=== PATIENT | female | born 1960 | race Hispanic/Latino ===

== ENCOUNTER 2016-05-26 15:44 | Observation (INO) | payer OTHER ==
[2016-05-26 15:48] VITALS: BMI 31.1
--- NOTE | 2016-05-26 16:35 | C.PDOC ---
History Of Present Illness <Ingrid Lee - Last Filed: 05/26/16 18:52> <Spike Guillory - Last Filed: 05/26/16 20:17> 55-year-old female, presents to the emergency department with complaints of abdominal pain x3 weeks. Patient ain is intermittent and generalized. States she discontinued Humalog after onset of pain "because I thought I was having a reaction." Pt currently not on any diabetes medication and pain is unchanged. Associated symptoms include nausea with non-bloody/non-bilious vomiting. No diarrhea. Pt has a Hx of Cholelithiasis and renal colic. No fever. Hx of chronic back and neck pain, on Percocet and Valium. Pt unable to take Percocet x4 days due to abdominal pain and vomiting. Also complaining of an anxiety exacerbation. All other Hx limited because patient is a poor historian. POOR HISTORIAN ABD PAIN X 3 WEEKS. GENERALIZED, INTERMIT. PS SELF DC HUMALOG AFTER ONSET OF PAIN "BC I THOUGHT I WAS HAVING A REACTION", CURRENTLY NOT ON DM MEDS. PAIN UNCHANGED. +NV. NO DIARRHEA. DENIES PSH. HO CHOLELITHIASIS AND RENAL COLIC. NO FEVER. HO CHRONIC BACK AND NECK PAIN, ON PERCOCET AND VALIUM. UNABLE TO TAKE PERCOCET X 4 DAYS DUE TO ABD PAIN, VOMITING. CO ANXIETY EXAC EXAM MOD DIST ANXIOUS NONTOXIC ABD B/L LQ TEND MILD SOFT NO R/G PSYCH ANXIOUS BUT CONSOLABLE (Ingrid Lee) History Per: Patient Onset/Duration Of Symptoms: Days <Ingrid Lee - Last Filed: 05/26/16 18:52> <Spike Guillory - Last Filed: 05/26/16 20:17> Time Seen by Provider: 05/26/16 16:08 Chief Complaint (Nursing): Abdominal Pain Past Medical History Reviewed: Historical Data, Nursing Documentation, Vital Signs - Medical History PMH: HTN, Hypercholesterolemia Family History: States: Unknown Family Hx - Social History Hx Alcohol Use: No Hx Substance Use: No - Immunization History Hx Tetanus Toxoid Vaccination: No Hx Influenza Vaccination: No Hx Pneumococcal Vaccination: Yes (4 years) <Ingrid Lee - Last Filed: 05/26/16 18:52> Vital Signs: Last Vital Signs Temp 98.2 F 05/26/16 15:51 Pulse 70 05/26/16 17:59 Resp 18 05/26/16 17:59 BP 155/78 H 05/26/16 17:59 Pulse Ox 100 05/26/16 18:53 Review Of Systems Except As Marked, All Systems Reviewed And Found Negative. Constitutional: Negative for: Fever Gastrointestinal: Positive for: Nausea, Vomiting, Abdominal Pain Musculoskeletal: Negative for: Back Pain Skin: Negative for: Rash Psych: Positive for: Anxiety <Ingrid Lee - Last Filed: 05/26/16 18:52> Physical Exam - Physical Exam Appears: Non-toxic, No Acute Distress, Other (MOD DIST ANXIOUS ) Skin: Warm, Dry, No Rash Head: Atraumatic, Normacephalic Eye(s): bilateral: Normal Inspection, PERRL Nose: Normal Oral Mucosa: Moist Lips: Normal Appearing Neck: Normal ROM Cardiovascular: Rhythm Regular Respiratory: Normal Breath Sounds, No Accessory Muscle Use Gastrointestinal/Abdominal: No Guarding, No Rebound, Other (ABD B/L LQ TEND MILD SOFT) Extremity: Normal ROM Neurological/Psych: Other (ANXIOUS BUT CONSOLABLE) <Ingrid Lee - Last Filed: 05/26/16 18:52> ED Course And Treatment - Laboratory Results Result Diagrams: 05/26/16 16:43 05/26/16 16:43 O2 Sat by Pulse Oximetry: 100 <Ingrid Lee - Last Filed: 05/26/16 18:52> - Laboratory Results Result Diagrams: 05/26/16 16:43 05/26/16 16:43 O2 Sat by Pulse Oximetry: 100 Pulse Ox Interpretation: Normal Reevaluation Time: 20:16 Reassessment Condition: Improved <Spike Guillory - Last Filed: 05/26/16 20:17> ED OBSERVATION Date of observation admission: 05/26/16 Time of observation admission: 16:30 <Ingrid Lee - Last Filed: 05/26/16 18:52> Discharge: Yes <Spike Guillory - Last Filed: 05/26/16 20:17> - Observation admission statement Patient is being placed in observation because:: ABD PAIN, NV; ANXIETY (Ingrid Lee) - Goals of Observation Goals of observation are:: NEG ACUTE ABD, SX IMPROVE (Ingrid Lee) - Progress Note Progress Note: 05/26/16 19:00 APPEARS COMFORTABLE NAD VSS S/O DR GUILLORY FU CT, DISPO (HoIngrid) Disposition <Ingrid Lee - Last Filed: 05/26/16 18:52> Counseled Patient/Family Regarding: Studies Performed, Diagnosis, Need For Followup, Rx Given - Disposition Disposition Time: 19:00 <Spike Guillory - Last Filed: 05/26/16 20:17> - Disposition Disposition: HOME/ ROUTINE Condition: FAIR - Clinical Impression Clinical Impression: Abdominal pain, Constipation - Scribe Statement The provider has reviewed the documentation as recorded by the Scribe <Ingrid Lee - Last Filed: 05/26/16 18:52> <Spike Guillory - Last Filed: 05/26/16 20:17> - Scribe Statement Kathleen Mcneil All medical record entries made by the Scribe were at my direction and personally dictated by me. I have reviewed the chart and agree that the record accurately reflects my personal performance of the history, physical exam, medical decision making, and the department course for this patient. I have also personally directed, reviewed, and agree with the discharge instructions and disposition. (Ingrid Lee)
[2016-05-26] MEDS ORDERED: Sodium Chloride 0.9% 1,000 ML IV ONE (16:36)
[2016-05-26] MEDS ORDERED: Morphine 4 MG/ML VIAL ONE (16:47)
[2016-05-26] MEDS ORDERED: Sodium Chloride 0.9% 1,000 ML ONE (16:47)
[2016-05-26 16:49] LABS: BASO # 0.1 K/uL (0.0-0.2); BASO % 0.7 % (0.0-2.0); EOS % 0.4 % (0.0-4.0); HEMATOCRIT 40.6 % (34.0-47.0); LYMPH # 2.1 K/uL (1.0-4.3); LYMPH % 25.4 % (20.0-40.0); MEAN CELL VOLUME 86.6 fL (81.0-99.0); MEAN CORPUSCULAR HGB CONC 33.4 g/dL (33.0-37.0); MEAN PLATELET VOLUME 10.2 fL (7.2-11.7); MONO # 0.3 K/uL (0.0-0.8); RED CELL DISTRIBUTION WIDTH 13.3 % (11.5-14.5); WHITE BLOOD COUNT 8.5 K/uL (4.8-10.8)
[2016-05-26 16:56] LABS: CHLORIDE 98 mmol/L (98-107)
[2016-05-26 16:57] LABS: POTASSIUM 4.7 mmol/L (3.6-5.2); SODIUM 137 mmol/L (132-148)
[2016-05-26 16:59] LABS: ALB/GLOB RATIO 1.5 (1.0-2.1); ALKALINE PHOSPHATASE 79 U/L (38-126); AST/SGOT 21 U/L (14-36); BILIRUBIN,TOTAL 0.9 mg/dL (0.2-1.3); CARBON DIOXIDE 25 mmol/L (22-30); GFR AFRICAN-AMERICAN > 60; TOTAL PROTEIN 7.6 g/dL (6.3-8.3)
[2016-05-26 17:00] LABS: ALT/SGPT 19 U/L (9-52); BLOOD UREA NITROGEN 28 mg/dL (7-17); CALCIUM 9.7 mg/dl (8.6-10.4); GLUCOSE,RANDOM 173 mg/dL (65-105)
[2016-05-26 17:05] LABS: VENOUS BLOOD GAS BASE EXCESS 2.7 mmol/L (0.0-2.0); VENOUS BLOOD GAS PCO2 44 mmHg (40-60); VENOUS BLOOD PH 7.41 (7.32-7.43)
--- NOTE | 2016-05-26 17:34 | RAD ---
PROCEDURE: CHEST RADIOGRAPH, 1 VIEW HISTORY: Abdominal pain COMPARISON: None available. FINDINGS: LUNGS: The lungs are well inflated and clear. PLEURA: No pneumothorax or pleural fluid seen. CARDIOVASCULAR: Normal. OSSEOUS STRUCTURES: No significant abnormalities. VISUALIZED UPPER ABDOMEN: Normal. OTHER FINDINGS: None. IMPRESSION: No active pulmonary disease.
--- NOTE | 2016-05-26 17:45 | US ---
HISTORY: Abdominal pain HO CHOLELITHIASIS COMPARISON: None. TECHNIQUE: Sonographic evaluation of the right upper quadrant of the abdomen. FINDINGS: LIVER: Measures 16.9 cm in length. There is diffuse increased echogenicity of the liver parenchyma. No mass. No intrahepatic bile duct dilatation. GALLBLADDER: Unremarkable. No gallstones. COMMON BILE DUCT: Measures 5.0 mm. No stones. No dilatation. PANCREAS: Unremarkable as visualized. No mass. No ductal dilatation. RIGHT KIDNEY: Measures 11.0 cm in length. Normal echogenicity. No calculus, mass, or hydronephrosis. AORTA: No aneurysmal dilatation. IVC: Unremarkable. OTHER FINDINGS: None . IMPRESSION: Diffuse increased echogenicity in the liver may reflect hepatic steatosis however parenchymal infectious/ inflammatory etiologies cannot be entirely excluded. Clinical and laboratory correlation is advised.
[2016-05-26 18:00] VITALS: RESP 18
[2016-05-26] MEDS ORDERED: Iodixanol 320 MG/ML 100 ML BOTTLE IV ONE (18:19)
[2016-05-26 20:23] VITALS: BP 149/77; PULSE 75; TEMP 98.1; O2SAT 99
[2016-05-26 20:28] LABS: URINE BACTERIA OCC (<OCC); URINE BILIRUBIN NEGATIVE (NEGATIVE); URINE BLOOD NEGATIVE (NEGATIVE); URINE COLOR Yellow (YELLOW); URINE GLUCOSE (UA) NORMAL (Normal); URINE KETONE 1+ mg/dL (NEGATIVE); URINE LEUKOCYTE ESTERASE 2+ Leu/uL (Negative); URINE PROTEIN NEGATIVE (NEGATIVE); URINE UROBILINOGEN NORMAL mg/dL (0.2-1.0); WBC URINE 46 /hpf (0-5)
--- NOTE | 2016-05-27 12:09 | CT ---
PROCEDURE: CT Abdomen and Pelvis HISTORY: abd pain COMPARISON: None. TECHNIQUE: Contrast dose: 100cc Visipaque Radiation dose: Total exam DLP = 937.34 mGy-cm. This CT exam was performed using one or more of the following dose reduction techniques: Automated exposure control, adjustment of the mA and/or kV according to patient size, and/or use of iterative reconstruction technique. FINDINGS: LOWER THORAX: Mild atelectasis/scarring changes in the middle lobe and lingular regions Small hiatal hernia LIVER: Liver is enlarged measuring nearly 21 cm in CC dimension. Mild fatty hepatic infiltration. Mild 1.5 mm round/elliptical shaped area of low attenuation within the posterior superior margin right lobe liver most likely representing hemangioma. Followup interval recommended to to assess stability and exclude other pathology GALLBLADDER AND BILE DUCTS: Unremarkable. PANCREAS: Unremarkable. No gross lesion or ductal dilatation. SPLEEN: Spleen is upper limits of normal in size ADRENALS: Unremarkable. No mass. KIDNEYS AND URETERS: Unremarkable. No hydronephrosis. No solid mass. VASCULATURE: Unremarkable. No aortic aneurysm. BOWEL: Unremarkable. No obstruction. No gross mural thic moderate amount of stool seen within the at ascending and transverse colon consistent with constipation. APPENDIX: Normal appendix. PERITONEUM: Unremarkable. No free fluid. No free air. Tiny fat containing umbilical hernia LYMPH NODES: Unremarkable. No enlarged lymph nodes. BLADDER: Unremarkable. REPRODUCTIVE: Unremarkable. BONES: No acute fracture. OTHER FINDINGS: None. IMPRESSION: Mild constipation. Mild hepatomegaly Probable small hemangioma. Followup interval recommended. Mild fatty hepatic infiltration. Borderline splenomegaly
--- NOTE | 2016-05-29 12:00 | CARD ---
APPROVED REPORT EKG Measurement Heart [id number] PA 158P12 [id number] <Conclusion> Normal sinus rhythm Nonspecific IVCD Abnormal ECG
== END 2016-05-26 20:17 | disposition home or self-care (01) ==
LOC: C.ER 15:44 → C.9OBSV 16:30
PROVIDERS: ADMIT Emergency Medicine; ATTEND Emergency Medicine
DX: R10.84 Generalized abdominal pain (principal); F41.9 Anxiety disorder, unspecified; I10 Essential (primary) hypertension; E78.00 Pure hypercholesterolemia, unspecified; K59.00 Constipation, unspecified
CPT/HCPCS: 71010; 74177; 76705; 80053; 81001; 82009; 82803; 83690; 85025; 96374; 96375; 99284; G0378; J2060; J2270; J2405; J2765; J7040; Q9967

== ENCOUNTER 2016-06-28 08:36 | Observation (INO) | payer OTHER ==
[2016-06-28 08:54] VITALS: BMI 32.2
[2016-06-28 10:03] LABS: BASO # 0.1 K/uL (0.0-0.2); BASO % 0.8 % (0.0-2.0); EOS # 0.1 K/uL (0.0-0.7); EOS % 1.4 % (0.0-4.0); LYMPH # 2.9 K/uL (1.0-4.3); MEAN CELL VOLUME 86.1 fL (81.0-99.0); MEAN CORPUSCULAR HGB CONC 33.7 g/dL (33.0-37.0); MEAN PLATELET VOLUME 10.1 fL (7.2-11.7); MONO # 0.5 K/uL (0.0-0.8); RED CELL DISTRIBUTION WIDTH 13.1 % (11.5-14.5); WHITE BLOOD COUNT 7.8 K/uL (4.8-10.8)
--- NOTE | 2016-06-28 10:04 | RAD ---
HISTORY: SOB COMPARISON: 05/26/2016 TECHNIQUE: Chest PA and lateral FINDINGS: LUNGS: No active pulmonary disease. PLEURA: No significant pleural effusion identified. No pneumothorax apparent. CARDIOVASCULAR: Normal. OSSEOUS STRUCTURES: No significant abnormalities. VISUALIZED UPPER ABDOMEN: Normal. OTHER FINDINGS: None. IMPRESSION: No active disease.
[2016-06-28 10:09] LABS: CHLORIDE 99 mmol/L (98-107); SODIUM 135 mmol/L (132-148)
[2016-06-28 10:10] LABS: POTASSIUM 4.7 mmol/L (3.6-5.2)
[2016-06-28 10:12] LABS: ALB/GLOB RATIO 1.4 (1.0-2.1); ALKALINE PHOSPHATASE 71 U/L (38-126); ALT/SGPT 23 U/L (9-52); AST/SGOT 21 U/L (14-36); BILIRUBIN,TOTAL 0.6 mg/dL (0.2-1.3); BLOOD UREA NITROGEN 16 mg/dL (7-17); CALCIUM 8.8 mg/dl (8.6-10.4); CARBON DIOXIDE 28 mmol/L (22-30); GFR AFRICAN-AMERICAN > 60; GLUCOSE,RANDOM 176 mg/dL (65-105); TOTAL PROTEIN 6.7 g/dL (6.3-8.3)
--- NOTE | 2016-06-28 10:15 | C.PDOC ---
History Of Present Illness 55 year old patient, with a past medical history of diabetes, anxiety, hypertension, hypercholesterolemia, and sciatica, is brought to the ED by ambulance complaining of chest pain that began prior to arrival. Patient states she was at home and saw a big red spider. Then she saw bed bugs crawling everywhere. Patient felt anxious, then the chest pain started. She called 9-1- 1. She was given Nitro and Aspirin on route to the ED. Patient denies fever, palpitations, shortness of breath, numbness weakness, headache or dizziness. Time Seen by Provider: 06/28/16 08:41 Chief Complaint (Nursing): Chest Pain History Per: Patient History/Exam Limitations: no limitations Onset/Duration Of Symptoms: Mins (prior to arrival) Current Symptoms Are (Timing): Still Present Context: Other Severity: Mild Pain Scale Rating Of: 3 Quality: "Pain" Exacerbating Factors: None Alleviating Factors: None Nitro Therapy Administered: 1, Per EMS Recent travel outside of the [place]: No Additional History Per: EMS Past Medical History Reviewed: Historical Data, Nursing Documentation, Vital Signs Vital Signs: Last Vital Signs Temp 97.7 F 06/28/16 13:34 Pulse 84 06/28/16 13:34 Resp 18 06/28/16 13:34 BP 123/80 06/28/16 13:34 Pulse Ox 99 06/28/16 13:34 - Medical History PMH: Anxiety, HTN, Hypercholesterolemia Family History: States: Unknown Family Hx - Social History Hx Alcohol Use: No Hx Substance Use: No - Immunization History Hx Tetanus Toxoid Vaccination: No Hx Influenza Vaccination: No Hx Pneumococcal Vaccination: Yes (4 years) Review Of Systems Except As Marked, All Systems Reviewed And Found Negative. Constitutional: Negative for: Fever Cardiovascular: Positive for: Chest Pain. Negative for: Palpitations Respiratory: Negative for: Shortness of Breath Gastrointestinal: Negative for: Nausea, Vomiting Neurological: Negative for: Weakness, Numbness, Headache, Dizziness Psych: Positive for: Anxiety Physical Exam - Physical Exam Appears: Non-toxic, No Acute Distress Skin: Warm, Dry Head: Atraumatic, Normacephalic Eye(s): bilateral: Normal Inspection, PERRL, EOMI Oral Mucosa: Moist Neck: Normal ROM, Supple Chest: Symmetrical, No Tenderness Cardiovascular: Rhythm Regular Respiratory: Normal Breath Sounds, No Rales, No Rhonchi, No Wheezing Gastrointestinal/Abdominal: Soft, No Tenderness Back: Normal Inspection, No CVA Tenderness Extremity: Normal ROM Neurological/Psych: Oriented x3, Normal Speech, Normal Motor, Normal Sensation Gait: Steady ED Course And Treatment - Laboratory Results Result Diagrams: 06/28/16 09:55 06/28/16 09:55 Lab Interpretation: Normal ECG: Interpreted By Sc ECG Rhythm: Sinus Rhythm, Nonspecific Changes ECG Interpretation: No Acute Changes Rate From EC O2 Sat by Pulse Oximetry: 99 (room air) Pulse Ox Interpretation: Normal - Radiology CXR: Interpreted by Sc CXR Interpretation: Yes: No Acute Disease - Other Rad chest x-ray X-Ray: Read By Radiologist (Giovanni Sandhu MD) Interpretation: HISTORY: SOB. COMPARISON: 05/26/2016. TECHNIQUE: Chest PA and lateral. FINDINGS: LUNGS: No active pulmonary disease. PLEURA: No significant pleural effusion identified. No pneumothorax apparent. CARDIOVASCULAR: Normal. OSSEOUS STRUCTURES: No significant abnormalities. VISUALIZED UPPER ABDOMEN: Normal. OTHER FINDINGS: None. IMPRESSION: No active disease. Progress Note: Plan: Labs, Chest x-ray - Physician Consult Information Physician Contacted: Linsey Sibley Outcome Of Conversation: tele OBS Disposition Discussed With : Linsey Sibley Doctor Will See Patient In The: Hospital - Disposition Disposition: HOSPITALIZED Disposition Time: 12:00 Condition: GOOD - POA Present On Arrival: None - Clinical Impression Clinical Impression: Chest pain - PA / MISSION COORDINATOR / Resident Statement MD/DO has reviewed & agrees with the documentation as recorded. - Scribe Statement The provider has reviewed the documentation as recorded by the Scribe Ariana Delcid All medical record entries made by the Scribe were at my direction and personally dictated by me. I have reviewed the chart and agree that the record accurately reflects my personal performance of the history, physical exam, medical decision making, and the department course for this patient. I have also personally directed, reviewed, and agree with the discharge instructions and disposition. Decision To Admit - Pt Status Changed To: Hospital Disposition Of: Observation - . Bed Request Type: Telemetry Admitting Physician: Linsey Sibley Patient Diagnosis: Chest pain
[2016-06-28 11:27] LABS: URINE BILIRUBIN NEGATIVE (NEGATIVE); URINE BLOOD NEGATIVE (NEGATIVE); URINE COLOR Yellow (YELLOW); URINE GLUCOSE (UA) NORMAL (Normal); URINE KETONE NEGATIVE (NEGATIVE); URINE LEUKOCYTE ESTERASE NEG Leu/uL (Negative); URINE PROTEIN NEGATIVE (NEGATIVE); URINE UROBILINOGEN NORMAL mg/dL (0.2-1.0); WBC URINE 1 /hpf (0-5)
[2016-06-28 11:30] LABS: RBC URINE 3 /hpf (0-3)
[2016-06-28] MEDS ORDERED: DIAZEPAM 10 MG PO PRN (13:21)
--- NOTE | 2016-06-28 13:29 | CP.PCM.HP ---
History of Present Illness - History of Present Illness History of Present Illness: COMPREHENSIVE HISTORY & PHYSICAL EXAM I55 year old patient, with a past medical history of diabetes, anxiety, hypertension, hypercholesterolemia, and sciatica, is brought to the ED by ambulance complaining of chest pain that began prior to arrival. Patient felt anxious, then the chest pain started. She called . She was given Nitro and Aspirin on route to the ED. PAST HIST. HTN/DMT2/ANXIETY/BACKPAIN PERSONAL HIST: Smoking. N Alcohol. N Allergy N Travel_- . FAMILY HIST : ROS : Constitutional: Negative for weight change, chills, night sweats, fatigue and usage of assist device. Eyes: Negative for redness, swelling, itching, discharge, vision changes, blurry vision, double vision, glaucoma, cataracts, Ears: Negative for hearing loss, ringing, , tinnitus, vertigo Nose: Negative for rhinorrhea, stuffiness, sniffing, itching, postnasal drip, discoloration, nasal congestion and epistaxis. Throat: Negative for throat clearing, sore throat, hoarseness, difficulty swallowing and difficulty speaking. Respiratory: Negative for cough, chest tightness, sputum or phlegm, chronic cough, hemoptysis, wheezing, snoring at night, pleuritic chest pain and daytime somnolence. Cardiovascular: POS for chest pain, palpitations, orthopnea, NO PND, Edema of legs, leg cramps, angina, claudication, , irregular heartbeat, Neurology: Negative for irritability, muscle weakness, numbness and tingling, seizures, tremors, migraines, slurred speech, syncope, memory loss, mood changes , recurrent headaches Gastrointestinal: Negative for difficulty swallowing, diarrhea, constipation, black stools, rectal bleeding, nausea, flatulence, reflux, poor appetite, changes in bowel habits, abdominal pain Genitourinary: Negative for frequent urination, hematuria, discharge, incontinence, urinary retention, frequent UTI, Psychiatric: Negative for depression, anxiety/panic, suicidal tendencies, Musculoskeletal: Negative for swollen joints, POS back pain, , neck pain, morning stiffness of joints, . Skin: Negative for rash, ulcers, itching, dry skin and pigmented lesions. P/E: Constitutional: Appears stated age and in no apparent distress. Head: Normocephalic. Ears: External ear canals patent without inflammation. Tympanic membranes intact with normal light reflex and landmark. Eyes: Pupils are central, bilaterally equal, symmetrical and reacts to light with normal movements and no icterus or pallor. Nose: External nares are patent. Mucosa is pink Mouth-Throat: Good general appearance and condition. No post-pharyngeal/oropharyngeal erythema and tonsillar hypertrophy. Good dental hygiene. Neck-Lymphatic: Neck is supple with normal ROM, no thyromegaly, lymph nodes or masses. JVD is normal with no carotid bruit. Lungs: Clear to percussion and auscultation with bilateral normal air entry. Cardiovascular: S1 and S2 are normal with no murmurs, gallops and rub. GI Exam: No hepatomegaly. Abdomen is soft and non-tender. No Organomegaly , masses or hernias are evident and bowel sounds are normal and active. Neurology: Higher function and all cranial nerves intact, with no gross motor or sensory deficit. Superficial and deep reflexes are normal with downwards planters. No cerebellar deficit with normal gait. Musculoskeletal: No tender spots with normal curvature of the spine with no swelling or restricted ROM of the small and large joints. TENDER SPINE . SLR 30 DEG Extremities: Homans sign absent. Intact pulses with no pitting edema, calf tenderness or skin color changes. Skin: No rash, eruptions or abnormal skin pigmentation LAB/RADIOLOGY: ASSESMENT : ACUTE CORONARY INSUFFICIENCY DM INSULIN DEP HTN L/S RADICULOPATHY PLAN: IN VIEW OF MULTIPLE RISK AND UNABLE TO EX , WILL NEED CARDIAC CATH Present on Admission - Present on Admission Any Indicators Present on Admission: No Past Patient History - Infectious Disease Hx of Infectious Diseases: None - Past Social History Smoking Status: Former Smoker - CARDIAC Hx Hypercholesterolemia: Yes Hx Hypertension: Yes - ENDOCRINE/METABOLIC Hx Endocrine Disorders: Yes Hx Diabetes Mellitus Type 2: Yes - MUSCULOSKELETAL/RHEUMATOLOGICAL Hx Musculoskeletal Disorders: Yes Other/Comment: Sciatica, Scoliosis - PSYCHIATRIC Hx Anxiety: Yes Hx Substance Use: No - SURGICAL HISTORY Hx Surgeries: No - ANESTHESIA Hx Anesthesia: No Meds Allergies/Adverse Reactions: Allergies Allergy/AdvReac Type Severity Reaction Status Date / Time insulin lispro [From Humalog] Allergy Verified 06/28/16 09:07 Results - Vital Signs Recent Vital Signs: Last Vital Signs Temp 98.2 F 06/28/16 11:38 Pulse 68 06/28/16 11:38 Resp 18 06/28/16 11:38 BP 158/85 H 06/28/16 11:38 Pulse Ox 99 06/28/16 11:48 - Labs Result Diagrams: 06/28/16 09:55 06/28/16 09:55
[2016-06-28] MEDS ORDERED: TIZANIDINE HCL 4 MG PO SCH (18:00)
[2016-06-28] MEDS: (Novolin R) Insulin Human Regular 100 units/ml vial SC SCH ×2 (19:06→21:50)
[2016-06-28] MEDS: Oxycodone/Acetaminophen 5/325 mg Tab PO PRN (19:54)
[2016-06-29] MEDS: Oxycodone/Acetaminophen 5/325 mg Tab PO PRN ×2 (01:02→17:48)
[2016-06-29] MEDS: (Novolin R) Insulin Human Regular 100 units/ml vial SC SCH ×4 (08:09→21:29)
--- NOTE | 2016-06-29 13:42 | CP.PCM.PN ---
Subjective - Date & Time of Evaluation Date of Evaluation: 06/29/16 Time of Evaluation: 13:45 - Subjective Subjective: FOR CARDIAC CATH TODAY TNI NEG Objective - Vital Signs/Intake and Output Vital Signs (last 24 hours): Temp Pulse Resp BP Pulse Ox 98.2 F 68 19 132/82 99 06/29/16 08:00 06/29/16 08:00 06/29/16 08:00 06/29/16 08:00 06/29/16 08:00 - Medications Medications: Current Medications Baclofen (Lioresal) 10 mg PO BID [facility] Last Admin: 06/29/16 10:16 Dose: 10 mg Diazepam (Valium) 10 mg PO Q8 [facility] Last Admin: 06/29/16 10:15 Dose: 10 mg Enoxaparin Sodium (Lovenox) 40 mg SC DAILY [facility] Insulin Human Regular (Novolin R) 0 unit SC ACHS [facility] PRN Reason: Protocol Last Admin: 06/29/16 08:09 Dose: Not Given Oxycodone/Acetaminophen (Percocet 5/325 Mg Tab) 2 tab PO Q6H PRN PRN Reason: Pain, severe (8-10) Stop: 07/01/16 19:35 Last Admin: 06/29/16 01:02 Dose: 2 tab
[2016-06-29] MEDS ORDERED: Midazolam 2 MG/2 ML VIAL ONE (16:11)
--- NOTE | 2016-06-29 19:49 | CARDCATH ---
PROCEDURE DATE: 06/29/2016 A 55-year-old white woman admitted with chest pain with a history of diabetes. The patient underwent a left heart catheterization. Left heart catheterization was done to the right femoral artery. Rig ht femoral artery was cleaned, draped. A #6 introducer sheath was inserted without any complication. An Angio-Seal was used post-catheterization. Homer was used for the right and left and pigtail f or LV angiogram. Left main is a normal vessel, which gives a large LAD which wraps around the apex with normal branche s, diagonal 1 and 2. The circumflex is also a large vessel and there are no lesions in the main trun k or in its branches. The right coronary is a dominant vessel and there are no lesions in the main t runk or any of its branches, including the posterior descending artery and posterolateral branches. LV gram shows slight hypokinesis on the anterolateral and inferior basal regions. Overall, the EF is about 40%-45%. The left ventricular end diastolic pressure was normal. FINAL CONCLUSION: Mild cardiomyopathy with normal coronary arteries with diabetes. PLAN: Medical therapy. Linsey Sibley MD cc: [id number] TT: 06/29/2016 19:48:30 jn
[2016-06-29] MEDS: Enoxaparin 40 mg Syringe SC SCH (21:28)
--- NOTE | 2016-06-29 23:05 | CARD ---
APPROVED REPORT EKG Measurement Heart [id number] MO [id number] <Conclusion> Normal sinus rhythm Left axis deviation Anteroseptal infarct, age undetermined Incomplete LBBB Abnormal ECG
[2016-06-29 23:34] VITALS: RESP 18
[2016-06-30] MEDS: Oxycodone/Acetaminophen 5/325 mg Tab PO PRN ×3 (01:20→16:55)
[2016-06-30 07:59] VITALS: TEMP 97.4; O2SAT 97
[2016-06-30] MEDS: Enoxaparin 40 mg Syringe SC SCH (09:39)
[2016-06-30] MEDS: (Novolin R) Insulin Human Regular 100 units/ml vial SC SCH ×4 (09:40→17:58)
[2016-06-30] MEDS ORDERED: Pneumococcal 23-Valent Vaccine IM ONE (10:00)
--- NOTE | 2016-06-30 13:31 | CP.PCM.DIS ---
Provider - Provider Date of Admission: 06/28/16 11:46 Attending physician: Linsey Sibley MD Time Spent in preparation of Discharge (in minutes): 35 Hospital Course - Lab Results Lab Results: Most Recent Lab Values WBC 7.8 K/uL (4.8-10.8) 06/28/16 09:55 RBC 4.53 Mil/uL (3.80-5.20) 06/28/16 09:55 Hgb 13.1 g/dL (11.0-16.0) 06/28/16 09:55 Hct 39.0 % (34.0-47.0) 06/28/16 09:55 MCV 86.1 fL (81.0-99.0) 06/28/16 09:55 MCH 29.0 pg (27.0-31.0) 06/28/16 09:55 MCHC 33.7 g/dL (33.0-37.0) 06/28/16 09:55 RDW 13.1 % (11.5-14.5) 06/28/16 09:55 Plt Count 208 K/uL (130-400) 06/28/16 09:55 MPV 10.1 fL (7.2-11.7) 06/28/16 09:55 Neut % (Auto) 54.8 % (50.0-75.0) 06/28/16 09:55 Lymph % (Auto) 37.0 % (20.0-40.0) 06/28/16 09:55 Howell % (Auto) 6.0 % (0.0-10.0) 06/28/16 09:55 Eos % (Auto) 1.4 % (0.0-4.0) 06/28/16 09:55 Baso % (Auto) 0.8 % (0.0-2.0) 06/28/16 09:55 Neut # 4.3 K/uL (1.8-7.0) 06/28/16 09:55 Lymph # 2.9 K/uL (1.0-4.3) 06/28/16 09:55 Howell # 0.5 K/uL (0.0-0.8) 06/28/16 09:55 Eos # 0.1 K/uL (0.0-0.7) 06/28/16 09:55 Baso # 0.1 K/uL (0.0-0.2) 06/28/16 09:55 Sodium 135 mmol/L (132-148) 06/28/16 09:55 Potassium 4.7 mmol/L (3.6-5.2) 06/28/16 09:55 Chloride 99 mmol/L (98-107) 06/28/16 09:55 Carbon Dioxide 28 mmol/L (22-30) 06/28/16 09:55 Anion Gap 13 (10-20) 06/28/16 09:55 BUN 16 mg/dL (7-17) 06/28/16 09:55 Creatinine 0.7 MG/DL (0.7-1.2) 06/28/16 09:55 Est GFR ( Amer) > 60 06/28/16 09:55 Est GFR (Non-Af Amer) > 60 06/28/16 09:55 POC Glucose (mg/dL) 357 mg/dL (65-110) H 06/30/16 11:15 Random Glucose 176 mg/dL (65-105) H 06/28/16 09:55 Calcium 8.8 mg/dl (8.6-10.4) 06/28/16 09:55 Total Bilirubin 0.6 mg/dL (0.2-1.3) 06/28/16 09:55 AST 21 U/L (14-36) 06/28/16 09:55 ALT 23 U/L (9-52) 06/28/16 09:55 Alkaline Phosphatase 71 U/L (38-126) 06/28/16 09:55 Total Creatine Kinase 35 U/L (30-135) 06/29/16 01:16 CK-MB (Mass) 0.60 ng/mL (0.0-3.38) 06/29/16 01:16 Troponin I < 0.0120 ng/mL (0.00-0.120) 06/28/16 09:55 Troponin I, Quant < 0.0120 ng/mL (0.00-0.120) 06/29/16 01:16 Total Protein 6.7 g/dL (6.3-8.3) 06/28/16 09:55 Albumin 3.9 g/dL (3.5-5.0) 06/28/16 09:55 Globulin 2.8 gm/dL (2.2-3.9) 06/28/16 09:55 Albumin/Globulin Ratio 1.4 (1.0-2.1) 06/28/16 09:55 Lipase 36 U/L (23-300) 06/28/16 09:55 Urine Color Yellow (YELLOW) 06/28/16 11:14 Urine Clarity Hazy (Clear) 06/28/16 11:14 Urine pH 5.0 (5.0-8.0) 06/28/16 11:14 Ur Specific [place] 1.016 (1.003-1.030) 06/28/16 11:14 Urine Protein Negative mg/dL (NEGATIVE) 06/28/16 11:14 Urine Glucose (UA) Normal mg/dL (Normal) 06/28/16 11:14 Urine Ketones Negative mg/dL (NEGATIVE) 06/28/16 11:14 Urine Blood Negative (NEGATIVE) 06/28/16 11:14 Urine Nitrate Negative (NEGATIVE) 06/28/16 11:14 Urine Bilirubin Negative (NEGATIVE) 06/28/16 11:14 Urine Urobilinogen Normal mg/dL (0.2-1.0) 06/28/16 11:14 Ur Leukocyte Esterase Neg Jana/uL (Negative) 06/28/16 11:14 Urine WBC (Auto) 1 /hpf (0-5) 06/28/16 11:14 Urine RBC (Auto) 3 /hpf (0-3) 06/28/16 11:14 Ur Squamous Epith Cells 36 /hpf (0-5) H 06/28/16 11:14 - Hospital Course Hospital Course: 55 year old patient, with a past medical history of diabetes, anxiety, hypertension, hypercholesterolemia, and sciatica, is brought to the ED by ambulance complaining of chest pain that began prior to arrival. Patient felt anxious, then the chest pain started. She called 9--. She was given Nitro and Aspirin on route to the ED. PAST HIST. HTN/DMT2/ANXIETY/BACKPAIN TNI WERE NEG CARDIAC CATH SHOWED NOR. CORONARIES AND MILD LV SYSTOLIC DYSFUNCTION F/U OUT DEPT Discharge Plan - Follow Up Plan Condition: GOOD Disposition: HOME/ ROUTINE
[2016-06-30 15:41] VITALS: BP 134/91; PULSE 71
== END 2016-06-30 19:27 | disposition home or self-care (01) ==
LOC: C.ER 08:36 → C.5T 11:46
PROVIDERS: ADMIT Internal Medicine Cardiovascular Disease; ATTEND Internal Medicine Cardiovascular Disease
DX: I42.9 Cardiomyopathy, unspecified (principal); I10 Essential (primary) hypertension; E11.9 Type 2 diabetes mellitus without complications; E78.00 Pure hypercholesterolemia, unspecified; F41.9 Anxiety disorder, unspecified; Z87.891 Personal history of nicotine dependence; Z23 Encounter for immunization

== ENCOUNTER 2016-07-20 00:35 | Emergency (ER) | payer OTHER ==
[2016-07-20 00:36] VITALS: BMI 32.2
[2016-07-20 00:43] VITALS: O2SAT 97
--- NOTE | 2016-07-20 01:07 | C.PDOC ---
History Of Present Illness Patient presents to the ER with a complaint of abdominal pain, vaginal bleeding and passing clots for the past 3 days. Patient states her LMP was 4 years ago. Denies fever or chills. Time Seen by Provider: 07/20/16 01:07 Chief Complaint (Nursing): Abdominal Pain History Per: Patient History/Exam Limitations: no limitations Onset/Duration Of Symptoms: Days (3) Current Symptoms Are (Timing): Still Present Severity: Moderate Pain Scale Rating Of: 4 Location Of Pain/Discomfort: Suprapubic Radiation Of Pain To:: None Quality Of Discomfort: Unable To Describe Associated Symptoms: Other (Vaginal bleeding, Passing clots). denies: Fever, Chills Exacerbating Factors: None Alleviating Factors: None Recent travel outside of the [place]: No Abnormal Vaginal Bleeding: Yes Past Medical History Reviewed: Historical Data, Nursing Documentation, Vital Signs Vital Signs: Last Vital Signs Temp 98.5 F 07/20/16 00:38 Pulse 82 07/20/16 02:30 Resp 20 07/20/16 02:30 BP 156/88 H 07/20/16 02:30 Pulse Ox 97 07/20/16 02:30 - Medical History PMH: Anxiety, HTN, Hypercholesterolemia Surgical History: No Surg Hx Family History: States: No Known Family Hx - Social History Hx Alcohol Use: No Hx Substance Use: No - Immunization History Hx Tetanus Toxoid Vaccination: No Hx Influenza Vaccination: No Hx Pneumococcal Vaccination: Yes (4 years) Review Of Systems Constitutional: Negative for: Fever, Chills Gastrointestinal: Positive for: Abdominal Pain Genitourinary: Positive for: Vaginal Bleeding Physical Exam - Physical Exam Appears: Non-toxic, Other (Anxious) Skin: Warm, Dry Oral Mucosa: Moist Chest: Symmetrical, No Tenderness Cardiovascular: Rhythm Regular, No Murmur Respiratory: No Rales, No Rhonchi, No Wheezing Gastrointestinal/Abdominal: Soft, Tenderness (Suprapubic), Other (0.1x0.2 scab 4cm under umbilicus) Neurological/Psych: Oriented x3 ED Course And Treatment - Laboratory Results Result Diagrams: 07/20/16 02:09 07/20/16 02:09 O2 Sat by Pulse Oximetry: 97 (Room air) Pulse Ox Interpretation: Normal Progress Note: Blood work, urinalysis and pelvic US ordered. IV fluids ordered. Reevaluation Time: 04:33 Reassessment Condition: Improved Disposition Counseled Patient/Family Regarding: Studies Performed, Diagnosis, Need For Followup - Disposition Referrals: Linsey Sibley MD [Staff Provider] - Disposition: HOME/ ROUTINE Disposition Time: 01:07 Condition: FAIR Instructions: Uterine Fibroids (ED) - Clinical Impression Clinical Impression: Abdominal pain, Fibroid uterus - Scribe Statement The provider has reviewed the documentation as recorded by the Scribe Ryan Ambrocio All medical record entries made by the Lelaibe were at my direction and personally dictated by me. I have reviewed the chart and agree that the record accurately reflects my personal performance of the history, physical exam, medical decision making, and the department course for this patient. I have also personally directed, reviewed, and agree with the discharge instructions and disposition.
[2016-07-20] MEDS ORDERED: Sodium Chloride 0.9% 1,000 ML IV ONE (01:15)
[2016-07-20 02:14] LABS: BASO % 0.5 % (0.0-2.0); EOS # 0.1 K/uL (0.0-0.7); EOS % 0.7 % (0.0-4.0); HEMATOCRIT 43.2 % (34.0-47.0); LYMPH # 2.1 K/uL (1.0-4.3); LYMPH % 24.9 % (20.0-40.0); MEAN CELL VOLUME 87.7 fL (81.0-99.0); MEAN CORPUSCULAR HEMOGLOBIN 28.7 pg (27.0-31.0); MEAN CORPUSCULAR HGB CONC 32.7 g/dL (33.0-37.0); MEAN PLATELET VOLUME 10.2 fL (7.2-11.7); MONO # 0.4 K/uL (0.0-0.8); MONO % 4.9 % (0.0-10.0); RED CELL DISTRIBUTION WIDTH 12.9 % (11.5-14.5); WHITE BLOOD COUNT 8.3 K/uL (4.8-10.8)
[2016-07-20 02:28] LABS: CHLORIDE 103 mmol/L (98-107); SODIUM 137 mmol/L (132-148)
[2016-07-20 02:30] LABS: GFR AFRICAN-AMERICAN > 60
[2016-07-20 02:31] LABS: ALB/GLOB RATIO 1.6 (1.0-2.1); ALKALINE PHOSPHATASE 87 U/L (38-126); ALT/SGPT 20 U/L (9-52); AST/SGOT 19 U/L (14-36); BILIRUBIN,TOTAL 0.8 mg/dL (0.2-1.3); BLOOD UREA NITROGEN 13 mg/dL (7-17); CARBON DIOXIDE 21 mmol/L (22-30); GLUCOSE,RANDOM 206 mg/dL (65-105); TOTAL PROTEIN 7.3 g/dL (6.3-8.3)
[2016-07-20 02:32] LABS: CALCIUM 9.1 mg/dl (8.6-10.4)
[2016-07-20] MEDS ORDERED: Morphine 4 MG/ML VIAL ONE (02:50)
[2016-07-20 04:49] LABS: RBC URINE 21 /hpf (0-3); URINE BACTERIA RARE (<OCC); URINE BILIRUBIN NEGATIVE (NEGATIVE); URINE BLOOD 3+ (NEGATIVE); URINE COLOR Yellow (YELLOW); URINE GLUCOSE (UA) NORMAL (Normal); URINE HYALINE CAST 0-2 /lpf (0-2); URINE KETONE NEGATIVE (NEGATIVE); URINE LEUKOCYTE ESTERASE 1+ Leu/uL (Negative); URINE PROTEIN NEGATIVE (NEGATIVE); URINE UROBILINOGEN NORMAL mg/dL (0.2-1.0); WBC URINE 25 /hpf (0-5)
[2016-07-20] MEDS ORDERED: Tetanus/Diphtheria Toxoids 0.5 ml Syringe IM ONE (04:54)
[2016-07-20 05:03] VITALS: BP 155/79; PULSE 83; RESP 18; TEMP 98.3
--- NOTE | 2016-07-20 10:41 | US ---
HISTORY: dub COMPARISON: No prior ultrasound available for direct comparison. CT abdomen and pelvis with contrast performed 05/26/16 TECHNIQUE: Real-time transabdominal pelvic ultrasound was performed. In addition a transvaginal pelvic ultrasound was necessary to better depict pelvic anatomy. FINDINGS: UTERUS: Measures 8.1 x 4.7 x 5.2 cm. Anteverted. Multiple probable uterine fibroids. For example: 1.6 x 1.2 x 1.9 cm fundus ; 1.5 x 1.1 x 1.5 cm mid uterus; 2.1 x 1.6 x 2 cm fundal. ENDOMETRIUM: Heterogeneous appearance of the endometrium which measures approximately 6 mm in diameter. CERVIX: Nabothian cysts. RIGHT OVARY: Measures 3.4 x 2.7 x 2.5 cm. Blood flow is demonstrated. 2.6 x 1.9 x 2.2 cm probable cyst. LEFT OVARY: Measures 2.2 x 2.3 x 1.6 cm. Blood flow is demonstrated. FREE FLUID: No significant free fluid noted. OTHER FINDINGS: None. IMPRESSION: Multiple probable uterine fibroids, the largest measuring approximately 2.1 x 1.6 x 2.0 cm in the fundus. 2.6 cm probable right ovarian cyst. 6 week ultrasound follow-up may be considered if indicated. Heterogeneous appearance of the endometrium measuring approximately 6 mm. Preliminary impression was provided by virtual radiologic. Study marked for PA review.
== END 2016-07-20 05:05 | disposition home or self-care (01) ==
LOC: C.ER 00:35
DX: D25.9 Leiomyoma of uterus, unspecified (principal); N93.9 Abnormal uterine and vaginal bleeding, unspecified
CPT/HCPCS: 76830; 76856; 80053; 81001; 84703; 85025; 85610; 85730; 86850; 86900; 90471; 90715; 96374; 96375; 99285; J1885; J2270; J7040

== ENCOUNTER 2016-09-01 16:48 | Emergency (ER) | payer OTHER ==
[2016-09-01 16:58] VITALS: BMI 29.7
[2016-09-01 17:04] VITALS: TEMP 98.9
[2016-09-01] MEDS ORDERED: Sodium Chloride 0.9% 1,000 ML ONE (17:38)
[2016-09-01] MEDS ORDERED: Hydrocortisone 2.5% Rectal Cream(30 gm) PR SCH (18:00)
[2016-09-01 18:12] LABS: BASO % 0.2 % (0.0-2.0); EOS % 0.2 % (0.0-4.0); HEMATOCRIT 36.7 % (34.0-47.0); LYMPH # 1.9 K/uL (1.0-4.3); LYMPH % 17.4 % (20.0-40.0); MEAN CORPUSCULAR HEMOGLOBIN 28.9 pg (27.0-31.0); MEAN CORPUSCULAR HGB CONC 33.8 g/dL (33.0-37.0); MEAN PLATELET VOLUME 11.2 fL (7.2-11.7); MONO # 0.6 K/uL (0.0-0.8); MONO % 5.4 % (0.0-10.0); RED CELL DISTRIBUTION WIDTH 12.6 % (11.5-14.5); WHITE BLOOD COUNT 10.7 K/uL (4.8-10.8)
[2016-09-01 18:18] LABS: MEAN CELL VOLUME 85.6 fL (81.0-99.0)
[2016-09-01 18:20] LABS: CHLORIDE 101 mmol/L (98-107); POTASSIUM 5.2 mmol/L (3.6-5.2); SODIUM 136 mmol/L (132-148)
[2016-09-01 18:22] LABS: GFR AFRICAN-AMERICAN > 60
[2016-09-01 18:23] LABS: ALB/GLOB RATIO 1.3 (1.0-2.1); ALKALINE PHOSPHATASE 61 U/L (38-126); ALT/SGPT 31 U/L (9-52); AST/SGOT 24 U/L (14-36); BLOOD UREA NITROGEN 22 mg/dL (7-17); CALCIUM 9.3 mg/dl (8.6-10.4); CARBON DIOXIDE 19 mmol/L (22-30); GLUCOSE,RANDOM 157 mg/dL (65-105); TOTAL PROTEIN 6.4 g/dL (6.3-8.3)
[2016-09-01 18:24] LABS: ALCOHOL SERUM < 10 mg/dl (0-10)
--- NOTE | 2016-09-01 19:26 | C.PDOC ---
History Of Present Illness 56 year old female presents to the emergency department with complaints of anal pain for three days. Patient states she was seen at [facility] a few days ago for similar symptoms. She notes bright red blood per rectum with hard stool but denies abdominal pain, nausea, vomiting, or diarrhea. Time Seen by Provider: 09/01/16 17:16 Chief Complaint (Nursing): GI Problem History Per: Patient History/Exam Limitations: None Onset/Duration Of Symptoms: Days (3 days ) Current Symptoms Are (Timing): Still Present Use Of Anticoag/Antiplatelets: No Past Medical History Vital Signs: Last Vital Signs Temp 98.9 F 09/01/16 16:58 Pulse 66 09/01/16 18:35 Resp 12 09/01/16 18:35 BP 84/43 L 09/01/16 18:35 Pulse Ox 97 09/01/16 18:35 - Medical History PMH: Anxiety, HTN, Hypercholesterolemia Family History: States: Unknown Family Hx - Social History Hx Alcohol Use: No Hx Substance Use: No - Immunization History Hx Tetanus Toxoid Vaccination: No Hx Influenza Vaccination: No Hx Pneumococcal Vaccination: Yes (4 years) ED Course And Treatment - Laboratory Results Result Diagrams: 09/01/16 18:00 09/01/16 18:00 O2 Sat by Pulse Oximetry: 97 Disposition - Disposition Forms: [facility] ([place]) - Scribe Statement The provider has reviewed the documentation as recorded by the Scribe Renata Shaw All medical record entries made by the Scribe were at my direction and personally dictated by me. I have reviewed the chart and agree that the record accurately reflects my personal performance of the history, physical exam, medical decision making, and the department course for this patient. I have also personally directed, reviewed, and agree with the discharge instructions and disposition.
--- NOTE | 2016-09-01 19:32 | C.PDOC ---
History Of Present Illness 56 year old female presents to the emergency department with complaints of anal pain for three days. Patient states she was seen at [facility] a few days ago for similar symptoms. As per [place] [employer], patient has extensive narcotics and benzodiazepines regimen. She notes bright red blood per rectum with hard stool but denies abdominal pain, nausea, vomiting, or diarrhea. Time Seen by Provider: 09/01/16 17:16 Chief Complaint (Nursing): GI Problem History Per: Patient History/Exam Limitations: no limitations Onset/Duration Of Symptoms: Days Current Symptoms Are (Timing): Still Present Number Of Bleeding Episodes: Multiple: (in stool) Quality Of Discomfort: "Pain" Associated Symptoms: denies: Nausea, Vomiting, Diarrhea Recent travel outside of the [place]: No Past Medical History Reviewed: Historical Data, Nursing Documentation, Vital Signs Vital Signs: Last Vital Signs Temp 98.9 F 09/01/16 16:58 Pulse 56 L 09/01/16 19:08 Resp 14 09/01/16 19:08 BP 105/44 L 09/01/16 19:08 Pulse Ox 97 09/01/16 19:38 - Medical History PMH: Anxiety, HTN, Hypercholesterolemia Family History: States: Unknown Family Hx - Social History Hx Alcohol Use: No Hx Substance Use: No - Immunization History Hx Tetanus Toxoid Vaccination: No Hx Influenza Vaccination: No Hx Pneumococcal Vaccination: Yes (4 years) Review Of Systems Constitutional: Negative for: Fever, Chills Cardiovascular: Negative for: Chest Pain Respiratory: Negative for: Shortness of Breath Gastrointestinal: Positive for: Hematochezia, Rectal Pain. Negative for: Nausea , Vomiting, Abdominal Pain, Diarrhea Physical Exam - Physical Exam Appears: Non-toxic, No Acute Distress, Other (Patient's behavior is bizzare and she is talkative ) Skin: Warm, Dry Head: Atraumatic Eye(s): bilateral: Normal Inspection, PERRL, EOMI Chest: Symmetrical, No Deformity Cardiovascular: Rhythm Regular Respiratory: Normal Breath Sounds, No Rhonchi, No Wheezing Gastrointestinal/Abdominal: Soft, No Tenderness, No Distention, No Guarding, No Rebound Rectal: No Hemorrhoids, Tenderness (rectal tenderness), Other (liquid soft stool ) Extremity: Normal ROM, No Tenderness ED Course And Treatment - Laboratory Results Result Diagrams: 09/01/16 18:00 09/01/16 18:00 Lab Interpretation: Normal (no microcytic anemia) O2 Sat by Pulse Oximetry: 97 (room air ) Pulse Ox Interpretation: Normal Progress Note: annusol anal Reevaluation Time: 20:06 Reassessment Condition: Improved Medical Decision Making Medical Decision Making: anal brbpr with hard stools, now loose stools ? internal/external hemorroids, Disposition Doctor Will See Patient In The: Office Counseled Patient/Family Regarding: Studies Performed, Diagnosis - Disposition Disposition: HOME/ ROUTINE Disposition Time: 20:07 Condition: GOOD Forms: [employer] [facility] (Belarusian) - Clinical Impression Clinical Impression: Bright red blood per rectum - Scribe Statement The provider has reviewed the documentation as recorded by the Scribe Renata Shaw All medical record entries made by the Scribe were at my direction and personally dictated by me. I have reviewed the chart and agree that the record accurately reflects my personal performance of the history, physical exam, medical decision making, and the department course for this patient. I have also personally directed, reviewed, and agree with the discharge instructions and disposition.
[2016-09-01 20:46] VITALS: BP 105/57; PULSE 60; RESP 20; O2SAT 100
== END 2016-09-01 20:30 | disposition home or self-care (01) ==
LOC: C.ER 16:48
DX: K62.5 Hemorrhage of anus and rectum (principal)
CPT/HCPCS: 80053; 80320; 83690; 85025; 99285; G0328

== ENCOUNTER 2016-09-12 11:06 | Inpatient (IN) | payer OTHER ==
[2016-09-12 11:06] VITALS: BMI 29.7
[2016-09-12] MEDS ORDERED: Sodium Chloride 0.9% 1,000 ML IV ONE (12:05)
[2016-09-12] MEDS ORDERED: Sodium Chloride 0.9% 1,000 ML ONE (12:07)
[2016-09-12] MEDS ORDERED: Pantoprazole 80 MG in Sodium Chloride 0.9% 100 ML IVPB STA (12:07)
[2016-09-12 12:21] LABS: BASO % 0.2 % (0.0-2.0); HEMATOCRIT 41.2 % (34.0-47.0); LYMPH # 1.6 K/uL (1.0-4.3); LYMPH % 11.1 % (20.0-40.0); MEAN CELL VOLUME 84.9 fL (81.0-99.0); MEAN CORPUSCULAR HEMOGLOBIN 28.6 pg (27.0-31.0); MEAN CORPUSCULAR HGB CONC 33.7 g/dL (33.0-37.0); MEAN PLATELET VOLUME 11.1 fL (7.2-11.7); MONO # 0.4 K/uL (0.0-0.8); MONO % 2.7 % (0.0-10.0); RED CELL DISTRIBUTION WIDTH 12.7 % (11.5-14.5); WHITE BLOOD COUNT 14.9 K/uL (4.8-10.8)
[2016-09-12 12:30] LABS: CHLORIDE 99 mmol/L (98-107)
[2016-09-12 12:31] LABS: POTASSIUM 4.5 mmol/L (3.6-5.2); SODIUM 142 mmol/L (132-148)
[2016-09-12 12:33] LABS: GFR AFRICAN-AMERICAN > 60
[2016-09-12 12:34] LABS: ALB/GLOB RATIO 1.4 (1.0-2.1); ALKALINE PHOSPHATASE 79 U/L (38-126); ALT/SGPT 35 U/L (9-52); AST/SGOT 20 U/L (14-36); BLOOD UREA NITROGEN 25 mg/dL (7-17); CALCIUM 10.2 mg/dl (8.6-10.4); CARBON DIOXIDE 24 mmol/L (22-30); GLUCOSE,RANDOM 295 mg/dL (65-105); TOTAL PROTEIN 7.8 g/dL (6.3-8.3)
--- NOTE | 2016-09-12 13:17 | C.PDOC ---
History Of Present Illness Patient presents to ED c/o diffuse abdominal pain, nausea, vomiting since approx 6am. Pain is nonradiating, not associated with chest pain, SOB, fever, cough, dysuria. Patient does state she has bleeding from "down there", unsure if rectal or vaginal bleeding. Time Seen by Provider: 09/12/16 11:30 Chief Complaint (Nursing): Abdominal Pain History Per: Patient History/Exam Limitations: no limitations Onset/Duration Of Symptoms: Hrs Current Symptoms Are (Timing): Still Present Severity: Moderate Location Of Pain/Discomfort: Diffuse Radiation Of Pain To:: None Quality Of Discomfort: "Pain" Associated Symptoms: Nausea, Vomiting. denies: Fever, Chills, Diarrhea Past Medical History Reviewed: Historical Data, Nursing Documentation, Vital Signs Vital Signs: Last Vital Signs Temp 98.4 F 09/18/16 15:10 Pulse 79 09/18/16 15:10 Resp 20 09/18/16 15:10 BP 131/77 09/18/16 15:10 Pulse Ox 100 09/18/16 15:10 - Medical History PMH: Anxiety, HTN, Hypercholesterolemia Family History: States: No Known Family Hx - Social History Hx Alcohol Use: No Hx Substance Use: No - Immunization History Hx Tetanus Toxoid Vaccination: No Hx Influenza Vaccination: No Hx Pneumococcal Vaccination: Yes (4 years) Review Of Systems Except As Marked, All Systems Reviewed And Found Negative. Constitutional: Negative for: Fever, Chills Cardiovascular: Negative for: Chest Pain, Palpitations Respiratory: Negative for: Cough, Shortness of Breath Gastrointestinal: Positive for: Nausea, Vomiting, Abdominal Pain. Negative for : Diarrhea Genitourinary: Negative for: Dysuria, Hematuria Skin: Negative for: Rash Physical Exam - Physical Exam Appears: Well, Non-toxic, In Acute Distress (in moderate pain, actively vomiting (coffee ground)), Other (anxious appearing ) Skin: Warm, Dry Oral Mucosa: Moist Cardiovascular: Rhythm Regular Respiratory: Normal Breath Sounds, No Rales, No Rhonchi, No Wheezing Gastrointestinal/Abdominal: Bowel Sounds, Soft, Tenderness (diffuse TTP greatest at epigastric area, (-) McBurney's, (-) Mcelroy's) Back: Normal Inspection, No CVA Tenderness Neurological/Psych: Oriented x3 ED Course And Treatment - Laboratory Results Result Diagrams: 09/18/16 07:18 09/18/16 07:18 ECG: Interpreted By Me, Viewed By Me (NSR 92 bpm, left axis deviation, Q waves III, V2, no acute ST changes, prolonged QTc) ECG Interpretation: Abnormal O2 Sat by Pulse Oximetry: 96 (ra) Pulse Ox Interpretation: Normal - Radiology CXR: Interpreted by Me, Viewed By Me CXR Interpretation: Yes: No Acute Disease. No: Infiltrates - CT Scan/US CT ABD/PELVIS Other Rad Studies (CT/US): Read By Radiologist, Radiology Report Reviewed CT/US Interpretation: Accession No. : [id number]. Patient Name / ID : JACQUELYN CORDERO / [id number]. Exam Date : 09/12/2016 14:27:25 ( Approved ). Study Comment : Sex / Age : F / 56Y. Creator : Aleida Rendon MD. Dictator : A P Supervisor : [employer] Stitcher [employer]co : Aleida Rendon MD. Approver2 : Report Date : 09/12/2016 15:24:00. My Comment : . PROCEDURE: CT Abdomen and Pelvis with contrast. HISTORY: abd pain, coffee ground emesis. COMPARISON : CT abdomen and pelvis with IV contrast performed 06/02/16. TECHNIQUE: Contrast dose: 100 mL Visipaque. Radiation dose: Total exam DLP = 880.27 mGy- cm. This CT exam was performed using one or more of the following dose reduction techniques: Automated exposure control, adjustment of the mA and/or kV according to patient size, and/or use of iterative reconstruction technique. FINDINGS: LOWER THORAX: No visible consolidation, pleural effusion, or pneumothorax. LIVER: Hepatomegaly. Hypoattenuation of the liver compatible with hepatic steatosis. 9 mm hypodensity at the posterior right hepatic dome with adjacent focus of enhancement, possibly hemangioma. GALLBLADDER AND BILE DUCTS: Unremarkable. PANCREAS: Unremarkable. SPLEEN: Unremarkable. ADRENALS: Unremarkable. KIDNEYS AND URETERS: The kidneys enhance symmetrically. No hydronephrosis or obstructing calculus identified. VASCULATURE: No aortic aneurysm. BOWEL: Stomach is nondistended. Lack of oral contrast limits evaluation for bowel pathology. Bowel loops appear within normal limits of caliber without evidence of obstruction. APPENDIX: The appendix appears within normal limits of caliber. No secondary signs of acute appendicitis. PERITONEUM: No significant free fluid. No definite free air. LYMPH NODES: No bulky adenopathy identified. BLADDER: Unremarkable. REPRODUCTIVE: Uterus is present. Numerous probable fibroids including 15 mm probable right exophytic fundal fibroid and 6 mm suspected exophytic fundal fibroid. BONES: No acute osseous abnormality is detected. OTHER FINDINGS: Tiny fat containing umbilical hernia. IMPRESSION: Hepatomegaly. Hypodense lesion in the posterior right hepatic lobe with adjacent focus of enhancement, possibly small hemangioma. Interval follow-up recommended. Hepatic steatosis. Fibroid uterus. Additional findings as above. Progress Note: Blood work, EKG, CXR, UA ordered and reviewed. Patient given IV NS bolus, IV zofran, IV protonix bolus + drip. Patient continued to c/o pain, IV morphine ordered. CT scan abd/pelvis ordered and reviewed. - Physician Consult Information Physician Contacted: Linsey Sibley Outcome Of Conversation: Discussed patient with Dr. Sibley, agrees with telemetry admission for abdominal pain, coffee ground emesis, elevated troponin. He would like Dr. Castro for GI - consult entered. Critical Care Time - Critical Care Note Total Time (in mins): 35 Documented critical care: time excludes all time spent performing seperately billable procedures. Medical Decision Making Medical Decision Making: [facility] reviewed: 08/18/2016 1 08/18/2016 OXYCODONE-ACETAMINOPHEN 10-325 120.0 30 [place] OCHOA [id number] [facility] ([id number]) 0 60.0 [place] 08/18/2016 1 08/18/2016 DIAZEPAM 10 MG TABLET 60.0 30 MA OCHOA [id number] [place] (3113 ) 0 [place] 07/20/2016 1 07/20/2016 OXYCODONE-ACETAMINOPHEN 10-325 120.0 30 [place] OCHOA [id number] [facility] ([id number]) 0 60.0 [place] 07/20/2016 1 07/20/2016 DIAZEPAM 10 MG TABLET 60.0 30 [place] OCHOA [id number] [facility] (3113 ) 0 [place] 06/22/2016 1 06/22/2016 OXYCODONE-ACETAMINOPHEN 10-325 120.0 30 [place] OCHOA [id number] [facility] ([id number]) 0 60.0 [place] 06/22/2016 1 06/22/2016 DIAZEPAM 10 MG TABLET 60.0 30 MA OCHOA [id number] [facility] (3113 ) 0 [place] 05/22/2016 1 05/22/2016 OXYCODONE-ACETAMINOPHEN 10-325 120.0 30 MA OCHOA [id number] [facility] (3113) 0 60.0 [place] 05/22/2016 1 04/21/2016 DIAZEPAM 10 MG TABLET 60.0 30 MA OCHOA [id number] [facility] (3113 ) 1 [place] 04/21/2016 1 04/21/2016 DIAZEPAM 10 MG TABLET 60.0 30 MA OCHOA [id number] [facility] (3113 ) 0 [place] 04/21/2016 1 04/21/2016 OXYCODONE-ACETAMINOPHEN 10-325 120.0 30 MA OCHOA [id number] [facility] (3113) 0 60.0 [place] 03/24/2016 1 03/24/2016 DIAZEPAM 10 MG TABLET 60.0 30 MA OCHOA [id number] [facility] (3113 ) 0 [place] 03/24/2016 1 03/24/2016 OXYCODONE-ACETAMINOPHEN 10-325 120.0 30 MA OCHOA [id number] [facility] (3113) 0 60.0 [place] 02/23/2016 1 02/23/2016 OXYCODONE-ACETAMINOPHEN 10-325 120.0 30 MA OCHOA [id number] [facility] (3113) 0 60.0 Comm [facility] 02/23/2016 1 02/23/2016 DIAZEPAM 10 MG TABLET 60.0 30 MA OCHOA [id number] [facility] (3113 ) 0 [place] Disposition - Disposition Disposition: HOSPITALIZED Disposition Time: 15:35 Condition: GUARDED - Clinical Impression Clinical Impression: Coffee ground emesis, Elevated troponin, Abdominal pain Decision To Admit - Pt Status Changed To: Hospital Disposition Of: Inpatient - Admit Certification Admit to Inpatient:: After my assessment, the patient will require hospitalization for at least two midnights. This is because of the severity of symptoms shown, intensity of services needed, and/or the medical risk in this patient being treated as an outpatient. - InPatient: Physician Admission Certification:: SEE NOTES - . Bed Request Type: Telemetry Admitting Physician: Linsey Sibley Patient Diagnosis: Coffee ground emesis, Elevated troponin, Abdominal pain
[2016-09-12] MEDS ORDERED: Morphine 4 MG/ML VIAL ONE (13:30)
--- NOTE | 2016-09-12 14:01 | RAD ---
HISTORY: elevated trop COMPARISON: Chest x-ray performed 06/28/16 TECHNIQUE: Chest, one view. FINDINGS: Examination limited by habitus. LUNGS: No focal consolidation. Please note that chest x-ray has limited sensitivity for the detection of pulmonary masses. PLEURA: No significant pleural effusion identified. No definite pneumothorax . CARDIOVASCULAR: The cardiomediastinal silhouette appears within normal limits of size. OSSEOUS STRUCTURES: No acute osseous abnormality identified. VISUALIZED UPPER ABDOMEN: Unremarkable. OTHER FINDINGS: None. IMPRESSION: No focal consolidation, significant pleural effusion, or definite pneumothorax identified.
[2016-09-12] MEDS ORDERED: Iodixanol 320 MG/ML 100 ML BOTTLE IV ONE (14:15)
--- NOTE | 2016-09-12 15:25 | CT ---
PROCEDURE: CT Abdomen and Pelvis with contrast HISTORY: abd pain, coffee ground emesis COMPARISON: CT abdomen and pelvis with IV contrast performed 06/02/16 TECHNIQUE: Contrast dose: 100 mL Visipaque Radiation dose: Total exam DLP = 880.27 mGy-cm. This CT exam was performed using one or more of the following dose reduction techniques: Automated exposure control, adjustment of the mA and/or kV according to patient size, and/or use of iterative reconstruction technique. FINDINGS: LOWER THORAX: No visible consolidation, pleural effusion, or pneumothorax. LIVER: Hepatomegaly. Hypoattenuation of the liver compatible with hepatic steatosis. 9 mm hypodensity at the posterior right hepatic dome with adjacent focus of enhancement, possibly hemangioma. GALLBLADDER AND BILE DUCTS: Unremarkable. PANCREAS: Unremarkable. SPLEEN: Unremarkable. ADRENALS: Unremarkable. KIDNEYS AND URETERS: The kidneys enhance symmetrically. No hydronephrosis or obstructing calculus identified. VASCULATURE: No aortic aneurysm. BOWEL: Stomach is nondistended. Lack of oral contrast limits evaluation for bowel pathology. Bowel loops appear within normal limits of caliber without evidence of obstruction. APPENDIX: The appendix appears within normal limits of caliber. No secondary signs of acute appendicitis. PERITONEUM: No significant free fluid. No definite free air. LYMPH NODES: No bulky adenopathy identified. BLADDER: Unremarkable. REPRODUCTIVE: Uterus is present. Numerous probable fibroids including 15 mm probable right exophytic fundal fibroid and 6 mm suspected exophytic fundal fibroid. BONES: No acute osseous abnormality is detected. OTHER FINDINGS: Tiny fat containing umbilical hernia. IMPRESSION: Hepatomegaly. Hypodense lesion in the posterior right hepatic lobe with adjacent focus of enhancement, possibly small hemangioma. Interval follow-up recommended. Hepatic steatosis. Fibroid uterus. Additional findings as above.
[2016-09-12 15:48] LABS: BASO # 0.1 K/uL (0.0-0.2); BASO % 0.3 % (0.0-2.0); HEMATOCRIT 41.1 % (34.0-47.0); LYMPH # 1.3 K/uL (1.0-4.3); LYMPH % 6.9 % (20.0-40.0); MEAN CELL VOLUME 85.2 fL (81.0-99.0); MEAN CORPUSCULAR HEMOGLOBIN 28.5 pg (27.0-31.0); MEAN CORPUSCULAR HGB CONC 33.4 g/dL (33.0-37.0); MEAN PLATELET VOLUME 10.2 fL (7.2-11.7); MONO # 0.6 K/uL (0.0-0.8); PLATELET COUNT 200 K/uL (130-400); RED CELL DISTRIBUTION WIDTH 12.8 % (11.5-14.5)
[2016-09-12 16:08] LABS: BASOPHIL 1 % (0-2); NEUTROPHIL 82 % (50-75); TOTAL CELLS COUNTED 100
[2016-09-12 20:48] LABS: RBC URINE 5 /hpf (0-3); URINE BACTERIA OCC (<OCC); URINE BILIRUBIN NEGATIVE (NEGATIVE); URINE BLOOD 1+ (NEGATIVE); URINE COLOR Yellow (YELLOW); URINE GLUCOSE (UA) 3+ mg/dL (Normal); URINE KETONE 1+ mg/dL (NEGATIVE); URINE LEUKOCYTE ESTERASE 2+ Leu/uL (Negative); URINE PROTEIN 2+ mg/dL (NEGATIVE); URINE UROBILINOGEN NORMAL mg/dL (0.2-1.0); WBC URINE 27 /hpf (0-5)
--- NOTE | 2016-09-12 23:59 | CP.PCM.HP ---
History of Present Illness - History of Present Illness History of Present Illness: COMPREHENSIVE HISTORY & PHYSICAL EXAM HPI ADMITTED WITH COFFEE GROUND EMESIS IN ER A/W N/V AND EPIGASTRIC ABD. PAIN FOR FEW DAYS AND HAS INCREASED IN INTENSITY . NOTHING ACUTE IN LABS AND IMAGING IN ER NO INGASTION OF ASA /CAFFEINE , RECENTLY PT HAD D&C AND HAS VAGUE LOWER ABD PAIN A/W VAGINAL SPOTTING PAST HIST. T2DM WITH INSULIN/LUMBAR RADICULOPATHY /NORMAL CATH 3 MONTHS AGO PERSONAL HIST: Smoking. N Alcohol. N Allergy N Travel_- . FAMILY HIST : ROS : Constitutional: Negative for weight change, chills, night sweats, fatigue and usage of assist device. Eyes: Negative for redness, swelling, itching, discharge, vision changes, blurry vision, double vision, glaucoma, cataracts, Ears: Negative for hearing loss, ringing, , tinnitus, vertigo Nose: Negative for rhinorrhea, stuffiness, sniffing, itching, postnasal drip, discoloration, nasal congestion and epistaxis. Throat: Negative for throat clearing, sore throat, hoarseness, difficulty swallowing and difficulty speaking. Respiratory: Negative for cough, , sputum production, chest tightness, wheezing, pleuritic chest pain ,daytime somnolence, chronic cough, hemoptysis, snoring at night, Cardiovascular: Negative for chest pain, palpitations, orthopnea, PND, Edema of legs, leg cramps, angina, claudication, , irregular heartbeat, Neurology: Negative for irritability, muscle weakness, numbness and tingling, seizures, tremors, migraines, slurred speech, syncope, memory loss, mood changes , recurrent headaches Gastrointestinal: UGI BLEEDING WITH ABD. PAIN Genitourinary: Negative for frequent urination, hematuria, discharge, incontinence, urinary retention, frequent UTI, Psychiatric: Negative for depression, anxiety/panic, suicidal tendencies, Musculoskeletal: Negative for swollen joints, back pain, , neck pain, morning stiffness of joints, . Skin: Negative for rash, ulcers, itching, dry skin and pigmented lesions. P/E: Constitutional: Appears stated age and in no apparent distress. Head: Normocephalic. Ears: External ear canals patent without inflammation. Tympanic membranes intact with normal light reflex and landmark. Eyes: Pupils are central, bilaterally equal, symmetrical and reacts to light with normal movements and no icterus or pallor. Nose: External nares are patent. Mucosa is pink Mouth-Throat: Good general appearance and condition. No post-pharyngeal/oropharyngeal erythema and tonsillar hypertrophy. Good dental hygiene. Neck-Lymphatic: Neck is supple with normal ROM, no thyromegaly, lymph nodes or masses. JVD is normal with no carotid bruit. Lungs: Clear to percussion and auscultation with bilateral normal air entry. Cardiovascular: S1 and S2 are normal with no murmurs, gallops and rub. GI Exam: No hepatomegaly. Abdomen is soft and tender. No Organomegaly , masses or hernias are evident and bowel sounds are normal and active. Neurology: Higher function and all cranial nerves intact, with no gross motor or sensory deficit. Superficial and deep reflexes are normal with downwards planters. No cerebellar deficit with normal gait. Musculoskeletal: tender spots with normal curvature of the spine with no swelling POS restricted ROM of the SPINE Extremities: Homans sign absent. Intact pulses with no pitting edema, calf tenderness or skin color changes. Skin: No rash, eruptions or abnormal skin pigmentation LAB/RADIOLOGY: ASSESMENT : UGI BLEEDING ?SEC TO ACUTE GASTRITIS TY2DM LUMBAR RADICULOPATHY RECENT D&C PLAN: GI EVAL FOR EGD Present on Admission - Present on Admission Any Indicators Present on Admission: No Past Patient History - Infectious Disease Hx of Infectious Diseases: None - Past Medical History & Family History Past Medical History?: Yes - Past Social History Smoking Status: Never Smoked - CARDIAC Hx Cardiac Disorders: Yes Hx Angina: Yes Hx Hypercholesterolemia: Yes Hx Hypertension: Yes - PULMONARY Hx Respiratory Disorders: No - NEUROLOGICAL Hx Neurological Disorder: No - HEENT Hx HEENT Problems: No - RENAL Hx Chronic Kidney Disease: No - ENDOCRINE/METABOLIC Hx Endocrine Disorders: Yes Hx Diabetes Mellitus Type 2: Yes - HEMATOLOGICAL/ONCOLOGICAL Hx Blood Disorders: No - INTEGUMENTARY Hx Dermatological Problems: No - MUSCULOSKELETAL/RHEUMATOLOGICAL Hx Musculoskeletal Disorders: Yes Hx Falls: Yes Other/Comment: Sciatica, Scoliosis - GASTROINTESTINAL Hx Gastrointestinal Disorders: No Hx Vomiting: Yes - GENITOURINARY/GYNECOLOGICAL Hx Genitourinary Disorders: No - PSYCHIATRIC Hx Psychophysiologic Disorder: Yes Hx Anxiety: Yes Hx Substance Use: No - SURGICAL HISTORY Hx Surgeries: Yes Hx Dilation and Curettage: Yes Other/Comment: d&[place] [facility] [place] - ANESTHESIA Hx Anesthesia: Yes Hx Anesthesia Reactions: No Meds Allergies/Adverse Reactions: Allergies Allergy/AdvReac Type Severity Reaction Status Date / Time No Known Allergies Allergy Verified 09/12/16 19:34 Results - Vital Signs Recent Vital Signs: Last Vital Signs Temp 98.7 F 09/12/16 18:58 Pulse 92 H 09/12/16 18:58 Resp 20 09/12/16 18:58 BP 139/95 H 09/12/16 18:58 Pulse Ox 97 09/12/16 18:58 - Labs Result Diagrams: 09/12/16 15:45 09/12/16 12:18 Labs: Laboratory Results - last 24 hr 09/12/16 09/12/16 15:45 20:36 WBC 19.0 H RBC 4.83 Hgb 13.7 Hct 41.1 MCV 85.2 MCH 28.5 MCHC 33.4 RDW 12.8 Plt Count 200 MPV 10.2 Neut % (Auto) 89.8 H Lymph % (Auto) 6.9 L [place] % (Auto) 3.0 Eos % (Auto) 0.0 Baso % (Auto) 0.3 Neut # 17.1 H Lymph # 1.3 [place] # 0.6 Eos # 0.0 Baso # 0.1 Neutrophils % (Manual) 82 H Lymphocytes % (Manual) 13 L Monocytes % (Manual) 4 Basophils % (Manual) 1 Platelet Estimate Normal RBC Morphology Normal Urine Color Yellow Urine Clarity Clear Urine pH 5.0 Ur Specific [place] > 1.060 H Urine Protein 2+ H Urine Glucose (UA) 3+ H Urine Ketones 1+ H Urine Blood 1+ H Urine Nitrate Positive H Urine Bilirubin Negative Urine Urobilinogen Normal Ur Leukocyte Esterase 2+ H Urine WBC (Auto) 27 H Urine RBC (Auto) 5 H Ur Squamous Epith Cells 8 H Urine Bacteria Occ H Urine HCG, Qual Negative
--- NOTE | 2016-09-13 07:48 | CP.PCM.CON ---
<Pratik Delcid - Last Filed: 09/13/16 08:56> History of Present Illness - History of Present Illness History of Present Illness: Leslie Nair is a 56F w/ hx of DM, HTN, and recent D&C who presented to the ER with complaints of abd pain, bleeding, and N/V. Pt states that the onset of the abd pain and N/V was for 3-4 days. She states that she has had a decrease in PO intake. Pt states that her abd pain in her LLQ and suprapubic area. She grades the pain an 8 out of 10. Denies any alleviating and aggrevating factors. Pt states that her last BM was 3 days ago and states that if was hard, but denies any black stool, melena, or hematachezia. She notes that she saw soem bleeding in her underwear and was unsure of the source. She admits to a recent D &C 1-2 weeks ago and was told that she may experience some continue spotting and bleeding from her vagina. Pt states that around 3-4 days ago she started experiencing nause and vomiting. Denies any blood, and recently states that its only bile. Pt notes that she does have sick contacts. PMHx: Anxiety, HTN, Hypercholesterolemia PShx: D&C 2 weeks ago Social: denies etoh, 1ppd 20+ years, denies any illicit drug use. Family Hx: cervical Ca: mother Endoscopy hx: unsure Past Patient History - Infectious Disease Hx of Infectious Diseases: None - Past Medical History & Family History Past Medical History?: Yes - Past Social History Smoking Status: Never Smoked - CARDIAC Hx Cardiac Disorders: Yes Hx Angina: Yes Hx Hypercholesterolemia: Yes Hx Hypertension: Yes - PULMONARY Hx Respiratory Disorders: No - NEUROLOGICAL Hx Neurological Disorder: No - HEENT Hx HEENT Problems: No - RENAL Hx Chronic Kidney Disease: No - ENDOCRINE/METABOLIC Hx Endocrine Disorders: Yes Hx Diabetes Mellitus Type 2: Yes - HEMATOLOGICAL/ONCOLOGICAL Hx Blood Disorders: No - INTEGUMENTARY Hx Dermatological Problems: No - MUSCULOSKELETAL/RHEUMATOLOGICAL Hx Musculoskeletal Disorders: Yes Hx Falls: Yes Other/Comment: Sciatica, Scoliosis - GASTROINTESTINAL Hx Gastrointestinal Disorders: No Hx Vomiting: Yes - GENITOURINARY/GYNECOLOGICAL Hx Genitourinary Disorders: No - PSYCHIATRIC Hx Psychophysiologic Disorder: Yes Hx Anxiety: Yes Hx Substance Use: No - SURGICAL HISTORY Hx Surgeries: Yes Hx Dilation and Curettage: Yes Other/Comment: d&[place] at [facility] [place] - ANESTHESIA Hx Anesthesia: Yes Hx Anesthesia Reactions: No Meds Allergies/Adverse Reactions: Allergies Allergy/AdvReac Type Severity Reaction Status Date / Time No Known Allergies Allergy Verified 09/12/16 19:34 - Medications Medications: Current Medications Morphine Sulfate (Morphine) 4 mg IV Q6 PRN PRN Reason: Pain, moderate (4-7) Ondansetron HCl (Zofran Inj) 4 mg IVP Q6 PRN PRN Reason: Nausea/Vomiting Last Admin: 09/13/16 03:39 Dose: 4 mg Physical Exam - Constitutional Appears: Well, No Acute Distress - Head Exam Head Exam: ATRAUMATIC, NORMOCEPHALIC - Eye Exam Eye Exam: Normal appearance - ENT Exam ENT Exam: Mucous Membranes Moist, Normal Exam - Respiratory Exam Respiratory Exam: Clear to Auscultation Bilateral, NORMAL BREATHING PATTERN. absent: Rales, Rhonchi, Wheezes - Cardiovascular Exam Cardiovascular Exam: REGULAR RHYTHM, RRR, +S1, +S2 - GI/Abdominal Exam GI & Abdominal Exam: Normal Bowel Sounds, Soft, Tenderness Additional comments: suprapublic area, LLQ - Rectal Exam Rectal Exam: Hemorrhoids, NORMAL INSPECTION. absent: Black Stool, Bloody Stool , Fecal Impaction - Neurological Exam Neurological exam: Alert, Oriented x3 - Psychiatric Exam Psychiatric exam: Manic - Skin Skin Exam: Dry, Intact, Normal Color, Warm Results - Vital Signs Recent Vital Signs: Last Vital Signs Temp 99.2 F 09/13/16 06:12 Pulse 98 H 09/13/16 06:12 Resp 20 09/13/16 06:12 BP 135/96 H 09/13/16 06:12 Pulse Ox 96 09/13/16 06:12 - Labs Result Diagrams: 09/12/16 15:45 09/12/16 12:18 Labs: Laboratory Results - last 24 hr 09/12/16 09/12/16 09/13/16 15:45 20:36 06:14 WBC 19.0 H RBC 4.83 Hgb 13.7 Hct 41.1 MCV 85.2 MCH 28.5 MCHC 33.4 RDW 12.8 Plt Count 200 MPV 10.2 Neut % (Auto) 89.8 H Lymph % (Auto) 6.9 L [place] % (Auto) 3.0 Eos % (Auto) 0.0 Baso % (Auto) 0.3 Neut # 17.1 H Lymph # 1.3 [place] # 0.6 Eos # 0.0 Baso # 0.1 Neutrophils % (Manual) 82 H Lymphocytes % (Manual) 13 L Monocytes % (Manual) 4 Basophils % (Manual) 1 Platelet Estimate Normal RBC Morphology Normal POC Glucose (mg/dL) 269 H Urine Color Yellow Urine Clarity Clear Urine pH 5.0 Ur Specific [place] > 1.060 H Urine Protein 2+ H Urine Glucose (UA) 3+ H Urine Ketones 1+ H Urine Blood 1+ H Urine Nitrate Positive H Urine Bilirubin Negative Urine Urobilinogen Normal Ur Leukocyte Esterase 2+ H Urine WBC (Auto) 27 H Urine RBC (Auto) 5 H Ur Squamous Epith Cells 8 H Urine Bacteria Occ H Urine HCG, Qual Negative Assessment & Plan - Assessment and Plan (Free Text) Assessment: Leslie Nair is a 56F w/ hx of HTN, DM, fibroids who presnts with abd pain and bleeding. By all accounts and pt's recent D&C, her bleeding seems to be vaginal. There was no evidence of blood in the rectal vault. Etiology of her abd pain is likely 2/2 CUT PLUG PACKER vs constipation 1. Abd pain, likely 2/2 recent D&C vs constipation 2. Constipation likely 2/2 chronic opiod use Plan: -supportive care -liquids as tolerated, advance as tolerate -start miralax BID -will need a colonoscopy as outpt for routine screening -No evidence of GI bleed and CT neg as reviewed by myself and Dr. Garnica, other than some retain stool -Zofran PRN for nause -recommend CUT PLUG PACKER consult -Will sign off, please let use now if we can be of further assistance D/W Dr. Garnica <Pierre Garnica - Last Filed: 09/13/16 09:07> Meds - Medications Medications: Current Medications Morphine Sulfate (Morphine) 4 mg IV Q6 PRN PRN Reason: Pain, moderate (4-7) Ondansetron HCl (Zofran Inj) 4 mg IVP Q6 PRN PRN Reason: Nausea/Vomiting Last Admin: 09/13/16 03:39 Dose: 4 mg Polyethylene Glycol (Miralax) 17 gm PO BID [facility] Results - Vital Signs Recent Vital Signs: Last Vital Signs Temp 98.3 F 09/13/16 07:54 Pulse 94 H 09/13/16 07:54 Resp 20 09/13/16 07:54 BP 135/82 09/13/16 07:54 Pulse Ox 96 09/13/16 07:54 - Labs Result Diagrams: 09/12/16 15:45 09/12/16 12:18 Labs: Laboratory Results - last 24 hr 09/12/16 09/12/16 09/13/16 15:45 20:36 06:14 WBC 19.0 H RBC 4.83 Hgb 13.7 Hct 41.1 MCV 85.2 MCH 28.5 MCHC 33.4 RDW 12.8 Plt Count 200 MPV 10.2 Neut % (Auto) 89.8 H Lymph % (Auto) 6.9 L [place] % (Auto) 3.0 Eos % (Auto) 0.0 Baso % (Auto) 0.3 Neut # 17.1 H Lymph # 1.3 [place] # 0.6 Eos # 0.0 Baso # 0.1 Neutrophils % (Manual) 82 H Lymphocytes % (Manual) 13 L Monocytes % (Manual) 4 Basophils % (Manual) 1 Platelet Estimate Normal RBC Morphology Normal POC Glucose (mg/dL) 269 H Urine Color Yellow Urine Clarity Clear Urine pH 5.0 Ur Specific [place] > 1.060 H Urine Protein 2+ H Urine Glucose (UA) 3+ H Urine Ketones 1+ H Urine Blood 1+ H Urine Nitrate Positive H Urine Bilirubin Negative Urine Urobilinogen Normal Ur Leukocyte Esterase 2+ H Urine WBC (Auto) 27 H Urine RBC (Auto) 5 H Ur Squamous Epith Cells 8 H Urine Bacteria Occ H Urine HCG, Qual Negative Attending/Attestation - Attestation I have personally seen and examined this patient.: Yes I have fully participated in the care of the patient.: Yes I have reviewed all pertinent clinical information: Yes Notes (Text): 09/13/16 09:04 56 year old female on chronic opiods for MSK pain, fibroid uterus, admitted with lower abdominal pain after recent D&C. 1. Lower abdominal pain 2. Opiod induced constipation Plan: -recommend bowel regimen with miralax -minimize narcotics -can consider Amitiza as outpatient which may be more effective for OIC -recommend Sanforizer eval considering fibroid uterus/pelvic pain/recent procedure -advance diet as tolerated -no rectal bleeding or anemia -outpatient colonoscopy recommended for CRC screening
[2016-09-13] MEDS: POLYETHYLENE GLYCOL 3350 17 GM/Dose PACKET PO SCH ×2 (10:24→18:00)
[2016-09-13] MEDS: Morphine 4 MG/ML VIAL IV PRN ×2 (10:41→18:00)
[2016-09-13] MEDS: Pantoprazole 40 mg EC Tab PO SCH (12:58)
[2016-09-13] MEDS: (Novolog) Insulin Aspart, Recombinant 100 u/ml 10 ml vial SC SCH ×3 (13:01→22:40)
--- NOTE | 2016-09-13 14:08 | CP.PCM.PN ---
Subjective - Date & Time of Evaluation Date of Evaluation: 09/13/16 Time of Evaluation: 14:06 - Subjective Subjective: CHIEF COMPLAINTS TODAY : ABD. PAIN LESS BACK PAIN NON/V/GI BLEEDING ROS. HEENT : N. Resp : No cough, wheezing ,pleuritic CP ,or hemoptysis Cardio : No anginal CP, PND, orthopnea, palpitation GI : No abd.pain, n/v ,diarrhea or GI bleeding . 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 Musculoskel : No joint swelling , Derm : No rash Psych : Normal affect. Ext : No swelling ,calf pain PE. Pt. is alert awake in no distress. V.S As noted in the chart Head ,ear nose,throat and eyes : Normal. Neck : Supple with normal carotids. Lungs: Clear air entry. Heart : S1 & S2 normal with S4. No murmur. Abd : Soft non tender with normal bowel sounds. Neuro : Moves all ext. with no localized deficit. Ext : No edema with intact pulses.Non tender calves Derm : No rashes or decubitus ulcer. LABS/RADIOLOGY: ASSESSMENT/PLAN : GI EVAL NOTE CHECK LABD Objective - Vital Signs/Intake and Output Vital Signs (last 24 hours): Temp Pulse Resp BP Pulse Ox 98.6 F 100 H 18 112/81 97 09/13/16 12:57 09/13/16 12:57 09/13/16 12:57 09/13/16 12:57 09/13/16 12:57 Intake and Output: 09/13/16 09/13/16 11:59 23:59 Output Total 50 Balance -50 - Medications Medications: Current Medications Diazepam (Valium) 10 mg PO BID PRN PRN Reason: Anxiety Last Admin: 09/13/16 12:59 Dose: 10 mg Insulin Aspart (Novolog) 0 unit SC ACHS [facility] PRN Reason: Protocol Last Admin: 09/13/16 13:01 Dose: 4 unit Lisinopril (Zestril) 20 mg PO DAILY [facility] Last Admin: 09/13/16 12:58 Dose: 20 mg Morphine Sulfate (Morphine) 4 mg IV Q6 PRN PRN Reason: Pain, moderate (4-7) Last Admin: 09/13/16 10:41 Dose: 4 mg Ondansetron HCl (Zofran Inj) 4 mg IVP Q6 PRN PRN Reason: Nausea/Vomiting Last Admin: 09/13/16 10:20 Dose: 4 mg Pantoprazole Sodium (Protonix Ec Tab) 40 mg PO DAILY [facility] Last Admin: 09/13/16 12:58 Dose: 40 mg Polyethylene Glycol (Miralax) 17 gm PO BID [facility] Last Admin: 09/13/16 10:24 Dose: Not Given Rosuvastatin Calcium (Crestor) 10 mg PO DAILY [facility] - Labs Labs: 09/12/16 15:45 PT 11.7 SECONDS (9.7-12.2) 09/12/16 12:18 INR 1.0 09/12/16 12:18 APTT 32 SECONDS (21-34) 09/12/16 12:18
--- NOTE | 2016-09-13 19:22 | CARD ---
APPROVED REPORT EKG Measurement Heart [id number] <Conclusion> Normal sinus rhythm Left axis deviation Septal infarct, age undetermined Possible Lateral infarct, age undetermined Prolonged QT Abnormal ECG
[2016-09-14] MEDS ORDERED: Sodium Chloride 0.9% 1,000 ML IV ONE (00:20)
--- NOTE | 2016-09-14 00:28 | PCM.RRTMUL ---
DATA MODELER Nurses Assessment - Situation DATA MODELER Responder Arrival Time:: 00:12 Location:: Room Number:: 653A DATA MODELER Reason for Call: Hypotension DATA MODELER Called By: RN - IV IV Inserted during DATA MODELER?: Yes New IV Insertion Tolerance:: Good - Respiratory Oxygen Delivery Method:: Room Air Received Nebulizer Treatments:: No Was the Patient Ventilated with Bag/Mask 100% O2?: No Secretions Suctioned?: No Was the Patient Intubated?: No Was the Patient Placed on a Ventilator?: No - Stat Labs Ordered DATA MODELER Stat Labs Ordered:: CBC CPR started during DATA MODELER?: No - Vital Signs Blood Pressure:: 103/68 Pulse Rate:: 91 Respiratory Rate:: 20 Temperature:: 98.5 F - Recommendations 5) DATA MODELER Level of Care Recommendations: Remain in current setting I.Reason for DATA MODELER - A) Acute Change in Patient: (Select all that apply): Staff member or family is worried about patient - B) Neurological Status (Select all that apply): Alert, Responsive, Verbal, Follows Commands - C) Respiratory Oxygen Delivery Method: Room Air - Constitutional Appears: Non-toxic, No Acute Distress - Head Head Exam: ATRAUMATIC, NORMAL INSPECTION, NORMOCEPHALIC - Eyes Eye Exam: EOMI, Normal appearance, PERRL - Respiratory Exam Respiratory Exam: NORMAL BREATHING PATTERN - Cardiovascular Exam Cardiovascular Exam: +S1, +S2 - Neurological Exam Neurological Exam: Alert, Awake - Extremities Exam Extremities Exam: Full ROM, Normal Capillary Refill. absent: Tenderness Plan - A. End of DATA MODELER Vital Signs: Blood Pressure: 95/58 Pulse Rate: 86 Respiratory Rate: 18 O2 Sat by Pulse Oximetry: 95 - B. Assessment of Findings&Treatment Plan DATA MODELER called at 12:11 AM by nursing team for hypotension during vitals check. Patient awake and alert at the moment though occasionally tangential in speech. Vitals were checked and BP reportedly 87/60. Patient states that she had an episode of emesis around 15:00 the afternoon prior. 1L fluid bolus ordered . BP increased during the administration of the bolus. Stat CBC also ordered as well. Zestril medication held at this time. Attending physician to be notified. Will monitor.
[2016-09-14 00:31] LABS: BASO # 0.1 K/uL (0.0-0.2); BASO % 0.3 % (0.0-2.0); EOS % 0.3 % (0.0-4.0); HEMATOCRIT 42.8 % (34.0-47.0); LYMPH % 19.5 % (20.0-40.0); MEAN CELL VOLUME 84.9 fL (81.0-99.0); MEAN CORPUSCULAR HEMOGLOBIN 28.3 pg (27.0-31.0); MEAN CORPUSCULAR HGB CONC 33.3 g/dL (33.0-37.0); MONO # 1.3 K/uL (0.0-0.8); MONO % 8.1 % (0.0-10.0); RED CELL DISTRIBUTION WIDTH 13.1 % (11.5-14.5); WHITE BLOOD COUNT 15.6 K/uL (4.8-10.8)
[2016-09-14] MEDS: Sodium Chloride 0.9% 1,000 ML IV SCH ×3 (01:11→21:33)
[2016-09-14] MEDS: (Novolog) Insulin Aspart, Recombinant 100 u/ml 10 ml vial SC SCH ×4 (08:24→21:33)
[2016-09-14] MEDS: Morphine 4 MG/ML VIAL IV PRN ×3 (09:22→21:29)
[2016-09-14] MEDS: POLYETHYLENE GLYCOL 3350 17 GM/Dose PACKET PO SCH ×3 (09:26→17:47)
[2016-09-14] MEDS: Pantoprazole 40 mg EC Tab PO SCH (09:27)
[2016-09-14 11:04] LABS: BASO % 0.3 % (0.0-2.0); HEMATOCRIT 41.6 % (34.0-47.0); LYMPH # 1.4 K/uL (1.0-4.3); LYMPH % 10.3 % (20.0-40.0); MEAN CELL VOLUME 85.7 fL (81.0-99.0); MEAN CORPUSCULAR HEMOGLOBIN 28.4 pg (27.0-31.0); MEAN CORPUSCULAR HGB CONC 33.1 g/dL (33.0-37.0); MEAN PLATELET VOLUME 11.7 fL (7.2-11.7); MONO # 0.5 K/uL (0.0-0.8); MONO % 4.1 % (0.0-10.0); WHITE BLOOD COUNT 13.2 K/uL (4.8-10.8)
[2016-09-14 11:19] LABS: CALCIUM 9.4 mg/dl (8.6-10.4); POTASSIUM 4.3 mmol/L (3.6-5.2)
--- NOTE | 2016-09-14 13:59 | CP.PCM.PN ---
Subjective - Date & Time of Evaluation Date of Evaluation: 09/14/16 Time of Evaluation: 13:55 - Subjective Subjective: CHIEF COMPLAINTS TODAY : HAD DIRECTOR OF GUIDANCE DUETO LOW BP LAST NITE RESPONDED WITH IN FLUIDS , NOW BP IS 140 STILL HAS ABD. PAIN ROS. HEENT : N. Resp : No cough, wheezing ,pleuritic CP ,or hemoptysis Cardio : No anginal CP, PND, orthopnea, palpitation GI : POS abd.pain, n/v , NO diarrhea or GI bleeding . [facility] : No headache, vertigo, focal deficit. Musculoskel : No joint swelling , Derm : No rash Psych : Normal affect. Ext : No swelling ,calf pain PE. Pt. is alert awake in no distress. V.S As noted in the chart Head ,ear nose,throat and eyes : Normal. Neck : Supple with normal carotids. Lungs: Clear air entry. Heart : S1 & S2 normal with S4. No murmur. Abd : Soft non tender with normal bowel sounds. Neuro : Moves all ext. with no localized deficit. Ext : No edema with intact pulses.Non tender calves Derm : No rashes or decubitus ulcer. LABS/RADIOLOGY: STOOL OCCULT POS ASSESSMENT/PLAN : IV FLUIDS TNI TRENDING DOWN WITH NO NEW CHANGES ON EKF . FEW MONTHS AGO . CATH WITH NORMAL CORONARIES ETIOLOGY OF POS TNI IS NOT CLEAR NO CARDIAC SYMPTOMS WILL NEED GI W/U OP Objective - Vital Signs/Intake and Output Vital Signs (last 24 hours): Temp Pulse Resp BP Pulse Ox 98.3 F 91 H 18 146/89 98 09/14/16 07:51 09/14/16 09:22 09/14/16 07:51 09/14/16 09:22 09/14/16 07:51 - Medications Medications: Current Medications Diazepam (Valium) 10 mg PO BID PRN PRN Reason: Anxiety Last Admin: 09/13/16 12:59 Dose: 10 mg Sodium Chloride (Sodium Chloride 0.9%) 1,000 mls @ 100 mls/hr IV .Q10H [facility] Last Admin: 09/14/16 13:03 Dose: 100 mls/hr Insulin Aspart (Novolog) 0 unit SC ACHS [facility] PRN Reason: Protocol Last Admin: 09/14/16 13:02 Dose: 4 unit Lisinopril (Zestril) 20 mg PO DAILY [facility] Last Admin: 09/13/16 12:58 Dose: 20 mg Morphine Sulfate (Morphine) 4 mg IV Q6 PRN PRN Reason: Pain, moderate (4-7) Last Admin: 09/14/16 09:22 Dose: 4 mg Ondansetron HCl (Zofran Inj) 4 mg IVP Q6 PRN PRN Reason: Nausea/Vomiting Last Admin: 09/14/16 08:23 Dose: 4 mg Pantoprazole Sodium (Protonix Ec Tab) 40 mg PO DAILY [facility] Last Admin: 09/14/16 09:27 Dose: Not Given Polyethylene Glycol (Miralax) 17 gm PO BID [facility] Last Admin: 09/14/16 09:26 Dose: Not Given Rosuvastatin Calcium (Crestor) 10 mg PO HS [facility] - Labs Labs: 09/14/16 10:59 09/14/16 10:59 PT 11.7 SECONDS (9.7-12.2) 09/12/16 12:18 INR 1.0 09/12/16 12:18 APTT 32 SECONDS (21-34) 09/12/16 12:18
[2016-09-15] MEDS: Sodium Chloride 0.9% 1,000 ML IV SCH ×4 (02:15→17:59)
[2016-09-15] MEDS: Morphine 4 MG/ML VIAL IV PRN ×3 (06:26→21:03)
--- NOTE | 2016-09-15 08:01 | CP.PCM.CON ---
<Pratik Delcid - Last Filed: 09/15/16 08:07> History of Present Illness - History of Present Illness History of Present Illness: PGY4 Initial GI Consult Leslie Nair is a 56F w/ hx of DM, HTN, and recent D&C who presented to the ER with complaints of abd pain, bleeding, and N/V. Pt states that the onset of the abd pain and N/V was for 3-4 days. She states that she has had a decrease in PO intake. Pt states that her abd pain in her LLQ and suprapubic area. She grades the pain an 8 out of 10. Denies any alleviating and aggravating factors. Pt states that her last BM was 3 days ago and states that if was hard, but denies any black stool, melena, or hematachezia. She notes that she saw soem bleeding in her underwear and was unsure of the source. She admits to a recent D &C 1-2 weeks ago and was told that she may experience some continue spotting and bleeding from her vagina. Pt states that around 3-4 days ago she started experiencing nausea and vomiting. Denies any blood, and recently states that its only bile. Pt notes that she does have sick contacts. GI service was reconsulted for vomiting and potential hematemesis. Pt and nursing staff confirm x1 episode of vomiting yesterday and it was bilious, no report of blood. Pt in the interim does not report melena, hematemesis, or coffee ground emesis. Chidi any abd pain as well. Tolerating diet and no other complaints PMHx: Anxiety, HTN, Hypercholesterolemia PShx: D&C 2 weeks ago Social: denies etoh, 1ppd 20+ years, denies any illicit drug use. Family Hx: cervical Ca: mother Endoscopy hx: unsure Past Patient History - Infectious Disease Hx of Infectious Diseases: None - Past Medical History & Family History Past Medical History?: Yes - Past Social History Smoking Status: Never Smoked - CARDIAC Hx Cardiac Disorders: Yes Hx Angina: Yes Hx Hypercholesterolemia: Yes Hx Hypertension: Yes - PULMONARY Hx Respiratory Disorders: No - NEUROLOGICAL Hx Neurological Disorder: No - HEENT Hx HEENT Problems: No - RENAL Hx Chronic Kidney Disease: No - ENDOCRINE/METABOLIC Hx Endocrine Disorders: Yes Hx Diabetes Mellitus Type 2: Yes - HEMATOLOGICAL/ONCOLOGICAL Hx Blood Disorders: No - INTEGUMENTARY Hx Dermatological Problems: No - MUSCULOSKELETAL/RHEUMATOLOGICAL Hx Musculoskeletal Disorders: Yes Hx Falls: Yes Other/Comment: Sciatica, Scoliosis - GASTROINTESTINAL Hx Gastrointestinal Disorders: No Hx Vomiting: Yes - GENITOURINARY/GYNECOLOGICAL Hx Genitourinary Disorders: No - PSYCHIATRIC Hx Psychophysiologic Disorder: Yes Hx Anxiety: Yes Hx Substance Use: No - SURGICAL HISTORY Hx Surgeries: Yes Hx Dilation and Curettage: Yes Other/Comment: d&[place] at [facility] [place] - ANESTHESIA Hx Anesthesia: Yes Hx Anesthesia Reactions: No Meds Allergies/Adverse Reactions: Allergies Allergy/AdvReac Type Severity Reaction Status Date / Time No Known Allergies Allergy Verified 09/12/16 19:34 - Medications Medications: Current Medications Diazepam (Valium) 10 mg PO BID PRN PRN Reason: Anxiety Last Admin: 09/13/16 12:59 Dose: 10 mg Sodium Chloride (Sodium Chloride 0.9%) 1,000 mls @ 100 mls/hr IV .Q10H [facility] Last Admin: 09/15/16 02:15 Dose: 100 mls/hr Insulin Aspart (Novolog) 0 unit SC ACHS [facility] PRN Reason: Protocol Last Admin: 09/14/16 21:33 Dose: Not Given Lisinopril (Zestril) 20 mg PO DAILY [facility] Last Admin: 09/13/16 12:58 Dose: 20 mg Morphine Sulfate (Morphine) 4 mg IV Q6 PRN PRN Reason: Pain, moderate (4-7) Last Admin: 09/15/16 06:26 Dose: 4 mg Ondansetron HCl (Zofran Inj) 4 mg IVP Q6 PRN PRN Reason: Nausea/Vomiting Last Admin: 09/14/16 20:48 Dose: 4 mg Pantoprazole Sodium (Protonix Ec Tab) 40 mg PO DAILY [facility] Last Admin: 09/14/16 09:27 Dose: Not Given Polyethylene Glycol (Miralax) 17 gm PO BID [facility] Last Admin: 09/14/16 17:47 Dose: Not Given Rosuvastatin Calcium (Crestor) 10 mg PO HS [facility] Last Admin: 09/14/16 21:27 Dose: 10 mg Physical Exam - Head Exam Head Exam: ATRAUMATIC, NORMOCEPHALIC - Eye Exam Eye Exam: Normal appearance - ENT Exam ENT Exam: Mucous Membranes Moist, Normal Exam - Neck Exam Neck exam: Positive for: Normal Inspection - Respiratory Exam Respiratory Exam: Clear to Auscultation Bilateral, NORMAL BREATHING PATTERN. absent: Rales, Rhonchi, Wheezes - Cardiovascular Exam Cardiovascular Exam: REGULAR RHYTHM, +S1, +S2 - GI/Abdominal Exam GI & Abdominal Exam: Normal Bowel Sounds, Soft. absent: Distended, Firm, Guarding, Organomegaly, Rigid, Tenderness - Neurological Exam Neurological exam: Alert, Oriented x3 - Psychiatric Exam Psychiatric exam: Normal Affect, Normal Mood - Skin Skin Exam: Dry, Intact, Normal Color, Warm Results - Vital Signs Recent Vital Signs: Last Vital Signs Temp 97.6 F 09/15/16 05:04 Pulse 97 H 09/15/16 06:21 Resp 20 09/15/16 06:21 BP 116/76 09/15/16 06:21 Pulse Ox 97 09/15/16 05:04 - Labs Result Diagrams: 09/14/16 10:59 09/14/16 10:59 Labs: Laboratory Results - last 24 hr 09/14/16 09/14/16 09/14/16 10:59 10:59 11:21 WBC 13.2 H RBC 4.85 Hgb 13.8 Hct 41.6 MCV 85.7 MCH 28.4 MCHC 33.1 RDW 13.0 Plt Count 166 MPV 11.7 Neut % (Auto) 85.3 H Lymph % (Auto) 10.3 L Upton % (Auto) 4.1 Eos % (Auto) 0.0 Baso % (Auto) 0.3 Neut # 11.3 H Lymph # 1.4 Upton # 0.5 Eos # 0.0 Baso # 0.0 Sodium 141 Potassium 4.3 Chloride 102 Carbon Dioxide 23 Anion Gap 20 BUN 34 H Creatinine 1.3 H Est GFR ( Amer) 52 Est GFR (Non-Af Amer) 43 POC Glucose (mg/dL) 292 H Random Glucose 322 H Calcium 9.4 Total Creatine Kinase 386 H CK-MB (Mass) 4.99 H Troponin I, Quant 0.6740 H* 09/14/16 09/14/16 09/15/16 17:16 20:54 06:19 WBC RBC Hgb Hct MCV MCH MCHC RDW Plt Count MPV Neut % (Auto) Lymph % (Auto) Upton % (Auto) Eos % (Auto) Baso % (Auto) Neut # Lymph # Upton # Eos # Baso # Sodium Potassium Chloride Carbon Dioxide Anion Gap BUN Creatinine Est GFR ( Amer) Est GFR (Non-Af Amer) POC Glucose (mg/dL) 307 H 215 H 271 H Random Glucose Calcium Total Creatine Kinase CK-MB (Mass) Troponin I, Quant Assessment & Plan - Assessment and Plan (Free Text) Assessment: Leslie Nair is a 56F w/ hx of HTN, DM, fibroids who presnts with abd pain and bleeding. By all accounts and pt's recent D&C, her bleeding seems to be vaginal. There was no evidence of blood in the rectal vault. 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 Abd pain, likely 2/2 recent D&C vs constipation 2. Constipation likely 2/2 chronic opiod use 3. Vomiting, etiology may be 2/2 gastroenteritis vs psychiatric, no reported hematemsis or coffeeground emesis Plan: -supportive care -liquids as tolerated, advance as tolerate -continue miralax BID -will need a colonoscopy as outpt for routine screening -No evidence of GI bleed and CT neg as reviewed by myself and Dr. 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 Garnica <Pierre Garnica - Last Filed: 09/15/16 12:32> Meds - Medications Medications: Current Medications Diazepam (Valium) 10 mg PO BID PRN PRN Reason: Anxiety Last Admin: 09/13/16 12:59 Dose: 10 mg Sodium Chloride (Sodium Chloride 0.9%) 1,000 mls @ 100 mls/hr IV .Q10H [facility] Last Admin: 09/15/16 08:37 Dose: Not Given Insulin Aspart (Novolog) 0 unit SC ACHS [facility] PRN Reason: Protocol Last Admin: 09/15/16 08:26 Dose: Not Given Lisinopril (Zestril) 20 mg PO DAILY [facility] Last Admin: 09/13/16 12:58 Dose: 20 mg Morphine Sulfate (Morphine) 4 mg IV Q6 PRN PRN Reason: Pain, moderate (4-7) Last Admin: 09/15/16 06:26 Dose: 4 mg Ondansetron HCl (Zofran Inj) 4 mg IVP Q6 PRN PRN Reason: Nausea/Vomiting Last Admin: 09/14/16 20:48 Dose: 4 mg Pantoprazole Sodium (Protonix Ec Tab) 40 mg PO DAILY [facility] Last Admin: 09/15/16 10:25 Dose: Not Given Polyethylene Glycol (Miralax) 17 gm PO BID [facility] Last Admin: 09/15/16 10:25 Dose: Not Given Rosuvastatin Calcium (Crestor) 10 mg PO HS [facility] Last Admin: 09/14/16 21:27 Dose: 10 mg Results - Vital Signs Recent Vital Signs: Last Vital Signs Temp 98.7 F 09/15/16 08:08 Pulse 74 09/15/16 08:08 Resp 20 09/15/16 08:08 BP 104/72 09/15/16 08:08 Pulse Ox 99 09/15/16 08:08 - Labs Result Diagrams: 09/14/16 10:59 09/14/16 10:59 Labs: Laboratory Results - last 24 hr 09/14/16 09/14/16 09/14/16 11:21 17:16 20:54 POC Glucose (mg/dL) 292 H 307 H 215 H 09/15/16 09/15/16 06:19 11:19 POC Glucose (mg/dL) 271 H 222 H Attending/Attestation - Attestation I have personally seen and examined this patient.: Yes I have fully participated in the care of the patient.: Yes I have reviewed all pertinent clinical information: Yes Notes (Text): 09/15/16 12:30 56 year old female on chronic opiods for MSK pain, fibroid uterus, admitted with lower abdominal pain after recent D&C. 1. Lower abdominal pain 2. Opiod induced constipation 3. Nausea and vomiting 4. Occult blood positive Plan: -recommend bowel regimen with miralax -minimize narcotics -can consider Amitiza as outpatient which may be more effective for OIC -recommend [facility] eval as outpatient due to fibroids / recent D&C -diet as tolerated, patients vomiting has improved -for cath today -no rectal bleeding or anemia -outpatient colonoscopy recommend due to occult blood positive -outpatient endoscopy for vomiting
[2016-09-15] MEDS: (Novolog) Insulin Aspart, Recombinant 100 u/ml 10 ml vial SC SCH ×4 (08:26→21:04)
[2016-09-15] MEDS: Pantoprazole 40 mg EC Tab PO SCH (10:25)
[2016-09-15] MEDS: POLYETHYLENE GLYCOL 3350 17 GM/Dose PACKET PO SCH ×2 (10:25→17:27)
--- NOTE | 2016-09-15 13:29 | CP.PCM.PN ---
Subjective - Date & Time of Evaluation Date of Evaluation: 09/15/16 Time of Evaluation: 13:28 - Subjective Subjective: URINE SHOWS 2 ORGANISM WILL HOLD CATH TILL CLEARED BY ID PT CURRENTLY IS NOT ON ANY IV AB GI EVAL NOTED Objective - Vital Signs/Intake and Output Vital Signs (last 24 hours): Temp Pulse Resp BP Pulse Ox 98.7 F 74 20 104/72 99 09/15/16 08:08 09/15/16 08:08 09/15/16 08:08 09/15/16 08:08 09/15/16 08:08 - Medications Medications: Current Medications Diazepam (Valium) 10 mg PO BID PRN PRN Reason: Anxiety Last Admin: 09/13/16 12:59 Dose: 10 mg Sodium Chloride (Sodium Chloride 0.9%) 1,000 mls @ 100 mls/hr IV .Q10H [facility] Last Admin: 09/15/16 08:37 Dose: Not Given Insulin Aspart (Novolog) 0 unit SC ACHS [facility] PRN Reason: Protocol Last Admin: 09/15/16 13:24 Dose: Not Given Lisinopril (Zestril) 20 mg PO DAILY [facility] Last Admin: 09/13/16 12:58 Dose: 20 mg Morphine Sulfate (Morphine) 4 mg IV Q6 PRN PRN Reason: Pain, moderate (4-7) Last Admin: 09/15/16 06:26 Dose: 4 mg Ondansetron HCl (Zofran Inj) 4 mg IVP Q6 PRN PRN Reason: Nausea/Vomiting Last Admin: 09/14/16 20:48 Dose: 4 mg Pantoprazole Sodium (Protonix Ec Tab) 40 mg PO DAILY [facility] Last Admin: 09/15/16 10:25 Dose: Not Given Polyethylene Glycol (Miralax) 17 gm PO BID [facility] Last Admin: 09/15/16 10:25 Dose: Not Given Rosuvastatin Calcium (Crestor) 10 mg PO HS [facility] Last Admin: 09/14/16 21:27 Dose: 10 mg - Labs Labs: 09/14/16 10:59 09/14/16 10:59 PT 11.7 SECONDS (9.7-12.2) 09/12/16 12:18 INR 1.0 09/12/16 12:18 APTT 32 SECONDS (21-34) 09/12/16 12:18
--- NOTE | 2016-09-15 13:31 | CP.PCM.CON ---
History of Present Illness - History of Present Illness History of Present Illness: INFECTIOUS DISEASE CONSULT; HPI; 56F w/ hx of DM, HTN, and recent D&C who presented to the ER with complaints of abd pain, bleeding, and N/V,WITH COFFEE-GROUND EMESIS. Pt states that the onset of the abd pain and N/V was for 3-4 days. She states that she has had a decrease in PO intake. Pt states that her abd pain is in suprapubic area.and lower abdomen. Denies any alleviating and aggravating factors.Patient states that her lower abdominal pain started after the D&C. Pt states that her last BM was 3 days ago. SHE STATES SHE IS CONSTIPATED BECAUSE SHE HAS TO TAKE ANALGESICS WHICH CAUSE HER CONSTIPATION. PATIENT denies any black stool, melena, or hematachezia. She notes that she saw some bleeding in her underwear and was unsure of the source. She admits to a recent D&C 1-2 weeks ago and was told that she may experience some continueous spotting and bleeding from her vagina. Pt states that around 3- 4 days ago she started experiencing nausea and vomiting. Denies any blood, and recently states that its only bile. PATIENT'S TROPONINS ARE POSITIVE,PATIENT DENIES ANY CHEST PAIN, JAW PAIN EXCEPT FOR NECK PAINS WHICH ARE CHRONIC. Patient also complains of chronic low back pains,secondary to her sciatica and neck pains. PATIENT DENIES ANY FOUL-SMELLING DRAINAGE FROM HER VAGINA. INFECTIOUS DISEASE CONSULT REQUESTED BY PMD URINE CULTURES CAME BACK POSITIVE FOR kLEBSIELLA PNEUMONIAE/BETA-HEMOLYTIC STREP GROUP B.. blood cultures -ve for 24 hours. . ALLERGIES; NKA PMHx: Anxiety, HTN, Hypercholesterolemia,DM PShx: D&C 2 weeks ago Social: denies Etoh, 1ppd 20+ years, denies any illicit drug use. Family Hx: cervical Ca: mother Review of Systems - Constitutional Constitutional: absent: Chills, Fever - EENT Eyes: absent: Change in Vision, Floaters - Cardiovascular Cardiovascular: absent: Chest Pain, Dyspnea, Palpitations, Pedal Edema - Respiratory Respiratory: absent: Cough, Chest Congestion - Gastrointestinal Gastrointestinal: Abdominal Pain (LOWER QUADRANTS AND SUPRAPUBIC.), Constipation , Nausea, Vomiting. absent: Diarrhea, Melena - Genitourinary Genitourinary: Urinary Frequency, Urinary Urgency, Voiding Freq/Small Amts. absent: Dysuria, Hx Renal/Bladder Calculi - Reproductive: Female Reproductive:Female: absent: Vaginal Discharge, Vaginal Odor - Musculoskeletal Musculoskeletal: Back Pain, Neck Pain - Neurological Neurological: absent: Focal Weakness - Psychiatric Psychiatric: Anxiety - Hematologic/Lymphatic Hematologic: As Per HPI. absent: Easy Bruising, Lymphadenopathy Past Patient History - Infectious Disease Hx of Infectious Diseases: None - Past Medical History & Family History Past Medical History?: Yes - Past Social History Smoking Status: Never Smoked - CARDIAC Hx Cardiac Disorders: Yes Hx Angina: Yes Hx Hypercholesterolemia: Yes Hx Hypertension: Yes - PULMONARY Hx Respiratory Disorders: No - NEUROLOGICAL Hx Neurological Disorder: No - HEENT Hx HEENT Problems: No - RENAL Hx Chronic Kidney Disease: No - ENDOCRINE/METABOLIC Hx Endocrine Disorders: Yes Hx Diabetes Mellitus Type 2: Yes - HEMATOLOGICAL/ONCOLOGICAL Hx Blood Disorders: No - INTEGUMENTARY Hx Dermatological Problems: No - MUSCULOSKELETAL/RHEUMATOLOGICAL Hx Musculoskeletal Disorders: Yes Hx Falls: Yes Other/Comment: Sciatica, Scoliosis - GASTROINTESTINAL Hx Gastrointestinal Disorders: No Hx Vomiting: Yes - GENITOURINARY/GYNECOLOGICAL Hx Genitourinary Disorders: No - PSYCHIATRIC Hx Psychophysiologic Disorder: Yes Hx Anxiety: Yes Hx Substance Use: No - SURGICAL HISTORY Hx Surgeries: Yes Hx Dilation and Curettage: Yes Other/Comment: d&c at [facility] – [place] 2 weeks ago - ANESTHESIA Hx Anesthesia: Yes Hx Anesthesia Reactions: No Meds Allergies/Adverse Reactions: Allergies Allergy/AdvReac Type Severity Reaction Status Date / Time No Known Allergies Allergy Verified 09/12/16 19:34 - Medications Medications: Current Medications Diazepam (Valium) 10 mg PO BID PRN PRN Reason: Anxiety Last Admin: 09/13/16 12:59 Dose: 10 mg Sodium Chloride (Sodium Chloride 0.9%) 1,000 mls @ 100 mls/hr IV .Q10H [facility] Last Admin: 09/15/16 08:37 Dose: Not Given Insulin Aspart (Novolog) 0 unit SC ACHS [facility] PRN Reason: Protocol Last Admin: 09/15/16 13:24 Dose: Not Given Lisinopril (Zestril) 20 mg PO DAILY [facility] Last Admin: 09/13/16 12:58 Dose: 20 mg Morphine Sulfate (Morphine) 4 mg IV Q6 PRN PRN Reason: Pain, moderate (4-7) Last Admin: 09/15/16 06:26 Dose: 4 mg Ondansetron HCl (Zofran Inj) 4 mg IVP Q6 PRN PRN Reason: Nausea/Vomiting Last Admin: 09/14/16 20:48 Dose: 4 mg Pantoprazole Sodium (Protonix Ec Tab) 40 mg PO DAILY [facility] Last Admin: 09/15/16 10:25 Dose: Not Given Polyethylene Glycol (Miralax) 17 gm PO BID [facility] Last Admin: 09/15/16 10:25 Dose: Not Given Rosuvastatin Calcium (Crestor) 10 mg PO HS [facility] Last Admin: 09/14/16 21:27 Dose: 10 mg Physical Exam - Constitutional Appears: No Acute Distress - Head Exam Head Exam: NORMAL INSPECTION - Eye Exam Eye Exam: EOMI, PERRL. absent: Scleral icterus - ENT Exam ENT Exam: Normal Oropharynx - Neck Exam Neck exam: Positive for: Normal Inspection. Negative for: Meningismus - Respiratory Exam Respiratory Exam: Decreased Breath Sounds, NORMAL BREATHING PATTERN - Cardiovascular Exam Cardiovascular Exam: REGULAR RHYTHM, +S2 - GI/Abdominal Exam GI & Abdominal Exam: Normal Bowel Sounds, Soft, Tenderness (SUPRAPUBIC AND LOWER QUADRANTS.). absent: Guarding - Extremities Exam Extremities exam: Positive for: normal capillary refill, pedal pulses present. Negative for: calf tenderness, pedal edema - Neurological Exam Neurological exam: Alert, CN II-XII Intact, Oriented x3, Reflexes Normal - Skin Skin Exam: Normal Color, Warm Results - Vital Signs Recent Vital Signs: Last Vital Signs Temp 98.7 F 09/15/16 08:08 Pulse 76 09/15/16 12:00 Resp 20 09/15/16 08:08 BP 104/72 09/15/16 08:08 Pulse Ox 99 09/15/16 08:08 - Labs Result Diagrams: 09/14/16 10:59 09/14/16 10:59 Labs: Laboratory Results - last 24 hr 09/14/16 09/14/16 09/15/16 17:16 20:54 06:19 POC Glucose (mg/dL) 307 H 215 H 271 H 09/15/16 11:19 POC Glucose (mg/dL) 222 H Assessment & Plan (1) Abdominal pain Status: Acute (2) UTI (urinary tract infection) Assessment and Plan: pancultures. repeat UA urine cultures Start IV Zosyn 3.375 every 8 hourly. 09/15/16. Cardiac catheterization was scheduled today but canceled because of the urosepsis .Case discussed with PMD Status: Acute (3) Constipation Assessment and Plan: GI on case. Status: Acute (4) Fibroid uterus Assessment and Plan: s/p recent D&C 2 weeks ago. Status: Acute (5) Elevated troponin level Assessment and Plan: patient has positive troponins. r/o ischemic heart disease. Status: Acute (6) HTN (hypertension) Status: Acute (7) Diabetes mellitus Status: Acute
[2016-09-15] MEDS: Piperacill/Tazo 3.375gm in Dex 3.375 GM/50 ML BAG IVPB SCH ×2 (14:52→21:04)
[2016-09-15 20:18] LABS: RBC URINE 70 /hpf (0-3); TRANSITIONAL EPITHIAL 1 /hpf (0-3); URINE BACTERIA MANY (<OCC); URINE BILIRUBIN NEGATIVE (NEGATIVE); URINE BLOOD 3+ (NEGATIVE); URINE COLOR Yellow (YELLOW); URINE GLUCOSE (UA) 2+ mg/dL (Normal); URINE KETONE NEGATIVE (NEGATIVE); URINE LEUKOCYTE ESTERASE 3+ Leu/uL (Negative); URINE PROTEIN 1+ mg/dL (NEGATIVE); URINE UROBILINOGEN NORMAL mg/dL (0.2-1.0); WBC URINE 160 /hpf (0-5)
[2016-09-16] MEDS: Piperacill/Tazo 3.375gm in Dex 3.375 GM/50 ML BAG IVPB SCH ×3 (05:46→22:14)
[2016-09-16 08:29] LABS: ALB/GLOB RATIO 1.2 (1.0-2.1); BILIRUBIN,DIRECT 0.6 mg/dL (0.0-0.4); BILIRUBIN,TOTAL 0.8 mg/dL (0.2-1.3); TOTAL PROTEIN 5.5 g/dL (6.3-8.3)
[2016-09-16] MEDS: (Novolog) Insulin Aspart, Recombinant 100 u/ml 10 ml vial SC SCH ×4 (08:31→22:14)
[2016-09-16] MEDS: Morphine 4 MG/ML VIAL IV PRN ×2 (08:39→17:17)
--- NOTE | 2016-09-16 08:49 | CP.PCM.PN ---
<KipMarcella - Last Filed: 09/16/16 10:18> Subjective - Date & Time of Evaluation Date of Evaluation: 09/16/16 Time of Evaluation: 08:47 - Subjective Subjective: Gastroenterology Fellow/PGY5 Progress Note Patient notes improving suprapubic discomfort. Tolerating diet. Has had daily bowel movement without straining, melena, or hematochezia for the last two days. A 12-point review of systems negative except for as above. Objective - Vital Signs/Intake and Output Vital Signs (last 24 hours): Temp Pulse Resp BP Pulse Ox 98.2 F 89 20 126/79 99 09/16/16 07:00 09/16/16 08:37 09/16/16 07:00 09/16/16 08:37 09/16/16 07:00 Intake and Output: 09/16/16 09/16/16 06:59 18:59 Intake Total 2080 Output Total 400 Balance 1680 - Medications Medications: Current Medications Diazepam (Valium) 10 mg PO BID PRN PRN Reason: Anxiety Last Admin: 09/15/16 23:41 Dose: 10 mg Sodium Chloride (Sodium Chloride 0.9%) 1,000 mls @ 100 mls/hr IV .Q10H [facility] Last Admin: 09/15/16 17:59 Dose: Not Given Piperacillin Sod/Tazobactam Sod (Zosyn 3.375 Gm Iv Premix) 3.375 gm in 50 mls @ 100 mls/hr IVPB Q8 [facility] Last Admin: 09/16/16 05:46 Dose: 100 mls/hr Insulin Aspart (Novolog) 0 unit SC ACHS [facility] PRN Reason: Protocol Last Admin: 09/16/16 08:31 Dose: 3 unit Lisinopril (Zestril) 20 mg PO DAILY [facility] Last Admin: 09/13/16 12:58 Dose: 20 mg Morphine Sulfate (Morphine) 4 mg IV Q6 PRN PRN Reason: Pain, moderate (4-7) Last Admin: 09/16/16 08:39 Dose: 4 mg Ondansetron HCl (Zofran Inj) 4 mg IVP Q6 PRN PRN Reason: Nausea/Vomiting Last Admin: 09/14/16 20:48 Dose: 4 mg Pantoprazole Sodium (Protonix Ec Tab) 40 mg PO DAILY [facility] Last Admin: 09/15/16 10:25 Dose: Not Given Polyethylene Glycol (Miralax) 17 gm PO BID [facility] Last Admin: 09/15/16 17:27 Dose: 17 gm Rosuvastatin Calcium (Crestor) 10 mg PO HS [facility] Last Admin: 09/15/16 21:03 Dose: 10 mg - Labs Labs: 09/14/16 10:59 09/14/16 10:59 PT 11.7 SECONDS (9.7-12.2) 09/12/16 12:18 INR 1.0 09/12/16 12:18 APTT 32 SECONDS (21-34) 09/12/16 12:18 - Constitutional Appears: Non-toxic, No Acute Distress - Head Exam Head Exam: ATRAUMATIC, NORMOCEPHALIC - Eye Exam Eye Exam: EOMI, PERRL Pupil Exam: PERRL. absent: Miosis, Mydriatic - ENT Exam ENT Exam: Mucous Membranes Moist, Normal Oropharynx - Neck Exam Neck Exam: Full ROM, Normal Inspection - Respiratory Exam Respiratory Exam: Clear to Ausculation Bilateral. absent: Rales, Rhonchi, Wheezes - Cardiovascular Exam Cardiovascular Exam: RRR, +S1, +S2. absent: Gallop, Rubs - GI/Abdominal Exam GI & Abdominal Exam: Soft, Tenderness, Normal Bowel Sounds. absent: Distended, Firm, Guarding, Rigid, Organomegaly, Rebound Additional comments: suprapubic tenderness to palpation - Extremities Exam Extremities Exam: Normal Inspection. absent: Pedal Edema - Neurological Exam Neurological Exam: Alert, Awake - Psychiatric Exam Psychiatric exam: Normal Affect, Normal Mood - Skin Skin Exam: Dry, Intact, Normal Color, Warm Assessment and Plan - Assessment and Plan (Free Text) Assessment: 56 year old female with history of Hypertension, Hyperlipidemia, Diabetes, fibroids, and recent D&C 2 weeks prior presenting with abdominal pain, vomiting , and vaginal bleeding. Active treatment of abdominal pain secondary o recent D &C and opioid-induced constipation. No prior EGD or colonoscopy. Plan: >H/H stable, no anemia >supportive care: pain control, anti-emetics, -supportive care >tolerating bland diet >continue Miralax BID >counselled patient on elective colonoscopy given FOBT positive and for CRC screening >thank you for opportunity to participate in the care of this patient <Callum Castro Y - Last Filed: 09/16/16 10:24> Objective - Vital Signs/Intake and Output Vital Signs (last 24 hours): Temp Pulse Resp BP Pulse Ox 98.2 F 89 20 126/79 99 09/16/16 07:00 09/16/16 08:37 09/16/16 07:00 09/16/16 08:37 09/16/16 07:00 Intake and Output: 09/16/16 09/16/16 06:59 18:59 Intake Total 2080 Output Total 400 Balance 1680 - Medications Medications: Current Medications Benzocaine/Menthol (Cepacol Sore Throat) 1 nirav MT Q1 PRN PRN Reason: Sore Throat Diazepam (Valium) 10 mg PO BID PRN PRN Reason: Anxiety Last Admin: 09/15/16 23:41 Dose: 10 mg Sodium Chloride (Sodium Chloride 0.9%) 1,000 mls @ 100 mls/hr IV .Q10H [facility] Last Admin: 09/15/16 17:59 Dose: Not Given Piperacillin Sod/Tazobactam Sod (Zosyn 3.375 Gm Iv Premix) 3.375 gm in 50 mls @ 100 mls/hr IVPB Q8 [facility] Last Admin: 09/16/16 05:46 Dose: 100 mls/hr Insulin Aspart (Novolog) 0 unit SC ACHS [facility] PRN Reason: Protocol Last Admin: 09/16/16 08:31 Dose: 3 unit Lisinopril (Zestril) 20 mg PO DAILY [facility] Last Admin: 09/13/16 12:58 Dose: 20 mg Morphine Sulfate (Morphine) 4 mg IV Q6 PRN PRN Reason: Pain, moderate (4-7) Last Admin: 09/16/16 08:39 Dose: 4 mg Ondansetron HCl (Zofran Inj) 4 mg IVP Q6 PRN PRN Reason: Nausea/Vomiting Last Admin: 09/14/16 20:48 Dose: 4 mg Pantoprazole Sodium (Protonix Ec Tab) 40 mg PO DAILY [facility] Last Admin: 09/15/16 10:25 Dose: Not Given Polyethylene Glycol (Miralax) 17 gm PO BID [facility] Last Admin: 09/15/16 17:27 Dose: 17 gm Rosuvastatin Calcium (Crestor) 10 mg PO HS [facility] Last Admin: 09/15/16 21:03 Dose: 10 mg - Labs Labs: 09/14/16 10:59 09/14/16 10:59 PT 11.7 SECONDS (9.7-12.2) 09/12/16 12:18 INR 1.0 09/12/16 12:18 APTT 32 SECONDS (21-34) 09/12/16 12:18 Attending/Attestation - Attestation I have personally seen and examined this patient.: Yes I have fully participated in the care of the patient.: Yes I have reviewed all pertinent clinical information, including history, physical exam and plan: Yes Notes (Text): 09/16/16 10:21 I have seen and examined patient with GI fellow. No acute events overnight, she is seen resting in bed comfortably. No recurrent vomiting over past 48 hours and she is tolerating PO diet without difficulty. She endorses sore throat due to prior episodes of emesis. She had 2 bowel movements this morning. Review of vitals from today are normal. HTN / DM Abdominal pain, vomiting - resolved Opioid induced constipation UTI - Advance diet as tolerated - Continue with antibiotic therapy as per ID - Continue with bowel regimen to prevent ongoing constipation - H/H stable, continue to monitor - No recurrent vomiting, anti-emetic therapy PRN - Patient would benefit from elective outpatient colonoscopy for colorectal cancer screening. No ongoing active GI issues, will sign off case. Please reconsult as necessary, thank you.
[2016-09-16] MEDS ORDERED: Benzocaine/Menthol (Cepacol) Lozenge MT PRN (10:19)
[2016-09-16] MEDS: Pantoprazole 40 mg EC Tab PO SCH (10:42)
[2016-09-16] MEDS: POLYETHYLENE GLYCOL 3350 17 GM/Dose PACKET PO SCH ×2 (10:42→17:20)
--- NOTE | 2016-09-16 13:39 | CP.PCM.PN ---
Subjective - Date & Time of Evaluation Date of Evaluation: 09/16/16 Time of Evaluation: 13:37 - Subjective Subjective: CHIEF COMPLAINTS TODAY : LESS ABD. PAIN CATH POSTPONED DUE TO UTI ROS. HEENT : N. Resp : No cough, wheezing ,pleuritic CP ,or hemoptysis Cardio : No anginal CP, PND, orthopnea, palpitation GI : POS abd.pain, n/v , NO diarrhea or GI bleeding . 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 Musculoskel : No joint swelling , Derm : No rash Psych : Normal affect. Ext : No swelling ,calf pain PE. Pt. is alert awake in no distress. V.S As noted in the chart Head ,ear nose,throat and eyes : Normal. Neck : Supple with normal carotids. Lungs: Clear air entry. Heart : S1 & S2 normal with S4. No murmur. Abd : Soft non tender with normal bowel sounds. Neuro : Moves all ext. with no localized deficit. Ext : No edema with intact pulses.Non tender calves Derm : No rashes or decubitus ulcer. LABS/RADIOLOGY: POS URINE CULTURE ASSESSMENT/PLAN : IV AB CATH NEXT WEEK Objective - Vital Signs/Intake and Output Vital Signs (last 24 hours): Temp Pulse Resp BP Pulse Ox 98.2 F 71 20 107/74 99 09/16/16 07:00 09/16/16 10:45 09/16/16 07:00 09/16/16 10:45 09/16/16 07:00 Intake and Output: 09/16/16 09/16/16 11:59 23:59 Intake Total 900 Output Total 400 Balance 500 - Medications Medications: Current Medications Benzocaine/Menthol (Cepacol Sore Throat) 1 nirav MT Q1 PRN PRN Reason: Sore Throat Diazepam (Valium) 10 mg PO BID PRN PRN Reason: Anxiety Last Admin: 09/16/16 10:46 Dose: 10 mg Sodium Chloride (Sodium Chloride 0.9%) 1,000 mls @ 100 mls/hr IV .Q10H [facility] Last Admin: 09/15/16 17:59 Dose: Not Given Piperacillin Sod/Tazobactam Sod (Zosyn 3.375 Gm Iv Premix) 3.375 gm in 50 mls @ 100 mls/hr IVPB Q8 [facility] Last Admin: 09/16/16 05:46 Dose: 100 mls/hr Insulin Aspart (Novolog) 0 unit SC ACHS [facility] PRN Reason: Protocol Last Admin: 09/16/16 13:31 Dose: 4 unit Lisinopril (Zestril) 20 mg PO DAILY [facility] Last Admin: 09/13/16 12:58 Dose: 20 mg Morphine Sulfate (Morphine) 4 mg IV Q6 PRN PRN Reason: Pain, moderate (4-7) Last Admin: 09/16/16 08:39 Dose: 4 mg Ondansetron HCl (Zofran Inj) 4 mg IVP Q6 PRN PRN Reason: Nausea/Vomiting Last Admin: 09/14/16 20:48 Dose: 4 mg Pantoprazole Sodium (Protonix Ec Tab) 40 mg PO DAILY [facility] Last Admin: 09/16/16 10:42 Dose: 40 mg Polyethylene Glycol (Miralax) 17 gm PO BID [facility] Last Admin: 09/16/16 10:42 Dose: 17 gm Rosuvastatin Calcium (Crestor) 10 mg PO HS [facility] Last Admin: 09/15/16 21:03 Dose: 10 mg - Labs Labs: 09/14/16 10:59 09/14/16 10:59 PT 11.7 SECONDS (9.7-12.2) 09/12/16 12:18 INR 1.0 09/12/16 12:18 APTT 32 SECONDS (21-34) 09/12/16 12:18
[2016-09-16] MEDS: Sodium Chloride 0.9% 1,000 ML IV SCH ×2 (14:01→23:15)
--- NOTE | 2016-09-16 20:49 | CP.PCM.PN ---
Subjective - Date & Time of Evaluation Date of Evaluation: 09/16/16 Time of Evaluation: 20:49 - Subjective Subjective: CHIEF COMPLAINTS TODAY : AFEBRILE less suprapubic discomfort feeling better ROS. HEENT : N. Resp : No cough, wheezing ,pleuritic CP ,or hemoptysis Cardio : No anginal CP, PND, orthopnea, palpitation GI : POS abd.pain, n/v , NO diarrhea or GI bleeding . 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 Musculoskel : No joint swelling , Derm : No rash Psych : Normal affect. Ext : No swelling ,calf pain PE. Pt. is alert awake in no distress. V.S As noted in the chart Head ,ear nose,throat and eyes : Normal. Neck : Supple with normal carotids. Lungs: Clear air entry. Heart : S1 & S2 normal with S4. No murmur. Abd : Soft ,MILDLY TENDERNESS LOWER ABDOMEN, with normal bowel sounds. Neuro : Moves all ext. with no localized deficit. Ext : No edema with intact pulses.Non tender calves Derm : No rashes or decubitus ulcer. LABS/RADIOLOGY: URINE CULTURE 09/15 +VE KLEBSIELLA PNEUMONIAE renal functions okay Objective - Vital Signs/Intake and Output Vital Signs (last 24 hours): Temp Pulse Resp BP Pulse Ox 98 F 76 20 134/90 99 09/16/16 15:37 09/16/16 15:37 09/16/16 15:37 09/16/16 15:37 09/16/16 15:37 Intake and Output: 09/16/16 09/17/16 18:59 06:59 Intake Total 1200 Balance 1200 - Medications Medications: Current Medications Benzocaine/Menthol (Cepacol Sore Throat) 1 nirav MT Q1 PRN PRN Reason: Sore Throat Diazepam (Valium) 10 mg PO BID PRN PRN Reason: Anxiety Last Admin: 09/16/16 19:36 Dose: 10 mg Sodium Chloride (Sodium Chloride 0.9%) 1,000 mls @ 100 mls/hr IV .Q10H [facility] Last Admin: 09/16/16 14:01 Dose: 100 mls/hr Piperacillin Sod/Tazobactam Sod (Zosyn 3.375 Gm Iv Premix) 3.375 gm in 50 mls @ 100 mls/hr IVPB Q8 [facility] Last Admin: 09/16/16 14:01 Dose: 100 mls/hr Insulin Aspart (Novolog) 0 unit SC ACHS [facility] PRN Reason: Protocol Last Admin: 09/16/16 17:21 Dose: Not Given Lisinopril (Zestril) 20 mg PO DAILY [facility] Last Admin: 09/13/16 12:58 Dose: 20 mg Morphine Sulfate (Morphine) 4 mg IV Q6 PRN PRN Reason: Pain, moderate (4-7) Last Admin: 09/16/16 17:17 Dose: 4 mg Ondansetron HCl (Zofran Inj) 4 mg IVP Q6 PRN PRN Reason: Nausea/Vomiting Last Admin: 09/14/16 20:48 Dose: 4 mg Pantoprazole Sodium (Protonix Ec Tab) 40 mg PO DAILY [facility] Last Admin: 09/16/16 10:42 Dose: 40 mg Polyethylene Glycol (Miralax) 17 gm PO BID [facility] Last Admin: 09/16/16 17:20 Dose: Not Given Rosuvastatin Calcium (Crestor) 10 mg PO HS [facility] Last Admin: 09/15/16 21:03 Dose: 10 mg - Labs Labs: 09/14/16 10:59 09/14/16 10:59 PT 11.7 SECONDS (9.7-12.2) 09/12/16 12:18 INR 1.0 09/12/16 12:18 APTT 32 SECONDS (21-34) 09/12/16 12:18 Assessment and Plan (1) Abdominal pain Assessment & Plan: improving Status: Acute (2) UTI (urinary tract infection) Assessment & Plan: urine culture 09/13/16 +ve K. pneumoniae/beta-hemolytic strep group B. continue IV Zosyn 3.375 every 8 hourly. Add IV Azactam 1 g every 8 hourly. Status: Acute (3) Constipation Status: Acute (4) Fibroid uterus Assessment & Plan: s/p recent D&C. Status: Acute (5) Elevated troponin level Assessment & Plan: follow-up cardiac catheterization once UTI treated - probable next Week. Will discussed with PMD. Status: Acute (6) HTN (hypertension) Status: Acute (7) Diabetes mellitus Status: Acute
[2016-09-16] MEDS: Aztreonam 1 GM in Sodium Chloride 0.9% 100 ML IVPB SCH (22:43)
[2016-09-17] MEDS: Morphine 4 MG/ML VIAL IV PRN ×4 (02:18→22:52)
[2016-09-17] MEDS: Sodium Chloride 0.9% 1,000 ML IV SCH ×2 (04:50→20:37)
[2016-09-17] MEDS: Aztreonam 1 GM in Sodium Chloride 0.9% 100 ML IVPB SCH ×3 (04:52→20:37)
[2016-09-17] MEDS: Piperacill/Tazo 3.375gm in Dex 3.375 GM/50 ML BAG IVPB SCH ×3 (06:11→22:44)
[2016-09-17] MEDS: (Novolog) Insulin Aspart, Recombinant 100 u/ml 10 ml vial SC SCH ×4 (08:07→22:23)
[2016-09-17] MEDS: POLYETHYLENE GLYCOL 3350 17 GM/Dose PACKET PO SCH ×2 (10:34→16:59)
[2016-09-17] MEDS: Pantoprazole 40 mg EC Tab PO SCH (10:34)
--- NOTE | 2016-09-17 14:16 | CP.PCM.PN ---
Subjective - Date & Time of Evaluation Date of Evaluation: 09/17/16 Time of Evaluation: 14:15 - Subjective Subjective: CHIEF COMPLAINTS TODAY : LESS ABD. PAIN CATH POSTPONED DUE TO UTI ROS. HEENT : N. Resp : No cough, wheezing ,pleuritic CP ,or hemoptysis Cardio : No anginal CP, PND, orthopnea, palpitation GI : POS abd.pain, n/v , NO diarrhea or GI bleeding . BED MAKER : No headache, vertigo, focal deficit. Musculoskel : No joint swelling , Derm : No rash Psych : Normal affect. Ext : No swelling ,calf pain PE. Pt. is alert awake in no distress. V.S As noted in the chart Head ,ear nose,throat and eyes : Normal. Neck : Supple with normal carotids. Lungs: Clear air entry. Heart : S1 & S2 normal with S4. No murmur. Abd : Soft non tender with normal bowel sounds. Neuro : Moves all ext. with no localized deficit. Ext : No edema with intact pulses.Non tender calves Derm : No rashes or decubitus ulcer. LABS/RADIOLOGY: POS URINE CULTURE KLEB. PNEU ASSESSMENT/PLAN : IV AB PER ID Objective - Vital Signs/Intake and Output Vital Signs (last 24 hours): Temp Pulse Resp BP Pulse Ox 98.8 F 70 18 130/80 99 09/17/16 07:20 09/17/16 09:00 09/17/16 07:20 09/17/16 07:20 09/17/16 07:20 - Medications Medications: Current Medications Benzocaine/Menthol (Cepacol Sore Throat) 1 nirav MT Q1 PRN PRN Reason: Sore Throat Diazepam (Valium) 10 mg PO BID PRN PRN Reason: Anxiety Last Admin: 09/17/16 06:10 Dose: 10 mg Piperacillin Sod/Tazobactam Sod (Zosyn 3.375 Gm Iv Premix) 3.375 gm in 50 mls @ 100 mls/hr IVPB Q8 [facility] Last Admin: 09/17/16 13:46 Dose: 100 mls/hr Aztreonam 1 gm/ Sodium (Chloride) 100 mls @ 100 mls/hr IVPB Q8H [facility] Last Admin: 09/17/16 12:23 Dose: 100 mls/hr Insulin Aspart (Novolog) 0 unit SC ACHS [facility] PRN Reason: Protocol Last Admin: 09/17/16 12:23 Dose: 6 unit Lisinopril (Zestril) 20 mg PO DAILY [facility] Last Admin: 09/13/16 12:58 Dose: 20 mg Morphine Sulfate (Morphine) 4 mg IV Q6 PRN PRN Reason: Pain, moderate (4-7) Last Admin: 09/17/16 10:39 Dose: 4 mg Ondansetron HCl (Zofran Inj) 4 mg IVP Q6 PRN PRN Reason: Nausea/Vomiting Last Admin: 09/14/16 20:48 Dose: 4 mg Pantoprazole Sodium (Protonix Ec Tab) 40 mg PO DAILY [facility] Last Admin: 09/17/16 10:34 Dose: 40 mg Polyethylene Glycol (Miralax) 17 gm PO BID [facility] Last Admin: 09/17/16 10:34 Dose: 17 gm Rosuvastatin Calcium (Crestor) 10 mg PO HS [facility] Last Admin: 09/16/16 22:49 Dose: 10 mg - Labs Labs: 09/14/16 10:59 09/14/16 10:59 PT 11.7 SECONDS (9.7-12.2) 09/12/16 12:18 INR 1.0 09/12/16 12:18 APTT 32 SECONDS (21-34) 09/12/16 12:18
[2016-09-18] MEDS: Aztreonam 1 GM in Sodium Chloride 0.9% 100 ML IVPB SCH ×3 (05:10→20:00)
[2016-09-18] MEDS: Piperacill/Tazo 3.375gm in Dex 3.375 GM/50 ML BAG IVPB SCH ×3 (05:58→21:06)
[2016-09-18] MEDS: Morphine 4 MG/ML VIAL IV PRN ×3 (05:59→18:34)
[2016-09-18 06:33] LABS: RBC URINE 7 /hpf (0-3); URINE BILIRUBIN NEGATIVE (NEGATIVE); URINE BLOOD 2+ (NEGATIVE); URINE COLOR Straw (YELLOW); URINE GLUCOSE (UA) 3+ mg/dL (Normal); URINE KETONE NEGATIVE (NEGATIVE); URINE LEUKOCYTE ESTERASE NEG Leu/uL (Negative); URINE PROTEIN NEGATIVE (NEGATIVE); URINE UROBILINOGEN NORMAL mg/dL (0.2-1.0); WBC URINE 1 /hpf (0-5)
[2016-09-18 07:47] LABS: BASO % 0.5 % (0.0-2.0); EOS # 0.2 K/uL (0.0-0.7); EOS % 2.7 % (0.0-4.0); HEMATOCRIT 34.8 % (34.0-47.0); LYMPH # 2.4 K/uL (1.0-4.3); LYMPH % 34.2 % (20.0-40.0); MEAN CORPUSCULAR HEMOGLOBIN 28.6 pg (27.0-31.0); MEAN CORPUSCULAR HGB CONC 33.7 g/dL (33.0-37.0); MONO # 0.4 K/uL (0.0-0.8); MONO % 5.1 % (0.0-10.0); NRBC % 0.1 % (0.0-2.0)
[2016-09-18 07:57] LABS: CHLORIDE 102 mmol/L (98-107); POTASSIUM 4.2 mmol/L (3.6-5.2); SODIUM 135 mmol/L (132-148)
[2016-09-18 07:59] LABS: GFR AFRICAN-AMERICAN > 60
[2016-09-18 08:00] LABS: ALB/GLOB RATIO 1.2 (1.0-2.1); ALKALINE PHOSPHATASE 56 U/L (38-126); ALT/SGPT 29 U/L (9-52); AST/SGOT 16 U/L (14-36); BILIRUBIN,DIRECT 0.4 mg/dL (0.0-0.4); BILIRUBIN,TOTAL 0.5 mg/dL (0.2-1.3); BLOOD UREA NITROGEN 12 mg/dL (7-17); CALCIUM 8.8 mg/dl (8.6-10.4); CARBON DIOXIDE 25 mmol/L (22-30); GLUCOSE,RANDOM 214 mg/dL (65-105); TOTAL PROTEIN 5.5 g/dL (6.3-8.3)
[2016-09-18] MEDS: (Novolog) Insulin Aspart, Recombinant 100 u/ml 10 ml vial SC SCH ×5 (09:26→21:06)
[2016-09-18] MEDS: POLYETHYLENE GLYCOL 3350 17 GM/Dose PACKET PO SCH ×3 (09:26→18:37)
[2016-09-18] MEDS: Pantoprazole 40 mg EC Tab PO SCH (09:26)
[2016-09-18] MEDS: Sodium Chloride 0.9% 1,000 ML IV SCH (12:29)
--- NOTE | 2016-09-18 13:51 | CP.PCM.PN ---
Subjective - Date & Time of Evaluation Date of Evaluation: 09/18/16 Time of Evaluation: 13:51 - Subjective Subjective: CHIEF COMPLAINTS TODAY : LESS ABD. PAIN CATH POSTPONED DUE TO UTI ROS. HEENT : N. Resp : No cough, wheezing ,pleuritic CP ,or hemoptysis Cardio : No anginal CP, PND, orthopnea, palpitation GI : POS abd.pain, n/v , NO diarrhea or GI bleeding . 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 Musculoskel : No joint swelling , Derm : No rash Psych : Normal affect. Ext : No swelling ,calf pain PE. Pt. is alert awake in no distress. V.S As noted in the chart Head ,ear nose,throat and eyes : Normal. Neck : Supple with normal carotids. Lungs: Clear air entry. Heart : S1 & S2 normal with S4. No murmur. Abd : Soft non tender with normal bowel sounds. Neuro : Moves all ext. with no localized deficit. Ext : No edema with intact pulses.Non tender calves Derm : No rashes or decubitus ulcer. LABS/RADIOLOGY: POS URINE CULTURE KLEB. PNEU ASSESSMENT/PLAN : IV AB PER ID Objective - Vital Signs/Intake and Output Vital Signs (last 24 hours): Temp Pulse Resp BP Pulse Ox 98.0 F 78 18 136/82 97 09/18/16 08:21 09/18/16 12:15 09/18/16 08:21 09/18/16 12:15 09/18/16 08:21 Intake and Output: 09/18/16 09/18/16 11:59 23:59 Intake Total 800 Balance 800 - Medications Medications: Current Medications Benzocaine/Menthol (Cepacol Sore Throat) 1 nirav MT Q1 PRN PRN Reason: Sore Throat Diazepam (Valium) 10 mg PO BID PRN PRN Reason: Anxiety Last Admin: 09/18/16 09:06 Dose: 10 mg Piperacillin Sod/Tazobactam Sod (Zosyn 3.375 Gm Iv Premix) 3.375 gm in 50 mls @ 100 mls/hr IVPB Q8 [facility] Last Admin: 09/18/16 05:58 Dose: 100 mls/hr Aztreonam 1 gm/ Sodium (Chloride) 100 mls @ 100 mls/hr IVPB Q8H [facility] Last Admin: 09/18/16 12:27 Dose: 100 mls/hr Insulin Aspart (Novolog) 0 unit SC ACHS [facility] PRN Reason: Protocol Last Admin: 09/18/16 12:28 Dose: 4 unit Lisinopril (Zestril) 20 mg PO DAILY [facility] Last Admin: 09/13/16 12:58 Dose: 20 mg Morphine Sulfate (Morphine) 4 mg IV Q6 PRN PRN Reason: Pain, moderate (4-7) Last Admin: 09/18/16 12:28 Dose: 4 mg Ondansetron HCl (Zofran Inj) 4 mg IVP Q6 PRN PRN Reason: Nausea/Vomiting Last Admin: 09/14/16 20:48 Dose: 4 mg Pantoprazole Sodium (Protonix Ec Tab) 40 mg PO DAILY [facility] Last Admin: 09/18/16 09:26 Dose: 40 mg Polyethylene Glycol (Miralax) 17 gm PO BID [facility] Last Admin: 09/18/16 09:26 Dose: 17 gm Rosuvastatin Calcium (Crestor) 10 mg PO HS [facility] Last Admin: 09/17/16 22:44 Dose: 10 mg - Labs Labs: 09/18/16 07:18 09/18/16 07:18 PT 11.7 SECONDS (9.7-12.2) 09/12/16 12:18 INR 1.0 09/12/16 12:18 APTT 32 SECONDS (21-34) 09/12/16 12:18
--- NOTE | 2016-09-18 14:12 | CP.PCM.PN ---
Subjective - Date & Time of Evaluation Date of Evaluation: 09/18/16 Time of Evaluation: 14:12 - Subjective Subjective: CHIEF COMPLAINTS TODAY : AFEBRILE feeling better. URINE CULTURE sTILL+VE ROS. HEENT : N. Resp : No cough, wheezing ,pleuritic CP ,or hemoptysis Cardio : No anginal CP, PND, orthopnea, palpitation GI : POS abd.pain, n/v , NO diarrhea or GI bleeding . HYDRAULIC TESTER : No headache, vertigo, focal deficit. Musculoskel : No joint swelling , Derm : No rash Psych : Normal affect. Ext : No swelling ,calf pain PE. Pt. is alert awake in no distress. V.S As noted in the chart Head ,ear nose,throat and eyes : Normal. Neck : Supple with normal carotids. Lungs: Clear air entry. Heart : S1 & S2 normal with S4. No murmur. Abd : Soft ,MILDLY TENDERNESS LOWER ABDOMEN, with normal bowel sounds. Neuro : Moves all ext. with no localized deficit. Ext : No edema with intact pulses.Non tender calves Derm : No rashes or decubitus ulcer. LABS/RADIOLOGY: URINE CULTURE 09/15 +VE KLEBSIELLA PNEUMONIAE RENAL FUNCTIONS OKAY. Objective - Vital Signs/Intake and Output Vital Signs (last 24 hours): Temp Pulse Resp BP Pulse Ox 98.0 F 78 18 136/82 97 09/18/16 08:21 09/18/16 12:15 09/18/16 08:21 09/18/16 12:15 09/18/16 08:21 Intake and Output: 09/18/16 09/18/16 06:59 18:59 Intake Total 2019 Balance 2019 - Medications Medications: Current Medications Benzocaine/Menthol (Cepacol Sore Throat) 1 nirav MT Q1 PRN PRN Reason: Sore Throat Diazepam (Valium) 10 mg PO BID PRN PRN Reason: Anxiety Last Admin: 09/18/16 09:06 Dose: 10 mg Piperacillin Sod/Tazobactam Sod (Zosyn 3.375 Gm Iv Premix) 3.375 gm in 50 mls @ 100 mls/hr IVPB Q8 [facility] Last Admin: 09/18/16 05:58 Dose: 100 mls/hr Aztreonam 1 gm/ Sodium (Chloride) 100 mls @ 100 mls/hr IVPB Q8H [facility] Last Admin: 09/18/16 12:27 Dose: 100 mls/hr Insulin Aspart (Novolog) 0 unit SC ACHS [facility] PRN Reason: Protocol Last Admin: 09/18/16 12:28 Dose: 4 unit Lisinopril (Zestril) 20 mg PO DAILY [facility] Last Admin: 09/13/16 12:58 Dose: 20 mg Morphine Sulfate (Morphine) 4 mg IV Q6 PRN PRN Reason: Pain, moderate (4-7) Last Admin: 09/18/16 12:28 Dose: 4 mg Ondansetron HCl (Zofran Inj) 4 mg IVP Q6 PRN PRN Reason: Nausea/Vomiting Last Admin: 09/14/16 20:48 Dose: 4 mg Pantoprazole Sodium (Protonix Ec Tab) 40 mg PO DAILY [facility] Last Admin: 09/18/16 09:26 Dose: 40 mg Polyethylene Glycol (Miralax) 17 gm PO BID [facility] Last Admin: 09/18/16 09:26 Dose: 17 gm Rosuvastatin Calcium (Crestor) 10 mg PO HS [facility] Last Admin: 09/17/16 22:44 Dose: 10 mg - Labs Labs: 09/18/16 07:18 09/18/16 07:18 PT 11.7 SECONDS (9.7-12.2) 09/12/16 12:18 INR 1.0 09/12/16 12:18 APTT 32 SECONDS (21-34) 09/12/16 12:18 Assessment and Plan (1) Abdominal pain Status: Acute (2) UTI (urinary tract infection) Assessment & Plan: REPEAT ua URINE CULTURE CLEAN CATCH. EXPLAINED PATIENT. .PATIENT STATES SAMPLES WAS GIVEN BUT THEN SAMPLE WAS LOST. PATIENT CONCERNED. PATIENT ON iv aZACTAM 1 G EVERY 8 HOURLY.09/16/16 ALSO ON iv zOSYN 3.375 EVERY 8 HOURLY. CARDIAC CATHETER POSTPONED BECAUSE OF UTI Status: Acute (3) Constipation Status: Acute (4) Fibroid uterus Status: Acute (5) Elevated troponin level Status: Acute (6) HTN (hypertension) Status: Acute (7) Diabetes mellitus Status: Acute
--- NOTE | 2016-09-18 22:58 | CARD ---
APPROVED REPORT EXAM: Two-dimensional and M-mode echocardiogram with Doppler and color Doppler. Other Information Quality : GoodRhythm : NSR RISK FACTORS Hypertension Hyperlipidemia Diabetes M-Mode DIMENSIONS RVDd1.56 (2.1-3.2cm)Left Atrium (MM)3.71 (2.5-4.0cm) IVSd1.01 (0.7-1.1cm)Aortic Root2.15 (2.2-3.7cm) LVDd5.76 (4.0-5.6cm)Aortic Cusp Exc.1.66 (1.5-2.0cm) PWd0.72 (0.7-1.1cm)FS (%) 41 % LVDs3.42 (2.0-3.8cm)LVEF (%)71 (>50%) Mitral Valve MV E Mqacqrgr09.9cm/sMV A Mbsdyjnx13.7cm/sE/A ratio1.5 TDI E/Lateral E'0.0E/Medial E'0.0 Tricuspid Valve TR Peak Pnpcnliv239pp/sTR Peak Gr.48mgNbOUJG96leEs LEFT VENTRICLE The left ventricle is normal size. There is normal left ventricular wall thickness. Left ventricle systolic function is normal with Ejection Fraction of >70%. There is normal LV segmental wall motion. The left ventricular diastolic function is normal. No left ventricle thrombus noted on this study. RIGHT VENTRICLE The right ventricle is normal size. The right ventricular systolic function is normal. ATRIA The left atrium size is normal. The right atrium size is normal. AORTIC VALVE The aortic valve is mildly thickened. The aortic valve is trileaflet. No aortic regurgitation is present. There is no aortic valvular stenosis. There is no aortic valvular vegetation. MITRAL VALVE The mitral valve is normal in structure. There is no evidence of mitral valve prolapse. There is no mitral valve stenosis. Mitral regurgitation is mild. TRICUSPID VALVE The tricuspid valve is normal in structure. There is mild tricuspid regurgitation. Right ventricular systolic pressure is estimated at 30 mmHg. There is no pulmonary hypertension. There is no tricuspid valve prolapse or vegetation. There is no tricuspid valve stenosis. GREAT VESSELS The aortic root is normal in size. The IVC is normal in size and collapses >50% with inspiration. PERICARDIAL EFFUSION There is no pericardial effusion. There is no pleural effusion. <Conclusion> The left ventricle is normal size. Left ventricle systolic function is normal with Ejection Fraction of >70%. The left ventricular diastolic function is normal. The right ventricle is normal size. The right ventricular systolic function is normal. The left atrium size is normal. The right atrium size is normal. Mitral regurgitation is mild. There is mild tricuspid regurgitation.
[2016-09-19] MEDS: Morphine 4 MG/ML VIAL IV PRN ×3 (01:06→14:18)
[2016-09-19] MEDS: Aztreonam 1 GM in Sodium Chloride 0.9% 100 ML IVPB SCH ×2 (05:10→13:45)
[2016-09-19 08:07] VITALS: BP 133/79; PULSE 76; RESP 18; TEMP 99; O2SAT 98
[2016-09-19] MEDS: (Novolog) Insulin Aspart, Recombinant 100 u/ml 10 ml vial SC SCH ×2 (08:17→12:30)
[2016-09-19] MEDS: Pantoprazole 40 mg EC Tab PO SCH (10:01)
[2016-09-19] MEDS: POLYETHYLENE GLYCOL 3350 17 GM/Dose PACKET PO SCH (10:01)
--- NOTE | 2016-09-19 13:06 | CP.PCM.PN ---
Subjective - Date & Time of Evaluation Date of Evaluation: 09/19/16 Time of Evaluation: 13:06 - Subjective Subjective: CHIEF COMPLAINTS TODAY : AFEBRILE feeling better. no complaints ROS. HEENT : N. Resp : No cough, wheezing ,pleuritic CP ,or hemoptysis Cardio : No anginal CP, PND, orthopnea, palpitation GI : POS abd.pain, n/v , NO diarrhea or GI bleeding . 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 Musculoskel : No joint swelling , Derm : No rash Psych : Normal affect. Ext : No swelling ,calf pain PE. Pt. is alert awake in no distress. V.S As noted in the chart Head ,ear nose,throat and eyes : Normal. Neck : Supple with normal carotids. Lungs: Clear air entry. Heart : S1 & S2 normal with S4. No murmur. Abd : Soft ,MILDLY TENDERNESS LOWER ABDOMEN, with normal bowel sounds. Neuro : Moves all ext. with no localized deficit. Ext : No edema with intact pulses.Non tender calves Derm : No rashes or decubitus ulcer. LABS/RADIOLOGY: urine culture 09/18/16 -no growth. URINE CULTURE 09/15 +VE KLEBSIELLA PNEUMONIAE RENAL FUNCTIONS OKAY. Objective - Vital Signs/Intake and Output Vital Signs (last 24 hours): Temp Pulse Resp BP Pulse Ox 99 F 76 18 133/79 98 09/19/16 08:06 09/19/16 08:06 09/19/16 08:06 09/19/16 08:06 09/19/16 08:06 Intake and Output: 09/19/16 09/19/16 06:59 18:59 Intake Total 2180 Output Total 1750 Balance 430 - Medications Medications: Current Medications Benzocaine/Menthol (Cepacol Sore Throat) 1 nirav MT Q1 PRN PRN Reason: Sore Throat Diazepam (Valium) 10 mg PO BID PRN PRN Reason: Anxiety Last Admin: 09/19/16 10:04 Dose: 10 mg Aztreonam 1 gm/ Sodium (Chloride) 100 mls @ 100 mls/hr IVPB Q8H [facility] Last Admin: 09/19/16 05:10 Dose: 100 mls/hr Insulin Aspart (Novolog) 0 unit SC ACHS [facility] PRN Reason: Protocol Last Admin: 09/19/16 08:17 Dose: 3 unit Lisinopril (Zestril) 20 mg PO DAILY [facility] Last Admin: 09/13/16 12:58 Dose: 20 mg Morphine Sulfate (Morphine) 4 mg IV Q6 PRN PRN Reason: Pain, moderate (4-7) Last Admin: 09/19/16 08:19 Dose: 4 mg Ondansetron HCl (Zofran Inj) 4 mg IVP Q6 PRN PRN Reason: Nausea/Vomiting Last Admin: 09/14/16 20:48 Dose: 4 mg Pantoprazole Sodium (Protonix Ec Tab) 40 mg PO DAILY [facility] Last Admin: 09/19/16 10:01 Dose: 40 mg Polyethylene Glycol (Miralax) 17 gm PO BID [facility] Last Admin: 09/19/16 10:01 Dose: Not Given Rosuvastatin Calcium (Crestor) 10 mg PO HS [facility] Last Admin: 09/18/16 21:06 Dose: 10 mg - Labs Labs: 09/18/16 07:18 09/18/16 07:18 PT 11.7 SECONDS (9.7-12.2) 09/12/16 12:18 INR 1.0 09/12/16 12:18 APTT 32 SECONDS (21-34) 09/12/16 12:18 Assessment and Plan (1) Abdominal pain Status: Acute (2) UTI (urinary tract infection) Assessment & Plan: improved. Repeat urine cultures negative. Patient can be discharged on by mouth Cipro 500 twice a day for 5 days. Status: Acute (3) Constipation Status: Acute (4) Fibroid uterus Status: Acute (5) Elevated troponin level Status: Acute (6) HTN (hypertension) Status: Acute (7) Diabetes mellitus Status: Acute
--- NOTE | 2016-09-19 13:51 | CP.PCM.DIS ---
Provider - Provider Date of Admission: 09/12/16 15:35 Attending physician: Linsey Sibley MD Time Spent in preparation of Discharge (in minutes): 30 Hospital Course - Lab Results Lab Results: Micro Results 09/18/16 04:42 Urine,Clean Catch Urine Culture - Final No Growth (<1,000 CFU/ML) 09/13/16 14:00 Blood-Venous Blood Culture - Final NO GROWTH AFTER 5 DAYS 09/13/16 14:00 Blood-Venous Gram Stain - Final TEST NOT PERFORMED 09/13/16 13:30 Blood-Venous Blood Culture - Final NO GROWTH AFTER 5 DAYS 09/13/16 13:30 Blood-Venous Gram Stain - Final TEST NOT PERFORMED 09/15/16 20:27 Urine Urine Culture - Final Klebsiella Pneumoniae Ssp Pneu 09/13/16 11:26 Urine,Clean Catch Urine Culture - Final Klebsiella Pneumoniae Ssp Pneu Beta Hemolytic Strep Group B Most Recent Lab Values WBC 7.0 K/uL (4.8-10.8) 09/18/16 07:18 RBC 4.10 Mil/uL (3.80-5.20) 09/18/16 07:18 Hgb 11.7 g/dL (11.0-16.0) D 09/18/16 07:18 Hct 34.8 % (34.0-47.0) 09/18/16 07:18 MCV 85.0 fL (81.0-99.0) 09/18/16 07:18 MCH 28.6 pg (27.0-31.0) 09/18/16 07:18 MCHC 33.7 g/dL (33.0-37.0) 09/18/16 07:18 RDW 13.0 % (11.5-14.5) 09/18/16 07:18 Plt Count 151 K/uL (130-400) 09/18/16 07:18 MPV 11.0 fL (7.2-11.7) 09/18/16 07:18 Neut % (Auto) 57.5 % (50.0-75.0) 09/18/16 07:18 Lymph % (Auto) 34.2 % (20.0-40.0) 09/18/16 07:18 [place] % (Auto) 5.1 % (0.0-10.0) 09/18/16 07:18 Eos % (Auto) 2.7 % (0.0-4.0) 09/18/16 07:18 Baso % (Auto) 0.5 % (0.0-2.0) 09/18/16 07:18 Neut # 4.0 K/uL (1.8-7.0) 09/18/16 07:18 Lymph # 2.4 K/uL (1.0-4.3) 09/18/16 07:18 [place] # 0.4 K/uL (0.0-0.8) 09/18/16 07:18 Eos # 0.2 K/uL (0.0-0.7) 09/18/16 07:18 Baso # 0.0 K/uL (0.0-0.2) 09/18/16 07:18 Neutrophils % (Manual) 82 % (50-75) H 09/12/16 15:45 Lymphocytes % (Manual) 13 % (20-40) L 09/12/16 15:45 Monocytes % (Manual) 4 % (0-10) 09/12/16 15:45 Basophils % (Manual) 1 % (0-2) 09/12/16 15:45 Platelet Estimate Normal (NORMAL) 09/12/16 15:45 RBC Morphology Normal 09/12/16 15:45 ESR 18 mm/hr (0-20) 09/16/16 07:56 PT 11.7 SECONDS (9.7-12.2) 09/12/16 12:18 INR 1.0 09/12/16 12:18 APTT 32 SECONDS (21-34) 09/12/16 12:18 Sodium 135 mmol/L (132-148) 09/18/16 07:18 Potassium 4.2 mmol/L (3.6-5.2) 09/18/16 07:18 Chloride 102 mmol/L (98-107) 09/18/16 07:18 Carbon Dioxide 25 mmol/L (22-30) 09/18/16 07:18 Anion Gap 13 (10-20) 09/18/16 07:18 BUN 12 mg/dL (7-17) 09/18/16 07:18 Creatinine 0.9 MG/DL (0.7-1.2) 09/18/16 07:18 Est GFR ( Amer) > 60 09/18/16 07:18 Est GFR (Non-Af Amer) > 60 09/18/16 07:18 POC Glucose (mg/dL) 126 mg/dL (65-110) H 09/19/16 11:43 Random Glucose 214 mg/dL (65-105) H 09/18/16 07:18 Calcium 8.8 mg/dl (8.6-10.4) 09/18/16 07:18 Total Bilirubin 0.5 mg/dL (0.2-1.3) 09/18/16 07:18 Direct Bilirubin 0.4 mg/dL (0.0-0.4) 09/18/16 07:18 AST 16 U/L (14-36) 09/18/16 07:18 ALT 29 U/L (9-52) 09/18/16 07:18 Alkaline Phosphatase 56 U/L (38-126) 09/18/16 07:18 Total Creatine Kinase 386 U/L (30-135) H 09/14/16 10:59 CK-MB (Mass) 4.99 ng/mL (0.0-3.38) H 09/14/16 10:59 Troponin I 0.2060 ng/mL (0.00-0.120) H* 09/12/16 12:18 Troponin I, Quant 0.6740 ng/mL (0.00-0.120) H* 09/14/16 10:59 C-React Prot High Sens 2.52 mg/L (1.00-3.00) 09/16/16 07:56 Total Protein 5.5 g/dL (6.3-8.3) L 09/18/16 07:18 Albumin 3.0 g/dL (3.5-5.0) L 09/18/16 07:18 Globulin 2.4 gm/dL (2.2-3.9) 09/18/16 07:18 Albumin/Globulin Ratio 1.2 (1.0-2.1) 09/18/16 07:18 Lipase 100 U/L (23-300) 09/12/16 12:18 Urine Color Straw (YELLOW) 09/18/16 06:20 Urine Clarity Clear (Clear) 09/18/16 06:20 Urine pH 5.0 (5.0-8.0) 09/18/16 06:20 Ur Specific [place] 1.009 (1.003-1.030) 09/18/16 06:20 Urine Protein Negative mg/dL (NEGATIVE) 09/18/16 06:20 Urine Glucose (UA) 3+ mg/dL (Normal) H 09/18/16 06:20 Urine Ketones Negative mg/dL (NEGATIVE) 09/18/16 06:20 Urine Blood 2+ (NEGATIVE) H 09/18/16 06:20 Urine Nitrate Negative (NEGATIVE) 09/18/16 06:20 Urine Bilirubin Negative (NEGATIVE) 09/18/16 06:20 Urine Urobilinogen Normal mg/dL (0.2-1.0) 09/18/16 06:20 Ur Leukocyte Esterase Neg Jana/uL (Negative) 09/18/16 06:20 Urine WBC (Auto) 1 /hpf (0-5) 09/18/16 06:20 Urine RBC (Auto) 7 /hpf (0-3) H 09/18/16 06:20 Ur Squamous Epith Cells < 1 /hpf (0-5) 09/18/16 06:20 Ur Transition Epith Cell 1 /hpf (0-3) 09/15/16 19:54 Urine Bacteria Many (<OCC) H 09/15/16 19:54 Urine HCG, Qual Negative (NEGATIVE) 09/18/16 06:20 Stool Occult Blood Positive (NEGATIVE) H 09/12/16 12:10 - Hospital Course Hospital Course: ADMITTED WITH COFFEE GROUND EMESIS IN ER A/W N/V AND EPIGASTRIC ABD. PAIN FOR FEW DAYS AND HAS INCREASED IN INTENSITY . NOTHING ACUTE IN LABS AND IMAGING IN ER NO INGASTION OF ASA /CAFFEINE , RECENTLY PT HAD D&C AND HAS VAGUE LOWER ABD PAIN A/W VAGINAL SPOTTING PAST HIST. T2DM WITH INSULIN/LUMBAR RADICULOPATHY /NORMAL CATH 3 MONTHS AGO GI EVALUATED PT AND SUGGESTED OUT PT COLONOSCOPY URINE GREW E.COLIENTEROBACT RECEIVED IV AB AND PT IMPROVED TNI WERE POS NO CP CATH FEW MONTHS AGO , NORMAL CORONARIES ECHO N EF PT ANXIOUS TO GO HOME D/C ON PO SB OUT PT CARDIAC W/U Discharge Exam - Head Exam Head Exam: ATRAUMATIC, NORMOCEPHALIC Discharge Plan - Follow Up Plan Condition: GUARDED Disposition: HOME/ ROUTINE Referrals: Olayinka Pena MD [Staff Provider] - Linsey Sibley MD [Staff Provider] -
--- NOTE | 2016-09-19 14:52 | CP.PCM.PN ---
Subjective - Date & Time of Evaluation Date of Evaluation: 09/19/16 Time of Evaluation: 14:52 - Subjective Subjective: SPOKE WITH DR. MATHIAS AND PT CLEARED FOR D/C HOME TODAY WITH CIPRO 500 MG PO BID X5 DAYS. PT ENCOURAGED TO TAKE CIPRO WITH PROBIOTIC (PT HAS "BIG BOTTLE" AT HOME). CLARIFIED WITH PT THAT SHE IS TO F/U WITH DR. PEREIRA OUTPATIENT AND WILL HAVE CARD CATH OUTPATIENT ONCE UTI RESOLVED. PT WILL WAIT TO SPEAK DIRECTLY TO DR. PEREIRA BUT IS OK BEING D/C HOME TODAY. ALSO ENCOURAGED TO F/U WITH DR. BERMEO IN THE OFFICE. NO FURTHER ORDERS. Objective - Vital Signs/Intake and Output Vital Signs (last 24 hours): Temp Pulse Resp BP Pulse Ox 99 F 76 18 133/79 98 09/19/16 08:06 09/19/16 08:06 09/19/16 08:06 09/19/16 08:06 09/19/16 08:06 Intake and Output: 09/19/16 09/19/16 06:59 18:59 Intake Total 2180 Output Total 1750 Balance 430 - Medications Medications: Current Medications Benzocaine/Menthol (Cepacol Sore Throat) 1 nirav MT Q1 PRN PRN Reason: Sore Throat Diazepam (Valium) 10 mg PO BID PRN PRN Reason: Anxiety Last Admin: 09/19/16 10:04 Dose: 10 mg Aztreonam 1 gm/ Sodium (Chloride) 100 mls @ 100 mls/hr IVPB Q8H [facility] Last Admin: 09/19/16 13:45 Dose: 100 mls/hr Insulin Aspart (Novolog) 0 unit SC ACHS [facility] PRN Reason: Protocol Last Admin: 09/19/16 12:30 Dose: Not Given Lisinopril (Zestril) 20 mg PO DAILY [facility] Last Admin: 09/13/16 12:58 Dose: 20 mg Morphine Sulfate (Morphine) 4 mg IV Q6 PRN PRN Reason: Pain, moderate (4-7) Last Admin: 09/19/16 14:18 Dose: 4 mg Ondansetron HCl (Zofran Inj) 4 mg IVP Q6 PRN PRN Reason: Nausea/Vomiting Last Admin: 09/14/16 20:48 Dose: 4 mg Pantoprazole Sodium (Protonix Ec Tab) 40 mg PO DAILY [facility] Last Admin: 09/19/16 10:01 Dose: 40 mg Polyethylene Glycol (Miralax) 17 gm PO BID [facility] Last Admin: 09/19/16 10:01 Dose: Not Given Rosuvastatin Calcium (Crestor) 10 mg PO HS [facility] Last Admin: 09/18/16 21:06 Dose: 10 mg - Labs Labs: 09/18/16 07:18 09/18/16 07:18 PT 11.7 SECONDS (9.7-12.2) 09/12/16 12:18 INR 1.0 09/12/16 12:18 APTT 32 SECONDS (21-34) 09/12/16 12:18
--- NOTE | 2016-09-26 17:56 | CARD ---
APPROVED REPORT EKG Measurement Heart [id number] UT 148P31 [id number] <Conclusion> Normal sinus rhythm Left axis deviation Anterolateral infarct, age undetermined Prolonged QT Abnormal ECG
--- NOTE | 2016-09-28 13:08 | CARD ---
APPROVED REPORT EKG Measurement Heart [id number] CT 136P12 [id number] <Conclusion> Normal sinus rhythm Low voltage QRS Cannot rule out Anterior infarct, age undetermined T wave abnormality, consider lateral ischemia Prolonged QT Abnormal ECG
== END 2016-09-19 15:45 | disposition home or self-care (01) | DRG 690 ==
LOC: C.ER 11:06 → C.9E 15:35 → C.6T 17:51
PROVIDERS: ADMIT Internal Medicine Cardiovascular Disease; ATTEND Internal Medicine Cardiovascular Disease
DX: N39.0 Urinary tract infection, site not specified (principal); M41.9 Scoliosis, unspecified; I10 Essential (primary) hypertension; E11.9 Type 2 diabetes mellitus without complications; D25.9 Leiomyoma of uterus, unspecified; B96.20 Unspecified Escherichia coli [E. coli] as the cause of diseases classified elsewhere; R74.8 Abnormal levels of other serum enzymes; N93.9 Abnormal uterine and vaginal bleeding, unspecified; E78.00 Pure hypercholesterolemia, unspecified; M54.16 Radiculopathy, lumbar region; E78.5 Hyperlipidemia, unspecified; K29.00 Acute gastritis without bleeding; K59.03 Drug induced constipation; T40.2X5A Adverse effect of other opioids, initial encounter; M54.30 Sciatica, unspecified side; Z80.9 Family history of malignant neoplasm, unspecified

== ENCOUNTER 2016-10-25 04:45 | Observation (INO) | payer OTHER ==
[2016-10-25 04:45] VITALS: BMI 29.7
[2016-10-25] MEDS ORDERED: Sodium Chloride 0.9% 1,000 ML IV ONE (05:05)
--- NOTE | 2016-10-25 05:05 | C.PDOC ---
History Of Present Illness The patient presents to the ED for evaluation of abdominal pain and vomiting which began after she ate a sandwich at work earlier today. Patient denies fever , chills, diarrhea. Time Seen by Provider: 10/25/16 05:04 Chief Complaint (Nursing): GI Problem History Per: Patient History/Exam Limitations: no limitations Onset/Duration Of Symptoms: Hrs Current Symptoms Are (Timing): Still Present Severity: Mild Pain Scale Rating Of: 3 Location Of Pain/Discomfort: Diffuse Radiation Of Pain To:: None Quality Of Discomfort: "Pain" Associated Symptoms: Vomiting. denies: Fever, Chills, Diarrhea Exacerbating Factors: None Alleviating Factors: None Last Bowel Movement: Today Recent travel outside of the [place]: No Additional History Per: Patient Abnormal Vaginal Bleeding: No Past Medical History Reviewed: Historical Data, Nursing Documentation, Vital Signs Vital Signs: Last Vital Signs Temp 98 F 10/25/16 04:53 Pulse 80 10/25/16 04:53 Resp 18 10/25/16 04:53 BP 129/87 10/25/16 04:53 Pulse Ox 98 10/25/16 05:23 - Medical History PMH: Anxiety, HTN, Hypercholesterolemia Surgical History: No Surg Hx Family History: States: No Known Family Hx - Social History Hx Alcohol Use: No Hx Substance Use: No - Immunization History Hx Tetanus Toxoid Vaccination: No Hx Influenza Vaccination: No Hx Pneumococcal Vaccination: Yes (4 years) Review Of Systems Constitutional: Negative for: Fever, Chills Cardiovascular: Negative for: Chest Pain, Palpitations Respiratory: Negative for: Cough, Shortness of Breath Gastrointestinal: Positive for: Vomiting, Abdominal Pain. Negative for: Diarrhea, Constipation Genitourinary: Negative for: Dysuria, Frequency, Hematuria Skin: Negative for: Rash, Lesions, Jaundice, Bruising Neurological: Negative for: Weakness, Numbness Physical Exam - Physical Exam Appears: Non-toxic, No Acute Distress, Other (patient is wretching, spitting up clear sputum, appears very anxious ) Skin: Warm, Dry Head: Normacephalic Eye(s): bilateral: Normal Inspection Oral Mucosa: Moist Neck: Supple Chest: Symmetrical, No Deformity, No Tenderness Cardiovascular: Rhythm Regular, No Murmur Respiratory: No Rales, No Rhonchi, No Wheezing Gastrointestinal/Abdominal: Soft, Tenderness (mild, diffuse), No Guarding, No Rebound Extremity: Normal ROM, Capillary Refill (less than 2 seconds ) Neurological/Psych: Oriented x3 Gait: Steady ED Course And Treatment - Laboratory Results Result Diagrams: 10/25/16 05:24 10/25/16 05:24 ECG: Interpreted By Me, Viewed By Me ECG Rhythm: Sinus Rhythm (97), Nonspecific Changes O2 Sat by Pulse Oximetry: 98 (on RA) Pulse Ox Interpretation: Normal Progress Note: labs and EKG ordered and reviewed. Patient received Protonix IVP , Zofran IVP, and IV Fluids. Disposition Counseled Patient/Family Regarding: Studies Performed, Diagnosis - Disposition Referrals: Linsey Sibley MD [Primary Care Provider] - Disposition Time: 05:05 Condition: FAIR Forms: [employer] (Turkmen) - Clinical Impression Clinical Impression: Abdominal pain - Scribe Statement The provider has reviewed the documentation as recorded by the Scribe (Maryam Delcid) Provider Attestation: All medical record entries made by the Scribe were at my direction and personally dictated by me. I have reviewed the chart and agree that the record accurately reflects my personal performance of the history, physical exam, medical decision making, and the department course for this patient. I have also personally directed, reviewed, and agree with the discharge instructions and disposition. Physician Patient Turnover Patient Signed Over To: Ingrid Lee Handoff Comments: pending labs and disposition
[2016-10-25 05:35] LABS: BASO # 0.1 K/uL (0.0-0.2); BASO % 0.4 % (0.0-2.0); EOS % 0.3 % (0.0-4.0); HEMATOCRIT 39.7 % (34.0-47.0); LYMPH # 2.4 K/uL (1.0-4.3); LYMPH % 19.3 % (20.0-40.0); MEAN CELL VOLUME 83.8 fL (81.0-99.0); MEAN CORPUSCULAR HEMOGLOBIN 28.7 pg (27.0-31.0); MEAN CORPUSCULAR HGB CONC 34.3 g/dL (33.0-37.0); MEAN PLATELET VOLUME 10.2 fL (7.2-11.7); MONO # 0.4 K/uL (0.0-0.8); MONO % 3.3 % (0.0-10.0); WHITE BLOOD COUNT 12.6 K/uL (4.8-10.8)
[2016-10-25 05:49] LABS: POTASSIUM 4.4 mmol/L (3.6-5.2)
[2016-10-25 05:51] LABS: ALB/GLOB RATIO 1.4 (1.0-2.1); BILIRUBIN,TOTAL 0.9 mg/dL (0.2-1.3)
[2016-10-25 05:52] LABS: CALCIUM 10.7 mg/dl (8.6-10.4)
[2016-10-25] MEDS ORDERED: Iohexol 240 (50 ml) PO ONE (07:55)
[2016-10-25] MEDS ORDERED: Iohexol 240 (50 ml) ONE (08:26)
[2016-10-25 09:12] LABS: RBC URINE 1 /hpf (0-3); URINE BACTERIA FEW (<OCC); URINE BILIRUBIN NEGATIVE (NEGATIVE); URINE BLOOD NEGATIVE (NEGATIVE); URINE COLOR Yellow (YELLOW); URINE GLUCOSE (UA) 3+ mg/dL (Normal); URINE KETONE 1+ mg/dL (NEGATIVE); URINE LEUKOCYTE ESTERASE 3+ Leu/uL (Negative); URINE PROTEIN 1+ mg/dL (NEGATIVE); URINE UROBILINOGEN NORMAL mg/dL (0.2-1.0)
[2016-10-25 09:14] LABS: WBC URINE 303 /hpf (0-5)
--- NOTE | 2016-10-25 11:33 | CT ---
PROCEDURE: CT Abdomen and Pelvis without IV contrast HISTORY: INTRACT VOMITING RO OBSTRUCT COMPARISON: Comparison is made to 09/12/2016 TECHNIQUE: Contrast dose: 0 IV contrast administration. Axial and reformatted coronal and sagittal CT images of the abdomen and pelvis were obtained after oral contrast administration. Radiation dose: Total exam DLP = 594.1 mGy-cm. This CT exam was performed using one or more of the following dose reduction techniques: Automated exposure control, adjustment of the mA and/or kV according to patient size, and/or use of iterative reconstruction technique. FINDINGS: LOWER THORAX: Unremarkable. LIVER: No significant interval change in the liver noted since the previous exam. GALLBLADDER AND BILE DUCTS: No evidence of acute cholecystitis. The common bile duct is not dilated. PANCREAS: Unremarkable. No gross lesion or ductal dilatation. SPLEEN: Unremarkable. ADRENALS: Unremarkable. No mass. KIDNEYS AND URETERS: Unremarkable. No hydronephrosis. No solid mass. VASCULATURE: Unremarkable. No aortic aneurysm. BOWEL: Unremarkable. No obstruction. No gross mural thickening. There is a diffuse gastric mucosal thickening suspicious for gastritis. There is small to moderate size hiatus hernia. The visualized portion of the distal esophagus demonstrate diffuse mucosal thickening. APPENDIX: No evidence of appendicitis. PERITONEUM: Unremarkable. No free fluid. No free air. LYMPH NODES: Unremarkable. No enlarged lymph nodes. BLADDER: Unremarkable. REPRODUCTIVE: Unremarkable. BONES: No acute fracture. OTHER FINDINGS: None. IMPRESSION: No evidence of bowel obstruction. Moderate diffuse gastric mucosal thickening suspicious for gastritis. Small to moderate size hiatus hernia associated with diffuse mucosal thickening of the distal esophagus. Otherwise no evidence of acute pathology in the abdomen and pelvis.
[2016-10-25] MEDS ORDERED: Morphine 4 MG/ML VIAL ONE ×2 (13:38→20:58)
--- NOTE | 2016-10-25 13:38 | CP.PCM.HP ---
History of Present Illness - History of Present Illness History of Present Illness: COMPREHENSIVE HISTORY & PHYSICAL EXAM HPI PRESENTED TO ER WITH INTRACTABLE VOMITING WITH NEW ONSET ON RENAL INSUFFICIENCY PT RECENTLY HAD URTI AND WAS TREATED WITH CIPRO . PT IMPROVED AND SUBSEQUENTLY DEVELOPED VOMITING WITH UPPER ABD. PAIN NO DIARRHEA /UPPER/LOWER GI BLEED PAST HIST. T2DM INSULIN DEP./HTN/ANXIETY/DEPRESSION /LOW BACK PAIN CATH 2017, NORMAL PERSONAL HIST: Smoking. N Alcohol. N Allergy N Travel_- . FAMILY HIST : ROS : Constitutional: Negative for weight change, chills, night sweats Eyes: Negative for redness, swelling, itching, discharge, vision changes, blurry vision, double vision, glaucoma, cataracts, Ears: Negative for hearing loss, ringing, , tinnitus, vertigo Nose: Negative for rhinorrhea, stuffiness, sniffing, itching, postnasal drip, discoloration, nasal congestion and epistaxis. Throat: Negative for throat clearing, sore throat, hoarseness, difficulty swallowing and difficulty speaking. Respiratory: Negative for cough, , sputum production, chest tightness, wheezing, pleuritic chest pain ,daytime somnolence, chronic cough, hemoptysis, snoring at night, Cardiovascular: Negative for chest pain, palpitations, orthopnea, PND, Edema of legs, leg cramps, angina, claudication, , irregular heartbeat, Neurology: Negative for irritability, muscle weakness, numbness and tingling, seizures, tremors, migraines, slurred speech, syncope, memory loss, mood changes , recurrent headaches Gastrointestinal: Negative for difficulty swallowing, diarrhea, constipation, black stools, rectal bleeding, Genitourinary: Negative for frequent urination, hematuria, discharge, incontinence, urinary retention, frequent UTI, Psychiatric : Negative for depression, anxiety/panic, suicidal tendencies, Musculoskeletal: Negative for swollen joints, , neck pain, morning stiffness of joints, . Skin: Negative for rash, ulcers, itching, dry skin and pigmented lesions. P/E: Constitutional: Appears stated age and in no apparent distress. Head: Normocephalic. Ears: External ear canals patent without inflammation. Tympanic membranes intact with normal light reflex and landmark. Eyes: Pupils are central, bilaterally equal, symmetrical and reacts to light with normal movements and no icterus or pallor. Nose: External nares are patent. Mucosa is pink Mouth-Throat: Good general appearance and condition. No post-pharyngeal/oropharyngeal erythema and tonsillar hypertrophy. Good dental hygiene. Neck-Lymphatic: Neck is supple with normal ROM, no thyromegaly, lymph nodes or masses. JVD is normal with no carotid bruit. Lungs: Clear to percussion and auscultation with bilateral normal air entry. Cardiovascular: S1 and S2 are normal with no murmurs, gallops and rub. GI Exam: No hepatomegaly. Abdomen is soft and -tender. No Organomegaly , masses or hernias are evident and bowel sounds are normal and active. Neurology: Higher function and all cranial nerves intact, with no gross motor or sensory deficit. Superficial and deep reflexes are normal with downwards planters. No cerebellar deficit with normal gait. Musculoskeletal: No tender spots with normal curvature of the spine with no swelling or restricted ROM of the small and large joints. TENDER L/S , LSR 30 DEG. Extremities: Homans sign absent. Intact pulses with no pitting edema, calf tenderness or skin color changes. Skin: No rash, eruptions or abnormal skin pigmentation LAB/RADIOLOGY: ASSESMENT : ACUTE GERD/GASTROPARESIS T2DM HTN CERVICAL/LUMBAR RADICULOPATHY RENAL INSUFFICIENCY, DIABETIC NEPHROPATHY PLAN: SEE ORDERS Present on Admission - Present on Admission Any Indicators Present on Admission: No Past Patient History - Infectious Disease Hx of Infectious Diseases: None - Past Medical History & Family History Past Medical History?: Yes - Past Social History Smoking Status: Never Smoked - CARDIAC Hx Hypercholesterolemia: Yes Hx Hypertension: Yes - PULMONARY Hx Respiratory Disorders: No - NEUROLOGICAL Hx Neurological Disorder: No - HEENT Hx HEENT Problems: No - RENAL Hx Chronic Kidney Disease: No - ENDOCRINE/METABOLIC Hx Endocrine Disorders: Yes Hx Diabetes Mellitus Type 2: Yes - HEMATOLOGICAL/ONCOLOGICAL Hx Blood Disorders: No - INTEGUMENTARY Hx Dermatological Problems: No - MUSCULOSKELETAL/RHEUMATOLOGICAL Hx Musculoskeletal Disorders: Yes Hx Falls: Yes Other/Comment: Sciatica, Scoliosis - GASTROINTESTINAL Hx Gastrointestinal Disorders: No Hx Vomiting: Yes - GENITOURINARY/GYNECOLOGICAL Hx Genitourinary Disorders: No - PSYCHIATRIC Hx Anxiety: Yes Hx Substance Use: No - SURGICAL HISTORY Hx Surgeries: Yes Hx Dilation and Curettage: Yes Other/Comment[place] [facility] [place] - ANESTHESIA Hx Anesthesia: Yes Hx Anesthesia Reactions: No Meds Allergies/Adverse Reactions: Allergies Allergy/AdvReac Type Severity Reaction Status Date / Time No Known Allergies Allergy Verified 10/25/16 04:50 Results - Vital Signs Recent Vital Signs: Last Vital Signs Temp 98.3 F 10/25/16 08:08 Pulse 80 10/25/16 08:08 Resp 20 10/25/16 08:08 BP 158/86 H 10/25/16 08:08 Pulse Ox 100 10/25/16 08:08 - Labs Result Diagrams: 10/25/16 05:24 10/25/16 05:24 Labs: Laboratory Results - last 24 hr 10/25/16 10/25/16 10/25/16 05:24 05:24 05:24 WBC 12.6 H D RBC 4.74 Hgb 13.6 Hct 39.7 MCV 83.8 MCH 28.7 MCHC 34.3 RDW 14.0 Plt Count 314 D MPV 10.2 Neut % (Auto) 76.7 H Lymph % (Auto) 19.3 L [place] % (Auto) 3.3 Eos % (Auto) 0.3 Baso % (Auto) 0.4 Neut # 9.7 H Lymph # 2.4 [place] # 0.4 Eos # 0.0 Baso # 0.1 PT 11.7 INR 1.0 APTT 31 Sodium 143 Potassium 4.4 Chloride 102 Carbon Dioxide 19 L Anion Gap 26 H BUN 30 H Creatinine 1.5 H Est GFR ( Amer) 44 Est GFR (Non-Af Amer) 36 Random Glucose 247 H Calcium 10.7 H Total Bilirubin 0.9 AST 23 ALT 33 Alkaline Phosphatase 80 Total Creatine Kinase CK-MB (Mass) Troponin I, Quant Total Protein 8.0 Albumin 4.6 Globulin 3.4 Albumin/Globulin Ratio 1.4 Lipase 155 Urine Color Urine Clarity Urine pH Ur Specific [place] Urine Protein Urine Glucose (UA) Urine Ketones Urine Blood Urine Nitrate Urine Bilirubin Urine Urobilinogen Ur Leukocyte Esterase Urine WBC (Auto) Urine RBC (Auto) Ur Squamous Epith Cells Urine Bacteria Urine Yeast (Budding) 10/25/16 10/25/16 08:49 12:02 WBC RBC Hgb Hct MCV MCH MCHC RDW Plt Count MPV Neut % (Auto) Lymph % (Auto) [place] % (Auto) Eos % (Auto) Baso % (Auto) Neut # Lymph # [place] # Eos # Baso # PT INR APTT Sodium Potassium Chloride Carbon Dioxide Anion Gap BUN Creatinine Est GFR ( Amer) Est GFR (Non-Af Amer) Random Glucose Calcium Total Bilirubin AST ALT Alkaline Phosphatase Total Creatine Kinase 132 CK-MB (Mass) 1.33 Troponin I, Quant 0.0120 Total Protein Albumin Globulin Albumin/Globulin Ratio Lipase Urine Color Yellow Urine Clarity Hazy Urine pH 5.0 Ur Specific [place] 1.029 Urine Protein 1+ H Urine Glucose (UA) 3+ H Urine Ketones 1+ H Urine Blood Negative Urine Nitrate Negative Urine Bilirubin Negative Urine Urobilinogen Normal Ur Leukocyte Esterase 3+ H Urine WBC (Auto) 303 H Urine RBC (Auto) 1 Ur Squamous Epith Cells 9 H Urine Bacteria Few H Urine Yeast (Budding) Many H
[2016-10-25] MEDS: Morphine 4 MG/ML VIAL IV PRN ×2 (13:40→21:07)
--- NOTE | 2016-10-25 14:45 | CP.PCM.CON ---
<Starr Florence - Last Filed: 10/25/16 15:34> History of Present Illness - History of Present Illness History of Present Illness: GI Fellow PGY4 Consult Note This is a 56yF with pmhx of DM, HTN, Chronic pain, Fibroids, recent D&C, recent negative cath, anxiety who presented to the ER with complaints of intractable N/ V and hematemesis. Pt reports this has been going on for for 4-6 months and has been progressively getting worse, pt reports 40pound weight loss during this time period due to decreased po intake. She says N/V recently got worse and was not tolerating liquids/solids and reports vomiting with blood. Pt does reports taking ibuprofen 600mg tab tid for a while. She denies any black stool, melena, or hematachezia. Pt does reports mild epigastric pain, denies prior hx of gastroparesis. Pt was on po abx cipro for UTI. She reports reflux and takes Pepcid/milk of magnesium prn. Pt reports she has constipation and last bm was yesterday takes bowel regimen prn. At the time of evaluation, no active bleeding , hemodynamically stable, per nurisng bilious emesis. No prior EGD/Colonoscopy. ROS: A 12pt ROS was obtained and was negative except as above PmHx: Anxiety, HTN, Hypercholesterolemia PsHx: D&C 2 weeks ago SHx: denies etoh, 1ppd 20+ years, denies any illicit drug use. FHx: cervical Ca: mother Past Patient History - Infectious Disease Hx of Infectious Diseases: None - Past Medical History & Family History Past Medical History?: Yes - Past Social History Smoking Status: Never Smoked - CARDIAC Hx Hypercholesterolemia: Yes Hx Hypertension: Yes - PULMONARY Hx Respiratory Disorders: No - NEUROLOGICAL Hx Neurological Disorder: No - HEENT Hx HEENT Problems: No - RENAL Hx Chronic Kidney Disease: No - ENDOCRINE/METABOLIC Hx Endocrine Disorders: Yes Hx Diabetes Mellitus Type 2: Yes - HEMATOLOGICAL/ONCOLOGICAL Hx Blood Disorders: No - INTEGUMENTARY Hx Dermatological Problems: No - MUSCULOSKELETAL/RHEUMATOLOGICAL Hx Musculoskeletal Disorders: Yes Hx Falls: Yes Other/Comment: Sciatica, Scoliosis - GASTROINTESTINAL Hx Gastrointestinal Disorders: No Hx Vomiting: Yes - GENITOURINARY/GYNECOLOGICAL Hx Genitourinary Disorders: No - PSYCHIATRIC Hx Anxiety: Yes Hx Substance Use: No - SURGICAL HISTORY Hx Surgeries: Yes Hx Dilation and Curettage: Yes Other/Comment[place] [facility] [place] - ANESTHESIA Hx Anesthesia: Yes Hx Anesthesia Reactions: No Meds Allergies/Adverse Reactions: Allergies Allergy/AdvReac Type Severity Reaction Status Date / Time No Known Allergies Allergy Verified 10/25/16 04:50 - Medications Medications: Current Medications Diazepam (Valium) 10 mg PO BID PRN PRN Reason: Anxiety Last Admin: 10/25/16 14:06 Dose: 10 mg Famotidine (Pepcid) 20 mg IVP Q12 [facility] Last Admin: 10/25/16 14:05 Dose: 20 mg Home Med (Tizanidine Hcl [Zanaflex]) 4 mg PO BID [facility] Sodium Chloride (Sodium Chloride 0.45%) 500 mls @ 100 mls/hr IV .Q5H [facility] Last Admin: 10/25/16 14:05 Dose: 100 mls/hr Insulin Human Regular (Novolin R) 2 unit SC ACHS [facility] PRN Reason: Protocol Lisinopril (Zestril) 20 mg PO DAILY [facility] Metoclopramide HCl (Reglan) 10 mg IVP Q8H [facility] Last Admin: 10/25/16 14:06 Dose: 10 mg Morphine Sulfate (Morphine) 4 mg IV Q6 PRN PRN Reason: Pain, moderate (4-7) Last Admin: 10/25/16 13:40 Dose: 4 mg Ondansetron HCl (Zofran Inj) 4 mg IVP Q8H [facility] Last Admin: 10/25/16 14:06 Dose: 4 mg Physical Exam - Constitutional Appears: Non-toxic, Unkempt - Head Exam Head Exam: ATRAUMATIC, NORMAL INSPECTION, NORMOCEPHALIC - Eye Exam Eye Exam: EOMI, Normal appearance, PERRL Pupil Exam: PERRL - ENT Exam ENT Exam: Mucous Membranes Moist, Normal Exam - Neck Exam Neck exam: Positive for: Normal Inspection - Respiratory Exam Respiratory Exam: Clear to Auscultation Bilateral, NORMAL BREATHING PATTERN - Cardiovascular Exam Cardiovascular Exam: RRR, +S1, +S2 - GI/Abdominal Exam GI & Abdominal Exam: Normal Bowel Sounds, Soft. absent: Distended, Firm, Guarding, Organomegaly, Rigid, Tenderness - Rectal Exam Rectal Exam: Deferred - Extremities Exam Extremities exam: Positive for: full ROM, normal inspection. Negative for: pedal edema - Back Exam Back exam: NORMAL INSPECTION - Neurological Exam Neurological exam: Alert, Oriented x3 - Psychiatric Exam Psychiatric exam: Anxious - Skin Skin Exam: Dry, Erythema, Intact, Normal Color, Warm Results - Vital Signs Recent Vital Signs: Last Vital Signs Temp 98.9 F 10/25/16 14:08 Pulse 83 10/25/16 14:08 Resp 20 10/25/16 14:08 BP 162/86 H 10/25/16 14:08 Pulse Ox 100 10/25/16 14:08 - Labs Result Diagrams: 10/25/16 05:24 10/25/16 05:24 Labs: Laboratory Results - last 24 hr 10/25/16 10/25/16 10/25/16 05:24 05:24 05:24 WBC 12.6 H D RBC 4.74 Hgb 13.6 Hct 39.7 MCV 83.8 MCH 28.7 MCHC 34.3 RDW 14.0 Plt Count 314 D MPV 10.2 Neut % (Auto) 76.7 H Lymph % (Auto) 19.3 L [place] % (Auto) 3.3 Eos % (Auto) 0.3 Baso % (Auto) 0.4 Neut # 9.7 H Lymph # 2.4 [place] # 0.4 Eos # 0.0 Baso # 0.1 PT 11.7 INR 1.0 APTT 31 Sodium 143 Potassium 4.4 Chloride 102 Carbon Dioxide 19 L Anion Gap 26 H BUN 30 H Creatinine 1.5 H Est GFR ( Amer) 44 Est GFR (Non-Af Amer) 36 Random Glucose 247 H Calcium 10.7 H Total Bilirubin 0.9 AST 23 ALT 33 Alkaline Phosphatase 80 Total Creatine Kinase CK-MB (Mass) Troponin I, Quant Total Protein 8.0 Albumin 4.6 Globulin 3.4 Albumin/Globulin Ratio 1.4 Lipase 155 Urine Color Urine Clarity Urine pH Ur Specific [place] Urine Protein Urine Glucose (UA) Urine Ketones Urine Blood Urine Nitrate Urine Bilirubin Urine Urobilinogen Ur Leukocyte Esterase Urine WBC (Auto) Urine RBC (Auto) Ur Squamous Epith Cells Urine Bacteria Urine Yeast (Budding) 10/25/16 10/25/16 08:49 12:02 WBC RBC Hgb Hct MCV MCH MCHC RDW Plt Count MPV Neut % (Auto) Lymph % (Auto) [place] % (Auto) Eos % (Auto) Baso % (Auto) Neut # Lymph # [place] # Eos # Baso # PT INR APTT Sodium Potassium Chloride Carbon Dioxide Anion Gap BUN Creatinine Est GFR ( Amer) Est GFR (Non-Af Amer) Random Glucose Calcium Total Bilirubin AST ALT Alkaline Phosphatase Total Creatine Kinase 132 CK-MB (Mass) 1.33 Troponin I, Quant 0.0120 Total Protein Albumin Globulin Albumin/Globulin Ratio Lipase Urine Color Yellow Urine Clarity Hazy Urine pH 5.0 Ur Specific [place] 1.029 Urine Protein 1+ H Urine Glucose (UA) 3+ H Urine Ketones 1+ H Urine Blood Negative Urine Nitrate Negative Urine Bilirubin Negative Urine Urobilinogen Normal Ur Leukocyte Esterase 3+ H Urine WBC (Auto) 303 H Urine RBC (Auto) 1 Ur Squamous Epith Cells 9 H Urine Bacteria Few H Urine Yeast (Budding) Many H Assessment & Plan - Assessment and Plan (Free Text) Assessment: This is a 56yF presenting with nausea, vomiting and reported hematemesis. 1. Nausea/vomiting 2. Constipation likely from chronic opioid use 3. Reported Coffee ground emesis- NSAIDs vs gastritis vs esophagitis vs PUD 4. Uncontrolled DM-possible gastroparesis 5. XENIA Plan: -Continue supportive care with IVF hydration -Continue antiemetics and pain control -Uncontrolled DM, will order HgbA1c, possible underlying gastroparesis, glycemic control per primary team -Start on Clear liquid diet -No active GI bleed, Hgb stable, hemodynamically stable -Start IV PPI, avoids NSAIDs -Plan for EGD/Colonoscopy tomorrow -Start Golytely bowel prep -NPO after midnight -Will continue to follow pt closely <Callum Castro - Last Filed: 10/25/16 15:54> Meds - Medications Medications: Current Medications Bisacodyl (Dulcolax) 10 mg PO ONCE ONE Stop: 10/25/16 20:01 Diazepam (Valium) 10 mg PO BID PRN PRN Reason: Anxiety Last Admin: 10/25/16 14:06 Dose: 10 mg Famotidine (Pepcid) 20 mg IVP Q12 [facility] Last Admin: 10/25/16 14:05 Dose: 20 mg Home Med (Tizanidine Hcl [Zanaflex]) 4 mg PO BID [facility] Sodium Chloride (Sodium Chloride 0.45%) 500 mls @ 100 mls/hr IV .Q5H [facility] Last Admin: 10/25/16 14:05 Dose: 100 mls/hr Insulin Human Regular (Novolin R) 2 unit SC ACHS [facility] PRN Reason: Protocol Lisinopril (Zestril) 20 mg PO DAILY [facility] Metoclopramide HCl (Reglan) 10 mg IVP Q8H [facility] Last Admin: 10/25/16 14:06 Dose: 10 mg Morphine Sulfate (Morphine) 4 mg IV Q6 PRN PRN Reason: Pain, moderate (4-7) Last Admin: 10/25/16 13:40 Dose: 4 mg Ondansetron HCl (Zofran Inj) 4 mg IVP Q8H [facility] Last Admin: 10/25/16 14:06 Dose: 4 mg Pantoprazole Sodium (Protonix Inj) 40 mg IVP DAILY [facility] Polyethylene Glycol/Electrolytes (Golytely) 4,000 ml PO ONCE ONE Stop: 10/25/16 16:01 Results - Vital Signs Recent Vital Signs: Last Vital Signs Temp 98.9 F 10/25/16 14:08 Pulse 83 10/25/16 14:08 Resp 20 10/25/16 14:08 BP 162/86 H 10/25/16 14:08 Pulse Ox 100 10/25/16 14:08 - Labs Result Diagrams: 10/25/16 05:24 10/25/16 05:24 Labs: Laboratory Results - last 24 hr 10/25/16 10/25/16 10/25/16 05:24 05:24 05:24 WBC 12.6 H D RBC 4.74 Hgb 13.6 Hct 39.7 MCV 83.8 MCH 28.7 MCHC 34.3 RDW 14.0 Plt Count 314 D MPV 10.2 Neut % (Auto) 76.7 H Lymph % (Auto) 19.3 L [place] % (Auto) 3.3 Eos % (Auto) 0.3 Baso % (Auto) 0.4 Neut # 9.7 H Lymph # 2.4 [place] # 0.4 Eos # 0.0 Baso # 0.1 PT 11.7 INR 1.0 APTT 31 Sodium 143 Potassium 4.4 Chloride 102 Carbon Dioxide 19 L Anion Gap 26 H BUN 30 H Creatinine 1.5 H Est GFR ( Amer) 44 Est GFR (Non-Af Amer) 36 Random Glucose 247 H Calcium 10.7 H Total Bilirubin 0.9 AST 23 ALT 33 Alkaline Phosphatase 80 Total Creatine Kinase CK-MB (Mass) Troponin I, Quant Total Protein 8.0 Albumin 4.6 Globulin 3.4 Albumin/Globulin Ratio 1.4 Lipase 155 Urine Color Urine Clarity Urine pH Ur Specific [place] Urine Protein Urine Glucose (UA) Urine Ketones Urine Blood Urine Nitrate Urine Bilirubin Urine Urobilinogen Ur Leukocyte Esterase Urine WBC (Auto) Urine RBC (Auto) Ur Squamous Epith Cells Urine Bacteria Urine Yeast (Budding) 10/25/16 10/25/16 08:49 12:02 WBC RBC Hgb Hct MCV MCH MCHC RDW Plt Count MPV Neut % (Auto) Lymph % (Auto) [place] % (Auto) Eos % (Auto) Baso % (Auto) Neut # Lymph # [place] # Eos # Baso # PT INR APTT Sodium Potassium Chloride Carbon Dioxide Anion Gap BUN Creatinine Est GFR ( Amer) Est GFR (Non-Af Amer) Random Glucose Calcium Total Bilirubin AST ALT Alkaline Phosphatase Total Creatine Kinase 132 CK-MB (Mass) 1.33 Troponin I, Quant 0.0120 Total Protein Albumin Globulin Albumin/Globulin Ratio Lipase Urine Color Yellow Urine Clarity Hazy Urine pH 5.0 Ur Specific [place] 1.029 Urine Protein 1+ H Urine Glucose (UA) 3+ H Urine Ketones 1+ H Urine Blood Negative Urine Nitrate Negative Urine Bilirubin Negative Urine Urobilinogen Normal Ur Leukocyte Esterase 3+ H Urine WBC (Auto) 303 H Urine RBC (Auto) 1 Ur Squamous Epith Cells 9 H Urine Bacteria Few H Urine Yeast (Budding) Many H Attending/Attestation - Attestation I have personally seen and examined this patient.: Yes I have fully participated in the care of the patient.: Yes I have reviewed all pertinent clinical information: Yes Notes (Text): 10/25/16 15:48 I have seen and examined patient with GI fellow. Agree with above documentation with the following additions. In brief, this is a 56 year old female with history of DM, HTN, uterine fibroids, chronic pain syndrome who presents to hospital with complaint of abdominal pain, nausea, and vomiting which has been progressively worse over the past one week. She has had ongoing intermittent similar symptoms over the past 3 months following a gynecologic procedure and was admitted to hospital last month for management. She was treated conservatively and told to have outpatient follow up, however her symptoms became severe again including episodes of hematemesis. She describes epigastric diffuse 10/10 pain along with multiple episodes of emesis with blood tinge over the past 24 hours. She also reports daily NSAID use, chronic constipation, and a weight loss of approximately 40 pounds over this time duration, mainly due to decreased PO intake according to patient. No prior endoscopic evaluation. DM - uncontrolled HTN Uterine fibroids Chronic pain syndrome, on opiates CT imaging reviewed by me showing fecal retention, mural wall thickening of stomach and distal esophagus - Clear liquid diet as tolerated - H/H stable, continue to monitor - Anti-emetic therapy PRN - Would avoid use of narcotic pain medication as this may worsen existing condition - Continue with PPI therapy - Differential of persistent symptoms is broad including peptic ulcer disease, gastroparesis from uncontrolled DM, or underlying malignancy. Given clinical presentation with unexplained weight loss, will plan for EGD/colonoscopy tomorrow for further evaluation. Golytely bowel preparation today, NPO after midnight.
[2016-10-25] MEDS ORDERED: Peg-Electrolyte Oral Soln 4L (Golytely) PO ONE (16:00)
[2016-10-25] MEDS: (Novolin R) Insulin Human Regular 100 units/ml vial SC SCH ×2 (16:33→22:10)
[2016-10-25] MEDS ORDERED: TIZANIDINE HCL 4 MG PO SCH (18:00)
[2016-10-25] MEDS ORDERED: Bisacodyl 5mg EC Tab PO ONE (20:00)
[2016-10-26 08:24] LABS: BASO # 0.1 K/uL (0.0-0.2); BASO % 0.5 % (0.0-2.0); EOS % 0.1 % (0.0-4.0); HEMATOCRIT 36.8 % (34.0-47.0); LYMPH # 2.6 K/uL (1.0-4.3); LYMPH % 22.1 % (20.0-40.0); MEAN CELL VOLUME 84.6 fL (81.0-99.0); MEAN CORPUSCULAR HEMOGLOBIN 28.9 pg (27.0-31.0); MEAN CORPUSCULAR HGB CONC 34.1 g/dL (33.0-37.0); MEAN PLATELET VOLUME 10.2 fL (7.2-11.7); MONO # 0.6 K/uL (0.0-0.8); MONO % 4.8 % (0.0-10.0); NRBC % 0.1 % (0.0-2.0); RED CELL DISTRIBUTION WIDTH 14.2 % (11.5-14.5); WHITE BLOOD COUNT 11.9 K/uL (4.8-10.8)
[2016-10-26] MEDS: (Novolin R) Insulin Human Regular 100 units/ml vial SC SCH ×4 (08:28→21:49)
[2016-10-26 08:51] LABS: POTASSIUM 3.7 mmol/L (3.6-5.2)
[2016-10-26 08:54] LABS: ALB/GLOB RATIO 1.5 (1.0-2.1); BILIRUBIN,TOTAL 1.1 mg/dL (0.2-1.3); CALCIUM 8.5 mg/dl (8.6-10.4); TOTAL PROTEIN 6.7 g/dL (6.3-8.3)
[2016-10-26] MEDS ORDERED: Propofol 10 mg/ml Inj (20 ML) ONE (10:18)
[2016-10-26] MEDS ORDERED: Lidocaine Hydrochloride 5 ML INJ ONE (10:32)
[2016-10-26] MEDS ORDERED: Lactated Ringer's 500 ML IV SCH (10:45)
--- NOTE | 2016-10-26 10:50 | CP.PCM.PN ---
Subjective - Date & Time of Evaluation Date of Evaluation: 10/26/16 Time of Evaluation: 10:45 - Subjective Subjective: Patient seen and examined, no acute events overnight. She did not adequately consume enough bowel preparation to perform colonoscopy. No further episodes of vomiting reported overnight. S/p EGD today showing mild gastritis, hiatal hernia. Objective - Vital Signs/Intake and Output Vital Signs (last 24 hours): Temp Pulse Resp BP Pulse Ox 98 F 78 19 138/81 100 10/26/16 09:29 10/26/16 09:29 10/26/16 09:29 10/26/16 09:29 10/26/16 09:29 Intake and Output: 10/26/16 10/26/16 06:59 18:59 Intake Total 800 0 Balance 800 0 - Medications Medications: Current Medications Diazepam (Valium) 10 mg PO BID PRN PRN Reason: Anxiety Last Admin: 10/25/16 21:07 Dose: 10 mg Famotidine (Pepcid) 20 mg IVP Q12 [facility] Last Admin: 10/25/16 21:07 Dose: 20 mg Home Med (Tizanidine Hcl [Zanaflex]) 4 mg PO BID [facility] Sodium Chloride (Sodium Chloride 0.45%) 500 mls @ 100 mls/hr IV .Q5H [facility] Last Admin: 10/26/16 04:30 Dose: Not Given Insulin Human Regular (Novolin R) 0 unit SC ACHS [facility] PRN Reason: Protocol Last Admin: 10/26/16 08:28 Dose: Not Given Lisinopril (Zestril) 20 mg PO DAILY [facility] Metoclopramide HCl (Reglan) 10 mg IVP Q8H [facility] Last Admin: 10/26/16 05:20 Dose: 10 mg Morphine Sulfate (Morphine) 4 mg IV Q6 PRN PRN Reason: Pain, moderate (4-7) Last Admin: 10/25/16 21:07 Dose: 4 mg Ondansetron HCl (Zofran Inj) 4 mg IVP Q8H [facility] Last Admin: 10/26/16 05:20 Dose: 4 mg Pantoprazole Sodium (Protonix Inj) 40 mg IVP DAILY [facility] - Labs Labs: 10/26/16 08:16 10/26/16 08:16 PT 11.7 SECONDS (9.7-12.2) 10/25/16 05:24 INR 1.0 10/25/16 05:24 APTT 31 SECONDS (21-34) 10/25/16 05:24 Assessment and Plan - Assessment and Plan (Free Text) Assessment: Chronic pain syndrome DM - uncontrolled HTN Nausea, vomiting - s/p EGD showing mild gastritis, hiatal hernia Constipation Plan: - Advance diet slowly as tolerated, suggest small frequent meals throughout the day due to suspected gastroparesis - Strict blood glucose control - Continue with PPI therapy - May continue with pro-motility agent - Follow up EGD biopsy results - Anti-emetic therapy PRN - Would suggest avoiding narcotic pain medication as this may worsen existing medical condition - Maintain aggressive bowel regimen to prevent constipation - Patient would benefit from colonoscopy given unexplained weight loss, can be performed electively as outpatient following resolution of acute symptoms. From GI standpoint ok to discharge patient with subsequent outpatient follow up. Will sign off case, discussed with Dr. Sibley.
[2016-10-26] MEDS: Morphine 4 MG/ML VIAL IV PRN ×2 (11:32→17:53)
--- NOTE | 2016-10-26 11:52 | CP.PCM.PN ---
Subjective - Date & Time of Evaluation Date of Evaluation: 10/26/16 Time of Evaluation: 11:51 - Subjective Subjective: CHIEF COMPLAINTS TODAY : N/V LESS S/P EGD ROS. HEENT : N. Resp : No cough, wheezing ,pleuritic CP ,or hemoptysis Cardio : No anginal CP, PND, orthopnea, palpitation GI : No n/v ,diarrhea or GI bleeding . OPERATOR VACUUM : No headache, vertigo, focal deficit. Musculoskel : No joint swelling , Derm : No rash Psych : Normal affect. Ext : No swelling ,calf pain PE. Pt. is alert awake in no distress. V.S As noted in the chart Head ,ear nose,throat and eyes : Normal. Neck : Supple with normal carotids. Lungs: Clear air entry. Heart : S1 & S2 normal with S4. No murmur. Abd : Soft tender with normal bowel sounds. Neuro : Moves all ext. with no localized deficit. Ext : No edema with intact pulses.Non tender calves Derm : No rashes or decubitus ulcer. LABS/RADIOLOGY: ASSESSMENT/PLAN : SEE ORDERS Objective - Vital Signs/Intake and Output Vital Signs (last 24 hours): Temp Pulse Resp BP Pulse Ox 97.3 F L 68 17 154/98 H 100 10/26/16 10:40 10/26/16 11:10 10/26/16 11:10 10/26/16 11:10 10/26/16 11:10 Intake and Output: 10/25/16 10/26/16 23:59 11:59 Intake Total 1200 Balance 1200 - Medications Medications: Current Medications Diazepam (Valium) 10 mg PO BID PRN PRN Reason: Anxiety Last Admin: 10/25/16 21:07 Dose: 10 mg Home Med (Tizanidine Hcl [Zanaflex]) 4 mg PO BID [facility] Sodium Chloride (Sodium Chloride 0.45%) 500 mls @ 100 mls/hr IV .Q5H [facility] Last Admin: 10/26/16 09:00 Dose: Not Given Insulin Human Regular (Novolin R) 0 unit SC ACHS [facility] PRN Reason: Protocol Last Admin: 10/26/16 08:28 Dose: Not Given Lisinopril (Zestril) 20 mg PO DAILY [facility] Last Admin: 10/26/16 11:29 Dose: 20 mg Metoclopramide HCl (Reglan) 10 mg IVP Q8H [facility] Last Admin: 10/26/16 05:20 Dose: 10 mg Morphine Sulfate (Morphine) 4 mg IV Q6 PRN PRN Reason: Pain, moderate (4-7) Last Admin: 10/26/16 11:32 Dose: 4 mg Ondansetron HCl (Zofran Inj) 4 mg IVP Q8H [facility] Last Admin: 10/26/16 05:20 Dose: 4 mg Pantoprazole Sodium (Protonix Inj) 40 mg IVP DAILY [facility] Last Admin: 10/26/16 11:28 Dose: 40 mg - Labs Labs: 10/26/16 08:16 10/26/16 08:16 PT 11.7 SECONDS (9.7-12.2) 10/25/16 05:24 INR 1.0 10/25/16 05:24 APTT 31 SECONDS (21-34) 10/25/16 05:24
[2016-10-26 16:43] VITALS: RESP 20
[2016-10-27] MEDS: Morphine 4 MG/ML VIAL IV PRN ×3 (00:14→12:19)
[2016-10-27 07:59] LABS: POTASSIUM 3.7 mmol/L (3.6-5.2)
[2016-10-27 08:03] LABS: CALCIUM 8.5 mg/dl (8.6-10.4)
[2016-10-27 08:09] VITALS: PULSE 75
[2016-10-27] MEDS: (Novolin R) Insulin Human Regular 100 units/ml vial SC SCH ×2 (08:27→12:18)
[2016-10-27 13:30] LABS: RBC URINE 44 /hpf (0-3); URINE BACTERIA OCC (<OCC); URINE BILIRUBIN NEGATIVE (NEGATIVE); URINE BLOOD 1+ (NEGATIVE); URINE COLOR Yellow (YELLOW); URINE GLUCOSE (UA) 3+ mg/dL (Normal); URINE KETONE NEGATIVE (NEGATIVE); URINE LEUKOCYTE ESTERASE 3+ Leu/uL (Negative); URINE PROTEIN NEGATIVE (NEGATIVE); URINE UROBILINOGEN NORMAL mg/dL (0.2-1.0); WBC CLUMPS FEW /hpf; WBC URINE 1465 /hpf (0-5)
--- NOTE | 2016-10-27 13:32 | CP.PCM.DIS ---
Provider - Provider Date of Admission: 10/25/16 07:55 Attending physician: Linsey Sibley MD Time Spent in preparation of Discharge (in minutes): 35 Hospital Course - Lab Results Lab Results: Most Recent Lab Values WBC 11.9 K/uL (4.8-10.8) H 10/26/16 08:16 RBC 4.35 Mil/uL (3.80-5.20) 10/26/16 08:16 Hgb 12.6 g/dL (11.0-16.0) 10/26/16 08:16 Hct 36.8 % (34.0-47.0) 10/26/16 08:16 MCV 84.6 fL (81.0-99.0) 10/26/16 08:16 MCH 28.9 pg (27.0-31.0) 10/26/16 08:16 MCHC 34.1 g/dL (33.0-37.0) 10/26/16 08:16 RDW 14.2 % (11.5-14.5) 10/26/16 08:16 Plt Count 268 K/uL (130-400) 10/26/16 08:16 MPV 10.2 fL (7.2-11.7) 10/26/16 08:16 Neut % (Auto) 72.5 % (50.0-75.0) 10/26/16 08:16 Lymph % (Auto) 22.1 % (20.0-40.0) 10/26/16 08:16 [place] % (Auto) 4.8 % (0.0-10.0) 10/26/16 08:16 Eos % (Auto) 0.1 % (0.0-4.0) 10/26/16 08:16 Baso % (Auto) 0.5 % (0.0-2.0) 10/26/16 08:16 Neut # 8.6 K/uL (1.8-7.0) H 10/26/16 08:16 Lymph # 2.6 K/uL (1.0-4.3) 10/26/16 08:16 [place] # 0.6 K/uL (0.0-0.8) 10/26/16 08:16 Eos # 0.0 K/uL (0.0-0.7) 10/26/16 08:16 Baso # 0.1 K/uL (0.0-0.2) 10/26/16 08:16 PT 11.7 SECONDS (9.7-12.2) 10/25/16 05:24 INR 1.0 10/25/16 05:24 APTT 31 SECONDS (21-34) 10/25/16 05:24 Sodium 136 mmol/L (132-148) 10/27/16 07:16 Potassium 3.7 mmol/L (3.6-5.2) 10/27/16 07:16 Chloride 105 mmol/L (98-107) 10/27/16 07:16 Carbon Dioxide 21 mmol/L (22-30) L 10/27/16 07:16 Anion Gap 14 (10-20) 10/27/16 07:16 BUN 20 mg/dL (7-17) H 10/27/16 07:16 Creatinine 1.3 MG/DL (0.7-1.2) H 10/27/16 07:16 Est GFR ( Amer) 52 10/27/16 07:16 Est GFR (Non-Af Amer) 43 10/27/16 07:16 POC Glucose (mg/dL) 239 mg/dL (65-110) H 10/27/16 10:56 Random Glucose 173 mg/dL (65-105) H 10/27/16 07:16 Hemoglobin A1c 9.2 % (4.2-6.5) H 10/26/16 08:16 Calcium 8.5 mg/dl (8.6-10.4) L 10/27/16 07:16 Total Bilirubin 1.1 mg/dL (0.2-1.3) 10/26/16 08:16 AST 18 U/L (14-36) 10/26/16 08:16 ALT 29 U/L (9-52) 10/26/16 08:16 Alkaline Phosphatase 66 U/L (38-126) 10/26/16 08:16 Total Creatine Kinase 193 U/L (30-135) H 10/26/16 03:42 CK-MB (Mass) 2.38 ng/mL (0.0-3.38) 10/26/16 03:42 Troponin I, Quant 0.0260 ng/mL (0.00-0.120) 10/26/16 03:42 Total Protein 6.7 g/dL (6.3-8.3) 10/26/16 08:16 Albumin 4.0 g/dL (3.5-5.0) 10/26/16 08:16 Globulin 2.7 gm/dL (2.2-3.9) 10/26/16 08:16 Albumin/Globulin Ratio 1.5 (1.0-2.1) 10/26/16 08:16 Lipase 155 U/L (23-300) 10/25/16 05:24 Urine Color Yellow (YELLOW) 10/25/16 08:49 Urine Clarity Hazy (Clear) 10/25/16 08:49 Urine pH 5.0 (5.0-8.0) 10/25/16 08:49 Ur Specific [place] 1.029 (1.003-1.030) 10/25/16 08:49 Urine Protein 1+ mg/dL (NEGATIVE) H 10/25/16 08:49 Urine Glucose (UA) 3+ mg/dL (Normal) H 10/25/16 08:49 Urine Ketones 1+ mg/dL (NEGATIVE) H 10/25/16 08:49 Urine Blood Negative (NEGATIVE) 10/25/16 08:49 Urine Nitrate Negative (NEGATIVE) 10/25/16 08:49 Urine Bilirubin Negative (NEGATIVE) 10/25/16 08:49 Urine Urobilinogen Normal mg/dL (0.2-1.0) 10/25/16 08:49 Ur Leukocyte Esterase 3+ Jana/uL (Negative) H 10/25/16 08:49 Urine WBC (Auto) 303 /hpf (0-5) H 10/25/16 08:49 Urine RBC (Auto) 1 /hpf (0-3) 10/25/16 08:49 Ur Squamous Epith Cells 9 /hpf (0-5) H 10/25/16 08:49 Urine Bacteria Few (<OCC) H 10/25/16 08:49 Urine Yeast (Budding) Many /hpf (NEGATIVE) H 10/25/16 08:49 Urine HCG, Qual Negative (NEGATIVE) 10/26/16 07:19 - Hospital Course Hospital Course: PRESENTED TO ER WITH INTRACTABLE VOMITING WITH NEW ONSET ON RENAL INSUFFICIENCY PT RECENTLY HAD URTI AND WAS TREATED WITH CIPRO . PT IMPROVED AND SUBSEQUENTLY DEVELOPED VOMITING WITH UPPER ABD. PAIN NO DIARRHEA /UPPER/LOWER GI BLEED PAST HIST. T2DM INSULIN DEP./HTN/ANXIETY/DEPRESSION /LOW BACK PAIN CATH 2017, NORMAL PT. IMPROVED ON IV FLUIDS AND REGLAN EGD : MILD GASTRITIS PT WAS COUNSELED ON PO NARCOTICS AND MONITOR SUGAR . PT WILL F/U IN OFFICE Discharge Exam - Head Exam Head Exam: ATRAUMATIC, NORMAL INSPECTION, NORMOCEPHALIC Discharge Plan - Follow Up Plan Condition: STABLE Disposition: HOME/ ROUTINE Referrals: Linsey Sibley MD [Staff Provider] -
[2016-10-27 16:31] VITALS: BP 98/65; TEMP 98.2; O2SAT 96
--- NOTE | 2016-10-30 22:40 | CARD ---
APPROVED REPORT EKG Measurement Heart [id number] [id number] <Conclusion> Normal sinus rhythm with sinus arrhythmia Left axis deviation Incomplete left bundle branch block Nonspecific ST and T wave abnormality Prolonged QT Abnormal ECG
== END 2016-10-27 19:01 | disposition home or self-care (01) ==
LOC: SUPCPDRO 04:45 → C.ER 04:45 → C.9E 07:55 → C.3T 21:46
PROVIDERS: ADMIT Internal Medicine Cardiovascular Disease; ATTEND Internal Medicine Cardiovascular Disease
DX: E11.43 Type 2 diabetes mellitus with diabetic autonomic (poly)neuropathy (principal); K31.84 Gastroparesis; K21.9 Gastro-esophageal reflux disease without esophagitis; I10 Essential (primary) hypertension; M54.16 Radiculopathy, lumbar region; K29.70 Gastritis, unspecified, without bleeding; K44.9 Diaphragmatic hernia without obstruction or gangrene
CPT/HCPCS: 36415; 43239; 74176; 80048; 80053; 81001; 82948; 83036; 83690; 84484; 84703; 85025; 85610; 85730; 87086; 88305; 88313; 88342; 96361; 96372; 96374; 96375; 96376; 99285; C9113; G0378; J1885; J2060; J2270; J2405; J2550; J2765; J7040; Q9966

== ENCOUNTER 2017-06-15 10:52 | Inpatient (IN) | payer OTHER ==
[2017-06-15 10:52] VITALS: BMI 29.7
[2017-06-15] MEDS ORDERED: Sodium Chloride 0.9% 1,000 ML IV ONE ×2 (11:41→15:53)
[2017-06-15] MEDS ORDERED: Sodium Chloride 0.9% 1,000 ML ONE ×2 (11:59→16:12)
[2017-06-15 12:17] LABS: BASO # 0.1 K/uL (0.0-0.2); BASO % 0.3 % (0.0-2.0); LYMPH # 1.1 K/uL (1.0-4.3); LYMPH % 6.2 % (20.0-40.0); MEAN CELL VOLUME 86.2 fL (81.0-99.0); MEAN CORPUSCULAR HEMOGLOBIN 29.5 pg (27.0-31.0); MEAN CORPUSCULAR HGB CONC 34.2 g/dL (33.0-37.0); MEAN PLATELET VOLUME 10.4 fL (7.2-11.7); MONO # 0.8 K/uL (0.0-0.8); MONO % 4.6 % (0.0-10.0); NEUT # 16.2 K/uL (1.8-7.0); NEUT % 88.9 % (50.0-75.0); PLATELET COUNT 259 K/uL (130-400); RBC 5.48 Mil/uL (3.80-5.20); RED CELL DISTRIBUTION WIDTH 13.7 % (11.5-14.5)
[2017-06-15 12:20] LABS: HEMOGLOBIN 16.2 g/dL (11.0-16.0); WHITE BLOOD COUNT 18.2 K/uL (4.8-10.8)
--- NOTE | 2017-06-15 12:23 | C.PDOC ---
History Of Present Illness 56 y/o female with history of DM, HTN, Anxiety and Depression presents to ED with complaints of epigastric abdominal pain and vomiting for 3 days. Patient is not tolerating po intake not even medication so she states blood pressure is high. Patient states today she has felt dizzy and denies fever, diarrhea, dysuria, back pain or hematemesis. Time Seen by Provider: 06/15/17 11:35 Chief Complaint (Nursing): GI Problem History Per: Patient History/Exam Limitations: no limitations Onset/Duration Of Symptoms: Days Current Symptoms Are (Timing): Still Present Location Of Pain/Discomfort: Diffuse Associated Symptoms: Vomiting Past Medical History Reviewed: Historical Data, Nursing Documentation, Vital Signs Vital Signs: Last Vital Signs Temp 98.9 F 06/15/17 16:20 Pulse 102 H 06/15/17 16:20 Resp 18 06/15/17 16:20 BP 119/83 06/15/17 16:20 Pulse Ox 97 06/15/17 16:37 - Medical History PMH: Anxiety, HTN, Hypercholesterolemia Surgical History: No Surg Hx Family History: States: No Known Family Hx - Social History Hx Alcohol Use: No Hx Substance Use: No - Immunization History Hx Tetanus Toxoid Vaccination: Yes Hx Influenza Vaccination: Yes Hx Pneumococcal Vaccination: Yes (4 years) Review Of Systems Constitutional: Negative for: Fever, Chills Gastrointestinal: Positive for: Vomiting, Abdominal Pain. Negative for: Nausea , Diarrhea Musculoskeletal: Negative for: Back Pain Skin: Negative for: Rash Physical Exam - Physical Exam Appears: Non-toxic, No Acute Distress, Other (Actively vomiting, umcomfortable) Skin: Warm, Diaphoretic, No Rash Head: Atraumatic, Normacephalic Eye(s): bilateral: Normal Inspection Oral Mucosa: Moist Neck: Normal ROM, Supple Cardiovascular: Rhythm Regular Respiratory: Normal Breath Sounds (poor effort), No Rales, No Rhonchi, No Wheezing Gastrointestinal/Abdominal: Soft, Tenderness (Diffuse but more on epigastric ), No Guarding, No Rebound, Other (obese abdomen) Back: No CVA Tenderness, No Vertebral Tenderness Extremity: Normal ROM, Capillary Refill (<2 seconds) Neurological/Psych: Oriented x3, Normal Speech, Normal Cognition ED Course And Treatment - Laboratory Results Result Diagrams: 06/15/17 12:11 06/15/17 13:18 O2 Sat by Pulse Oximetry: 97 (RA) Pulse Ox Interpretation: Normal - CT Scan/US CT Abd/pelvis Other Rad Studies (CT/US): Read By Radiologist, Radiology Report Reviewed CT/US Interpretation: This report is currently processing and HAS NOT BEEN OFFICIALLY SIGNED BY THE PHYSICIAN - ESTIMATED TIME OF APPROVAL IS 06/15/2017 16 :42. PROCEDURE: CT scan of the abdomen and pelvis dated 06/15/2017. HISTORY: Upper abdominal pain. Vomiting. COMPARISON: Comparison made with prior study 10/25/2017. TECHNIQUE: Contiguous axial images of the abdomen and pelvis performed without oral or intravenous contrast material. Additional 2D sagittal and coronal reformats generated. This CT exam was performed using one or more of the following dose reduction techniques: Automated exposure control, adjustment of the mA and/or kV according to patient size, and/or use of iterative reconstruction technique. Radiation dose: Total exam DLP = 951.73 mGy-cm. FINDINGS: LOWER THORAX: There are small bilateral effusions left larger than right with associated mild compressive type atelectasis along with mild passive/dependent type atelectasis as well. In addition, there also the interstitial markings are quite coarsened and increased in both lung bases more so on the left side. The possibility of mild interstitial edema and/or infiltrates to be considered. No evidence of basilar pneumothorax. Heart size is borderline/mildly enlarged. LIVER: The liver right upper limits of normal measuring approximately 18.3 cm in CC dimension. No obvious hepatic mass or collection seen on this noncontrast study. No gross intrahepatic biliary ductal dilatation. Mild to moderate diffuse fatty hepatic infiltration. GALLBLADDER AND BILE DUCTS: The gallbladder physiologically distended. No evidence of intraluminal gallbladder calculi. PANCREAS: Pancreas is slightly atrophic and fatty replaced. No obvious pancreatic masses collections or calcifications. No significant pancreatic ductal dilatation. SPLEEN: Spleen exhibits normal size and attenuation pattern without mass collection or calcification. ADRENALS : No adrenal lesions are identified. KIDNEYS AND URETERS: Kidneys demonstrate relatively symmetric size. No evidence of nephrolithiasis or hydronephrosis. BLADDER: Urinary bladder is physiologically distended. No evidence of intraluminal urinary bladder calculi. REPRODUCTIVE: Unremarkable. APPENDIX: Appendix unremarkable without evidence to suggest acute appendicitis best seen on coronal sequence number [id number]. BOWEL: The stomach is incompletely distended which may in part account for thick-walled appearance. The possibility of gastritis not excluded. Please note that on diffuse mucosal wall thickening and prominent rugal folds on re- demonstrated on prior study. Visualized loops of small bowel exhibit normal contour and caliber. No evidence acute mechanical small bowel obstruction. . PERITONEUM: Unremarkable. No fluid collection. No free air.Small fat containing umbilical hernia. LYMPH NODES: Unremarkable. No enlarged lymph nodes. VASCULATURE: Unremarkable. No aortic aneurysm. BONES: No fracture or destructive lesion. OTHER FINDINGS: None. IMPRESSION: Small bilateral effusions left slightly larger than right with minor bibasilar atelectasis. The interstitial markings are quite coarsened in both lung bases more so on the left side. Rule out the interstitial edema and/or infiltrates. Fatty hepatic infiltration. Medical Decision Making Medical Decision Making: Impression: abd pain, vomiting Plan: * CT ABD/PELV * Blood work * UA * Protonix * IV fluids Progress: Labs show elevated WBC, no electrolyte abn or elevated lipase. Glucose slightly elevated. Patient continues to vomit and given additional IVF and Zofran. She took awhile to provide urine specimen and get test for CT scan causing delay. Patient finally provided urine specimen and neg test for , urine showed ketones,blood,glucose and protein. CT is pending. 1615 CT done and being read by radiologist Page DR Sibley for admission Disposition - Disposition Disposition: HOSPITALIZED Disposition Time: 16:45 Condition: STABLE - POA Present On Arrival: None - Clinical Impression Clinical Impression: Intractable vomiting, Abdominal pain - PA / AIRFRAME TECHNICAL OFFICER / Resident Statement MD/DO has reviewed & agrees with the documentation as recorded. - Scribe Statement The provider has reviewed the documentation as recorded by the Annie Schultz All medical record entries made by the Annie were at my direction and personally dictated by me. I have reviewed the chart and agree that the record accurately reflects my personal performance of the history, physical exam, medical decision making, and the department course for this patient. I have also personally directed, reviewed, and agree with the discharge instructions and disposition. Decision To Admit - Pt Status Changed To: Hospital Disposition Of: Observation - . Bed Request Type: Regular Admitting Physician: Linsey Sibley Patient Diagnosis: Intractable vomiting, Abdominal pain
[2017-06-15 12:44] LABS: LYMPHOCYTE 7 % (20-40); MONOCYTE 2 % (0-10); NEUTROPHIL 91 % (50-75); PLATELET ESTIMATE NORMAL (NORMAL); TOTAL CELLS COUNTED 100
[2017-06-15 13:41] LABS: ALB/GLOB RATIO 1.3 (1.0-2.1); ALBUMIN 4.1 g/dL (3.5-5.0); ALT/SGPT 31 U/L (9-52); AMYLASE 44 U/L (30-110); AST/SGOT 32 U/L (14-36); BLOOD UREA NITROGEN 15 mg/dL (7-17); CALCIUM 9.6 mg/dl (8.6-10.4); GFR AFRICAN-AMERICAN > 60; GFR NON-AFRICAN AMERICAN > 60; LIPASE 16 U/L (23-300)
[2017-06-15 14:23] LABS: SQUAMOUS EPITHIAL 10 /hpf (0-5); URINE BACTERIA FEW (<OCC); URINE BILIRUBIN NEGATIVE (NEGATIVE); URINE BLOOD 1+ (NEGATIVE); URINE CLARITY Hazy (Clear); URINE COLOR Yellow (YELLOW); URINE GLUCOSE (UA) 3+ mg/dL (Normal); URINE LEUKOCYTE ESTERASE NEG Leu/uL (Negative); URINE PROTEIN 2+ mg/dL (NEGATIVE); URINE UROBILINOGEN NORMAL mg/dL (0.2-1.0)
--- NOTE | 2017-06-15 16:38 | CT ---
PROCEDURE: CT scan of the abdomen and pelvis dated 06/15/2017. HISTORY: Upper abdominal pain. Vomiting. COMPARISON: Comparison made with prior study 10/25/2017. TECHNIQUE: Contiguous axial images of the abdomen and pelvis performed without oral or intravenous contrast material. Additional 2D sagittal and coronal reformats generated. This CT exam was performed using one or more of the following dose reduction techniques: Automated exposure control, adjustment of the mA and/or kV according to patient size, and/or use of iterative reconstruction technique. Radiation dose: Total exam DLP = 951.73 mGy-cm. FINDINGS: LOWER THORAX: There are small bilateral effusions left larger than right with associated mild compressive type atelectasis along with mild passive/dependent type atelectasis as well. In addition, there also the interstitial markings are quite coarsened and increased in both lung bases more so on the left side. The possibility of mild interstitial edema and/or infiltrates to be considered. No evidence of basilar pneumothorax. Heart size is borderline/mildly enlarged. LIVER: The liver right upper limits of normal measuring approximately 18.3 cm in CC dimension. No obvious hepatic mass or collection seen on this noncontrast study. No gross intrahepatic biliary ductal dilatation Mild to moderate diffuse fatty hepatic infiltration. GALLBLADDER AND BILE DUCTS: The gallbladder physiologically distended. No evidence of intraluminal gallbladder calculi. PANCREAS: Pancreas is slightly atrophic and fatty replaced. No obvious pancreatic masses collections or calcifications. No significant pancreatic ductal dilatation. SPLEEN: Spleen exhibits normal size and attenuation pattern without mass collection or calcification. ADRENALS: No adrenal lesions are identified. KIDNEYS AND URETERS: Kidneys demonstrate relatively symmetric size. No evidence of nephrolithiasis or hydronephrosis. BLADDER: Urinary bladder is physiologically distended. No evidence of intraluminal urinary bladder calculi. REPRODUCTIVE: Unremarkable. APPENDIX: Appendix unremarkable without evidence to suggest acute appendicitis best seen on coronal sequence number [id number]. BOWEL: The stomach is incompletely distended which may in part account for thick-walled appearance. The possibility of gastritis not excluded. Please note that on diffuse mucosal wall thickening and prominent rugal folds on re- demonstrated on prior study. Visualized loops of small bowel exhibit normal contour and caliber. No evidence acute mechanical small bowel obstruction. . PERITONEUM: Unremarkable. No fluid collection. No free air.Small fat containing umbilical hernia. LYMPH NODES: Unremarkable. No enlarged lymph nodes. VASCULATURE: Unremarkable. No aortic aneurysm. BONES: No fracture or destructive lesion. OTHER FINDINGS: None. IMPRESSION: Small bilateral effusions left slightly larger than right with minor bibasilar atelectasis. The interstitial markings are quite coarsened in both lung bases more so on the left side. Rule out the interstitial edema and/or infiltrates. Fatty hepatic infiltration.
[2017-06-15] MEDS ORDERED: Home Med 1 UNIT (Acetaminophen/Oxycodone Hydr [Percocet 10/325 Mg Tab] 1 TAB) PO PRN (18:42)
--- NOTE | 2017-06-15 19:37 | CP.PCM.HP ---
History of Present Illness - History of Present Illness History of Present Illness: COMPREHENSIVE HISTORY & PHYSICAL EXAM HPI Patient presented to [facility] emergency room with 2 days history of nausea vomiting and abdominal pain patient is also complaining of questionable blood-tinged vomitus. Patient was evaluated in the emergency room and revealed WBC count of 18,000 with negative CAT scan. PAST HIST. Patient was recently admitted in [facility] for similar complaints. EGD was showed gastritis. No colonoscopy was done. Patient has history of hypertension and type 2 diabetes on insulin. Patient has a chronic pain syndrome and takes narcotics and also anxiety disorder. Patient recently had D& C for fibroid uterus. Patient had a cardiac catheterization showed normal coronaries. PERSONAL HIST: Smoking. One pack per day for 20 years Alcohol. N Allergy N Travel_- . FAMILY HIST : ROS : Constitutional: Negative for weight change, chills, Eyes: Negative for redness , swelling, itching, discharge, vision changes, blurry vision, double vision, glaucoma, cataracts, Ears: Negative for hearing loss, ringing, , tinnitus, vertigo Nose: Negative for rhinorrhea, stuffiness, sniffing, itching, postnasal drip, discoloration, nasal congestion and epistaxis. Throat: Negative for throat clearing, sore throat, hoarseness, difficulty swallowing and difficulty speaking. Respiratory: Negative for cough, , sputum production, chest tightness, wheezing, pleuritic chest pain ,daytime somnolence, chronic cough, hemoptysis, snoring at night, Cardiovascular: Negative for chest pain, palpitations, orthopnea, PND, Edema of legs, leg cramps, angina, claudication, , irregular heartbeat, Neurology: Negative for irritability, muscle weakness, numbness and tingling, seizures, tremors, migraines, slurred speech, syncope, memory loss, mood changes , recurrent headaches Gastrointestinal: PATIENT IS ALSO COMPLAINING OF CONSTIPATION NO BLEEDING PER RECTUM. ALSO GENERALIZED LOWER ABDOMINAL PAIN NAUSEA OR VOMITING. Genitourinary: Negative for frequent urination, hematuria, discharge, incontinence, urinary retention, frequent UTI, Psychiatric: Negative for depression, anxiety/panic, suicidal tendencies, Musculoskeletal: Negative for swollen joints, back pain, , neck pain, morning stiffness of joints, . Skin: Negative for rash, ulcers, itching, dry skin and pigmented lesions. P/E: Constitutional: Appears stated age and in no apparent distress. Head: Normocephalic. Ears: External ear canals patent without inflammation. Tympanic membranes intact with normal light reflex and landmark. Eyes: Pupils are central, bilaterally equal, symmetrical and reacts to light with normal movements and no icterus or pallor. Nose: External nares are patent. Mucosa is pink Mouth-Throat: Good general appearance and condition. No post-pharyngeal/oropharyngeal erythema and tonsillar hypertrophy. Good dental hygiene. Neck-Lymphatic: Neck is supple with normal ROM, no thyromegaly, lymph nodes or masses. JVD is normal with no carotid bruit. Lungs: Clear to percussion and auscultation with bilateral normal air entry. Cardiovascular: S1 and S2 are normal with no murmurs, gallops and rub. GI Exam: No hepatomegaly. Abdomen is soft and tender. No Organomegaly , masses or hernias are evident and bowel sounds are normal and active. Neurology: Higher function and all cranial nerves intact, with no gross motor or sensory deficit. Superficial and deep reflexes are normal with downwards planters. No cerebellar deficit with normal gait. Musculoskeletal: No tender spots with normal curvature of the spine with no swelling or restricted ROM of the small and large joints. Extremities: Homans sign absent. Intact pulses with no pitting edema, calf tenderness or skin color changes. Skin: No rash, eruptions or abnormal skin pigmentation LAB/RADIOLOGY: ASSESMENT : #1. SEPSIS ETIOLOGY UNCLEAR PROBABLY GI IN ETIOLOGY POSSIBLE DIVERTICULITIS WITH CHRONIC CONSTIPATION #2. UROSEPSIS. 3. TYPE 2 DIABETES HYPERTENSION. 4. CHRONIC PAIN SYNDROME ON NARCOTICS. PLAN: SEPTIC WORKUP IV ANTIBIOTICS. ID AND GI EVALUATION AND IV FLUIDS. Present on Admission - Present on Admission Any Indicators Present on Admission: No Past Patient History - Infectious Disease Hx of Infectious Diseases: None - Past Medical History & Family History Past Medical History?: Yes - Past Social History Smoking Status: Never Smoked - CARDIAC Hx Hypercholesterolemia: Yes Hx Hypertension: Yes - PULMONARY Hx Respiratory Disorders: No - NEUROLOGICAL Hx Neurological Disorder: No - HEENT Hx HEENT Problems: No - RENAL Hx Chronic Kidney Disease: No - ENDOCRINE/METABOLIC Hx Endocrine Disorders: Yes Hx Diabetes Mellitus Type 2: Yes - HEMATOLOGICAL/ONCOLOGICAL Hx Blood Disorders: No - INTEGUMENTARY Hx Dermatological Problems: No - MUSCULOSKELETAL/RHEUMATOLOGICAL Hx Musculoskeletal Disorders: Yes Hx Falls: Yes Other/Comment: Sciatica, Scoliosis; cervical/lumbar radiculopathy - GASTROINTESTINAL Hx Gastrointestinal Disorders: Yes Hx Vomiting: Yes - GENITOURINARY/GYNECOLOGICAL Hx Genitourinary Disorders: Yes Hx Urinary Tract Infection: Yes - PSYCHIATRIC Hx Anxiety: Yes Hx Substance Use: No - SURGICAL HISTORY Hx Surgeries: Yes Hx Dilation and Curettage: Yes (2 wks ago) Other/Comment: d&c at [facility] [place] 2 weeks ago - ANESTHESIA Hx Anesthesia: Yes Hx Anesthesia Reactions: No Meds Allergies/Adverse Reactions: Allergies Allergy/AdvReac Type Severity Reaction Status Date / Time No Known Allergies Allergy Verified 06/15/17 11:07 Results - Vital Signs Recent Vital Signs: Last Vital Signs Temp 98.5 F 06/15/17 18:15 Pulse 99 H 06/15/17 18:15 Resp 20 06/15/17 18:15 BP 134/87 06/15/17 18:15 Pulse Ox 94 L 06/15/17 18:15 - Labs Result Diagrams: 06/16/17 08:03 06/16/17 08:03 Labs: Laboratory Results - last 24 hr 06/15/17 06/15/17 06/15/17 12:11 13:18 14:16 WBC 18.2 H D RBC 5.48 H Hgb 16.2 H D Hct 47.2 H MCV 86.2 MCH 29.5 MCHC 34.2 RDW 13.7 Plt Count 259 MPV 10.4 Neut % (Auto) 88.9 H Lymph % (Auto) 6.2 L [place] % (Auto) 4.6 Eos % (Auto) 0.0 Baso % (Auto) 0.3 Neut # (Auto) 16.2 H Lymph # (Auto) 1.1 [place] # (Auto) 0.8 Eos # (Auto) 0.0 Baso # (Auto) 0.1 Neutrophils % (Manual) 91 H Lymphocytes % (Manual) 7 L Monocytes % (Manual) 2 Platelet Estimate Normal RBC Morphology Normal Sodium 145 Potassium 3.7 Chloride 100 Carbon Dioxide 26 Anion Gap 23 H BUN 15 Creatinine 0.8 Est GFR ( Amer) > 60 Est GFR (Non-Af Amer) > 60 Random Glucose 383 H Calcium 9.6 Total Bilirubin 1.5 H AST 32 ALT 31 Alkaline Phosphatase 116 Total Protein 7.2 Albumin 4.1 Globulin 3.1 Albumin/Globulin Ratio 1.3 Amylase 44 Lipase 16 L Urine Color Yellow Urine Clarity Hazy Urine pH 5.0 Ur Specific [place] 1.032 H Urine Protein 2+ H Urine Glucose (UA) 3+ H Urine Ketones 2+ H Urine Blood 1+ H Urine Nitrate Negative Urine Bilirubin Negative Urine Urobilinogen Normal Ur Leukocyte Esterase Neg Urine WBC (Auto) 3 Urine RBC (Auto) 5 H Ur Squamous Epith Cells 10 H Urine Bacteria Few H Hyaline Casts 3-5 H Urine HCG, Qual 06/15/17 14:48 WBC RBC Hgb Hct MCV MCH MCHC RDW Plt Count MPV Neut % (Auto) Lymph % (Auto) [place] % (Auto) Eos % (Auto) Baso % (Auto) Neut # (Auto) Lymph # (Auto) [place] # (Auto) Eos # (Auto) Baso # (Auto) Neutrophils % (Manual) Lymphocytes % (Manual) Monocytes % (Manual) Platelet Estimate RBC Morphology Sodium Potassium Chloride Carbon Dioxide Anion Gap BUN Creatinine Est GFR ( Amer) Est GFR (Non-Af Amer) Random Glucose Calcium Total Bilirubin AST ALT Alkaline Phosphatase Total Protein Albumin Globulin Albumin/Globulin Ratio Amylase Lipase Urine Color Urine Clarity Urine pH Ur Specific [place] Urine Protein Urine Glucose (UA) Urine Ketones Urine Blood Urine Nitrate Urine Bilirubin Urine Urobilinogen Ur Leukocyte Esterase Urine WBC (Auto) Urine RBC (Auto) Ur Squamous Epith Cells Urine Bacteria Hyaline Casts Urine HCG, Qual Negative
[2017-06-15] MEDS: Sodium Chloride 0.45% 1,000 ML IV SCH (20:00)
[2017-06-15] MEDS ORDERED: Pneumococcal 23-Valent Vaccine IM ONE (20:13)
--- NOTE | 2017-06-15 20:21 | CP.PCM.CON ---
History of Present Illness - History of Present Illness History of Present Illness: INFECTIOUS DISEASE CONSULT; HPI; 56 y/o female with history of DM, HTN, Anxiety and Depression presents to ED with complaints of epigastric abdominal pain and vomiting for 3 days. Patient is not tolerating po intake not even medication. Patient ALSO COMPLAINED OF DIZZINESS AND WEAKNESS. Patient denies fever, chills, diarrhea, constipation or any melanotic stools.NO HISTORY OF HEMOPTYSIS. c/o coffee ground emesis. Patient also denies dysuria, , hematuria, or history of kidney stones. Patient denies back pain. PATIENT HAS HISTORY OF CHRONIC PAIN SYNDROME AND IS ON PERCOCETS NOTED AT HOME. PATIENT HAS HISTORY OF GASTRITIS/AND HIATAL HERNIA DX IN 2017 PER GI. INFECTIOUS DISEASE CONSULTATION REQUESTED BY PMD PATIENT WAS FOUND TO HAVE INCREASING LEUKOCYTOSIS OF 18,000. ALSO CHEST X-RAY SHOWED INCREASED COARSE INTERSTITIAL MARKINGS BOTH LUNG BASES LT>RT WITH QUESTIONABLE INTERSTITIAL EDEMA VERSUS INFILTRATES. BILATERAL PLEURAL EFFUSIONS, LEFT GREATER THAN RIGHT. PATIENT C/O DRY COUGH AND DYSPNEA ON EXERTION. DENIES ANY CHEST PAINS OR PALPITATIONS. PMH: Anxiety, HTN, Hypercholesterolemia Surgical History: No Surg Hx Family History: States: No Known Family Hx - Social History Hx Alcohol Use: No Hx Substance Use: No SMOKING; PATIENT IS A SMOKER,ONE PACK PER DAY FOR 20 YEARS. - Immunization History Hx Tetanus Toxoid Vaccination: Yes Hx Influenza Vaccination: Yes Hx Pneumococcal Vaccination: Yes (4 years) Allergies; NKA Review of Systems - Constitutional Constitutional: absent: Chills, Fever - EENT Eyes: absent: Floaters Ears: Dizziness Nose/Mouth/Throat: absent: Mouth Lesions - Cardiovascular Cardiovascular: Dyspnea on Exertion. absent: Chest Pain - Respiratory Respiratory: Cough, Dyspnea on Exertion - Gastrointestinal Gastrointestinal: Abdominal Pain, Constipation, Nausea, Vomiting. absent: Melena - Neurological Neurological: Dizziness. absent: Headaches - Psychiatric Psychiatric: Anxiety, Depression - Hematologic/Lymphatic Hematologic: As Per HPI. absent: Easy Bleeding, Easy Bruising Past Patient History - Infectious Disease Hx of Infectious Diseases: None - Past Medical History & Family History Past Medical History?: Yes - Past Social History Smoking Status: Never Smoked - CARDIAC Hx Hypercholesterolemia: Yes Hx Hypertension: Yes - PULMONARY Hx Respiratory Disorders: No - NEUROLOGICAL Hx Neurological Disorder: No - HEENT Hx HEENT Problems: No - RENAL Hx Chronic Kidney Disease: No - ENDOCRINE/METABOLIC Hx Endocrine Disorders: Yes Hx Diabetes Mellitus Type 2: Yes - HEMATOLOGICAL/ONCOLOGICAL Hx Blood Disorders: No - INTEGUMENTARY Hx Dermatological Problems: No - MUSCULOSKELETAL/RHEUMATOLOGICAL Hx Musculoskeletal Disorders: Yes Hx Falls: Yes Other/Comment: Sciatica, Scoliosis; cervical/lumbar radiculopathy - GASTROINTESTINAL Hx Gastrointestinal Disorders: Yes Hx Vomiting: Yes - GENITOURINARY/GYNECOLOGICAL Hx Genitourinary Disorders: Yes Hx Urinary Tract Infection: Yes - PSYCHIATRIC Hx Anxiety: Yes Hx Substance Use: No - SURGICAL HISTORY Hx Surgeries: Yes Hx Dilation and Curettage: Yes (2 wks ago) Other/Comment: d&c at [facility] [place] 2 weeks ago - ANESTHESIA Hx Anesthesia: Yes Hx Anesthesia Reactions: No Meds Allergies/Adverse Reactions: Allergies Allergy/AdvReac Type Severity Reaction Status Date / Time No Known Allergies Allergy Verified 06/15/17 11:07 - Medications Medications: Current Medications Diazepam (Valium) 10 mg PO BID PRN PRN Reason: Anxiety Famotidine (Pepcid) 40 mg PO DAILY [facility] Home Med (Lactobacillus Combo No.10 [Probiotic]) 1 each PO BID [facility] Home Med (Naloxegol Oxalate [Movantik]) 25 mg PO DAILY [facility] Home Med (Tizanidine Hcl [Zanaflex]) 4 mg PO BID [facility] Sodium Chloride (Sodium Chloride 0.9%) 1,000 mls @ 100 mls/hr IV .Q10H ONE Stop: 06/16/17 01:52 Last Admin: 06/15/17 16:17 Dose: 100 mls/hr Cefepime HCl (Maxipime Iv 2 Gm Premix) 2 gm in 100 mls @ 100 mls/hr IVPB Q12 [facility] PRN Reason: Protocol Stop: 06/20/17 22:01 Sodium Chloride (Sodium Chloride 0.45%) 1,000 mls @ 100 mls/hr IV .Q10H [facility] Last Admin: 06/15/17 20:00 Dose: 100 mls/hr Insulin Aspart (Novolog) 0 unit SC ACHS [facility] PRN Reason: Protocol Metoclopramide HCl (Reglan) 5 mg PO ACTID [facility] Oxycodone/Acetaminophen (Percocet 5/325 Mg Tab) 1 tab PO Q4H PRN PRN Reason: Pain, severe (8-10) Stop: 05/14/18 18:47 Pneumococcal Polyvalent Vaccine (Pneumovax 23 Vaccine) 0.5 ml IM .ONCE ONE Stop: 06/15/17 20:14 Rosuvastatin Calcium (Crestor) 10 mg PO HS [facility] Physical Exam - Constitutional Appears: No Acute Distress - Head Exam Head Exam: NORMAL INSPECTION - Eye Exam Eye Exam: EOMI, PERRL - ENT Exam ENT Exam: Normal Oropharynx - Neck Exam Neck exam: Positive for: Normal Inspection - Respiratory Exam Respiratory Exam: Decreased Breath Sounds (BILATERAL BASES), Rhonchi (LEFT- SIDED RHONCHI.) - GI/Abdominal Exam GI & Abdominal Exam: Soft, Tenderness (EPIGASTRIC). absent: Guarding, Organomegaly - Extremities Exam Extremities exam: Positive for: pedal pulses present. Negative for: calf tenderness, pedal edema - Neurological Exam Neurological exam: Alert, CN II-XII Intact, Oriented x3, Reflexes Normal - Skin Skin Exam: Normal Color, Warm Results - Vital Signs Recent Vital Signs: Last Vital Signs Temp 98.5 F 06/15/17 18:15 Pulse 99 H 06/15/17 18:15 Resp 20 06/15/17 18:15 BP 134/87 06/15/17 18:15 Pulse Ox 94 L 06/15/17 18:52 - Labs Result Diagrams: 06/17/17 08:20 06/17/17 08:01 Labs: Laboratory Results - last 24 hr 06/15/17 06/15/17 06/15/17 12:11 13:18 14:16 WBC 18.2 H D RBC 5.48 H Hgb 16.2 H D Hct 47.2 H MCV 86.2 MCH 29.5 MCHC 34.2 RDW 13.7 Plt Count 259 MPV 10.4 Neut % (Auto) 88.9 H Lymph % (Auto) 6.2 L [place] % (Auto) 4.6 Eos % (Auto) 0.0 Baso % (Auto) 0.3 Neut # (Auto) 16.2 H Lymph # (Auto) 1.1 [place] # (Auto) 0.8 Eos # (Auto) 0.0 Baso # (Auto) 0.1 Neutrophils % (Manual) 91 H Lymphocytes % (Manual) 7 L Monocytes % (Manual) 2 Platelet Estimate Normal RBC Morphology Normal Sodium 145 Potassium 3.7 Chloride 100 Carbon Dioxide 26 Anion Gap 23 H BUN 15 Creatinine 0.8 Est GFR ( Amer) > 60 Est GFR (Non-Af Amer) > 60 Random Glucose 383 H Calcium 9.6 Total Bilirubin 1.5 H AST 32 ALT 31 Alkaline Phosphatase 116 Total Protein 7.2 Albumin 4.1 Globulin 3.1 Albumin/Globulin Ratio 1.3 Amylase 44 Lipase 16 L Urine Color Yellow Urine Clarity Hazy Urine pH 5.0 Ur Specific [place] 1.032 H Urine Protein 2+ H Urine Glucose (UA) 3+ H Urine Ketones 2+ H Urine Blood 1+ H Urine Nitrate Negative Urine Bilirubin Negative Urine Urobilinogen Normal Ur Leukocyte Esterase Neg Urine WBC (Auto) 3 Urine RBC (Auto) 5 H Ur Squamous Epith Cells 10 H Urine Bacteria Few H Hyaline Casts 3-5 H Urine HCG, Qual 06/15/17 14:48 WBC RBC Hgb Hct MCV MCH MCHC RDW Plt Count MPV Neut % (Auto) Lymph % (Auto) [place] % (Auto) Eos % (Auto) Baso % (Auto) Neut # (Auto) Lymph # (Auto) [place] # (Auto) Eos # (Auto) Baso # (Auto) Neutrophils % (Manual) Lymphocytes % (Manual) Monocytes % (Manual) Platelet Estimate RBC Morphology Sodium Potassium Chloride Carbon Dioxide Anion Gap BUN Creatinine Est GFR ( Amer) Est GFR (Non-Af Amer) Random Glucose Calcium Total Bilirubin AST ALT Alkaline Phosphatase Total Protein Albumin Globulin Albumin/Globulin Ratio Amylase Lipase Urine Color Urine Clarity Urine pH Ur Specific [place] Urine Protein Urine Glucose (UA) Urine Ketones Urine Blood Urine Nitrate Urine Bilirubin Urine Urobilinogen Ur Leukocyte Esterase Urine WBC (Auto) Urine RBC (Auto) Ur Squamous Epith Cells Urine Bacteria Hyaline Casts Urine HCG, Qual Negative - Imaging and Cardiology Chest x-ray Status: Report reviewed by me (see reports) Assessment & Plan (1) Leukocytosis (leucocytosis) Assessment and Plan: LEUKOCYTOSIS-SOURCE NOT CLEAR SOURCE ? GI VS GASTRITIS VS DIVERTICULITIS R/O SEPSIS VS PNEUMONIA. PANCULTURES ESR CRP. RAPID INFLUENZA ANTIGEN TEST INFLUENZA A AND B SEROLOGY ATYPICAL TITERS. UA, URINE CULTURES. *iv mAXIPIME 2 G iv PIGGYBACK 12 HOURLY.06/15/17. FOLLOW-UP CULTURES TO ADJUST ANTIBIOTICS. Status: Acute (2) Abdominal pain Assessment and Plan: H/O ABDOMINAL PAIN/ EMESIS. ?GASTRITIS. GI W/U IN PROGRESS Status: Acute (3) Intractable vomiting Status: Acute (4) Diabetes mellitus Status: Acute (5) HTN (hypertension) Status: Acute
[2017-06-15] MEDS: Oxycodone/Acetaminophen 5/325 mg Tab PO PRN (21:10)
[2017-06-15] MEDS: (Novolog) Insulin Aspart, Recombinant 100 u/ml 10 ml vial SC SCH (21:18)
[2017-06-15] MEDS: Cefepime IV 2 gm in Dextrose 2 GM/100 ML BAG IVPB SCH (21:59)
[2017-06-16] MEDS: Oxycodone/Acetaminophen 5/325 mg Tab PO PRN ×3 (02:17→17:27)
[2017-06-16 08:02] VITALS: RESP 20
[2017-06-16] MEDS: (Novolog) Insulin Aspart, Recombinant 100 u/ml 10 ml vial SC SCH ×4 (08:08→21:58)
[2017-06-16 08:11] LABS: BASO # 0.1 K/uL (0.0-0.2); BASO % 0.4 % (0.0-2.0); HEMOGLOBIN 14.5 g/dL (11.0-16.0); LYMPH % 10.9 % (20.0-40.0); MEAN CELL VOLUME 86.2 fL (81.0-99.0); MEAN CORPUSCULAR HEMOGLOBIN 29.8 pg (27.0-31.0); MEAN CORPUSCULAR HGB CONC 34.5 g/dL (33.0-37.0); MEAN PLATELET VOLUME 10.5 fL (7.2-11.7); MONO # 1.2 K/uL (0.0-0.8); MONO % 6.5 % (0.0-10.0); NEUT % 82.2 % (50.0-75.0); RBC 4.85 Mil/uL (3.80-5.20); RED CELL DISTRIBUTION WIDTH 13.2 % (11.5-14.5); WHITE BLOOD COUNT 18.3 K/uL (4.8-10.8)
[2017-06-16] MEDS: Sodium Chloride 0.45% 1,000 ML IV SCH ×3 (08:12→21:44)
--- NOTE | 2017-06-16 08:40 | RAD ---
HISTORY: effusion on CT COMPARISON: Portable chest 09/12/2016. FINDINGS: LUNGS: Reticular markings are somewhat prominent in the bases once again raising question of atypical pneumonitis or possible chronic interstitial pulmonary disease. Clinically correlate further. No definite right-sided airspace disease although limited alveolitis is question in the left base posterior to the left heart versus atelectasis. PLEURA: No significant pleural effusion identified, no pneumothorax apparent. CARDIOVASCULAR: Normal. OSSEOUS STRUCTURES: No significant abnormalities. VISUALIZED UPPER ABDOMEN: Normal. OTHER FINDINGS: None. IMPRESSION: Potential chronic interstitial pulmonary changes at the bases predominantly with underlying alveolitis not excluded versus atelectasis at the left base.
[2017-06-16 08:59] LABS: ALB/GLOB RATIO 1.3 (1.0-2.1); ALBUMIN 3.7 g/dL (3.5-5.0); ALT/SGPT 24 U/L (9-52); AST/SGOT 34 U/L (14-36); BLOOD UREA NITROGEN 17 mg/dL (7-17); CALCIUM 9.4 mg/dl (8.6-10.4); GFR AFRICAN-AMERICAN > 60; GFR NON-AFRICAN AMERICAN > 60
[2017-06-16] MEDS ORDERED: Home Med 1 UNIT (Naloxegol Oxalate [Movantik] 25 MG) PO SCH (10:00)
[2017-06-16] MEDS ORDERED: TIZANIDINE HCL 4 MG PO SCH (10:00)
[2017-06-16] MEDS: Cefepime IV 2 gm in Dextrose 2 GM/100 ML BAG IVPB SCH ×2 (10:17→21:44)
[2017-06-16] MEDS: Enoxaparin 40 mg Syringe SC SCH (10:17)
[2017-06-16] MEDS: Lactobacillus Acidophilus 500 MU Cap PO SCH ×2 (10:17→17:57)
--- NOTE | 2017-06-16 12:15 | CP.PCM.CON ---
<Starr Florence - Last Filed: 06/16/17 12:17> History of Present Illness - History of Present Illness History of Present Illness: GI Fellow PGY4 Consult Note This is a 56yF with pmhx of DM, HTN, Chronic pain, Fibroids, D&C, negative cath , anxiety who presented to the ER with complaints of intractable N/V and hematemesis. She denies any black stool, melena, or hematachezia. Pt does reports mild epigastric pain, denies prior hx of gastroparesis. She reports reflux and takes Pepcid/milk of magnesium prn. Pt reports she has constipation and last bm was yesterday takes bowel regimen prn. At the time of evaluation, no active bleeding, hemodynamically stable. No prior Colonoscopy. She was admitted with similar episode a few months ago and had EGD 10/22 which showed gastritis negative H.pylori. ROS: A 12pt ROS was obtained and was negative except as above PmHx: Anxiety, HTN, Hypercholesterolemia PsHx: D&C 2 weeks ago SHx: denies etoh, 1ppd 20+ years, denies any illicit drug use. FHx: cervical Ca: mother Past Patient History - Infectious Disease Hx of Infectious Diseases: None - Past Medical History & Family History Past Medical History?: Yes - Past Social History Smoking Status: Never Smoked - CARDIAC Hx Hypercholesterolemia: Yes Hx Hypertension: Yes - PULMONARY Hx Respiratory Disorders: No - NEUROLOGICAL Hx Neurological Disorder: No - HEENT Hx HEENT Problems: No - RENAL Hx Chronic Kidney Disease: No - ENDOCRINE/METABOLIC Hx Endocrine Disorders: Yes Hx Diabetes Mellitus Type 2: Yes - HEMATOLOGICAL/ONCOLOGICAL Hx Blood Disorders: No - INTEGUMENTARY Hx Dermatological Problems: No - MUSCULOSKELETAL/RHEUMATOLOGICAL Hx Musculoskeletal Disorders: Yes Hx Falls: Yes Other/Comment: Sciatica, Scoliosis; cervical/lumbar radiculopathy - GASTROINTESTINAL Hx Gastrointestinal Disorders: Yes Hx Vomiting: Yes - GENITOURINARY/GYNECOLOGICAL Hx Genitourinary Disorders: Yes Hx Urinary Tract Infection: Yes - PSYCHIATRIC Hx Anxiety: Yes Hx Substance Use: No - SURGICAL HISTORY Hx Surgeries: Yes Hx Dilation and Curettage: Yes (2 wks ago) Other/Comment: d&c at [facility] [place] 2 weeks ago - ANESTHESIA Hx Anesthesia: Yes Hx Anesthesia Reactions: No Meds Allergies/Adverse Reactions: Allergies Allergy/AdvReac Type Severity Reaction Status Date / Time No Known Allergies Allergy Verified 06/15/17 11:07 - Medications Medications: Current Medications Diazepam (Valium) 10 mg PO BID PRN PRN Reason: Anxiety Last Admin: 06/16/17 10:32 Dose: 10 mg Enoxaparin Sodium (Lovenox) 40 mg SC DAILY [facility] Last Admin: 06/16/17 10:17 Dose: 40 mg Famotidine (Pepcid) 40 mg PO DAILY [facility] Last Admin: 06/16/17 10:17 Dose: 40 mg Home Med (Tizanidine Hcl [Zanaflex]) 4 mg PO BID [facility] Cefepime HCl (Maxipime Iv 2 Gm Premix) 2 gm in 100 mls @ 100 mls/hr IVPB Q12 [facility] PRN Reason: Protocol Stop: 06/20/17 22:01 Last Admin: 06/16/17 10:17 Dose: 100 mls/hr Sodium Chloride (Sodium Chloride 0.45%) 1,000 mls @ 100 mls/hr IV .Q10H [facility] Last Admin: 06/16/17 08:12 Dose: 100 mls/hr Insulin Aspart (Novolog) 0 unit SC ACHS [facility] PRN Reason: Protocol Last Admin: 06/16/17 08:08 Dose: 6 unit Lactobacillus Acidophilus (Bacid Acidophilus) 1 cap PO BID [facility] Last Admin: 06/16/17 10:17 Dose: 1 cap Metoclopramide HCl (Reglan) 5 mg PO ACTID [facility] Last Admin: 06/16/17 08:09 Dose: 5 mg Oxycodone/Acetaminophen (Percocet 5/325 Mg Tab) 1 tab PO Q4H PRN PRN Reason: Pain, severe (8-10) Stop: 06/18/17 18:47 Last Admin: 06/16/17 08:09 Dose: 1 tab Rosuvastatin Calcium (Crestor) 10 mg PO HS [facility] Last Admin: 06/15/17 21:10 Dose: 10 mg Physical Exam - Constitutional Appears: Non-toxic, No Acute Distress - Head Exam Head Exam: ATRAUMATIC, NORMAL INSPECTION, NORMOCEPHALIC - Eye Exam Eye Exam: EOMI, Normal appearance, PERRL Pupil Exam: PERRL - ENT Exam ENT Exam: Mucous Membranes Moist, Normal Exam - Respiratory Exam Respiratory Exam: Clear to Auscultation Bilateral, NORMAL BREATHING PATTERN - Cardiovascular Exam Cardiovascular Exam: REGULAR RHYTHM, +S1, +S2 - GI/Abdominal Exam GI & Abdominal Exam: Normal Bowel Sounds, Soft, Tenderness. absent: Distended - Rectal Exam Rectal Exam: Deferred - Extremities Exam Extremities exam: Positive for: full ROM - Back Exam Back exam: NORMAL INSPECTION - Neurological Exam Neurological exam: Alert, Oriented x3 - Psychiatric Exam Psychiatric exam: Normal Affect, Normal Mood - Skin Skin Exam: Dry, Intact, Normal Color, Warm Results - Vital Signs Recent Vital Signs: Last Vital Signs Temp 99 F 06/16/17 08:00 Pulse 92 H 06/16/17 08:00 Resp 20 06/16/17 08:00 BP 137/90 06/16/17 08:00 Pulse Ox 97 06/16/17 09:35 - Labs Result Diagrams: 06/16/17 08:03 06/16/17 08:03 Labs: Laboratory Results - last 24 hr 06/15/17 06/15/17 06/15/17 07:20 07:20 12:11 WBC 18.2 H D RBC 5.48 H Hgb 16.2 H D Hct 47.2 H MCV 86.2 MCH 29.5 MCHC 34.2 RDW 13.7 Plt Count 259 MPV 10.4 Neut % (Auto) 88.9 H Lymph % (Auto) 6.2 L Kern % (Auto) 4.6 Eos % (Auto) 0.0 Baso % (Auto) 0.3 Neut # (Auto) 16.2 H Lymph # (Auto) 1.1 Kern # (Auto) 0.8 Eos # (Auto) 0.0 Baso # (Auto) 0.1 Neutrophils % (Manual) 91 H Lymphocytes % (Manual) 7 L Monocytes % (Manual) 2 Platelet Estimate Normal RBC Morphology Normal D-Dimer, Quantitative Sodium Potassium Chloride Carbon Dioxide Anion Gap BUN Creatinine Est GFR ( Amer) Est GFR (Non-Af Amer) POC Glucose (mg/dL) Random Glucose Calcium Total Bilirubin AST ALT Alkaline Phosphatase C-React Prot High Sens Total Protein Albumin Globulin Albumin/Globulin Ratio Amylase Lipase Urine Color Urine Clarity Urine pH Ur Specific [facility] Urine Protein Urine Glucose (UA) Urine Ketones Urine Blood Urine Nitrate Urine Bilirubin Urine Urobilinogen Ur Leukocyte Esterase Urine WBC (Auto) Urine RBC (Auto) Ur Squamous Epith Cells Urine Bacteria Hyaline Casts Urine HCG, Qual Influenza Typ A,B (EIA) Negative for flu a/b Ur L.pneumophila Ag Negative 06/15/17 06/15/17 06/15/17 13:18 14:16 14:48 WBC RBC Hgb Hct MCV MCH MCHC RDW Plt Count MPV Neut % (Auto) Lymph % (Auto) Kern % (Auto) Eos % (Auto) Baso % (Auto) Neut # (Auto) Lymph # (Auto) Kern # (Auto) Eos # (Auto) Baso # (Auto) Neutrophils % (Manual) Lymphocytes % (Manual) Monocytes % (Manual) Platelet Estimate RBC Morphology D-Dimer, Quantitative Sodium 145 Potassium 3.7 Chloride 100 Carbon Dioxide 26 Anion Gap 23 H BUN 15 Creatinine 0.8 Est GFR ( Amer) > 60 Est GFR (Non-Af Amer) > 60 POC Glucose (mg/dL) Random Glucose 383 H Calcium 9.6 Total Bilirubin 1.5 H AST 32 ALT 31 Alkaline Phosphatase 116 C-React Prot High Sens Total Protein 7.2 Albumin 4.1 Globulin 3.1 Albumin/Globulin Ratio 1.3 Amylase 44 Lipase 16 L Urine Color Yellow Urine Clarity Hazy Urine pH 5.0 Ur Specific [facility] 1.032 H Urine Protein 2+ H Urine Glucose (UA) 3+ H Urine Ketones 2+ H Urine Blood 1+ H Urine Nitrate Negative Urine Bilirubin Negative Urine Urobilinogen Normal Ur Leukocyte Esterase Neg Urine WBC (Auto) 3 Urine RBC (Auto) 5 H Ur Squamous Epith Cells 10 H Urine Bacteria Few H Hyaline Casts 3-5 H Urine HCG, Qual Negative Influenza Typ A,B (EIA) Ur L.pneumophila Ag 06/15/17 06/16/17 06/16/17 21:11 02:18 07:32 WBC RBC Hgb Hct MCV MCH MCHC RDW Plt Count MPV Neut % (Auto) Lymph % (Auto) Kern % (Auto) Eos % (Auto) Baso % (Auto) Neut # (Auto) Lymph # (Auto) Kern # (Auto) Eos # (Auto) Baso # (Auto) Neutrophils % (Manual) Lymphocytes % (Manual) Monocytes % (Manual) Platelet Estimate RBC Morphology D-Dimer, Quantitative Sodium Potassium Chloride Carbon Dioxide Anion Gap BUN Creatinine Est GFR ( Amer) Est GFR (Non-Af Amer) POC Glucose (mg/dL) 319 H 309 H 311 H Random Glucose Calcium Total Bilirubin AST ALT Alkaline Phosphatase C-React Prot High Sens Total Protein Albumin Globulin Albumin/Globulin Ratio Amylase Lipase Urine Color Urine Clarity Urine pH Ur Specific [facility] Urine Protein Urine Glucose (UA) Urine Ketones Urine Blood Urine Nitrate Urine Bilirubin Urine Urobilinogen Ur Leukocyte Esterase Urine WBC (Auto) Urine RBC (Auto) Ur Squamous Epith Cells Urine Bacteria Hyaline Casts Urine HCG, Qual Influenza Typ A,B (EIA) Ur L.pneumophila Ag 06/16/17 06/16/17 06/16/17 08:03 08:03 08:03 WBC 18.3 H RBC 4.85 Hgb 14.5 Hct 41.9 MCV 86.2 MCH 29.8 MCHC 34.5 RDW 13.2 Plt Count 213 MPV 10.5 Neut % (Auto) 82.2 H Lymph % (Auto) 10.9 L Kern % (Auto) 6.5 Eos % (Auto) 0.0 Baso % (Auto) 0.4 Neut # (Auto) 15.0 H Lymph # (Auto) 2.0 Kern # (Auto) 1.2 H Eos # (Auto) 0.0 Baso # (Auto) 0.1 Neutrophils % (Manual) Lymphocytes % (Manual) Monocytes % (Manual) Platelet Estimate RBC Morphology D-Dimer, Quantitative 224 Sodium 140 Potassium 4.0 Chloride 100 Carbon Dioxide 24 Anion Gap 21 H BUN 17 Creatinine 0.7 Est GFR ( Amer) > 60 Est GFR (Non-Af Amer) > 60 POC Glucose (mg/dL) Random Glucose 328 H Calcium 9.4 Total Bilirubin 1.4 H AST 34 ALT 24 Alkaline Phosphatase 104 C-React Prot High Sens Total Protein 6.7 Albumin 3.7 Globulin 3.0 Albumin/Globulin Ratio 1.3 Amylase Lipase Urine Color Urine Clarity Urine pH Ur Specific [facility] Urine Protein Urine Glucose (UA) Urine Ketones Urine Blood Urine Nitrate Urine Bilirubin Urine Urobilinogen Ur Leukocyte Esterase Urine WBC (Auto) Urine RBC (Auto) Ur Squamous Epith Cells Urine Bacteria Hyaline Casts Urine HCG, Qual Influenza Typ A,B (EIA) Ur L.pneumophila Ag 06/16/17 06/16/17 08:03 11:47 WBC RBC Hgb Hct MCV MCH MCHC RDW Plt Count MPV Neut % (Auto) Lymph % (Auto) Kern % (Auto) Eos % (Auto) Baso % (Auto) Neut # (Auto) Lymph # (Auto) Kern # (Auto) Eos # (Auto) Baso # (Auto) Neutrophils % (Manual) Lymphocytes % (Manual) Monocytes % (Manual) Platelet Estimate RBC Morphology D-Dimer, Quantitative Sodium Potassium Chloride Carbon Dioxide Anion Gap BUN Creatinine Est GFR ( Amer) Est GFR (Non-Af Amer) POC Glucose (mg/dL) 318 H Random Glucose Calcium Total Bilirubin AST ALT Alkaline Phosphatase C-React Prot High Sens 6.48 H Total Protein Albumin Globulin Albumin/Globulin Ratio Amylase Lipase Urine Color Urine Clarity Urine pH Ur Specific [facility] Urine Protein Urine Glucose (UA) Urine Ketones Urine Blood Urine Nitrate Urine Bilirubin Urine Urobilinogen Ur Leukocyte Esterase Urine WBC (Auto) Urine RBC (Auto) Ur Squamous Epith Cells Urine Bacteria Hyaline Casts Urine HCG, Qual Influenza Typ A,B (EIA) Ur L.pneumophila Ag Assessment & Plan - Assessment and Plan (Free Text) Assessment: This is a 56yF presenting with nausea, vomiting and reported hematemesis. 1. Nausea/vomiting 2. Constipation likely from chronic opioid use 3. Reported Coffee ground emesis- gastritis 4. Uncontrolled DM-possible gastroparesis Plan: -Continue supportive care with IVF hydration -Continue antiemetics and pain control -Uncontrolled DM, glycemic control per primary team -Advance diet as tolerated -No active GI bleed, Hgb stable, hemodynamically stable -PPI daily, avoid NSAIDs -EGD with gastritis on 10/22 -Colonoscopy outpt -Bowel regimen with mirlax BID -Avoid opioids as etiology of constipation and nausea and vomiting -Please call with any questions or concerns <Pierre Garnica - Last Filed: 06/16/17 12:40> Meds - Medications Medications: Current Medications Diazepam (Valium) 10 mg PO BID PRN PRN Reason: Anxiety Last Admin: 06/16/17 10:32 Dose: 10 mg Enoxaparin Sodium (Lovenox) 40 mg SC DAILY [facility] Last Admin: 06/16/17 10:17 Dose: 40 mg Famotidine (Pepcid) 40 mg PO DAILY [facility] Last Admin: 06/16/17 10:17 Dose: 40 mg Home Med (Tizanidine Hcl [Zanaflex]) 4 mg PO BID [facility] Cefepime HCl (Maxipime Iv 2 Gm Premix) 2 gm in 100 mls @ 100 mls/hr IVPB Q12 [facility] PRN Reason: Protocol Stop: 06/20/17 22:01 Last Admin: 06/16/17 10:17 Dose: 100 mls/hr Sodium Chloride (Sodium Chloride 0.45%) 1,000 mls @ 100 mls/hr IV .Q10H [facility] Last Admin: 06/16/17 08:12 Dose: 100 mls/hr Insulin Aspart (Novolog) 0 unit SC ACHS [facility] PRN Reason: Protocol Last Admin: 06/16/17 08:08 Dose: 6 unit Lactobacillus Acidophilus (Bacid Acidophilus) 1 cap PO BID [facility] Last Admin: 06/16/17 10:17 Dose: 1 cap Metoclopramide HCl (Reglan) 5 mg PO ACTID [facility] Last Admin: 06/16/17 08:09 Dose: 5 mg Oxycodone/Acetaminophen (Percocet 5/325 Mg Tab) 1 tab PO Q4H PRN PRN Reason: Pain, severe (8-10) Stop: 06/18/17 18:47 Last Admin: 06/16/17 08:09 Dose: 1 tab Polyethylene Glycol (Miralax) 17 gm PO BID [facility] Rosuvastatin Calcium (Crestor) 10 mg PO HS [facility] Last Admin: 06/15/17 21:10 Dose: 10 mg Results - Vital Signs Recent Vital Signs: Last Vital Signs Temp 99 F 06/16/17 08:00 Pulse 92 H 06/16/17 08:00 Resp 20 06/16/17 08:00 BP 137/90 06/16/17 08:00 Pulse Ox 97 06/16/17 09:35 - Labs Result Diagrams: 06/16/17 08:03 06/16/17 08:03 Labs: Laboratory Results - last 24 hr 06/15/17 06/15/17 06/15/17 07:20 07:20 12:11 WBC RBC Hgb Hct MCV MCH MCHC RDW Plt Count MPV Neut % (Auto) Lymph % (Auto) Kern % (Auto) Eos % (Auto) Baso % (Auto) Neut # (Auto) Lymph # (Auto) Kern # (Auto) Eos # (Auto) Baso # (Auto) Neutrophils % (Manual) 91 H Lymphocytes % (Manual) 7 L Monocytes % (Manual) 2 Platelet Estimate Normal RBC Morphology Normal D-Dimer, Quantitative Sodium Potassium Chloride Carbon Dioxide Anion Gap BUN Creatinine Est GFR ( Amer) Est GFR (Non-Af Amer) POC Glucose (mg/dL) Random Glucose Calcium Total Bilirubin AST ALT Alkaline Phosphatase C-React Prot High Sens Total Protein Albumin Globulin Albumin/Globulin Ratio Amylase Lipase Urine Color Urine Clarity Urine pH Ur Specific [facility] Urine Protein Urine Glucose (UA) Urine Ketones Urine Blood Urine Nitrate Urine Bilirubin Urine Urobilinogen Ur Leukocyte Esterase Urine WBC (Auto) Urine RBC (Auto) Ur Squamous Epith Cells Urine Bacteria Hyaline Casts Urine HCG, Qual Influenza Typ A,B (EIA) Negative for flu a/b Ur L.pneumophila Ag Negative 06/15/17 06/15/17 06/15/17 13:18 14:16 14:48 WBC RBC Hgb Hct MCV MCH MCHC RDW Plt Count MPV Neut % (Auto) Lymph % (Auto) Kern % (Auto) Eos % (Auto) Baso % (Auto) Neut # (Auto) Lymph # (Auto) Kern # (Auto) Eos # (Auto) Baso # (Auto) Neutrophils % (Manual) Lymphocytes % (Manual) Monocytes % (Manual) Platelet Estimate RBC Morphology D-Dimer, Quantitative Sodium 145 Potassium 3.7 Chloride 100 Carbon Dioxide 26 Anion Gap 23 H BUN 15 Creatinine 0.8 Est GFR ( Amer) > 60 Est GFR (Non-Af Amer) > 60 POC Glucose (mg/dL) Random Glucose 383 H Calcium 9.6 Total Bilirubin 1.5 H AST 32 ALT 31 Alkaline Phosphatase 116 C-React Prot High Sens Total Protein 7.2 Albumin 4.1 Globulin 3.1 Albumin/Globulin Ratio 1.3 Amylase 44 Lipase 16 L Urine Color Yellow Urine Clarity Hazy Urine pH 5.0 Ur Specific [facility] 1.032 H Urine Protein 2+ H Urine Glucose (UA) 3+ H Urine Ketones 2+ H Urine Blood 1+ H Urine Nitrate Negative Urine Bilirubin Negative Urine Urobilinogen Normal Ur Leukocyte Esterase Neg Urine WBC (Auto) 3 Urine RBC (Auto) 5 H Ur Squamous Epith Cells 10 H Urine Bacteria Few H Hyaline Casts 3-5 H Urine HCG, Qual Negative Influenza Typ A,B (EIA) Ur L.pneumophila Ag 06/15/17 06/16/17 06/16/17 21:11 02:18 07:32 WBC RBC Hgb Hct MCV MCH MCHC RDW Plt Count MPV Neut % (Auto) Lymph % (Auto) Kern % (Auto) Eos % (Auto) Baso % (Auto) Neut # (Auto) Lymph # (Auto) Kern # (Auto) Eos # (Auto) Baso # (Auto) Neutrophils % (Manual) Lymphocytes % (Manual) Monocytes % (Manual) Platelet Estimate RBC Morphology D-Dimer, Quantitative Sodium Potassium Chloride Carbon Dioxide Anion Gap BUN Creatinine Est GFR ( Amer) Est GFR (Non-Af Amer) POC Glucose (mg/dL) 319 H 309 H 311 H Random Glucose Calcium Total Bilirubin AST ALT Alkaline Phosphatase C-React Prot High Sens Total Protein Albumin Globulin Albumin/Globulin Ratio Amylase Lipase Urine Color Urine Clarity Urine pH Ur Specific [facility] Urine Protein Urine Glucose (UA) Urine Ketones Urine Blood Urine Nitrate Urine Bilirubin Urine Urobilinogen Ur Leukocyte Esterase Urine WBC (Auto) Urine RBC (Auto) Ur Squamous Epith Cells Urine Bacteria Hyaline Casts Urine HCG, Qual Influenza Typ A,B (EIA) Ur L.pneumophila Ag 06/16/17 06/16/17 06/16/17 08:03 08:03 08:03 WBC 18.3 H RBC 4.85 Hgb 14.5 Hct 41.9 MCV 86.2 MCH 29.8 MCHC 34.5 RDW 13.2 Plt Count 213 MPV 10.5 Neut % (Auto) 82.2 H Lymph % (Auto) 10.9 L Kern % (Auto) 6.5 Eos % (Auto) 0.0 Baso % (Auto) 0.4 Neut # (Auto) 15.0 H Lymph # (Auto) 2.0 Kern # (Auto) 1.2 H Eos # (Auto) 0.0 Baso # (Auto) 0.1 Neutrophils % (Manual) Lymphocytes % (Manual) Monocytes % (Manual) Platelet Estimate RBC Morphology D-Dimer, Quantitative 224 Sodium 140 Potassium 4.0 Chloride 100 Carbon Dioxide 24 Anion Gap 21 H BUN 17 Creatinine 0.7 Est GFR ( Amer) > 60 Est GFR (Non-Af Amer) > 60 POC Glucose (mg/dL) Random Glucose 328 H Calcium 9.4 Total Bilirubin 1.4 H AST 34 ALT 24 Alkaline Phosphatase 104 C-React Prot High Sens Total Protein 6.7 Albumin 3.7 Globulin 3.0 Albumin/Globulin Ratio 1.3 Amylase Lipase Urine Color Urine Clarity Urine pH Ur Specific [facility] Urine Protein Urine Glucose (UA) Urine Ketones Urine Blood Urine Nitrate Urine Bilirubin Urine Urobilinogen Ur Leukocyte Esterase Urine WBC (Auto) Urine RBC (Auto) Ur Squamous Epith Cells Urine Bacteria Hyaline Casts Urine HCG, Qual Influenza Typ A,B (EIA) Ur L.pneumophila Ag 06/16/17 06/16/17 08:03 11:47 WBC RBC Hgb Hct MCV MCH MCHC RDW Plt Count MPV Neut % (Auto) Lymph % (Auto) Kern % (Auto) Eos % (Auto) Baso % (Auto) Neut # (Auto) Lymph # (Auto) Kern # (Auto) Eos # (Auto) Baso # (Auto) Neutrophils % (Manual) Lymphocytes % (Manual) Monocytes % (Manual) Platelet Estimate RBC Morphology D-Dimer, Quantitative Sodium Potassium Chloride Carbon Dioxide Anion Gap BUN Creatinine Est GFR ( Amer) Est GFR (Non-Af Amer) POC Glucose (mg/dL) 318 H Random Glucose Calcium Total Bilirubin AST ALT Alkaline Phosphatase C-React Prot High Sens 6.48 H Total Protein Albumin Globulin Albumin/Globulin Ratio Amylase Lipase Urine Color Urine Clarity Urine pH Ur Specific [facility] Urine Protein Urine Glucose (UA) Urine Ketones Urine Blood Urine Nitrate Urine Bilirubin Urine Urobilinogen Ur Leukocyte Esterase Urine WBC (Auto) Urine RBC (Auto) Ur Squamous Epith Cells Urine Bacteria Hyaline Casts Urine HCG, Qual Influenza Typ A,B (EIA) Ur L.pneumophila Ag Attending/Attestation - Attestation I have personally seen and examined this patient.: Yes I have fully participated in the care of the patient.: Yes I have reviewed all pertinent clinical information: Yes Notes (Text): 06/16/17 12:38 56 year old female with h/o chronic back pain and opiate use admitted with various symptoms including N/V, dyspepsia, and constipation. CT scan reviewed. Prior workup including multiple CTs, US, EGD all unremarkable. Suspect many issues are related to chronic use of narcotics. Would minimize narcotics. Recommend PPI, carafate, bowel regimen with miralax. Anti-emetics as needed. Advance diet as tolerated. Outpatient screening colonoscopy. No indication for inpatient colonoscopy. WIll sign off.
--- NOTE | 2017-06-16 14:18 | CP.PCM.PN ---
Subjective - Date & Time of Evaluation Date of Evaluation: 06/16/17 Time of Evaluation: 14:16 - Subjective Subjective: CHIEF COMPLAINTS TODAY : NO FURTHER VOMITING BUT NAUSEOUS. LOWER ABDOMINAL PAIN. NO GI BLEEDING ROS. HEENT : N. Resp : No cough, wheezing ,pleuritic CP ,or hemoptysis Cardio : No anginal CP, PND, orthopnea, palpitation GI : No GI bleeding . WELLNESS TRAINER : No headache, vertigo, focal deficit. Musculoskel : No joint swelling , Derm : No rash Psych : Normal affect. Ext : No swelling ,calf pain PE. Pt. is alert awake in no distress. V.S As noted in the chart Head ,ear nose,throat and eyes : Normal. Neck : Supple with normal carotids. Lungs: Clear air entry. Heart : S1 & S2 normal with S4. No murmur. Abd : Soft tender with normal bowel sounds. Neuro : Moves all ext. with no localized deficit. Ext : No edema with intact pulses.Non tender calves Derm : No rashes or decubitus ulcer. LABS/RADIOLOGY: GRAM-NEGATIVE RODS IN THE URINE ASSESSMENT/PLAN : IV ANTIBIOTICS FOR POSSIBLE UTI IV FLUIDS. Objective - Vital Signs/Intake and Output Vital Signs (last 24 hours): Temp Pulse Resp BP Pulse Ox 99 F 92 H 20 137/90 97 06/16/17 08:00 06/16/17 08:00 06/16/17 08:00 06/16/17 08:00 06/16/17 09:35 - Medications Medications: Current Medications Diazepam (Valium) 10 mg PO BID PRN PRN Reason: Anxiety Last Admin: 06/16/17 10:32 Dose: 10 mg Enoxaparin Sodium (Lovenox) 40 mg SC DAILY [facility] B[facility]S [facility] Last Admin: 06/16/17 10:17 Dose: 40 mg Famotidine (Pepcid) 40 mg PO DAILY [facility] 234 BEDS AT THE [facility] Last Admin: 06/16/17 10:17 Dose: 40 mg Cefepime HCl (Maxipime Iv 2 Gm Premix) 2 gm in 100 mls @ 100 mls/hr IVPB Q12 [facility] 234 BEDS AT [facility] PRN Reason: Protocol Stop: 06/20/17 22:01 Last Admin: 06/16/17 10:17 Dose: 100 mls/hr Sodium Chloride (Sodium Chloride 0.45%) 1,000 mls @ 100 mls/hr IV .Q10H [facility] 234 BEDS AT THE [facility] Last Admin: 06/16/17 08:12 Dose: 100 mls/hr Insulin Aspart (Novolog) 0 unit SC ACHS [facility] PRN Reason: Protocol Last Admin: 06/16/17 12:30 Dose: 6 unit Lactobacillus Acidophilus (Bacid Acidophilus) 1 cap PO BID [facility] 234 BEDS AT [facility] Last Admin: 06/16/17 10:17 Dose: 1 cap Metoclopramide HCl (Reglan) 5 mg PO ACTID [facility] 234 BEDS AT [facility] Last Admin: 06/16/17 12:00 Dose: 5 mg Oxycodone/Acetaminophen (Percocet 5/325 Mg Tab) 1 tab PO Q4H PRN PRN Reason: Pain, severe (8-10) Stop: 06/18/17 18:47 Last Admin: 06/16/17 08:09 Dose: 1 tab Polyethylene Glycol (Miralax) 17 gm PO BID [facility] 234 BEDS AT [facility] Rosuvastatin Calcium (Crestor) 10 mg PO HS [facility] 234 BEDS AT [facility] Last Admin: 06/15/17 21:10 Dose: 10 mg - Labs Labs: 06/16/17 08:03 06/16/17 08:03
[2017-06-16] MEDS: POLYETHYLENE GLYCOL 3350 17 GM/Dose PACKET PO SCH (17:27)
--- NOTE | 2017-06-16 21:10 | CP.PCM.PN ---
Subjective - Date & Time of Evaluation Date of Evaluation: 06/16/17 Time of Evaluation: 21:10 - Subjective Subjective: CHIEF COMPLAINTS TODAY : TEMP 99.1 PT APPEARS CONFUSED THIS PM. C/O LOWER ABDOMINAL PAIN NO FURTHER VOMITING BUT NAUSEOUS. NO GI BLEEDING ROS. HEENT : N. Resp : OCCASIONAL DRY COUGH, NO wheezing ,pleuritic CP ,or hemoptysis Cardio : No anginal CP, PND, orthopnea, palpitation GI : No GI bleeding . 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 Musculoskel : No joint swelling , Derm : No rash Psych : Normal affect. Ext : No swelling ,calf pain PE. Pt. is alert awake in no distress. V.S As noted in the chart Head ,ear nose,throat and eyes : Normal. Neck : Supple with normal carotids. Lungs: DECREASED BS BASES Heart : S1 & S2 normal with S4. No murmur. Abd : SOFT, LOWER ABDOMINAL DISCOMFORT, with normal bowel sounds. Neuro : Moves all ext. with no localized deficit. Ext : No edema with intact pulses.Non tender calves Derm : No rashes or decubitus ulcer. LABS/RADIOLOGY: WBC 18.3 GRAM-NEGATIVE RODS IN THE URINE D DIMER N. CREAT 0.7/BUN 17 ASSESSMENT/PLAN : IV ANTIBIOTICS FOR POSSIBLE UTI IV FLUIDS. Objective - Vital Signs/Intake and Output Vital Signs (last 24 hours): Temp Pulse Resp BP Pulse Ox 98.4 F 98 H 20 140/90 94 L 06/16/17 15:15 06/16/17 15:15 06/16/17 15:15 06/16/17 15:15 06/16/17 15:15 - Medications Medications: Current Medications Diazepam (Valium) 10 mg PO BID PRN PRN Reason: Anxiety Last Admin: 06/16/17 10:32 Dose: 10 mg Enoxaparin Sodium (Lovenox) 40 mg SC DAILY [facility] Last Admin: 06/16/17 10:17 Dose: 40 mg Famotidine (Pepcid) 40 mg PO DAILY [facility] Last Admin: 06/16/17 10:17 Dose: 40 mg Cefepime HCl (Maxipime Iv 2 Gm Premix) 2 gm in 100 mls @ 100 mls/hr IVPB Q12 [facility] PRN Reason: Protocol Stop: 06/20/17 22:01 Last Admin: 06/16/17 10:17 Dose: 100 mls/hr Sodium Chloride (Sodium Chloride 0.45%) 1,000 mls @ 100 mls/hr IV .Q10H [facility] Last Admin: 06/16/17 17:29 Dose: Not Given Insulin Aspart (Novolog) 0 unit SC ACHS [facility] PRN Reason: Protocol Last Admin: 06/16/17 17:28 Dose: 6 unit Lactobacillus Acidophilus (Bacid Acidophilus) 1 cap PO BID [facility] Last Admin: 06/16/17 17:57 Dose: 1 cap Metoclopramide HCl (Reglan) 5 mg PO ACTID [facility] Last Admin: 06/16/17 17:26 Dose: 5 mg Oxycodone/Acetaminophen (Percocet 5/325 Mg Tab) 1 tab PO Q4H PRN PRN Reason: Pain, severe (8-10) Stop: 06/18/17 18:47 Last Admin: 06/16/17 17:27 Dose: 1 tab Polyethylene Glycol (Miralax) 17 gm PO BID [facility] Last Admin: 06/16/17 17:27 Dose: 17 gm Rosuvastatin Calcium (Crestor) 10 mg PO HS [facility] Last Admin: 06/15/17 21:10 Dose: 10 mg - Labs Labs: 06/16/17 08:03 06/16/17 08:03 Assessment and Plan (1) UTI (urinary tract infection) Status: Acute (2) Leukocytosis (leucocytosis) Status: Acute (3) Abdominal pain Status: Acute (4) Intractable vomiting Status: Acute (5) Diabetes mellitus Status: Acute (6) HTN (hypertension) Status: Acute
[2017-06-16] MEDS: metroNIDAZOLE IV 500 mg/100 ml 500 MG/100 ML BAG IVPB SCH (21:51)
[2017-06-17] MEDS: Oxycodone/Acetaminophen 5/325 mg Tab PO PRN ×3 (01:40→13:38)
[2017-06-17] MEDS: Sodium Chloride 0.45% 1,000 ML IV SCH ×3 (01:52→21:39)
[2017-06-17] MEDS: metroNIDAZOLE IV 500 mg/100 ml 500 MG/100 ML BAG IVPB SCH ×3 (05:11→21:09)
[2017-06-17 08:13] LABS: BASO # 0.1 K/uL (0.0-0.2); BASO % 0.4 % (0.0-2.0); HEMOGLOBIN 14.4 g/dL (11.0-16.0); LYMPH # 1.8 K/uL (1.0-4.3); LYMPH % 10.6 % (20.0-40.0); MEAN CELL VOLUME 86.3 fL (81.0-99.0); MEAN CORPUSCULAR HEMOGLOBIN 29.9 pg (27.0-31.0); MEAN CORPUSCULAR HGB CONC 34.6 g/dL (33.0-37.0); MEAN PLATELET VOLUME 10.5 fL (7.2-11.7); MONO # 1.3 K/uL (0.0-0.8); MONO % 7.5 % (0.0-10.0); NEUT # 14.2 K/uL (1.8-7.0); NEUT % 81.5 % (50.0-75.0); NRBC % 0.1 % (0.0-2.0); RBC 4.81 Mil/uL (3.80-5.20); RED CELL DISTRIBUTION WIDTH 13.1 % (11.5-14.5); WHITE BLOOD COUNT 17.4 K/uL (4.8-10.8)
[2017-06-17] MEDS: (Novolog) Insulin Aspart, Recombinant 100 u/ml 10 ml vial SC SCH ×4 (08:30→21:42)
[2017-06-17 08:36] LABS: ALB/GLOB RATIO 1.3 (1.0-2.1); ALBUMIN 3.8 g/dL (3.5-5.0); ALT/SGPT 20 U/L (9-52); AST/SGOT 23 U/L (14-36); BLOOD UREA NITROGEN 14 mg/dL (7-17); CALCIUM 8.9 mg/dl (8.6-10.4); GFR AFRICAN-AMERICAN > 60; GFR NON-AFRICAN AMERICAN > 60
[2017-06-17] MEDS: POLYETHYLENE GLYCOL 3350 17 GM/Dose PACKET PO SCH ×2 (10:24→17:30)
[2017-06-17] MEDS: Lactobacillus Acidophilus 500 MU Cap PO SCH ×2 (10:24→17:30)
[2017-06-17] MEDS: Enoxaparin 40 mg Syringe SC SCH (10:24)
[2017-06-17] MEDS: Cefepime IV 2 gm in Dextrose 2 GM/100 ML BAG IVPB SCH ×2 (11:00→21:30)
--- NOTE | 2017-06-17 15:19 | CP.PCM.PN ---
Subjective - Date & Time of Evaluation Date of Evaluation: 06/17/17 Time of Evaluation: 15:18 - Subjective Subjective: review of the chart and n reveals the patient is a no further nausea or vo or GI bleeding. Urine shows E. coli sensitive to present antibiotic. Continue IV fluids. Objective - Vital Signs/Intake and Output Vital Signs (last 24 hours): Temp Pulse Resp BP Pulse Ox 98.0 F 98 H 20 139/95 H 98 06/17/17 09:00 06/17/17 12:32 06/17/17 09:00 06/17/17 09:00 06/17/17 12:09 Intake and Output: 06/17/17 06/17/17 11:59 23:59 Intake Total 1040 Balance 1040 - Medications Medications: Current Medications Diazepam (Valium) 10 mg PO BID PRN PRN Reason: Anxiety Last Admin: 06/17/17 10:34 Dose: 10 mg Enoxaparin Sodium (Lovenox) 40 mg SC DAILY [facility] Last Admin: 06/17/17 10:24 Dose: 40 mg Famotidine (Pepcid) 40 mg PO DAILY [facility] Last Admin: 06/17/17 10:24 Dose: 40 mg Cefepime HCl (Maxipime Iv 2 Gm Premix) 2 gm in 100 mls @ 100 mls/hr IVPB Q12 [facility] PRN Reason: Protocol Stop: 06/20/17 22:01 Last Admin: 06/17/17 11:00 Dose: 100 mls/hr Sodium Chloride (Sodium Chloride 0.45%) 1,000 mls @ 100 mls/hr IV .Q10H [facility] Last Admin: 06/17/17 10:25 Dose: 100 mls/hr Metronidazole (Flagyl) 500 mg in 100 mls @ 100 mls/hr IVPB Q8 [facility] PRN Reason: Protocol Last Admin: 06/17/17 13:39 Dose: 100 mls/hr Insulin Aspart (Novolog) 0 unit SC ACHS [facility] PRN Reason: Protocol Last Admin: 06/17/17 11:41 Dose: 4 unit Lactobacillus Acidophilus (Bacid Acidophilus) 1 cap PO BID [facility] Last Admin: 06/17/17 10:24 Dose: 1 cap Metoclopramide HCl (Reglan) 5 mg PO ACTID [facility] Last Admin: 06/17/17 11:41 Dose: 5 mg Oxycodone/Acetaminophen (Percocet 5/325 Mg Tab) 1 tab PO Q4H PRN PRN Reason: Pain, severe (8-10) Stop: 06/18/17 18:47 Last Admin: 06/17/17 13:38 Dose: 1 tab Polyethylene Glycol (Miralax) 17 gm PO BID [facility] Last Admin: 06/17/17 10:24 Dose: 17 gm Rosuvastatin Calcium (Crestor) 10 mg PO [facility] Last Admin: 06/16/17 21:57 Dose: 10 mg - Labs Labs: 06/17/17 08:20 06/17/17 08:01
--- NOTE | 2017-06-17 19:51 | CP.PCM.PN ---
Subjective - Date & Time of Evaluation Date of Evaluation: 06/17/17 Time of Evaluation: 19:50 - Subjective Subjective: REVIEW OF CHART. EVENTS AND LABS REVIEWED. NO MORE NAUSEA/OR VOMITING. URINE CULTURE +VE E COLI S CEFEPIME/GENTAMICIN BLOOD CULTURES -VE TO DATE Objective - Vital Signs/Intake and Output Vital Signs (last 24 hours): Temp Pulse Resp BP Pulse Ox 99 F 100 H 20 140/91 H 94 L 06/17/17 15:20 06/17/17 15:20 06/17/17 15:20 06/17/17 15:20 06/17/17 15:20 Intake and Output: 06/17/17 06/18/17 18:59 06:59 Intake Total 2320 Balance 2320 - Medications Medications: Current Medications Diazepam (Valium) 10 mg PO BID PRN PRN Reason: Anxiety Last Admin: 06/17/17 10:34 Dose: 10 mg Enoxaparin Sodium (Lovenox) 40 mg SC DAILY [facility] Last Admin: 06/17/17 10:24 Dose: 40 mg Famotidine (Pepcid) 40 mg PO DAILY [facility] Last Admin: 06/17/17 10:24 Dose: 40 mg Cefepime HCl (Maxipime Iv 2 Gm Premix) 2 gm in 100 mls @ 100 mls/hr IVPB Q12 [facility] PRN Reason: Protocol Stop: 06/20/17 22:01 Last Admin: 06/17/17 11:00 Dose: 100 mls/hr Sodium Chloride (Sodium Chloride 0.45%) 1,000 mls @ 100 mls/hr IV .Q10H [facility] Last Admin: 06/17/17 10:25 Dose: 100 mls/hr Metronidazole (Flagyl) 500 mg in 100 mls @ 100 mls/hr IVPB Q8 [facility] PRN Reason: Protocol Last Admin: 06/17/17 13:39 Dose: 100 mls/hr Insulin Aspart (Novolog) 0 unit SC ACHS [facility] PRN Reason: Protocol Last Admin: 06/17/17 17:44 Dose: 4 unit Lactobacillus Acidophilus (Bacid Acidophilus) 1 cap PO BID [facility] Last Admin: 06/17/17 17:30 Dose: 1 cap Metoclopramide HCl (Reglan) 5 mg PO ACTID [facility] Last Admin: 06/17/17 17:30 Dose: 5 mg Oxycodone/Acetaminophen (Percocet 5/325 Mg Tab) 1 tab PO Q4H PRN PRN Reason: Pain, severe (8-10) Stop: 06/18/17 18:47 Last Admin: 06/17/17 13:38 Dose: 1 tab Polyethylene Glycol (Miralax) 17 gm PO BID [facility] Last Admin: 06/17/17 17:30 Dose: 17 gm Rosuvastatin Calcium (Crestor) 10 mg PO HS [facility] Last Admin: 06/16/17 21:57 Dose: 10 mg - Labs Labs: 06/17/17 08:20 06/17/17 08:01 - Constitutional Appears: No Acute Distress - Head Exam Head Exam: NORMAL INSPECTION - Eye Exam Eye Exam: EOMI, PERRL - ENT Exam ENT Exam: Normal Oropharynx - Neck Exam Neck Exam: Normal Inspection - Respiratory Exam Respiratory Exam: Decreased Breath Sounds - Cardiovascular Exam Cardiovascular Exam: REGULAR RHYTHM, +S1, +S2 - GI/Abdominal Exam GI & Abdominal Exam: Soft, Tenderness (EPIGASTRIUM AND LOWER QUADRANTS.), Normal Bowel Sounds - Extremities Exam Extremities Exam: absent: Calf Tenderness, Pedal Edema - Neurological Exam Neurological Exam: Awake, CN II-XII Intact - Psychiatric Exam Psychiatric exam: Normal Mood - Skin Skin Exam: Normal Color, Warm Assessment and Plan (1) UTI (urinary tract infection) Assessment & Plan: CONTINUE IV CEFEPIME 2GM IVPB [id number] CONTINUE IV FLAGYL 500MG IV Q8HRLY . IV GENTAMICIN 160MG 1VPB X 1 DOSE Status: Acute (2) Leukocytosis (leucocytosis) Status: Acute (3) Abdominal pain Assessment & Plan: GASTRITIS. PER GI. Status: Acute (4) Intractable vomiting Status: Acute (5) Diabetes mellitus Status: Acute (6) HTN (hypertension) Status: Acute
[2017-06-17] MEDS ORDERED: Gentamicin 160 MG in Sodium Chloride 0.9% 100 ML IVPB ONE (23:45)
[2017-06-18] MEDS: Oxycodone/Acetaminophen 5/325 mg Tab PO PRN ×2 (00:37→04:30)
[2017-06-18] MEDS: Sodium Chloride 0.45% 1,000 ML IV SCH ×4 (00:38→17:27)
[2017-06-18] MEDS: metroNIDAZOLE IV 500 mg/100 ml 500 MG/100 ML BAG IVPB SCH ×3 (05:14→21:12)
[2017-06-18 07:49] LABS: BASO # 0.1 K/uL (0.0-0.2); BASO % 0.6 % (0.0-2.0); EOS % 0.1 % (0.0-4.0); HEMOGLOBIN 14.2 g/dL (11.0-16.0); LYMPH # 2.1 K/uL (1.0-4.3); MEAN CORPUSCULAR HEMOGLOBIN 29.7 pg (27.0-31.0); MEAN CORPUSCULAR HGB CONC 34.5 g/dL (33.0-37.0); MEAN PLATELET VOLUME 9.9 fL (7.2-11.7); MONO % 7.4 % (0.0-10.0); NEUT # 9.9 K/uL (1.8-7.0); NEUT % 75.9 % (50.0-75.0); RBC 4.78 Mil/uL (3.80-5.20); RED CELL DISTRIBUTION WIDTH 12.5 % (11.5-14.5)
[2017-06-18] MEDS: (Novolog) Insulin Aspart, Recombinant 100 u/ml 10 ml vial SC SCH ×4 (08:16→21:13)
[2017-06-18 08:33] LABS: ALB/GLOB RATIO 1.2 (1.0-2.1); ALBUMIN 3.3 g/dL (3.5-5.0); ALT/SGPT 14 U/L (9-52); AST/SGOT 17 U/L (14-36); BLOOD UREA NITROGEN 12 mg/dL (7-17); CALCIUM 8.5 mg/dl (8.6-10.4); GFR AFRICAN-AMERICAN > 60; GFR NON-AFRICAN AMERICAN > 60
[2017-06-18] MEDS: Lactobacillus Acidophilus 500 MU Cap PO SCH ×2 (09:49→17:27)
[2017-06-18] MEDS: POLYETHYLENE GLYCOL 3350 17 GM/Dose PACKET PO SCH ×2 (09:49→17:27)
[2017-06-18] MEDS: Enoxaparin 40 mg Syringe SC SCH (09:49)
[2017-06-18] MEDS: Cefepime IV 2 gm in Dextrose 2 GM/100 ML BAG IVPB SCH ×2 (09:50→21:12)
--- NOTE | 2017-06-18 13:28 | CP.PCM.PN ---
Subjective - Date & Time of Evaluation Date of Evaluation: 06/18/17 Time of Evaluation: 13:27 - Subjective Subjective: CHIEF COMPLAINTS TODAY : NO FURTHER VOMITING BUT NAUSEOUS. LOWER ABDOMINAL PAIN. NO GI BLEEDING ROS. HEENT : N. Resp : No cough, wheezing ,pleuritic CP ,or hemoptysis Cardio : No anginal CP, PND, orthopnea, palpitation GI : No GI bleeding . 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 Musculoskel : No joint swelling , Derm : No rash Psych : Normal affect. Ext : No swelling ,calf pain PE. Pt. is alert awake in no distress. V.S As noted in the chart Head ,ear nose,throat and eyes : Normal. Neck : Supple with normal carotids. Lungs: Clear air entry. Heart : S1 & S2 normal with S4. No murmur. Abd : Soft tender with normal bowel sounds. Neuro : Moves all ext. with no localized deficit. Ext : No edema with intact pulses.Non tender calves Derm : No rashes or decubitus ulcer. LABS/RADIOLOGY: GRAM-NEGATIVE RODS IN THE URINE ASSESSMENT/PLAN : continue IV fluids and IV antibiotics. Discussed with ID for length of IV AB Objective - Vital Signs/Intake and Output Vital Signs (last 24 hours): Temp Pulse Resp BP Pulse Ox 98.5 F 95 H 20 137/89 97 06/18/17 08:00 06/18/17 08:00 06/18/17 08:00 06/18/17 08:00 06/18/17 08:00 Intake and Output: 06/18/17 06/18/17 11:59 23:59 Intake Total 1040 Balance 1040 - Medications Medications: Current Medications Diazepam (Valium) 10 mg PO BID PRN PRN Reason: Anxiety Last Admin: 06/17/17 21:54 Dose: 10 mg Enoxaparin Sodium (Lovenox) 40 mg SC DAILY [facility] Last Admin: 06/18/17 09:49 Dose: 40 mg Famotidine (Pepcid) 40 mg PO DAILY [facility] Last Admin: 06/18/17 09:49 Dose: 40 mg Cefepime HCl (Maxipime Iv 2 Gm Premix) 2 gm in 100 mls @ 100 mls/hr IVPB Q12 [facility] PRN Reason: Protocol Stop: 06/20/17 22:01 Last Admin: 06/18/17 09:50 Dose: 100 mls/hr Sodium Chloride (Sodium Chloride 0.45%) 1,000 mls @ 100 mls/hr IV .Q10H [facility] Last Admin: 06/18/17 06:49 Dose: Not Given Metronidazole (Flagyl) 500 mg in 100 mls @ 100 mls/hr IVPB Q8 [facility] PRN Reason: Protocol Last Admin: 06/18/17 05:14 Dose: 100 mls/hr Insulin Aspart (Novolog) 0 unit SC ACHS [facility] PRN Reason: Protocol Last Admin: 06/18/17 12:33 Dose: 4 unit Lactobacillus Acidophilus (Bacid Acidophilus) 1 cap PO BID [facility] Last Admin: 06/18/17 09:49 Dose: 1 cap Metoclopramide HCl (Reglan) 5 mg PO ACTID [facility] Last Admin: 06/18/17 12:33 Dose: 5 mg Oxycodone/Acetaminophen (Percocet 5/325 Mg Tab) 1 tab PO Q4H PRN PRN Reason: Pain, severe (8-10) Stop: 06/18/17 18:47 Last Admin: 06/18/17 04:30 Dose: 1 tab Polyethylene Glycol (Miralax) 17 gm PO BID [facility] Last Admin: 06/18/17 09:49 Dose: 17 gm Rosuvastatin Calcium (Crestor) 10 mg PO HS [facility] Last Admin: 06/17/17 21:27 Dose: 10 mg - Labs Labs: 06/18/17 07:43 06/18/17 07:43
--- NOTE | 2017-06-18 23:43 | CP.PCM.PN ---
Subjective - Date & Time of Evaluation Date of Evaluation: 06/18/17 Time of Evaluation: 23:43 - Subjective Subjective: CHIEF COMPLAINTS TODAY : AFEBRILE LOOKS SLIGHTLY BETTER AND MORE RESPONSIVE C/O IMPROVING LOWER ABDOMINAL PAIN NO FURTHER VOMITING BUT POOR APPETITE. NO GI BLEEDING ROS. HEENT : N. Resp : NO COUGH, NO wheezing ,pleuritic CP ,or hemoptysis Cardio : No anginal CP, PND, orthopnea, palpitation GI : No GI bleeding . 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 Musculoskel : No joint swelling , Derm : No rash Psych : Normal affect. Ext : No swelling ,calf pain PE. Pt. is alert awake in no distress. V.S As noted in the chart Head ,ear nose,throat and eyes : Normal. Neck : Supple with normal carotids. Lungs: DIMINISHED BREATH SOUNDS AT THE BASES. Heart : S1 & S2 normal with S4. No murmur. Abd : SOFT, LOWER ABDOMINAL DISCOMFORT, with normal bowel sounds. Neuro : Moves all ext. with no localized deficit. Ext : No edema with intact pulses.Non tender calves Derm : No rashes or decubitus ulcer. LABS/RADIOLOGY: WBC 13.1 IMPROVING. RENAL FUNCTION STABLE. URINE CULTURE POSITIVE FOR ESCHERICHIA COLI D DIMER N. CREAT 0.7/BUN 17 ASSESSMENT/PLAN : IV ANTIBIOTICS FOR UTI. CONTINUE iv CEFEPIME 2 G EVERY 12 HOURLY. CONTINUE iv fLAGYL 500 EVERY 8 HOURLY PATIENT GOT ONE DOSE OF [id number] MG 06/17/17. CONTINUE iv GENTAMICIN 100 MG IVPB X 2 DOSES 06/18, 06/19/17. MONITOR RENAL FUNCTIONS. IV FLUIDS. Objective - Vital Signs/Intake and Output Vital Signs (last 24 hours): Temp Pulse Resp BP Pulse Ox 98.9 F 91 H 20 101/65 95 06/18/17 16:00 06/18/17 16:00 06/18/17 16:00 06/18/17 16:00 06/18/17 16:00 Intake and Output: 06/18/17 06/19/17 18:59 06:59 Intake Total 1280 Balance 1280 - Medications Medications: Current Medications Diazepam (Valium) 10 mg PO BID PRN PRN Reason: Anxiety Last Admin: 06/17/17 21:54 Dose: 10 mg Enoxaparin Sodium (Lovenox) 40 mg SC DAILY [facility] Last Admin: 06/18/17 09:49 Dose: 40 mg Famotidine (Pepcid) 40 mg PO DAILY [facility] Last Admin: 06/18/17 09:49 Dose: 40 mg Cefepime HCl (Maxipime Iv 2 Gm Premix) 2 gm in 100 mls @ 100 mls/hr IVPB Q12 [facility] PRN Reason: Protocol Stop: 06/20/17 22:01 Last Admin: 06/18/17 21:12 Dose: 100 mls/hr Sodium Chloride (Sodium Chloride 0.45%) 1,000 mls @ 100 mls/hr IV .Q10H [facility] Last Admin: 06/18/17 17:27 Dose: Not Given Metronidazole (Flagyl) 500 mg in 100 mls @ 100 mls/hr IVPB Q8 [facility] PRN Reason: Protocol Last Admin: 06/18/17 21:12 Dose: 100 mls/hr Insulin Aspart (Novolog) 0 unit SC ACHS [facility] PRN Reason: Protocol Last Admin: 06/18/17 21:13 Dose: Not Given Lactobacillus Acidophilus (Bacid Acidophilus) 1 cap PO BID [facility] Last Admin: 06/18/17 17:27 Dose: 1 cap Metoclopramide HCl (Reglan) 5 mg PO ACTID [facility] Last Admin: 06/18/17 17:27 Dose: 5 mg Polyethylene Glycol (Miralax) 17 gm PO BID [facility] Last Admin: 06/18/17 17:27 Dose: 17 gm Rosuvastatin Calcium (Crestor) 10 mg PO HS [facility] Last Admin: 06/18/17 21:13 Dose: 10 mg - Labs Labs: 06/18/17 07:43 06/18/17 07:43 Assessment and Plan (1) UTI (urinary tract infection) Status: Acute (2) Leukocytosis (leucocytosis) Status: Acute (3) Abdominal pain Status: Acute (4) Intractable vomiting Status: Acute (5) Diabetes mellitus Status: Acute (6) HTN (hypertension) Status: Acute
[2017-06-19] MEDS: Sodium Chloride 0.45% 1,000 ML IV SCH ×3 (03:36→23:36)
[2017-06-19] MEDS: metroNIDAZOLE IV 500 mg/100 ml 500 MG/100 ML BAG IVPB SCH (05:35)
[2017-06-19] MEDS: (Novolog) Insulin Aspart, Recombinant 100 u/ml 10 ml vial SC SCH ×4 (08:09→21:29)
[2017-06-19] MEDS: Enoxaparin 40 mg Syringe SC SCH (10:26)
[2017-06-19] MEDS: POLYETHYLENE GLYCOL 3350 17 GM/Dose PACKET PO SCH ×2 (10:26→17:07)
[2017-06-19] MEDS: Lactobacillus Acidophilus 500 MU Cap PO SCH ×2 (10:26→17:07)
[2017-06-19] MEDS: Cefepime IV 2 gm in Dextrose 2 GM/100 ML BAG IVPB SCH (12:06)
[2017-06-19] MEDS ORDERED: Oxycodone/Acetaminophen 5/325 mg Tab PO ONE (12:30)
--- NOTE | 2017-06-19 13:46 | CP.PCM.DIS ---
Provider - Provider Date of Admission: 06/17/17 12:26 Attending physician: Linsey Sibley MD Time Spent in preparation of Discharge (in minutes): 35 Hospital Course - Lab Results Lab Results: Micro Results 06/17/17 08:41 Sputum Gram Stain - Final 06/17/17 08:41 Sputum Sputum Culture - Final NORMAL ORAL JEAN CLAUDE 06/15/17 17:40 Blood Blood Culture - Preliminary NO GROWTH AFTER 3 DAYS 06/15/17 17:00 Blood Blood Culture - Preliminary NO GROWTH AFTER 3 DAYS 06/15/17 07:20 Naris MRSA Culture (Admit) - Final MRSA NOT DETECTED 06/15/17 17:21 Urine Urine Culture - Final Escherichia Coli Most Recent Lab Values WBC 13.0 K/uL (4.8-10.8) H 06/18/17 07:43 RBC 4.78 Mil/uL (3.80-5.20) 06/18/17 07:43 Hgb 14.2 g/dL (11.0-16.0) 06/18/17 07:43 Hct 41.1 % (34.0-47.0) 06/18/17 07:43 MCV 86.0 fL (81.0-99.0) 06/18/17 07:43 MCH 29.7 pg (27.0-31.0) 06/18/17 07:43 MCHC 34.5 g/dL (33.0-37.0) 06/18/17 07:43 RDW 12.5 % (11.5-14.5) 06/18/17 07:43 Plt Count 156 K/uL (130-400) 06/18/17 07:43 MPV 9.9 fL (7.2-11.7) 06/18/17 07:43 Neut % (Auto) 75.9 % (50.0-75.0) H 06/18/17 07:43 Lymph % (Auto) 16.0 % (20.0-40.0) L 06/18/17 07:43 [place] % (Auto) 7.4 % (0.0-10.0) 06/18/17 07:43 Eos % (Auto) 0.1 % (0.0-4.0) 06/18/17 07:43 Baso % (Auto) 0.6 % (0.0-2.0) 06/18/17 07:43 Neut # (Auto) 9.9 K/uL (1.8-7.0) H 06/18/17 07:43 Lymph # (Auto) 2.1 K/uL (1.0-4.3) 06/18/17 07:43 [place] # (Auto) 1.0 K/uL (0.0-0.8) H 06/18/17 07:43 Eos # (Auto) 0.0 K/uL (0.0-0.7) 06/18/17 07:43 Baso # (Auto) 0.1 K/uL (0.0-0.2) 06/18/17 07:43 Neutrophils % (Manual) 91 % (50-75) H 06/15/17 12:11 Lymphocytes % (Manual) 7 % (20-40) L 06/15/17 12:11 Monocytes % (Manual) 2 % (0-10) 06/15/17 12:11 Platelet Estimate Normal (NORMAL) 06/15/17 12:11 RBC Morphology Normal 06/15/17 12:11 D-Dimer, Quantitative 224 ng/mlDDU (0-243) 06/16/17 08:03 Sodium 135 mmol/L (132-148) 06/18/17 07:43 Potassium 4.3 mmol/L (3.6-5.2) 06/18/17 07:43 Chloride 99 mmol/L (98-107) 06/18/17 07:43 Carbon Dioxide 26 mmol/L (22-30) 06/18/17 07:43 Anion Gap 15 (10-20) 06/18/17 07:43 BUN 12 mg/dL (7-17) 06/18/17 07:43 Creatinine 0.6 mg/dL (0.7-1.2) L 06/18/17 07:43 Est GFR ( Amer) > 60 06/18/17 07:43 Est GFR (Non-Af Amer) > 60 06/18/17 07:43 POC Glucose (mg/dL) 300 mg/dL (65-110) H 06/19/17 11:04 Random Glucose 255 mg/dL (65-105) H 06/18/17 07:43 Calcium 8.5 mg/dl (8.6-10.4) L 06/18/17 07:43 Total Bilirubin 1.1 mg/dL (0.2-1.3) 06/18/17 07:43 AST 17 U/L (14-36) 06/18/17 07:43 ALT 14 U/L (9-52) 06/18/17 07:43 Alkaline Phosphatase 75 U/L (38-126) 06/18/17 07:43 C-React Prot High Sens 6.48 mg/L (1.00-3.00) H 06/16/17 08:03 Total Protein 6.1 g/dL (6.3-8.3) L 06/18/17 07:43 Albumin 3.3 g/dL (3.5-5.0) L 06/18/17 07:43 Globulin 2.8 gm/dL (2.2-3.9) 06/18/17 07:43 Albumin/Globulin Ratio 1.2 (1.0-2.1) 06/18/17 07:43 Amylase 44 U/L (30-110) 06/15/17 13:18 Lipase 16 U/L (23-300) L 06/15/17 13:18 Procalcitonin < 0.05 NG/ML (0.19-0.49) L 06/16/17 08:03 Urine Color Yellow (YELLOW) 06/15/17 14:16 Urine Clarity Hazy (Clear) 06/15/17 14:16 Urine pH 5.0 (5.0-8.0) 06/15/17 14:16 Ur Specific [place] 1.032 (1.003-1.030) H 06/15/17 14:16 Urine Protein 2+ mg/dL (NEGATIVE) H 06/15/17 14:16 Urine Glucose (UA) 3+ mg/dL (Normal) H 06/15/17 14:16 Urine Ketones 2+ mg/dL (NEGATIVE) H 06/15/17 14:16 Urine Blood 1+ (NEGATIVE) H 06/15/17 14:16 Urine Nitrate Negative (NEGATIVE) 06/15/17 14:16 Urine Bilirubin Negative (NEGATIVE) 06/15/17 14:16 Urine Urobilinogen Normal mg/dL (0.2-1.0) 06/15/17 14:16 Ur Leukocyte Esterase Neg Jana/uL (Negative) 06/15/17 14:16 Urine WBC (Auto) 3 /hpf (0-5) 06/15/17 14:16 Urine RBC (Auto) 5 /hpf (0-3) H 06/15/17 14:16 Ur Squamous Epith Cells 10 /hpf (0-5) H 06/15/17 14:16 Urine Bacteria Few (<OCC) H 06/15/17 14:16 Hyaline Casts 3-5 /lpf (0-2) H 06/15/17 14:16 Urine HCG, Qual Negative (NEGATIVE) 06/15/17 14:48 Influenza Typ A,B (EIA) Negative for flu a/b (NEGATIVE) 06/15/17 07:20 Ur L.pneumophila Ag Negative (NEGATIVE) 06/15/17 07:20 Mycoplasma pneumon IgM Negative (NEGATIVE) 06/16/17 08:03 - Hospital Course Hospital Course: Patient presented to [facility] emergency room with 2 days history of nausea vomiting and abdominal pain patient is also complaining of questionable blood-tinged vomitus. Patient was evaluated in the emergency room and revealed WBC count of 18,000 with negative CAT scan. Patient was admitted on the floor. Patient received IV antibiotics and IV fluids urine culture showed E. coli more than 100,000. ID consult was requested. Patient improved on the above therapy her mental status improved and currently patient is stable. GI consult was obtained and there was no any evidence of any acute GI bleed patient had gastritis on previous endoscopy done 2 months ago. Patient will be discharged on by mouth Augmentin and continue her present medication. Discharge Exam - Head Exam Head Exam: NORMAL INSPECTION Discharge Plan - Discharge Medications Prescriptions: Cefpodoxime [Vantin] 200 mg PO BID #10 tab - Follow Up Plan Condition: STABLE Disposition: HOME/ ROUTINE
[2017-06-19] MEDS: Cefpodoxime (Vantin) 200 mg Tab PO SCH (13:47)
--- NOTE | 2017-06-19 16:30 | CP.PCM.PN ---
Subjective - Date & Time of Evaluation Date of Evaluation: 06/19/17 Time of Evaluation: 16:29 Objective - Vital Signs/Intake and Output Vital Signs (last 24 hours): Temp Pulse Resp BP Pulse Ox 98.3 F 96 H 20 99/69 L 92 L 06/19/17 15:00 06/19/17 15:00 06/19/17 15:00 06/19/17 15:00 06/19/17 15:00 - Medications Medications: Current Medications Cefpodoxime Proxetil (Vantin) 200 mg PO Q12H [facility] PRN Reason: Protocol Last Admin: 06/19/17 13:47 Dose: 200 mg Diazepam (Valium) 10 mg PO BID PRN PRN Reason: Anxiety Last Admin: 06/17/17 21:54 Dose: 10 mg Enoxaparin Sodium (Lovenox) 40 mg SC DAILY [facility] Last Admin: 06/19/17 10:26 Dose: 40 mg Famotidine (Pepcid) 40 mg PO DAILY [facility] Last Admin: 06/19/17 10:26 Dose: 40 mg Cefepime HCl (Maxipime Iv 2 Gm Premix) 2 gm in 100 mls @ 100 mls/hr IVPB Q12 [facility] PRN Reason: Protocol Stop: 06/20/17 22:01 Last Admin: 06/19/17 12:06 Dose: Not Given Sodium Chloride (Sodium Chloride 0.45%) 1,000 mls @ 100 mls/hr IV .Q10H [facility] Last Admin: 06/19/17 13:07 Dose: Not Given Metronidazole (Flagyl) 500 mg in 100 mls @ 100 mls/hr IVPB Q8 [facility] PRN Reason: Protocol Last Admin: 06/19/17 05:35 Dose: 100 mls/hr Gentamicin Sulfate 100 mg/ (Sodium Chloride) 52.5 mls @ 105 mls/hr IVPB Q24H [facility] PRN Reason: Protocol Last Admin: 06/19/17 00:19 Dose: 105 mls/hr Insulin Aspart (Novolog) 0 unit SC ACHS [facility] PRN Reason: Protocol Last Admin: 06/19/17 12:04 Dose: 600 unit Lactobacillus Acidophilus (Bacid Acidophilus) 1 cap PO BID [facility] Last Admin: 06/19/17 10:26 Dose: 1 cap Metoclopramide HCl (Reglan) 5 mg PO ACTID [facility] Last Admin: 06/19/17 12:06 Dose: 5 mg Polyethylene Glycol (Miralax) 17 gm PO BID [facility] Last Admin: 06/19/17 10:26 Dose: Not Given Rosuvastatin Calcium (Crestor) 10 mg PO HS [facility] Last Admin: 06/18/17 21:13 Dose: 10 mg - Labs Labs: 06/18/17 07:43 06/18/17 07:43 Assessment and Plan (1) UTI (urinary tract infection) Status: Acute (2) Leukocytosis (leucocytosis) Status: Acute (3) Abdominal pain Status: Acute (4) Intractable vomiting Status: Acute (5) Diabetes mellitus Status: Acute (6) HTN (hypertension) Status: Acute
[2017-06-20] MEDS: Cefpodoxime (Vantin) 200 mg Tab PO SCH (01:26)
[2017-06-20] MEDS ORDERED: Oxycodone/Acetaminophen 5/325 mg Tab PO STA (04:14)
[2017-06-20] MEDS: (Novolog) Insulin Aspart, Recombinant 100 u/ml 10 ml vial SC SCH (08:15)
[2017-06-20 08:29] VITALS: BP 125/83; PULSE 94; TEMP 97.6; O2SAT 97
== END 2017-06-20 09:03 | disposition home or self-care (01) | DRG 690 ==
LOC: C.ER 10:52 → C.9E 16:46 → C.3T 16:46 → OBSVTOIN 06-17 12:26
PROVIDERS: ADMIT Internal Medicine Cardiovascular Disease; ATTEND Internal Medicine Cardiovascular Disease
DX: N39.0 Urinary tract infection, site not specified (principal); J90 Pleural effusion, not elsewhere classified; Z79.4 Long term (current) use of insulin; M54.30 Sciatica, unspecified side; M54.16 Radiculopathy, lumbar region; Z79.891 Long term (current) use of opiate analgesic; M41.9 Scoliosis, unspecified; K59.00 Constipation, unspecified; F17.210 Nicotine dependence, cigarettes, uncomplicated; I10 Essential (primary) hypertension; G89.4 Chronic pain syndrome; F41.9 Anxiety disorder, unspecified; E11.65 Type 2 diabetes mellitus with hyperglycemia; K21.9 Gastro-esophageal reflux disease without esophagitis; K29.70 Gastritis, unspecified, without bleeding; B96.20 Unspecified Escherichia coli [E. coli] as the cause of diseases classified elsewhere

== ENCOUNTER 2017-07-03 13:23 | Inpatient (IN) | payer OTHER ==
[2017-07-03 13:23] VITALS: BMI 29.7
[2017-07-03] MEDS ORDERED: Sodium Chloride 0.9% 1,000 ML IV ONE ×2 (14:09→16:14)
[2017-07-03 14:28] LABS: BASO # 0.1 K/uL (0.0-0.2); BASO % 0.5 % (0.0-2.0); EOS % 0.1 % (0.0-4.0); HEMOGLOBIN 16.4 g/dL (11.0-16.0); MEAN CELL VOLUME 86.9 fL (81.0-99.0); MEAN CORPUSCULAR HEMOGLOBIN 29.7 pg (27.0-31.0); MEAN CORPUSCULAR HGB CONC 34.2 g/dL (33.0-37.0); MEAN PLATELET VOLUME 10.1 fL (7.2-11.7); MONO # 0.3 K/uL (0.0-0.8); MONO % 2.6 % (0.0-10.0); NEUT # 11.3 K/uL (1.8-7.0); NEUT % 88.8 % (50.0-75.0); PLATELET COUNT 232 K/uL (130-400); RBC 5.52 Mil/uL (3.80-5.20); RED CELL DISTRIBUTION WIDTH 13.4 % (11.5-14.5); WHITE BLOOD COUNT 12.7 K/uL (4.8-10.8)
[2017-07-03] MEDS ORDERED: DiphenhydrAMINE 50 mg/ml Inj IVP STA (14:33)
[2017-07-03 14:43] LABS: ALB/GLOB RATIO 1.2 (1.0-2.1); ALBUMIN 4.8 g/dL (3.5-5.0); ALT/SGPT 35 U/L (9-52); AST/SGOT 29 U/L (14-36); BLOOD UREA NITROGEN 9 mg/dL (7-17); CALCIUM 10.5 mg/dl (8.6-10.4); GFR AFRICAN-AMERICAN > 60; GFR NON-AFRICAN AMERICAN > 60; LIPASE 48 U/L (23-300)
--- NOTE | 2017-07-03 14:47 | C.PDOC ---
History Of Present Illness 56 yo female come in for evaluation of abdominal pain associated with N/V/D gradually developed for past 2 days. Pt sts, yesterday had few episodes of watery , non-bloody diarrhea and since today AM developed intractable vomiting. AT present time, pt has dry heaves with clear sputum. Pt is very poor historian , unable to provide further hx on present illness. FYI: previous ED visits review, pt was last seen in ED 2 weeks ago and admitted due to same complaints. Noted high glucose on admission. Time Seen by Provider: 07/03/17 13:47 Chief Complaint (Nursing): Abdominal Pain History Per: Patient Past Medical History Reviewed: Historical Data, Nursing Documentation, Vital Signs Vital Signs: Last Vital Signs Temp 98.9 F 07/03/17 13:32 Pulse 87 07/03/17 16:04 Resp 22 07/03/17 16:04 BP 161/87 H 07/03/17 16:04 Pulse Ox 99 07/03/17 16:52 - Medical History PMH: Anxiety, Depression, Gastritis, HTN, Hypercholesterolemia Denies: Chronic Kidney Disease Family History: States: Unknown Family Hx - Social History Hx Alcohol Use: No Hx Substance Use: No - Immunization History Hx Tetanus Toxoid Vaccination: Yes Hx Influenza Vaccination: Yes Hx Pneumococcal Vaccination: Yes (4 years) Review Of Systems Except As Marked, All Systems Reviewed And Found Negative. Constitutional: Negative for: Fever, Chills ENT: Negative for: Throat Pain Gastrointestinal: Positive for: Nausea, Vomiting, Abdominal Pain, Diarrhea. Negative for: Melena, Hematochezia Genitourinary: Negative for: Dysuria Musculoskeletal: Negative for: Neck Pain, Back Pain Skin: Negative for: Rash Neurological: Negative for: Weakness, Numbness, Altered Mental Status, Headache , Dizziness Physical Exam - Physical Exam Appears: Well, Non-toxic, Other (actively vomiting, in pain) Skin: Normal Color, Warm, No Rash Head: Normacephalic Eye(s): bilateral: PERRL Nose: No Flaring Throat: No Drooling Neck: Trachea Midline, Supple Cardiovascular: Rhythm Regular, No Murmur, No JVD Respiratory: No Decreased Breath Sounds, No Accessory Muscle Use, No Stridor, No Wheezing Gastrointestinal/Abdominal: Soft, Tenderness (diffuse epigastric), No Distention , No Guarding, No Rebound Back: No CVA Tenderness Extremity: Normal ROM, No Deformity, No Swelling ED Course And Treatment - Laboratory Results Result Diagrams: 07/03/17 14:23 07/03/17 14:23 Lab Interpretation: Abnormal ECG: Interpreted By Me, Viewed By Me ECG Rhythm: Sinus Rhythm ECG Interpretation: No Changes From Prior (10/25/16) Interpretation Of ECG: SR@77/min, LAD, incomplete LBBB, prolong QT O2 Sat by Pulse Oximetry: 99 Pulse Ox Interpretation: Normal Progress Note: Pt was OBS in ED for 3 hours and no changed noted. On re-eval, pt still dry heaving after ED tx. Blood work review, mild leukocytosis with left shift. pH=7.39. AG=19. Urine (+) ketones, proteine, glu. case discussed with pt's PMD and admission arranged with GI consuilt Disposition - Disposition Disposition: HOSPITALIZED Disposition Time: 16:05 Condition: STABLE Forms: [employer] ([place]) - Clinical Impression Clinical Impression: Diabetic gastroparesis, Diabetes mellitus, insulin dependent (IDDM), uncontrolled
[2017-07-03] MEDS ORDERED: DiphenhydrAMINE 50 mg/ml Inj ONE (14:52)
[2017-07-03 15:22] LABS: VENOUS BLOOD GAS BASE EXCESS -2.2 mmol/L (0.0-2.0); VENOUS BLOOD GAS PCO2 37 mmHg (40-60); VENOUS BLOOD GAS PO2 25 mm/Hg (30-55); VENOUS BLOOD PH 7.39 (7.32-7.43)
[2017-07-03 15:27] LABS: EOSINOPHIL 1 % (0-4); LYMPHOCYTE 10 % (20-40); MONOCYTE 1 % (0-10); NEUTROPHIL 88 % (50-75); PLATELET ESTIMATE NORMAL (NORMAL); TOTAL CELLS COUNTED 100
[2017-07-03 15:36] LABS: CK-MB 1.59 ng/mL (0.0-3.38)
[2017-07-03 15:37] LABS: TROPONIN I 0.037 ng/mL (0.00-0.120)
[2017-07-03 15:48] LABS: HCG,QUALITATIVE URINE NEGATIVE (NEGATIVE)
[2017-07-03 15:55] LABS: SQUAMOUS EPITHIAL 1 /hpf (0-5); URINE BILIRUBIN NEGATIVE (NEGATIVE); URINE BLOOD NEGATIVE (NEGATIVE); URINE CLARITY Clear (Clear); URINE COLOR Yellow (YELLOW); URINE GLUCOSE (UA) 3+ mg/dL (Normal); URINE LEUKOCYTE ESTERASE NEG Leu/uL (Negative); URINE PROTEIN 2+ mg/dL (NEGATIVE); URINE UROBILINOGEN NORMAL mg/dL (0.2-1.0)
[2017-07-03 16:13] LABS: BARBITURATES, UR NEGATIVE (NEGATIVE); OPIATES, UR NEGATIVE (NEGATIVE); PHENCYCLIDINE, UR NEGATIVE (NEGATIVE)
[2017-07-03 16:19] LABS: BENZODIAZEPINES, UR POSITIVE (NEGATIVE)
[2017-07-03] MEDS ORDERED: (Novolin R) Insulin Human Regular 100 units/ml vial IV ONE (16:54)
[2017-07-03] MEDS ORDERED: (Novolin R) Insulin Human Regular 100 units/ml vial ONE (17:03)
[2017-07-03 19:08] VITALS: RESP 20
[2017-07-03] MEDS: Sodium Chloride 0.45% 1,000 ML IV SCH (19:09)
[2017-07-03] MEDS: (Novolin R) Insulin Human Regular 100 units/ml vial SC SCH (21:49)
[2017-07-04] MEDS: Sodium Chloride 0.45% 1,000 ML IV SCH ×3 (05:32→17:16)
--- NOTE | 2017-07-04 07:34 | CP.PCM.CON ---
<Pratik Delcid - Last Filed: 07/04/17 13:11> History of Present Illness - History of Present Illness History of Present Illness: PGY4 Initial GI Consult Leslie Nair is a 56yF with pmhx of DM, HTN, Chronic pain, Fibroids, D&C, negative cath, anxiety who presented to the ER with complaints of intractable N/ V. She was recently seen at [facility], 3 weeks prior, with similar complaints. At that time, she was given reglan, zofran, and stool softners. She notes that after discharge, she again became symptomatic. She denies any black stool, melena, or hematachezia. Pt does reports mild epigastric pain. She reports reflux and takes Pepcid/milk of magnesium prn. Pt reports she previously had constipation but has been more regular since last discharge. Her last bm was yesterday takes bowel regimen prn. At the time of evaluation, no active bleeding , hemodynamically stable. No prior Colonoscopy. She was admitted with similar episode a few months ago and had EGD 10/22 which showed gastritis negative H.pylori. ROS: A 12pt ROS was obtained and was negative except as above PmHx: Anxiety, HTN, Hypercholesterolemia PsHx: D&C 2 weeks ago SHx: denies etoh, 1ppd 20+ years, denies any illicit drug use. FHx: cervical Ca: mother Past Patient History - Infectious Disease Hx of Infectious Diseases: None - Past Medical History & Family History Past Medical History?: Yes - Past Social History Smoking Status: Never Smoked - CARDIAC Hx Hypercholesterolemia: Yes Hx Hypertension: Yes - PULMONARY Hx Respiratory Disorders: No - NEUROLOGICAL Hx Neurological Disorder: No - HEENT Hx HEENT Problems: No - RENAL Hx Chronic Kidney Disease: No - ENDOCRINE/METABOLIC Hx Diabetes Mellitus Type 2: Yes - HEMATOLOGICAL/ONCOLOGICAL Hx Blood Disorders: No - INTEGUMENTARY Hx Dermatological Problems: No - MUSCULOSKELETAL/RHEUMATOLOGICAL Hx Falls: Yes - GASTROINTESTINAL Hx Gastritis: Yes - GENITOURINARY/GYNECOLOGICAL Hx Genitourinary Disorders: Yes Hx Urinary Tract Infection: Yes - PSYCHIATRIC Hx Substance Use: No - SURGICAL HISTORY Hx Surgeries: Yes Hx Dilation and Curettage: Yes (2 wks ago) Other/Comment: d&c at [facility] 2 weeks ago - ANESTHESIA Hx Anesthesia: Yes Hx Anesthesia Reactions: No Meds Allergies/Adverse Reactions: Allergies Allergy/AdvReac Type Severity Reaction Status Date / Time No Known Allergies Allergy Verified 07/03/17 13:32 - Medications Medications: Current Medications Heparin Sodium (Porcine) (Heparin) 5,000 units SC Q12 [facility] Last Admin: 07/03/17 21:50 Dose: 5,000 units Sodium Chloride (Sodium Chloride 0.45%) 1,000 mls @ 100 mls/hr IV .Q10H [facility] Last Admin: 07/04/17 05:32 Dose: 100 mls/hr Insulin Human Regular (Novolin R) 0 unit SC ACHS [facility] PRN Reason: Protocol Last Admin: 07/03/17 21:49 Dose: 3 unit Ketorolac Tromethamine (Toradol) 30 mg IVP Q6 PRN PRN Reason: Pain, Mild (1-3) Metoclopramide HCl (Reglan) 10 mg IVP Q8 [facility] Last Admin: 07/04/17 05:31 Dose: 10 mg Ondansetron HCl (Zofran Inj) 4 mg IVP Q4 [facility] Last Admin: 07/04/17 04:00 Dose: 4 mg Physical Exam - Constitutional Appears: Well, No Acute Distress - Head Exam Head Exam: ATRAUMATIC, NORMOCEPHALIC - Eye Exam Eye Exam: Normal appearance - ENT Exam ENT Exam: Mucous Membranes Moist, Normal Exam - Neck Exam Neck exam: Positive for: Normal Inspection - Respiratory Exam Respiratory Exam: Clear to Auscultation Bilateral, NORMAL BREATHING PATTERN. absent: Rales, Rhonchi, Wheezes, Respiratory Distress - GI/Abdominal Exam GI & Abdominal Exam: Normal Bowel Sounds, Soft, Tenderness (epigastric ). absent: Distended, Firm, Guarding, Hernia, Organomegaly, Rebound, Rigid - Extremities Exam Extremities exam: Negative for: joint swelling, pedal edema - Neurological Exam Neurological exam: Alert, Oriented x3 - Psychiatric Exam Psychiatric exam: Normal Affect, Normal Mood - Skin Skin Exam: Dry, Intact, Normal Color, Warm Results - Vital Signs Recent Vital Signs: Last Vital Signs Temp 98.4 F 07/04/17 00:00 Pulse 82 07/04/17 00:00 Resp 20 07/04/17 00:00 BP 154/86 H 07/04/17 00:00 Pulse Ox 96 07/04/17 00:00 - Labs Result Diagrams: 07/03/17 14:23 07/03/17 14:23 Labs: Laboratory Results - last 24 hr 07/03/17 07/03/17 07/03/17 14:23 14:23 14:23 WBC 12.7 H RBC 5.52 H Hgb 16.4 H D Hct 47.9 H MCV 86.9 MCH 29.7 MCHC 34.2 RDW 13.4 Plt Count 232 MPV 10.1 Neut % (Auto) 88.8 H Lymph % (Auto) 8.0 L [place] % (Auto) 2.6 Eos % (Auto) 0.1 Baso % (Auto) 0.5 Neut # (Auto) 11.3 H Lymph # (Auto) 1.0 [place] # (Auto) 0.3 Eos # (Auto) 0.0 Baso # (Auto) 0.1 Neutrophils % (Manual) 88 H Lymphocytes % (Manual) 10 L Monocytes % (Manual) 1 Eosinophils % (Manual) 1 Platelet Estimate Normal RBC Morphology Normal PT 11.0 INR 1.0 APTT 42 H pO2 VBG pH VBG pCO2 VBG HCO3 VBG Total CO2 VBG O2 Sat (Calc) VBG Base Excess VBG Potassium Glucose Lactate FiO2 Sodium 141 Potassium 4.4 Chloride 100 Carbon Dioxide 25 Anion Gap 21 H BUN 9 Creatinine 0.6 L Est GFR ( Amer) > 60 Est GFR (Non-Af Amer) > 60 POC Glucose (mg/dL) Random Glucose 386 H Calcium 10.5 H Total Bilirubin 1.5 H AST 29 ALT 35 Alkaline Phosphatase 148 H D Total Creatine Kinase CK-MB (Mass) Troponin I Total Protein 8.6 H Albumin 4.8 Globulin 3.9 Albumin/Globulin Ratio 1.2 Lipase 48 Venous Blood Potassium Urine Color Urine Clarity Urine pH Ur Specific [place] Urine Protein Urine Glucose (UA) Urine Ketones Urine Blood Urine Nitrate Urine Bilirubin Urine Urobilinogen Ur Leukocyte Esterase Urine WBC (Auto) Urine RBC (Auto) Ur Squamous Epith Cells Urine HCG, Qual Urine Opiates Screen Urine Methadone Screen Ur Barbiturates Screen Ur Phencyclidine Scrn Ur Amphetamines Screen U Benzodiazepines Scrn U Oth Cocaine Metabols U Cannabinoids Screen 07/03/17 07/03/17 07/03/17 15:05 15:15 15:39 WBC RBC Hgb Hct MCV MCH MCHC RDW Plt Count MPV Neut % (Auto) Lymph % (Auto) [place] % (Auto) Eos % (Auto) Baso % (Auto) Neut # (Auto) Lymph # (Auto) [place] # (Auto) Eos # (Auto) Baso # (Auto) Neutrophils % (Manual) Lymphocytes % (Manual) Monocytes % (Manual) Eosinophils % (Manual) Platelet Estimate RBC Morphology PT INR APTT pO2 25 L VBG pH 7.39 VBG pCO2 37 L VBG HCO3 21.8 VBG Total CO2 23.5 VBG O2 Sat (Calc) 51.3 VBG Base Excess -2.2 L VBG Potassium 3.4 L Glucose 349 H Lactate 2.6 H FiO2 21.0 Sodium 142.0 Potassium Chloride 108.0 H Carbon Dioxide Anion Gap BUN Creatinine Est GFR ( Amer) Est GFR (Non-Af Amer) POC Glucose (mg/dL) Random Glucose Calcium Total Bilirubin AST ALT Alkaline Phosphatase Total Creatine Kinase 73 CK-MB (Mass) 1.59 Troponin I 0.0370 Total Protein Albumin Globulin Albumin/Globulin Ratio Lipase Venous Blood Potassium 3.4 L Urine Color Yellow Urine Clarity Clear Urine pH 6.0 Ur Specific [place] 1.033 H Urine Protein 2+ H Urine Glucose (UA) 3+ H Urine Ketones 2+ H Urine Blood Negative Urine Nitrate Negative Urine Bilirubin Negative Urine Urobilinogen Normal Ur Leukocyte Esterase Neg Urine WBC (Auto) 1 Urine RBC (Auto) 1 Ur Squamous Epith Cells 1 Urine HCG, Qual Negative Urine Opiates Screen Urine Methadone Screen Ur Barbiturates Screen Ur Phencyclidine Scrn Ur Amphetamines Screen U Benzodiazepines Scrn U Oth Cocaine Metabols U Cannabinoids Screen 07/03/17 07/03/17 07/03/17 15:39 18:25 21:22 WBC RBC Hgb Hct MCV MCH MCHC RDW Plt Count MPV Neut % (Auto) Lymph % (Auto) [place] % (Auto) Eos % (Auto) Baso % (Auto) Neut # (Auto) Lymph # (Auto) [place] # (Auto) Eos # (Auto) Baso # (Auto) Neutrophils % (Manual) Lymphocytes % (Manual) Monocytes % (Manual) Eosinophils % (Manual) Platelet Estimate RBC Morphology PT INR APTT pO2 VBG pH VBG pCO2 VBG HCO3 VBG Total CO2 VBG O2 Sat (Calc) VBG Base Excess VBG Potassium Glucose Lactate FiO2 Sodium Potassium Chloride Carbon Dioxide Anion Gap BUN Creatinine Est GFR ( Amer) Est GFR (Non-Af Amer) POC Glucose (mg/dL) 329 H 375 H Random Glucose Calcium Total Bilirubin AST ALT Alkaline Phosphatase Total Creatine Kinase CK-MB (Mass) Troponin I Total Protein Albumin Globulin Albumin/Globulin Ratio Lipase Venous Blood Potassium Urine Color Urine Clarity Urine pH Ur Specific [place] Urine Protein Urine Glucose (UA) Urine Ketones Urine Blood Urine Nitrate Urine Bilirubin Urine Urobilinogen Ur Leukocyte Esterase Urine WBC (Auto) Urine RBC (Auto) Ur Squamous Epith Cells Urine HCG, Qual Urine Opiates Screen Negative Urine Methadone Screen Negative Ur Barbiturates Screen Negative Ur Phencyclidine Scrn Negative Ur Amphetamines Screen Negative U Benzodiazepines Scrn Positive U Oth Cocaine Metabols Negative U Cannabinoids Screen Negative 07/04/17 02:31 WBC RBC Hgb Hct MCV MCH MCHC RDW Plt Count MPV Neut % (Auto) Lymph % (Auto) [place] % (Auto) Eos % (Auto) Baso % (Auto) Neut # (Auto) Lymph # (Auto) [place] # (Auto) Eos # (Auto) Baso # (Auto) Neutrophils % (Manual) Lymphocytes % (Manual) Monocytes % (Manual) Eosinophils % (Manual) Platelet Estimate RBC Morphology PT INR APTT pO2 VBG pH VBG pCO2 VBG HCO3 VBG Total CO2 VBG O2 Sat (Calc) VBG Base Excess VBG Potassium Glucose Lactate FiO2 Sodium Potassium Chloride Carbon Dioxide Anion Gap BUN Creatinine Est GFR ( Amer) Est GFR (Non-Af Amer) POC Glucose (mg/dL) 288 H Random Glucose Calcium Total Bilirubin AST ALT Alkaline Phosphatase Total Creatine Kinase CK-MB (Mass) Troponin I Total Protein Albumin Globulin Albumin/Globulin Ratio Lipase Venous Blood Potassium Urine Color Urine Clarity Urine pH Ur Specific [place] Urine Protein Urine Glucose (UA) Urine Ketones Urine Blood Urine Nitrate Urine Bilirubin Urine Urobilinogen Ur Leukocyte Esterase Urine WBC (Auto) Urine RBC (Auto) Ur Squamous Epith Cells Urine HCG, Qual Urine Opiates Screen Urine Methadone Screen Ur Barbiturates Screen Ur Phencyclidine Scrn Ur Amphetamines Screen U Benzodiazepines Scrn U Oth Cocaine Metabols U Cannabinoids Screen Assessment & Plan - Assessment and Plan (Free Text) Assessment: This is a 56yF presenting with nausea, vomiting and reported hematemesis. intractable Nausea/vomiting chronic constipation Uncontrolled DM-possible gastroparesis Plan: -Continue supportive care with IVF hydration -Continue antiemetics and pain control -Uncontrolled DM, glycemic control per primary team -Advance diet as tolerated -No active GI bleed, Hgb stable, hemodynamically stable -PPI daily, avoid NSAIDs -EGD with gastritis on 10/22 -Colonoscopy outpt -Bowel regimen with mirlax BID -Avoid opioids as etiology of constipation and nausea and vomiting Will D/W Dr. Castro <MatthewCallum Y - Last Filed: 07/04/17 13:44> Meds - Medications Medications: Current Medications Heparin Sodium (Porcine) (Heparin) 5,000 units SC Q12 [facility] Last Admin: 07/04/17 11:00 Dose: 5,000 units Sodium Chloride (Sodium Chloride 0.45%) 1,000 mls @ 100 mls/hr IV .Q10H [facility] Last Admin: 07/04/17 05:32 Dose: 100 mls/hr Insulin Human Regular (Novolin R) 0 unit SC ACHS [facility] PRN Reason: Protocol Last Admin: 07/04/17 12:29 Dose: 6 unit Ketorolac Tromethamine (Toradol) 30 mg IVP Q6 PRN PRN Reason: Pain, Mild (1-3) Last Admin: 07/04/17 12:48 Dose: 30 mg Metoclopramide HCl (Reglan) 10 mg IVP Q8 [facility] Last Admin: 07/04/17 05:31 Dose: 10 mg Ondansetron HCl (Zofran Inj) 4 mg IVP Q4 [facility] Last Admin: 07/04/17 12:30 Dose: 4 mg Polyethylene Glycol (Miralax) 17 gm PO DAILY [facility] Last Admin: 07/04/17 12:49 Dose: 17 gm Results - Vital Signs Recent Vital Signs: Last Vital Signs Temp 98.3 F 07/04/17 08:00 Pulse 78 07/04/17 08:00 Resp 20 07/04/17 08:00 BP 147/84 07/04/17 08:00 Pulse Ox 97 07/04/17 08:00 - Labs Result Diagrams: 07/03/17 14:23 07/03/17 14:23 Labs: Laboratory Results - last 24 hr 07/03/17 07/03/17 07/03/17 14:23 14:23 14:23 WBC 12.7 H RBC 5.52 H Hgb 16.4 H D Hct 47.9 H MCV 86.9 MCH 29.7 MCHC 34.2 RDW 13.4 Plt Count 232 MPV 10.1 Neut % (Auto) 88.8 H Lymph % (Auto) 8.0 L [place] % (Auto) 2.6 Eos % (Auto) 0.1 Baso % (Auto) 0.5 Neut # (Auto) 11.3 H Lymph # (Auto) 1.0 [place] # (Auto) 0.3 Eos # (Auto) 0.0 Baso # (Auto) 0.1 Neutrophils % (Manual) 88 H Lymphocytes % (Manual) 10 L Monocytes % (Manual) 1 Eosinophils % (Manual) 1 Platelet Estimate Normal RBC Morphology Normal PT 11.0 INR 1.0 APTT 42 H pO2 VBG pH VBG pCO2 VBG HCO3 VBG Total CO2 VBG O2 Sat (Calc) VBG Base Excess VBG Potassium Glucose Lactate FiO2 Sodium 141 Potassium 4.4 Chloride 100 Carbon Dioxide 25 Anion Gap 21 H BUN 9 Creatinine 0.6 L Est GFR ( Amer) > 60 Est GFR (Non-Af Amer) > 60 POC Glucose (mg/dL) Random Glucose 386 H Calcium 10.5 H Total Bilirubin 1.5 H AST 29 ALT 35 Alkaline Phosphatase 148 H D Total Creatine Kinase CK-MB (Mass) Troponin I Total Protein 8.6 H Albumin 4.8 Globulin 3.9 Albumin/Globulin Ratio 1.2 Lipase 48 Venous Blood Potassium Urine Color Urine Clarity Urine pH Ur Specific [place] Urine Protein Urine Glucose (UA) Urine Ketones Urine Blood Urine Nitrate Urine Bilirubin Urine Urobilinogen Ur Leukocyte Esterase Urine WBC (Auto) Urine RBC (Auto) Ur Squamous Epith Cells Urine HCG, Qual Urine Opiates Screen Urine Methadone Screen Ur Barbiturates Screen Ur Phencyclidine Scrn Ur Amphetamines Screen U Benzodiazepines Scrn U Oth Cocaine Metabols U Cannabinoids Screen 07/03/17 07/03/17 07/03/17 15:05 15:15 15:39 WBC RBC Hgb Hct MCV MCH MCHC RDW Plt Count MPV Neut % (Auto) Lymph % (Auto) [place] % (Auto) Eos % (Auto) Baso % (Auto) Neut # (Auto) Lymph # (Auto) [place] # (Auto) Eos # (Auto) Baso # (Auto) Neutrophils % (Manual) Lymphocytes % (Manual) Monocytes % (Manual) Eosinophils % (Manual) Platelet Estimate RBC Morphology PT INR APTT pO2 25 L VBG pH 7.39 VBG pCO2 37 L VBG HCO3 21.8 VBG Total CO2 23.5 VBG O2 Sat (Calc) 51.3 VBG Base Excess -2.2 L VBG Potassium 3.4 L Glucose 349 H Lactate 2.6 H FiO2 21.0 Sodium 142.0 Potassium Chloride 108.0 H Carbon Dioxide Anion Gap BUN Creatinine Est GFR ( Amer) Est GFR (Non-Af Amer) POC Glucose (mg/dL) Random Glucose Calcium Total Bilirubin AST ALT Alkaline Phosphatase Total Creatine Kinase 73 CK-MB (Mass) 1.59 Troponin I 0.0370 Total Protein Albumin Globulin Albumin/Globulin Ratio Lipase Venous Blood Potassium 3.4 L Urine Color Yellow Urine Clarity Clear Urine pH 6.0 Ur Specific [place] 1.033 H Urine Protein 2+ H Urine Glucose (UA) 3+ H Urine Ketones 2+ H Urine Blood Negative Urine Nitrate Negative Urine Bilirubin Negative Urine Urobilinogen Normal Ur Leukocyte Esterase Neg Urine WBC (Auto) 1 Urine RBC (Auto) 1 Ur Squamous Epith Cells 1 Urine HCG, Qual Negative Urine Opiates Screen Urine Methadone Screen Ur Barbiturates Screen Ur Phencyclidine Scrn Ur Amphetamines Screen U Benzodiazepines Scrn U Oth Cocaine Metabols U Cannabinoids Screen 07/03/17 07/03/17 07/03/17 15:39 18:25 21:22 WBC RBC Hgb Hct MCV MCH MCHC RDW Plt Count MPV Neut % (Auto) Lymph % (Auto) [place] % (Auto) Eos % (Auto) Baso % (Auto) Neut # (Auto) Lymph # (Auto) [place] # (Auto) Eos # (Auto) Baso # (Auto) Neutrophils % (Manual) Lymphocytes % (Manual) Monocytes % (Manual) Eosinophils % (Manual) Platelet Estimate RBC Morphology PT INR APTT pO2 VBG pH VBG pCO2 VBG HCO3 VBG Total CO2 VBG O2 Sat (Calc) VBG Base Excess VBG Potassium Glucose Lactate FiO2 Sodium Potassium Chloride Carbon Dioxide Anion Gap BUN Creatinine Est GFR ( Amer) Est GFR (Non-Af Amer) POC Glucose (mg/dL) 329 H 375 H Random Glucose Calcium Total Bilirubin AST ALT Alkaline Phosphatase Total Creatine Kinase CK-MB (Mass) Troponin I Total Protein Albumin Globulin Albumin/Globulin Ratio Lipase Venous Blood Potassium Urine Color Urine Clarity Urine pH Ur Specific [place] Urine Protein Urine Glucose (UA) Urine Ketones Urine Blood Urine Nitrate Urine Bilirubin Urine Urobilinogen Ur Leukocyte Esterase Urine WBC (Auto) Urine RBC (Auto) Ur Squamous Epith Cells Urine HCG, Qual Urine Opiates Screen Negative Urine Methadone Screen Negative Ur Barbiturates Screen Negative Ur Phencyclidine Scrn Negative Ur Amphetamines Screen Negative U Benzodiazepines Scrn Positive U Oth Cocaine Metabols Negative U Cannabinoids Screen Negative 07/04/17 07/04/17 07/04/17 02:31 07:40 11:14 WBC RBC Hgb Hct MCV MCH MCHC RDW Plt Count MPV Neut % (Auto) Lymph % (Auto) [place] % (Auto) Eos % (Auto) Baso % (Auto) Neut # (Auto) Lymph # (Auto) [place] # (Auto) Eos # (Auto) Baso # (Auto) Neutrophils % (Manual) Lymphocytes % (Manual) Monocytes % (Manual) Eosinophils % (Manual) Platelet Estimate RBC Morphology PT INR APTT pO2 VBG pH VBG pCO2 VBG HCO3 VBG Total CO2 VBG O2 Sat (Calc) VBG Base Excess VBG Potassium Glucose Lactate FiO2 Sodium Potassium Chloride Carbon Dioxide Anion Gap BUN Creatinine Est GFR ( Amer) Est GFR (Non-Af Amer) POC Glucose (mg/dL) 288 H 278 H 343 H Random Glucose Calcium Total Bilirubin AST ALT Alkaline Phosphatase Total Creatine Kinase CK-MB (Mass) Troponin I Total Protein Albumin Globulin Albumin/Globulin Ratio Lipase Venous Blood Potassium Urine Color Urine Clarity Urine pH Ur Specific [place] Urine Protein Urine Glucose (UA) Urine Ketones Urine Blood Urine Nitrate Urine Bilirubin Urine Urobilinogen Ur Leukocyte Esterase Urine WBC (Auto) Urine RBC (Auto) Ur Squamous Epith Cells Urine HCG, Qual Urine Opiates Screen Urine Methadone Screen Ur Barbiturates Screen Ur Phencyclidine Scrn Ur Amphetamines Screen U Benzodiazepines Scrn U Oth Cocaine Metabols U Cannabinoids Screen Attending/Attestation - Attestation I have personally seen and examined this patient.: Yes I have fully participated in the care of the patient.: Yes I have reviewed all pertinent clinical information: Yes Notes (Text): 07/04/17 13:38 I have seen and examined patient with GI fellow. Agree with above documentation with the following additions. In brief this is a 56 year old female with history of HTN, DM (uncontrolled), anxiety who presents to hospital with complaint of persistent nausea and vomiting which started 3 days ago following consumption of pizza with hot peppers. She reports intermittent nausea and vomiting even prior to this but for the past 3 days she reports multiple episodes of emesis (up to 6 times daily). She also endorses sharp epigastric abdominal pain that is 8/10 intensity and radiates to back. She denies fever/chills, weight loss, rectal bleeding, or change in bowel habits. She admits to recent uncontrolled blood sugar without appropriate outpatient follow up. She had an EGD in October 2016 which showed gastritis, no prior colonoscopy. Review of vitals from today shows elevated BP. HTN DM - uncontrolled Anxiety Nausea, vomiting - gastroenteritis vs gastroparesis - Liquid diet as tolerated - Continue with IVF hydration, supportive care - Continue with PPI therapy - Anti-emetic therapy PRN - Counseled regarding importance of strict blood glucose control, need for endocrine follow up - Will continue to monitor patient clinical course
[2017-07-04] MEDS: (Novolin R) Insulin Human Regular 100 units/ml vial SC SCH ×4 (08:16→22:38)
[2017-07-04] MEDS: POLYETHYLENE GLYCOL 3350 17 GM/Dose PACKET PO SCH ×2 (11:00→12:49)
--- NOTE | 2017-07-04 14:04 | CP.PCM.HP ---
History of Present Illness - History of Present Illness History of Present Illness: COMPREHENSIVE HISTORY & PHYSICAL EXAM HPI Patient is admitted for nausea and continued vomiting for the last 48 hours. 2 days ago patient was complaining of some abdominal pain nausea this was associated with vomiting. As for the patient patient had frequent vomiting with abdominal pain. Patient was evaluated in the ER and admitted for further treatment. Patient was admitted with similar complaints in the beginning part of this month. Last admission patient had endoscopy done which showed some gastritis. Colonoscopy still pending. Currently there is no diarrhea. Patient has history of type II diabetes hypertension and chronic pain on narcotics. Multiple times patient has been counseled to wean off the narcotics but she has not been able to do it. Last admission with a similar complaints patient was found to have UTI and was given IV and then by mouth antibiotics. PAST HIST. PERSONAL HIST: Smoking. Y Alcohol. N Allergy N Travel_- . FAMILY HIST : ROS : Constitutional: Negative for weight change, chills Eyes: Negative for redness, swelling, itching, discharge, vision changes, blurry vision, double vision, glaucoma, cataracts, Ears: Negative for hearing loss, ringing, , tinnitus, vertigo Nose: Negative for rhinorrhea, stuffiness, sniffing, itching, postnasal drip, discoloration, nasal congestion and epistaxis. Throat: Negative for throat clearing, sore throat, hoarseness, difficulty swallowing and difficulty speaking. Respiratory: Negative for cough, , sputum production, chest tightness, wheezing, pleuritic chest pain ,daytime somnolence, chronic cough, hemoptysis, snoring at night, Cardiovascular: Negative for chest pain, palpitations, orthopnea, PND, Edema of legs, leg cramps, angina, claudication, , irregular heartbeat, Neurology: Negative for irritability, muscle weakness, numbness and tingling, seizures, tremors, migraines, slurred speech, syncope, memory loss, mood changes , recurrent headaches Gastrointestinal: Negative for difficulty swallowing, diarrhea, constipation, black stools, rectal bleeding, Genitourinary: Negative for frequent urination, hematuria, discharge, incontinence, urinary retention, frequent UTI, Psychiatric : Negative for depression, anxiety/panic, suicidal tendencies, Musculoskeletal: Negative for swollen joints, back pain, , neck pain, morning stiffness of joints, . Skin: Negative for rash, ulcers, itching, dry skin and pigmented lesions. P/E: Constitutional: Appears stated age and in no apparent distress. Head: Normocephalic. Ears: External ear canals patent without inflammation. Tympanic membranes intact with normal light reflex and landmark. Eyes: Pupils are central, bilaterally equal, symmetrical and reacts to light with normal movements and no icterus or pallor. Nose: External nares are patent. Mucosa is pink Mouth-Throat: Good general appearance and condition. No post-pharyngeal/oropharyngeal erythema and tonsillar hypertrophy. Good dental hygiene. Neck-Lymphatic: Neck is supple with normal ROM, no thyromegaly, lymph nodes or masses. JVD is normal with no carotid bruit. Lungs: Clear to percussion and auscultation with bilateral normal air entry. Cardiovascular: S1 and S2 are normal with no murmurs, gallops and rub. GI Exam: No hepatomegaly. Abdomen is soft and -tender. No Organomegaly , masses or hernias are evident and bowel sounds are normal and active. Neurology: Higher function and all cranial nerves intact, with no gross motor or sensory deficit. Superficial and deep reflexes are normal with downwards planters. No cerebellar deficit with normal gait. Musculoskeletal: No tender spots with normal curvature of the spine with no swelling or restricted ROM of the small and large joints. Extremities: Homans sign absent. Intact pulses with no pitting edema, calf tenderness or skin color changes. Skin: No rash, eruptions or abnormal skin pigmentation LAB/RADIOLOGY: ASSESMENT : Diabetic patient with nausea vomiting possible gastroparesis. With recently treated urinary tract infection will need blood cultures and urine cultures PLAN: As ordered Present on Admission - Present on Admission Any Indicators Present on Admission: No Past Patient History - Infectious Disease Hx of Infectious Diseases: None - Past Medical History & Family History Past Medical History?: Yes - Past Social History Smoking Status: Never Smoked - CARDIAC Hx Hypercholesterolemia: Yes Hx Hypertension: Yes - PULMONARY Hx Respiratory Disorders: No - NEUROLOGICAL Hx Neurological Disorder: No - HEENT Hx HEENT Problems: No - RENAL Hx Chronic Kidney Disease: No - ENDOCRINE/METABOLIC Hx Diabetes Mellitus Type 2: Yes - HEMATOLOGICAL/ONCOLOGICAL Hx Blood Disorders: No - INTEGUMENTARY Hx Dermatological Problems: No - MUSCULOSKELETAL/RHEUMATOLOGICAL Hx Falls: Yes - GASTROINTESTINAL Hx Gastritis: Yes - GENITOURINARY/GYNECOLOGICAL Hx Genitourinary Disorders: Yes Hx Urinary Tract Infection: Yes - PSYCHIATRIC Hx Substance Use: No - SURGICAL HISTORY Hx Surgeries: Yes Hx Dilation and Curettage: Yes (2 wks ago) Other/Comment: d&c at [facility] [place] 2 weeks ago - ANESTHESIA Hx Anesthesia: Yes Hx Anesthesia Reactions: No Meds Allergies/Adverse Reactions: Allergies Allergy/AdvReac Type Severity Reaction Status Date / Time No Known Allergies Allergy Verified 07/03/17 13:32 Results - Vital Signs Recent Vital Signs: Last Vital Signs Temp 98.3 F 07/04/17 08:00 Pulse 78 07/04/17 08:00 Resp 20 07/04/17 08:00 BP 147/84 07/04/17 08:00 Pulse Ox 97 07/04/17 08:00 - Labs Result Diagrams: 07/03/17 14:23 07/03/17 14:23 Labs: Laboratory Results - last 24 hr 07/03/17 07/03/17 07/03/17 14:23 14:23 14:23 WBC 12.7 H RBC 5.52 H Hgb 16.4 H D Hct 47.9 H MCV 86.9 MCH 29.7 MCHC 34.2 RDW 13.4 Plt Count 232 MPV 10.1 Neut % (Auto) 88.8 H Lymph % (Auto) 8.0 L [place] % (Auto) 2.6 Eos % (Auto) 0.1 Baso % (Auto) 0.5 Neut # (Auto) 11.3 H Lymph # (Auto) 1.0 [place] # (Auto) 0.3 Eos # (Auto) 0.0 Baso # (Auto) 0.1 Neutrophils % (Manual) 88 H Lymphocytes % (Manual) 10 L Monocytes % (Manual) 1 Eosinophils % (Manual) 1 Platelet Estimate Normal RBC Morphology Normal PT 11.0 INR 1.0 APTT 42 H pO2 VBG pH VBG pCO2 VBG HCO3 VBG Total CO2 VBG O2 Sat (Calc) VBG Base Excess VBG Potassium Glucose Lactate FiO2 Sodium 141 Potassium 4.4 Chloride 100 Carbon Dioxide 25 Anion Gap 21 H BUN 9 Creatinine 0.6 L Est GFR ( Amer) > 60 Est GFR (Non-Af Amer) > 60 POC Glucose (mg/dL) Random Glucose 386 H Calcium 10.5 H Total Bilirubin 1.5 H AST 29 ALT 35 Alkaline Phosphatase 148 H D Total Creatine Kinase CK-MB (Mass) Troponin I Total Protein 8.6 H Albumin 4.8 Globulin 3.9 Albumin/Globulin Ratio 1.2 Lipase 48 Venous Blood Potassium Urine Color Urine Clarity Urine pH Ur Specific [place] Urine Protein Urine Glucose (UA) Urine Ketones Urine Blood Urine Nitrate Urine Bilirubin Urine Urobilinogen Ur Leukocyte Esterase Urine WBC (Auto) Urine RBC (Auto) Ur Squamous Epith Cells Urine HCG, Qual Urine Opiates Screen Urine Methadone Screen Ur Barbiturates Screen Ur Phencyclidine Scrn Ur Amphetamines Screen U Benzodiazepines Scrn U Oth Cocaine Metabols U Cannabinoids Screen 07/03/17 07/03/17 07/03/17 15:05 15:15 15:39 WBC RBC Hgb Hct MCV MCH MCHC RDW Plt Count MPV Neut % (Auto) Lymph % (Auto) [place] % (Auto) Eos % (Auto) Baso % (Auto) Neut # (Auto) Lymph # (Auto) [place] # (Auto) Eos # (Auto) Baso # (Auto) Neutrophils % (Manual) Lymphocytes % (Manual) Monocytes % (Manual) Eosinophils % (Manual) Platelet Estimate RBC Morphology PT INR APTT pO2 25 L VBG pH 7.39 VBG pCO2 37 L VBG HCO3 21.8 VBG Total CO2 23.5 VBG O2 Sat (Calc) 51.3 VBG Base Excess -2.2 L VBG Potassium 3.4 L Glucose 349 H Lactate 2.6 H FiO2 21.0 Sodium 142.0 Potassium Chloride 108.0 H Carbon Dioxide Anion Gap BUN Creatinine Est GFR ( Amer) Est GFR (Non-Af Amer) POC Glucose (mg/dL) Random Glucose Calcium Total Bilirubin AST ALT Alkaline Phosphatase Total Creatine Kinase 73 CK-MB (Mass) 1.59 Troponin I 0.0370 Total Protein Albumin Globulin Albumin/Globulin Ratio Lipase Venous Blood Potassium 3.4 L Urine Color Yellow Urine Clarity Clear Urine pH 6.0 Ur Specific [place] 1.033 H Urine Protein 2+ H Urine Glucose (UA) 3+ H Urine Ketones 2+ H Urine Blood Negative Urine Nitrate Negative Urine Bilirubin Negative Urine Urobilinogen Normal Ur Leukocyte Esterase Neg Urine WBC (Auto) 1 Urine RBC (Auto) 1 Ur Squamous Epith Cells 1 Urine HCG, Qual Negative Urine Opiates Screen Urine Methadone Screen Ur Barbiturates Screen Ur Phencyclidine Scrn Ur Amphetamines Screen U Benzodiazepines Scrn U Oth Cocaine Metabols U Cannabinoids Screen 07/03/17 07/03/17 07/03/17 15:39 18:25 21:22 WBC RBC Hgb Hct MCV MCH MCHC RDW Plt Count MPV Neut % (Auto) Lymph % (Auto) [place] % (Auto) Eos % (Auto) Baso % (Auto) Neut # (Auto) Lymph # (Auto) [place] # (Auto) Eos # (Auto) Baso # (Auto) Neutrophils % (Manual) Lymphocytes % (Manual) Monocytes % (Manual) Eosinophils % (Manual) Platelet Estimate RBC Morphology PT INR APTT pO2 VBG pH VBG pCO2 VBG HCO3 VBG Total CO2 VBG O2 Sat (Calc) VBG Base Excess VBG Potassium Glucose Lactate FiO2 Sodium Potassium Chloride Carbon Dioxide Anion Gap BUN Creatinine Est GFR ( Amer) Est GFR (Non-Af Amer) POC Glucose (mg/dL) 329 H 375 H Random Glucose Calcium Total Bilirubin AST ALT Alkaline Phosphatase Total Creatine Kinase CK-MB (Mass) Troponin I Total Protein Albumin Globulin Albumin/Globulin Ratio Lipase Venous Blood Potassium Urine Color Urine Clarity Urine pH Ur Specific [place] Urine Protein Urine Glucose (UA) Urine Ketones Urine Blood Urine Nitrate Urine Bilirubin Urine Urobilinogen Ur Leukocyte Esterase Urine WBC (Auto) Urine RBC (Auto) Ur Squamous Epith Cells Urine HCG, Qual Urine Opiates Screen Negative Urine Methadone Screen Negative Ur Barbiturates Screen Negative Ur Phencyclidine Scrn Negative Ur Amphetamines Screen Negative U Benzodiazepines Scrn Positive U Oth Cocaine Metabols Negative U Cannabinoids Screen Negative 07/04/17 07/04/17 07/04/17 02:31 07:40 11:14 WBC RBC Hgb Hct MCV MCH MCHC RDW Plt Count MPV Neut % (Auto) Lymph % (Auto) [place] % (Auto) Eos % (Auto) Baso % (Auto) Neut # (Auto) Lymph # (Auto) [place] # (Auto) Eos # (Auto) Baso # (Auto) Neutrophils % (Manual) Lymphocytes % (Manual) Monocytes % (Manual) Eosinophils % (Manual) Platelet Estimate RBC Morphology PT INR APTT pO2 VBG pH VBG pCO2 VBG HCO3 VBG Total CO2 VBG O2 Sat (Calc) VBG Base Excess VBG Potassium Glucose Lactate FiO2 Sodium Potassium Chloride Carbon Dioxide Anion Gap BUN Creatinine Est GFR ( Amer) Est GFR (Non-Af Amer) POC Glucose (mg/dL) 288 H 278 H 343 H Random Glucose Calcium Total Bilirubin AST ALT Alkaline Phosphatase Total Creatine Kinase CK-MB (Mass) Troponin I Total Protein Albumin Globulin Albumin/Globulin Ratio Lipase Venous Blood Potassium Urine Color Urine Clarity Urine pH Ur Specific [place] Urine Protein Urine Glucose (UA) Urine Ketones Urine Blood Urine Nitrate Urine Bilirubin Urine Urobilinogen Ur Leukocyte Esterase Urine WBC (Auto) Urine RBC (Auto) Ur Squamous Epith Cells Urine HCG, Qual Urine Opiates Screen Urine Methadone Screen Ur Barbiturates Screen Ur Phencyclidine Scrn Ur Amphetamines Screen U Benzodiazepines Scrn U Oth Cocaine Metabols U Cannabinoids Screen
[2017-07-05] MEDS: Sodium Chloride 0.45% 1,000 ML IV SCH ×4 (01:04→13:59)
[2017-07-05 08:21] LABS: BASO % 0.4 % (0.0-2.0); EOS % 0.1 % (0.0-4.0); LYMPH # 1.8 K/uL (1.0-4.3); LYMPH % 17.4 % (20.0-40.0); MEAN CELL VOLUME 85.7 fL (81.0-99.0); MEAN CORPUSCULAR HEMOGLOBIN 29.7 pg (27.0-31.0); MEAN CORPUSCULAR HGB CONC 34.6 g/dL (33.0-37.0); MEAN PLATELET VOLUME 9.9 fL (7.2-11.7); MONO # 0.5 K/uL (0.0-0.8); MONO % 4.9 % (0.0-10.0); NEUT # 7.9 K/uL (1.8-7.0); NEUT % 77.2 % (50.0-75.0); RBC 4.69 Mil/uL (3.80-5.20); WHITE BLOOD COUNT 10.2 K/uL (4.8-10.8)
[2017-07-05] MEDS: (Novolin R) Insulin Human Regular 100 units/ml vial SC SCH ×4 (08:22→21:35)
[2017-07-05 08:23] LABS: HEMOGLOBIN 13.9 g/dL (11.0-16.0)
[2017-07-05 08:31] LABS: ALB/GLOB RATIO 1.3 (1.0-2.1); ALBUMIN 3.4 g/dL (3.5-5.0); ALT/SGPT 27 U/L (9-52); AST/SGOT 20 U/L (14-36); BLOOD UREA NITROGEN 13 mg/dL (7-17); CALCIUM 8.7 mg/dl (8.6-10.4); GFR AFRICAN-AMERICAN > 60; GFR NON-AFRICAN AMERICAN > 60
--- NOTE | 2017-07-05 08:33 | CP.PCM.PN ---
<Pratik Delcid - Last Filed: 07/05/17 08:33> Subjective - Date & Time of Evaluation Date of Evaluation: 07/05/17 Time of Evaluation: 07:00 - Subjective Subjective: PGY4 GI follow-up Pt seen and examined bedside still has abd pain, but improved large Bm yesterday denies any nausea and vomiting wants to advance diet ROS: 12 point ROS conducted, neg other than above Objective - Vital Signs/Intake and Output Vital Signs (last 24 hours): Temp Pulse Resp BP Pulse Ox 98.7 F 72 20 153/83 H 96 07/05/17 08:18 07/05/17 08:18 07/05/17 08:18 07/05/17 08:18 07/05/17 08:18 Intake and Output: 07/05/17 07/05/17 06:59 18:59 Intake Total 2360 Balance 2360 - Medications Medications: Current Medications Heparin Sodium (Porcine) (Heparin) 5,000 units SC Q12 [facility] Last Admin: 07/04/17 22:37 Dose: 5,000 units Sodium Chloride (Sodium Chloride 0.45%) 1,000 mls @ 100 mls/hr IV .Q10H [facility] Last Admin: 07/05/17 03:11 Dose: 100 mls/hr Insulin Human Regular (Novolin R) 0 unit SC ACHS [place] PRN Reason: Protocol Last Admin: 07/05/17 08:22 Dose: 3 unit Ketorolac Tromethamine (Toradol) 30 mg IVP Q6 PRN PRN Reason: Pain, Mild (1-3) Last Admin: 07/05/17 06:57 Dose: 30 mg Metoclopramide HCl (Reglan) 10 mg IVP Q8 [facility] Last Admin: 07/05/17 05:10 Dose: 10 mg Ondansetron HCl (Zofran Inj) 4 mg IVP Q4 PRN PRN Reason: Nausea/Vomiting Polyethylene Glycol (Miralax) 17 gm PO DAILY [facility] Last Admin: 07/04/17 12:49 Dose: 17 gm - Labs Labs: 07/05/17 07:48 07/03/17 14:23 PT 11.0 SECONDS (9.7-12.2) 07/03/17 14:23 INR 1.0 07/03/17 14:23 APTT 42 SECONDS (21-34) H 07/03/17 14:23 - Constitutional Appears: Well, No Acute Distress - Head Exam Head Exam: ATRAUMATIC, NORMOCEPHALIC - Eye Exam Eye Exam: Normal appearance - ENT Exam ENT Exam: Mucous Membranes Moist - Neck Exam Neck Exam: Normal Inspection - Respiratory Exam Respiratory Exam: Clear to Ausculation Bilateral, NORMAL BREATHING PATTERN. absent: Rales, Rhonchi, Wheezes, Respiratory Distress - Cardiovascular Exam Cardiovascular Exam: REGULAR RHYTHM, +S1, +S2 - GI/Abdominal Exam GI & Abdominal Exam: Soft, Tenderness (periumbilical), Normal Bowel Sounds. absent: Distended, Firm, Guarding, Rigid - Extremities Exam Extremities Exam: absent: Joint Swelling, Pedal Edema - Neurological Exam Neurological Exam: Alert, Awake, Oriented x3 - Psychiatric Exam Psychiatric exam: Normal Affect, Normal Mood - Skin Skin Exam: Dry, Intact, Normal Color, Warm Assessment and Plan - Assessment and Plan (Free Text) Assessment: This is a 56yF presenting with nausea, vomiting and reported hematemesis. intractable Nausea/vomiting chronic constipation Uncontrolled DM-possible gastroparesis Plan: -Continue supportive care -Continue antiemetics and pain control -Uncontrolled DM, glycemic control per primary team -Advance diet as tolerated -PPI daily, avoid NSAIDs -EGD with gastritis on 10/22 -Colonoscopy outpt -Bowel regimen with mirlax BID -Avoid opioids as etiology of constipation and nausea and vomiting -recommend endocrine consult D/W Dr. Castro <Callum Castro - Last Filed: 07/05/17 10:10> Objective - Vital Signs/Intake and Output Vital Signs (last 24 hours): Temp Pulse Resp BP Pulse Ox 98.7 F 72 20 153/83 H 96 07/05/17 08:18 07/05/17 08:18 07/05/17 08:18 07/05/17 08:18 07/05/17 08:18 Intake and Output: 07/05/17 07/05/17 06:59 18:59 Intake Total 2360 Balance 2360 - Medications Medications: Current Medications Heparin Sodium (Porcine) (Heparin) 5,000 units SC Q12 [facility] Last Admin: 07/05/17 09:35 Dose: 5,000 units Sodium Chloride (Sodium Chloride 0.45%) 1,000 mls @ 100 mls/hr IV .Q10H [facility] Last Admin: 07/05/17 03:11 Dose: 100 mls/hr Insulin Human Regular (Novolin R) 0 unit SC ACHS [place] PRN Reason: Protocol Last Admin: 07/05/17 08:22 Dose: 3 unit Ketorolac Tromethamine (Toradol) 30 mg IVP Q6 PRN PRN Reason: Pain, Mild (1-3) Last Admin: 07/05/17 06:57 Dose: 30 mg Metoclopramide HCl (Reglan) 10 mg IVP Q8 [facility] Last Admin: 07/05/17 05:10 Dose: 10 mg Ondansetron HCl (Zofran Inj) 4 mg IVP Q4 PRN PRN Reason: Nausea/Vomiting Last Admin: 07/05/17 09:34 Dose: 4 mg Polyethylene Glycol (Miralax) 17 gm PO DAILY [facility] Last Admin: 07/04/17 12:49 Dose: 17 gm - Labs Labs: 07/05/17 07:48 07/05/17 07:48 PT 11.0 SECONDS (9.7-12.2) 07/03/17 14:23 INR 1.0 07/03/17 14:23 APTT 42 SECONDS (21-34) H 07/03/17 14:23 Attending/Attestation - Attestation I have personally seen and examined this patient.: Yes I have fully participated in the care of the patient.: Yes I have reviewed all pertinent clinical information, including history, physical exam and plan: Yes Notes (Text): 07/05/17 10:07 I have seen and examined patient with GI fellow. No acute events overnight, she is seen resting in bed comfortably. No recurrent episodes of vomiting and nausea has subsided. She continues to endorse leatha-umbilical abdominal pain but improved compared to prior. She denies fever/chills, tolerating PO liquids without difficulty. Review of vitals from today shows elevated BP. Chronic constipation DM - uncontrolled Nausea, vomiting - gastroparesis vs resolving gastroenteritis - Advance diet to small frequent meals, diabetic - Continue with supportive care, IVF hydration - Anti-emetic therapy PRN - Continue with pro-kinetic therapy for treatment of suspected gastroparesis - Patient requires strict blood glucose control, would benefit from outpatient endocrinology evaluation - Maintain bowel regimen to prevent constipation - No further planned GI intervention, will sign off case. Please reconsult as necessary, thank you. Case discussed with Dr. Sibley.
[2017-07-05] MEDS: POLYETHYLENE GLYCOL 3350 17 GM/Dose PACKET PO SCH (10:46)
--- NOTE | 2017-07-05 13:59 | CP.PCM.PN ---
Subjective - Date & Time of Evaluation Date of Evaluation: 07/05/17 Time of Evaluation: 13:58 - Subjective Subjective: CHIEF COMPLAINTS TODAY : Patient still having vomiting with bilious vomitus. Abdominal pain. No diarrhea ROS. HEENT : N. Resp : No cough, wheezing ,pleuritic CP ,or hemoptysis Cardio : No anginal CP, PND, orthopnea, palpitation GI : No ,diarrhea or GI bleeding . TANK PROCESSOR : No headache, vertigo, focal deficit. Musculoskel : No joint swelling , Derm : No rash Psych : Normal affect. Ext : No swelling ,calf pain PE. Pt. is alert awake in no distress. V.S As noted in the chart Head ,ear nose,throat and eyes : Normal. Neck : Supple with normal carotids. Lungs: Clear air entry. Heart : S1 & S2 normal with S4. No murmur. Abd : Soft tender with normal bowel sounds. Neuro : Moves all ext. with no localized deficit. Ext : No edema with intact pulses.Non tender calves Derm : No rashes or decubitus ulcer. LABS/RADIOLOGY: ASSESSMENT/PLAN : Discussed with GI service, appears to be gastroparesis secondary to uncontrolled diabetes. Patient is noncompliant to her insulin at home. We will continue the present medication with Zofran when necessary. Objective - Vital Signs/Intake and Output Vital Signs (last 24 hours): Temp Pulse Resp BP Pulse Ox 98.7 F 72 20 153/83 H 96 07/05/17 08:18 07/05/17 08:18 07/05/17 08:18 07/05/17 08:18 07/05/17 08:18 Intake and Output: 07/05/17 07/05/17 11:59 23:59 Intake Total 1160 Balance 1160 - Medications Medications: Current Medications Heparin Sodium (Porcine) (Heparin) 5,000 units SC Q12 [facility] Last Admin: 07/05/17 09:35 Dose: 5,000 units Sodium Chloride (Sodium Chloride 0.45%) 1,000 mls @ 100 mls/hr IV .Q10H [facility] Last Admin: 07/05/17 12:36 Dose: Not Given Insulin Human Regular (Novolin R) 0 unit SC ACHS [place] PRN Reason: Protocol Last Admin: 07/05/17 12:32 Dose: 3 unit Ketorolac Tromethamine (Toradol) 30 mg IVP Q6 PRN PRN Reason: Pain, Mild (1-3) Last Admin: 07/05/17 12:57 Dose: 30 mg Metoclopramide HCl (Reglan) 10 mg IVP Q8 [facility] Last Admin: 07/05/17 05:10 Dose: 10 mg Ondansetron HCl (Zofran Inj) 4 mg IVP Q4 PRN PRN Reason: Nausea/Vomiting Last Admin: 07/05/17 09:34 Dose: 4 mg Polyethylene Glycol (Miralax) 17 gm PO DAILY [facility] Last Admin: 07/05/17 10:46 Dose: Not Given - Labs Labs: 07/05/17 07:48 07/05/17 07:48 PT 11.0 SECONDS (9.7-12.2) 07/03/17 14:23 INR 1.0 07/03/17 14:23 APTT 42 SECONDS (21-34) H 07/03/17 14:23
--- NOTE | 2017-07-06 05:46 | CARD ---
APPROVED REPORT EKG Measurement Heart [id number] <Conclusion> Normal sinus rhythm Left axis deviation Incomplete left bundle branch block Left ventricular hypertrophy with repolarization abnormality Prolonged QT Abnormal ECG
[2017-07-06] MEDS: (Novolin R) Insulin Human Regular 100 units/ml vial SC SCH ×4 (08:25→21:54)
[2017-07-06] MEDS: Pantoprazole 40 mg EC Tab PO SCH (08:27)
--- NOTE | 2017-07-06 08:44 | CP.PCM.PN ---
<Pratik Delcid - Last Filed: 07/06/17 08:44> Subjective - Date & Time of Evaluation Date of Evaluation: 07/06/17 Time of Evaluation: 07:00 - Subjective Subjective: GI Follow Pt seen and examined bedside Abd pain improved, but still present +BM overnight Reported melena yesterday tolerating PO intake ROS: 12 point ROS conducted, neg other than above Objective - Vital Signs/Intake and Output Vital Signs (last 24 hours): Temp Pulse Resp BP Pulse Ox 99.6 F 73 20 156/84 H 96 07/05/17 23:15 07/05/17 23:15 07/05/17 23:15 07/05/17 23:15 07/05/17 23:15 Intake and Output: 07/06/17 07/06/17 06:59 18:59 Intake Total 2140 Balance 2140 - Medications Medications: Current Medications Heparin Sodium (Porcine) (Heparin) 5,000 units SC Q12 [facility] Last Admin: 07/05/17 21:35 Dose: 5,000 units Sodium Chloride (Sodium Chloride 0.45%) 1,000 mls @ 100 mls/hr IV .Q10H [facility] Last Admin: 07/05/17 13:59 Dose: 100 mls/hr Insulin Human Regular (Novolin R) 0 unit SC ACHS [facility] PRN Reason: Protocol Last Admin: 07/06/17 08:25 Dose: 2 unit Ketorolac Tromethamine (Toradol) 30 mg IVP Q6 PRN PRN Reason: pain Stop: 07/07/17 19:34 Last Admin: 07/06/17 08:23 Dose: 30 mg Metoclopramide HCl (Reglan) 10 mg IVP Q8 [facility] Last Admin: 07/06/17 05:32 Dose: 10 mg Ondansetron HCl (Zofran Inj) 4 mg IVP Q4 PRN PRN Reason: Nausea/Vomiting Last Admin: 07/05/17 09:34 Dose: 4 mg Pantoprazole Sodium (Protonix Ec Tab) 40 mg PO ACB [facility] Last Admin: 07/06/17 08:27 Dose: 40 mg Polyethylene Glycol (Miralax) 17 gm PO DAILY [facility] Last Admin: 07/05/17 10:46 Dose: Not Given - Labs Labs: 07/05/17 07:48 07/05/17 07:48 PT 11.0 SECONDS (9.7-12.2) 07/03/17 14:23 INR 1.0 07/03/17 14:23 APTT 42 SECONDS (21-34) H 07/03/17 14:23 - Constitutional Appears: Well, No Acute Distress - Head Exam Head Exam: ATRAUMATIC, NORMOCEPHALIC - Eye Exam Eye Exam: Normal appearance - ENT Exam ENT Exam: Mucous Membranes Moist, Normal Exam - Respiratory Exam Respiratory Exam: Clear to Ausculation Bilateral. absent: Rales, Rhonchi, Wheezes, Respiratory Distress - Cardiovascular Exam Cardiovascular Exam: REGULAR RHYTHM, +S1, +S2 - GI/Abdominal Exam GI & Abdominal Exam: Soft, Normal Bowel Sounds. absent: Distended, Firm, Guarding, Rigid, Tenderness, Organomegaly - Rectal Exam Rectal Exam: NORMAL INSPECTION. absent: Black Stool, Bloody Stool, Hemorrhoids - Extremities Exam Extremities Exam: absent: Joint Swelling, Pedal Edema - Neurological Exam Neurological Exam: Alert, Awake, Oriented x3 - Psychiatric Exam Psychiatric exam: Normal Affect, Normal Mood - Skin Skin Exam: Dry, Intact, Normal Color, Warm Assessment and Plan - Assessment and Plan (Free Text) Assessment: This is a 56yF presenting with nausea, vomiting and reported hematemesis. intractable Nausea/vomiting, resolved chronic constipation Uncontrolled DM-possible gastroparesis Plan: -Continue antiemetics and pain control -Uncontrolled DM, glycemic control per primary team -Advance diet as tolerated -PPI daily, avoid NSAIDs -EGD with gastritis on 10/22 -Colonoscopy outpt -Bowel regimen with mirlax BID as oupt -Avoid opioids as etiology of constipation and nausea and vomiting -recommend endocrine consult as oupt D/W Dr. Garnica <Pierre Garnica - Last Filed: 07/06/17 09:18> Objective - Vital Signs/Intake and Output Vital Signs (last 24 hours): Temp Pulse Resp BP Pulse Ox 99 F 79 20 140/85 97 07/06/17 08:44 07/06/17 08:44 07/06/17 08:44 07/06/17 08:45 07/06/17 08:44 Intake and Output: 07/06/17 07/06/17 06:59 18:59 Intake Total 2140 Balance 2140 - Medications Medications: Current Medications Heparin Sodium (Porcine) (Heparin) 5,000 units SC Q12 [facility] Last Admin: 07/05/17 21:35 Dose: 5,000 units Sodium Chloride (Sodium Chloride 0.45%) 1,000 mls @ 100 mls/hr IV .Q10H [facility] Last Admin: 07/05/17 13:59 Dose: 100 mls/hr Insulin Human Regular (Novolin R) 0 unit SC ACHS [facility] PRN Reason: Protocol Last Admin: 07/06/17 08:25 Dose: 2 unit Ketorolac Tromethamine (Toradol) 30 mg IVP Q6 PRN PRN Reason: pain Stop: 07/07/17 19:34 Last Admin: 07/06/17 08:23 Dose: 30 mg Metoclopramide HCl (Reglan) 10 mg IVP Q8 [facility] Last Admin: 07/06/17 05:32 Dose: 10 mg Ondansetron HCl (Zofran Inj) 4 mg IVP Q4 PRN PRN Reason: Nausea/Vomiting Last Admin: 07/05/17 09:34 Dose: 4 mg Pantoprazole Sodium (Protonix Ec Tab) 40 mg PO ACB [facility] Last Admin: 07/06/17 08:27 Dose: 40 mg Polyethylene Glycol (Miralax) 17 gm PO DAILY [facility] Last Admin: 07/05/17 10:46 Dose: Not Given - Labs Labs: 07/05/17 07:48 07/05/17 07:48 PT 11.0 SECONDS (9.7-12.2) 07/03/17 14:23 INR 1.0 07/03/17 14:23 APTT 42 SECONDS (21-34) H 07/03/17 14:23 Attending/Attestation - Attestation I have personally seen and examined this patient.: Yes I have fully participated in the care of the patient.: Yes I have reviewed all pertinent clinical information, including history, physical exam and plan: Yes Notes (Text): 07/06/17 09:18 56 year old female admitted with N/V. Possible gastroparesis. Resolved exacerbatoin. Ok for discharge.
[2017-07-06] MEDS: POLYETHYLENE GLYCOL 3350 17 GM/Dose PACKET PO SCH (09:23)
--- NOTE | 2017-07-06 14:08 | CP.PCM.PN ---
Subjective - Date & Time of Evaluation Date of Evaluation: 07/06/17 Time of Evaluation: 14:06 - Subjective Subjective: CHIEF COMPLAINTS TODAY : Patient still having vomiting with bilious vomitus. Abdominal pain. No diarrhea ROS. HEENT : N. Resp : No cough, wheezing ,pleuritic CP ,or hemoptysis Cardio : No anginal CP, PND, orthopnea, palpitation GI : No ,diarrhea or GI bleeding . 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 Musculoskel : No joint swelling , Derm : No rash Psych : Normal affect. Ext : No swelling ,calf pain PE. Pt. is alert awake in no distress. V.S As noted in the chart Head ,ear nose,throat and eyes : Normal. Neck : Supple with normal carotids. Lungs: Clear air entry. Heart : S1 & S2 normal with S4. No murmur. Abd : Soft tender with normal bowel sounds. Neuro : Moves all ext. with no localized deficit. Ext : No edema with intact pulses.Non tender calves Derm : No rashes or decubitus ulcer. LABS/RADIOLOGY: ASSESSMENT/PLAN : Patient had a tarry black stool yesterday. Stool occult was sent to the lab and it came back as negative. Apparently patient does not have any lower or upper GI bleeding. Patient is still vomiting requiring Zofran. Continue IV fluids. Objective - Vital Signs/Intake and Output Vital Signs (last 24 hours): Temp Pulse Resp BP Pulse Ox 99 F 79 20 140/85 97 07/06/17 08:44 07/06/17 08:44 07/06/17 08:44 07/06/17 08:45 07/06/17 08:44 Intake and Output: 07/06/17 07/06/17 11:59 23:59 Intake Total 1040 Balance 1040 - Medications Medications: Current Medications Heparin Sodium (Porcine) (Heparin) 5,000 units SC Q12 [facility] Last Admin: 07/06/17 09:23 Dose: 5,000 units Sodium Chloride (Sodium Chloride 0.45%) 1,000 mls @ 100 mls/hr IV .Q10H [facility] Last Admin: 07/05/17 13:59 Dose: 100 mls/hr Insulin Human Regular (Novolin R) 0 unit SC ACHS [facility] PRN Reason: Protocol Last Admin: 07/06/17 12:08 Dose: 3 unit Ketorolac Tromethamine (Toradol) 30 mg IVP Q6 PRN PRN Reason: pain Stop: 07/07/17 19:34 Last Admin: 07/06/17 08:23 Dose: 30 mg Metoclopramide HCl (Reglan) 10 mg IVP Q8 [facility] Last Admin: 07/06/17 05:32 Dose: 10 mg Ondansetron HCl (Zofran Inj) 4 mg IVP Q4 PRN PRN Reason: Nausea/Vomiting Last Admin: 07/05/17 09:34 Dose: 4 mg Pantoprazole Sodium (Protonix Ec Tab) 40 mg PO ACB [facility] Last Admin: 07/06/17 08:27 Dose: 40 mg Polyethylene Glycol (Miralax) 17 gm PO DAILY [facility] Last Admin: 07/06/17 09:23 Dose: Not Given - Labs Labs: 07/05/17 07:48 07/05/17 07:48 PT 11.0 SECONDS (9.7-12.2) 07/03/17 14:23 INR 1.0 07/03/17 14:23 APTT 42 SECONDS (21-34) H 07/03/17 14:23
[2017-07-06] MEDS: Oxycodone/Acetaminophen 5/325 mg Tab PO PRN ×2 (14:25→20:15)
[2017-07-07] MEDS: Oxycodone/Acetaminophen 5/325 mg Tab PO PRN ×2 (02:24→09:36)
[2017-07-07] MEDS: (Novolin R) Insulin Human Regular 100 units/ml vial SC SCH ×2 (08:08→12:03)
[2017-07-07] MEDS: Pantoprazole 40 mg EC Tab PO SCH (08:09)
[2017-07-07 08:13] VITALS: BP 111/74; PULSE 74; TEMP 98.2; O2SAT 97
[2017-07-07] MEDS: POLYETHYLENE GLYCOL 3350 17 GM/Dose PACKET PO SCH (09:37)
--- NOTE | 2017-07-07 12:34 | CP.PCM.PN ---
Subjective - Date & Time of Evaluation Date of Evaluation: 07/07/17 Time of Evaluation: 12:32 - Subjective Subjective: PT CLEARED FOR D/C HOME TODAY PER DR. PEREIRA AND CLEARED BY GI. RX GIVEN FOR PPI AND MIRLAX RECOMMENDED BY GI. PT ENCOURAGED TO DECREASE HER USE OF NARCOTICS. PT VERBALIZES UNDERSTANDING OF D/C PLAN. SHE WILL F/U WITH GI IN 2 -[address] PEREIRA IN THE OFFICE WITHIN 1 WEEK. NO FURTHER ORDERS. -FOLLOW UP WITH DR. PEREIRA IN THE OFFICE WITHIN 1 WEEK---CALL THE OFFICE TO MAKE YOUR APPT. -FOLLOW UP WITH DR. BERMEO (STOMACH DOCTOR) IN THE OFFICE WITHIN 2-3 WEEKS--- CALL THE OFFICE TO MAKE YOUR APPT. -CONTINUE HOME MEDICATIONS. -IT IS NOT RECOMMENDED FOR YOU TO USE OPIOID PAIN MEDICATIONS, THESE ARE CONTRIBUTING TO YOUR STOMACH PROBLEMS. ONLY TAKE YOUR PERCOCET IF IT IS ABSOLUTELY NECESSARY. -NEW MEDICATIONS INCLUDE: MIRALAX AND PROTONIX FOR YOUR STOMACH---TAKE EXACTLY PRESCRIBED. -FOR FURTHER QUESTIONS OR CONCERNS, CONTACT DR. PEREIRA'S OR DR. BERMEO'S OFFICE. Objective - Vital Signs/Intake and Output Vital Signs (last 24 hours): Temp Pulse Resp BP Pulse Ox 98.2 F 74 20 111/74 97 07/07/17 08:12 07/07/17 08:12 07/07/17 08:12 07/07/17 08:12 07/07/17 08:12 Intake and Output: 07/07/17 07/07/17 06:59 18:59 Intake Total 580 Balance 580 - Medications Medications: Current Medications Sodium Chloride (Sodium Chloride 0.45%) 1,000 mls @ 100 mls/hr IV .Q10H [facility] Last Admin: 07/05/17 13:59 Dose: 100 mls/hr Insulin Human Regular (Novolin R) 0 unit SC ACHS [facility] PRN Reason: Protocol Last Admin: 07/07/17 12:03 Dose: 4 unit Ketorolac Tromethamine (Toradol) 30 mg IVP Q6 PRN PRN Reason: pain Stop: 07/07/17 19:34 Last Admin: 07/07/17 12:11 Dose: 30 mg Metoclopramide HCl (Reglan) 10 mg IVP Q8 [facility] Last Admin: 07/07/17 05:44 Dose: 10 mg Ondansetron HCl (Zofran Inj) 4 mg IVP Q4 PRN PRN Reason: Nausea/Vomiting Last Admin: 07/05/17 09:34 Dose: 4 mg Oxycodone/Acetaminophen (Percocet 5/325 Mg Tab) 2 tab PO Q6H PRN PRN Reason: Pain, severe (8-10) Stop: 07/09/17 14:09 Last Admin: 07/07/17 09:36 Dose: 2 tab Pantoprazole Sodium (Protonix Ec Tab) 40 mg PO ACB [facility] Last Admin: 07/07/17 08:09 Dose: 40 mg Polyethylene Glycol (Miralax) 17 gm PO DAILY [facility] Last Admin: 07/07/17 09:37 Dose: Not Given - Labs Labs: 07/05/17 07:48 07/05/17 07:48 PT 11.0 SECONDS (9.7-12.2) 07/03/17 14:23 INR 1.0 07/03/17 14:23 APTT 42 SECONDS (21-34) H 07/03/17 14:23
--- NOTE | 2017-07-07 15:03 | CP.PCM.DIS ---
Provider - Provider Date of Admission: 07/03/17 16:02 Attending physician: Linsey Sibley MD Time Spent in preparation of Discharge (in minutes): 35 Hospital Course - Lab Results Lab Results: Micro Results 07/03/17 18:31 Blood Blood Culture - Preliminary NO GROWTH AFTER 3 DAYS 07/03/17 18:31 Blood Blood Culture - Preliminary NO GROWTH AFTER 3 DAYS 07/04/17 14:08 Stool Stool Culture - Final NO SALMONELLA, SHIGELLA OR CAMPYLOBACTER ISOLATED. 07/03/17 18:50 Urine Urine Culture - Final No Growth (<1,000 CFU/ML) Most Recent Lab Values WBC 10.2 K/uL (4.8-10.8) 07/05/17 07:48 RBC 4.69 Mil/uL (3.80-5.20) 07/05/17 07:48 Hgb 13.9 g/dL (11.0-16.0) D 07/05/17 07:48 Hct 40.2 % (34.0-47.0) 07/05/17 07:48 MCV 85.7 fL (81.0-99.0) 07/05/17 07:48 MCH 29.7 pg (27.0-31.0) 07/05/17 07:48 MCHC 34.6 g/dL (33.0-37.0) 07/05/17 07:48 RDW 13.0 % (11.5-14.5) 07/05/17 07:48 Plt Count 174 K/uL (130-400) 07/05/17 07:48 MPV 9.9 fL (7.2-11.7) 07/05/17 07:48 Neut % (Auto) 77.2 % (50.0-75.0) H 07/05/17 07:48 Lymph % (Auto) 17.4 % (20.0-40.0) L 07/05/17 07:48 Bleck[place] % (Auto) 4.9 % (0.0-10.0) 07/05/17 07:48 Eos % (Auto) 0.1 % (0.0-4.0) 07/05/17 07:48 Baso % (Auto) 0.4 % (0.0-2.0) 07/05/17 07:48 Neut # (Auto) 7.9 K/uL (1.8-7.0) H 07/05/17 07:48 Lymph # (Auto) 1.8 K/uL (1.0-4.3) 07/05/17 07:48 Bleckley # (Auto) 0.5 K/uL (0.0-0.8) 07/05/17 07:48 Eos # (Auto) 0.0 K/uL (0.0-0.7) 07/05/17 07:48 Baso # (Auto) 0.0 K/uL (0.0-0.2) 07/05/17 07:48 Neutrophils % (Manual) 88 % (50-75) H 07/03/17 14:23 Lymphocytes % (Manual) 10 % (20-40) L 07/03/17 14:23 Monocytes % (Manual) 1 % (0-10) 07/03/17 14:23 Eosinophils % (Manual) 1 % (0-4) 07/03/17 14:23 Platelet Estimate Normal (NORMAL) 07/03/17 14:23 RBC Morphology Normal 07/03/17 14:23 PT 11.0 SECONDS (9.7-12.2) 07/03/17 14:23 INR 1.0 07/03/17 14:23 APTT 42 SECONDS (21-34) H 07/03/17 14:23 pO2 25 mm/Hg (30-55) L 07/03/17 15:15 VBG pH 7.39 (7.32-7.43) 07/03/17 15:15 VBG pCO2 37 mmHg (40-60) L 07/03/17 15:15 VBG HCO3 21.8 mmol/L 07/03/17 15:15 VBG Total CO2 23.5 mmol/L (22-28) 07/03/17 15:15 VBG O2 Sat (Calc) 51.3 % (40-65) 07/03/17 15:15 VBG Base Excess -2.2 mmol/L (0.0-2.0) L 07/03/17 15:15 VBG Potassium 3.4 mmol/L (3.6-5.2) L 07/03/17 15:15 Sodium 142.0 mmol/l (132-148) 07/03/17 15:15 Chloride 108.0 mmol/L (98-107) H 07/03/17 15:15 Glucose 349 mg/dl (65-105) H 07/03/17 15:15 Lactate 2.6 mmol/L (0.7-2.1) H 07/03/17 15:15 FiO2 21.0 % 07/03/17 15:15 Sodium 139 mmol/L (132-148) 07/05/17 07:48 Potassium 3.5 mmol/L (3.6-5.2) L 07/05/17 07:48 Chloride 104 mmol/L (98-107) 07/05/17 07:48 Carbon Dioxide 24 mmol/L (22-30) 07/05/17 07:48 Anion Gap 14 (10-20) 07/05/17 07:48 BUN 13 mg/dL (7-17) 07/05/17 07:48 Creatinine 0.7 mg/dL (0.7-1.2) 07/05/17 07:48 Est GFR ( Amer) > 60 07/05/17 07:48 Est GFR (Non-Af Amer) > 60 07/05/17 07:48 POC Glucose (mg/dL) 297 mg/dL (65-110) H 07/07/17 11:00 Random Glucose 241 mg/dL (65-105) H 07/05/17 07:48 Calcium 8.7 mg/dl (8.6-10.4) 07/05/17 07:48 Total Bilirubin 1.1 mg/dL (0.2-1.3) 07/05/17 07:48 AST 20 U/L (14-36) 07/05/17 07:48 ALT 27 U/L (9-52) 07/05/17 07:48 Alkaline Phosphatase 96 U/L (38-126) 07/05/17 07:48 Total Creatine Kinase 73 U/L (30-135) 07/03/17 15:05 CK-MB (Mass) 1.59 ng/mL (0.0-3.38) 07/03/17 15:05 Troponin I 0.0370 ng/mL (0.00-0.120) 07/03/17 15:05 Total Protein 5.9 g/dL (6.3-8.3) L 07/05/17 07:48 Albumin 3.4 g/dL (3.5-5.0) L D 07/05/17 07:48 Globulin 2.6 gm/dL (2.2-3.9) 07/05/17 07:48 Albumin/Globulin Ratio 1.3 (1.0-2.1) 07/05/17 07:48 Lipase 48 U/L (23-300) 07/03/17 14:23 Venous Blood Potassium 3.4 mmol/L (3.6-5.2) L 07/03/17 15:15 Urine Color Yellow (YELLOW) 07/03/17 15:39 Urine Clarity Clear (Clear) 07/03/17 15:39 Urine pH 6.0 (5.0-8.0) 07/03/17 15:39 Ur Specific Panacea 1.033 (1.003-1.030) H 07/03/17 15:39 Urine Protein 2+ mg/dL (NEGATIVE) H 07/03/17 15:39 Urine Glucose (UA) 3+ mg/dL (Normal) H 07/03/17 15:39 Urine Ketones 2+ mg/dL (NEGATIVE) H 07/03/17 15:39 Urine Blood Negative (NEGATIVE) 07/03/17 15:39 Urine Nitrate Negative (NEGATIVE) 07/03/17 15:39 Urine Bilirubin Negative (NEGATIVE) 07/03/17 15:39 Urine Urobilinogen Normal mg/dL (0.2-1.0) 07/03/17 15:39 Ur Leukocyte Esterase Neg Jana/uL (Negative) 07/03/17 15:39 Urine WBC (Auto) 1 /hpf (0-5) 07/03/17 15:39 Urine RBC (Auto) 1 /hpf (0-3) 07/03/17 15:39 Ur Squamous Epith Cells 1 /hpf (0-5) 07/03/17 15:39 Urine HCG, Qual Negative (NEGATIVE) 07/03/17 15:39 Stool Occult Blood Negative (NEGATIVE) 07/05/17 20:44 Urine Opiates Screen Negative (NEGATIVE) 07/03/17 15:39 Urine Methadone Screen Negative (NEGATIVE) 07/03/17 15:39 Ur Barbiturates Screen Negative (NEGATIVE) 07/03/17 15:39 Ur Phencyclidine Scrn Negative (NEGATIVE) 07/03/17 15:39 Ur Amphetamines Screen Negative (NEGATIVE) 07/03/17 15:39 U Benzodiazepines Scrn Positive (NEGATIVE) 07/03/17 15:39 U Oth Cocaine Metabols Negative (NEGATIVE) 07/03/17 15:39 U Cannabinoids Screen Negative (NEGATIVE) 07/03/17 15:39 - Hospital Course Hospital Course: Patient is admitted for nausea and continued vomiting for the last 48 hours. 2 days ago patient was complaining of some abdominal pain nausea this was associated with vomiting. As for the patient patient had frequent vomiting with abdominal pain. Patient was evaluated in the ER and admitted for further treatment. Patient was admitted with similar complaints in the beginning part of this month. Last admission patient had endoscopy done which showed some gastritis. Colonoscopy still pending. Currently there is no diarrhea. Patient has history of type II diabetes hypertension and chronic pain on narcotics. Multiple times patient has been counseled to wean off the narcotics but she has not been able to do it. Last admission with a similar complaints patient was found to have UTI and was given IV and then by mouth antibiotics. PT. WAS TREATED WITH IV FLUIDS/REGLAN AND PRN ZOFRAN PT IMPROVED ON ABOVE THERAPY GI WAS CONSULTED . NO NEW ORDERS PT WAS D/C HOME ON HOME MEDS COUNSELLED TO DO HOME SUGAR AND ADJUST INSULIN Discharge Exam - Head Exam Head Exam: ATRAUMATIC, NORMOCEPHALIC Discharge Plan - Discharge Medications Prescriptions: Polyethylene Glycol 3350 [Miralax] 17 gm PO BID #60 packet Pantoprazole [Protonix EC Tab] 40 mg PO ACB #30 ect - Follow Up Plan Condition: STABLE Disposition: HOME/ ROUTINE Instructions: Diabetes Type 2 (DC) Additional Instructions: -FOLLOW UP WITH DR. SIBLEY IN THE OFFICE WITHIN 1 WEEK---CALL THE OFFICE TO MAKE YOUR APPT. -FOLLOW UP WITH DR. BERMEO (STOMACH DOCTOR) IN THE OFFICE WITHIN 2-3 WEEKS--- CALL THE OFFICE TO MAKE YOUR APPT. -CONTINUE HOME MEDICATIONS. -IT IS NOT RECOMMENDED FOR YOU TO USE OPIOID PAIN MEDICATIONS, THESE ARE CONTRIBUTING TO YOUR STOMACH PROBLEMS. ONLY TAKE YOUR PERCOCET IF IT IS ABSOLUTELY NECESSARY. -NEW MEDICATIONS INCLUDE: MIRALAX AND PROTONIX FOR YOUR STOMACH---TAKE EXACTLY PRESCRIBED. -FOR FURTHER QUESTIONS OR CONCERNS, CONTACT DR. SIBLEY'S OR DR. BERMEO'S OFFICE. Referrals: Callum Bermeo MD [Staff Provider] - Linsey Sibley MD [Staff Provider] -
== END 2017-07-07 13:30 | disposition home or self-care (01) | DRG 74 ==
LOC: C.ER 13:23 → C.9E 16:02 → C.3T 18:30
PROVIDERS: ADMIT Internal Medicine Cardiovascular Disease; ATTEND Internal Medicine Cardiovascular Disease
DX: E11.43 Type 2 diabetes mellitus with diabetic autonomic (poly)neuropathy (principal); K92.0 Hematemesis; K31.84 Gastroparesis; K29.70 Gastritis, unspecified, without bleeding; K59.09 Other constipation; I10 Essential (primary) hypertension; E11.65 Type 2 diabetes mellitus with hyperglycemia; K21.9 Gastro-esophageal reflux disease without esophagitis; E78.00 Pure hypercholesterolemia, unspecified; F41.9 Anxiety disorder, unspecified; Z79.4 Long term (current) use of insulin; Z80.49 Family history of malignant neoplasm of other genital organs; Z87.440 Personal history of urinary (tract) infections; Z91.19 Patient's noncompliance with other medical treatment and regimen

== ENCOUNTER 2018-05-11 05:42 | Emergency (ER) | payer SELFPAY ==
[2018-05-11 05:43] VITALS: BMI 29.7
[2018-05-11 06:15] VITALS: RESP 16; O2SAT 96
--- NOTE | 2018-05-11 06:45 | C.PDOC ---
History Of Present Illness 57 year old female presents to the ED c/o pain to the left side of her body mostly. Patient reports she was diagnosed with shingles 2 weeks ago. Patient recently completed full course of antiviral medications and is taking Percocet for pain management. Patient c/o moderate pain still, states she was unable to taker her percocet today because her neighbor called the Police on her. Patient requesting pain medications. Patient denies fever, chills, nausea, vomit, diarrhea, injury, fall, trauma. Time Seen by Provider: 05/11/18 06:39 Chief Complaint (Nursing): Abnormal Skin Integrity History Per: Patient History/Exam Limitations: no limitations Onset/Duration Of Symptoms: Days Current Symptoms Are (Timing): Still Present Location Of Injury: Left: Abdomen, Back, Chest Quality Of Symptoms: Painful Recent travel outside of the [place]: No Additional History Per: Patient Past Medical History Reviewed: Historical Data, Nursing Documentation, Vital Signs Vital Signs: Last Vital Signs Temp 98.4 F 05/11/18 06:15 Pulse 85 05/11/18 06:15 Resp 16 05/11/18 06:15 BP 180/90 H 05/11/18 06:15 Pulse Ox 96 05/11/18 06:15 - Medical History PMH: Anxiety, Depression, Gastritis, HTN, Hypercholesterolemia Denies: Chronic Kidney Disease Surgical History: No Surg Hx Family History: States: Unknown Family Hx - Social History Hx Alcohol Use: No Hx Substance Use: No - Immunization History Hx Tetanus Toxoid Vaccination: Yes Hx Influenza Vaccination: Yes Hx Pneumococcal Vaccination: Yes (4 years) Review Of Systems Constitutional: Negative for: Fever, Chills Cardiovascular: Negative for: Chest Pain, Palpitations Respiratory: Negative for: Shortness of Breath Gastrointestinal: Negative for: Nausea, Vomiting, Abdominal Pain Musculoskeletal: Positive for: Back Pain Skin: Positive for: Rash Neurological: Negative for: Weakness, Numbness, Headache Physical Exam - Physical Exam Appears: Non-toxic, No Acute Distress Skin: Warm, Dry, Rash (dry scaly rash on a dermatomal pattern on the left lower back radiating to left lower abdomen. No new vesicles, no acute lesions) Head: Atraumatic, Normacephalic Eye(s): bilateral: Normal Inspection Neck: Normal ROM, Supple Chest: Symmetrical Cardiovascular: Rhythm Regular Respiratory: Normal Breath Sounds, No Rales, No Rhonchi, No Wheezing Gastrointestinal/Abdominal: Soft, No Tenderness Extremity: Normal ROM, No Tenderness Neurological/Psych: Oriented x3, Normal Speech, Normal Cognition Gait: Steady ED Course And Treatment O2 Sat by Pulse Oximetry: 96 (ON RA) Pulse Ox Interpretation: Normal Progress Note: Patient having completed a full course of antiviral meds, no longer needs to take antivirals. she was advised to continue taking her percocet at home for pain management and to follow up with PMD. Disposition Counseled Patient/Family Regarding: Diagnosis, Need For Followup - Disposition Referrals: [facility] [Outside] Disposition: HOME/ ROUTINE Disposition Time: 06:42 Condition: STABLE Additional Instructions: Continue current pain meds Follow up with PMD Return to ER if worse Prescriptions: Lidocaine 5% [Lidoderm] 1 ea TD BID #14 patch Instructions: Shingles (DC) Forms: Immunovaccine (Malaysian) - Clinical Impression Clinical Impression: Herpes zoster, Neuropathic pain - PA / WAITER/WAITRESS ECONOMY CLASS / Resident Statement MD/DO has reviewed & agrees with the documentation as recorded. - Scribe Statement The provider has reviewed the documentation as recorded by the Scribe Mark Beltran All medical record entries made by the Scribbrandon were at my direction and personally dictated by me. I have reviewed the chart and agree that the record accurately reflects my personal performance of the history, physical exam, medical decision making, and the department course for this patient. I have also personally directed, reviewed, and agree with the discharge instructions and disposition.
[2018-05-11 06:53] VITALS: BP 164/89; PULSE 82; TEMP 98.2
== END 2018-05-11 07:02 | disposition home or self-care (01) ==
LOC: C.ER 05:42
DX: B02.29 Other postherpetic nervous system involvement (principal)

== ENCOUNTER 2018-05-12 01:11 | Inpatient (IN) | payer OTHER ==
[2018-05-12 01:11] VITALS: BMI 29.7
[2018-05-12] MEDS ORDERED: Sodium Chloride 0.9% 1,000 ML IV STA (01:54)
[2018-05-12] MEDS ORDERED: Sodium Chloride 0.9% 1,000 ML ONE (02:05)
[2018-05-12] MEDS ORDERED: Morphine 4 MG/ML VIAL ONE (02:05)
[2018-05-12 02:39] LABS: BASO % 0.1 % (0.0-2.0); LYMPH # 1.3 K/uL (1.0-4.3); MEAN CORPUSCULAR HEMOGLOBIN 29.5 pg (27.0-31.0); MEAN CORPUSCULAR HGB CONC 33.9 g/dL (33.0-37.0); MEAN PLATELET VOLUME 10.1 fL (7.2-11.7); MONO # 0.6 K/uL (0.0-0.8); MONO % 3.7 % (0.0-10.0); NEUT # 14.8 K/uL (1.8-7.0); NEUT % 88.2 % (50.0-75.0); PLATELET COUNT 254 K/uL (130-400); RBC 5.85 Mil/uL (3.80-5.20)
[2018-05-12 02:46] LABS: ALB/GLOB RATIO 1.6 (1.0-2.1); ALT/SGPT 24 U/L (9-52); AST/SGOT 40 U/L (14-36); BLOOD UREA NITROGEN 15 mg/dL (7-17); CALCIUM 10.7 mg/dl (8.6-10.4); GFR NON-AFRICAN AMERICAN > 60; LIPASE 19 U/L (23-300)
[2018-05-12] MEDS ORDERED: (Novolin R) Insulin Human Regular 100 units/ml vial IVP ONE (02:49)
[2018-05-12 02:51] LABS: HEMOGLOBIN 17.2 g/dL (11.0-16.0); WHITE BLOOD COUNT 16.7 K/uL (4.8-10.8)
[2018-05-12] MEDS ORDERED: (Novolin R) Insulin Human Regular 100 units/ml vial ONE (03:05)
[2018-05-12 03:42] LABS: VENOUS BLOOD GAS BASE EXCESS -7.5 mmol/L (0.0-2.0); VENOUS BLOOD GAS PCO2 48 mmHg (40-60); VENOUS BLOOD GAS PO2 26 mm/Hg (30-55); VENOUS BLOOD PH 7.23 (7.32-7.43)
[2018-05-12] MEDS ORDERED: Sodium Chloride 0.9% 2,000 ML IV SCH (04:00)
[2018-05-12 04:01] LABS: LYMPHOCYTE 8 % (20-40); MONOCYTE 3 % (0-10); NEUTROPHIL 89 % (50-75); PLATELET ESTIMATE NORMAL (NORMAL); TOTAL CELLS COUNTED 100
--- NOTE | 2018-05-12 05:04 | C.PDOC ---
History Of Present Illness 57-year-old female presents to the emergency department with complaints of generalized body pain and aches as well as vomiting since 4 AM last night. Patient was evaluated last night for generalized back pain and abdominal pain; patient was recently treated for shingles two weeks ago. Patient states that she is diabetic and has been vomiting brownish liquid. Patient stated she is unable to take her daily Percocet due to vomiting but reports taking insulin this morning. Patient denies measuring fever at home, shortness of breath. Patient confirmed chest pain but reports generalized pain. Time Seen by Provider: 05/12/18 01:30 Chief Complaint (Nursing): Abdominal Pain History Per: Patient History/Exam Limitations: no limitations Onset/Duration Of Symptoms: Days (1) Current Symptoms Are (Timing): Still Present Location Of Pain/Discomfort: Other (generalized) Radiation Of Pain To:: Back, Chest, Leg Quality Of Discomfort: "Pain" Associated Symptoms: Vomiting, Back Pain, Chest Pain, Other (abdominal pain). denies: Fever, Chills, Nausea, Diarrhea Past Medical History Reviewed: Historical Data, Nursing Documentation, Vital Signs Vital Signs: Last Vital Signs Temp 97.8 F 05/12/18 01:28 Pulse 105 H 05/12/18 01:28 Resp 16 05/12/18 01:28 BP 142/97 H 05/12/18 01:28 Pulse Ox 97 05/12/18 01:28 - Medical History PMH: Anxiety, Depression, Gastritis, HTN, Hypercholesterolemia Denies: Chronic Kidney Disease Surgical History: No Surg Hx Family History: States: No Known Family Hx - Social History Hx Alcohol Use: No Hx Substance Use: No - Immunization History Hx Tetanus Toxoid Vaccination: Yes Hx Influenza Vaccination: Yes Hx Pneumococcal Vaccination: Yes (4 years) Review Of Systems Except As Marked, All Systems Reviewed And Found Negative. Constitutional: Negative for: Fever, Chills, Weakness Eyes: Negative for: Redness, Other (scleral icterus) ENT: Negative for: Mouth Swelling Cardiovascular: Positive for: Chest Pain Respiratory: Negative for: Cough, Shortness of Breath Gastrointestinal: Positive for: Nausea, Vomiting, Abdominal Pain. Negative for: Diarrhea, Constipation Musculoskeletal: Positive for: Back Pain, Leg Pain Neurological: Negative for: Weakness, Numbness, Dizziness Physical Exam - Physical Exam Appears: Non-toxic, In Acute Distress (due to vomiting and body pain) Skin: Normal Color, Warm, Dry Head: Atraumatic, Normacephalic Eye(s): bilateral: Normal Inspection, PERRL, EOMI Nose: Normal Oral Mucosa: Moist Neck: Normal, Supple Chest: Symmetrical, No Tenderness Cardiovascular: Rhythm Regular, No Murmur Respiratory: Normal Breath Sounds, No Rales, No Rhonchi, No Wheezing Gastrointestinal/Abdominal: Soft, Tenderness (diffuse), No Guarding, No Rebound Back: Other (diffuse tenderness) Extremity: Tenderness (diffuse tenderness to lower extremities), No Pedal Edema Neurological/Psych: Oriented x3, Normal Speech, Normal Cognition ED Course And Treatment - Laboratory Results Result Diagrams: 05/12/18 02:25 05/12/18 02:25 Lab Results: pO2 26 mm/Hg (30-55) L 05/12/18 02:30 VBG pH 7.23 (7.32-7.43) L 05/12/18 02:30 VBG pCO2 48 mmHg (40-60) 05/12/18 02:30 VBG HCO3 17.4 mmol/L 05/12/18 02:30 VBG Total CO2 21.6 mmol/L (22-28) L 05/12/18 02:30 VBG O2 Sat (Calc) 45.3 % (40-65) 05/12/18 02:30 VBG Base Excess -7.5 mmol/L (0.0-2.0) L 05/12/18 02:30 VBG Potassium 3.5 mmol/L (3.6-5.2) L 05/12/18 02:30 Sodium 140.0 mmol/l (132-148) 05/12/18 02:30 Chloride 98.0 mmol/L (98-107) 05/12/18 02:30 Glucose 454 mg/dl (65-105) H* D 05/12/18 02:30 Lactate 5.9 mmol/L (0.7-2.1) H* 05/12/18 02:30 Crit Value Called To Dr. french 05/12/18 02:30 Crit Value Called By Cecy michaud rcp 05/12/18 02:30 Crit Value Read Back Y 05/12/18 02:30 Blood Gas Notified Time 342 05/12/18 02:30 Total Bilirubin 1.1 mg/dL (0.2-1.3) 05/12/18 02:25 AST 40 U/L (14-36) H D 05/12/18 02:25 ALT 24 U/L (9-52) 05/12/18 02:25 Alkaline Phosphatase 132 U/L (38-126) H D 05/12/18 02:25 Total Protein 8.1 g/dL (6.3-8.3) 05/12/18 02:25 Albumin 5.0 g/dL (3.5-5.0) D 05/12/18 02:25 Globulin 3.1 gm/dL (2.2-3.9) 05/12/18 02:25 Albumin/Globulin Ratio 1.6 (1.0-2.1) 05/12/18 02:25 Lipase 19 U/L (23-300) L 05/12/18 02:25 O2 Sat by Pulse Oximetry: 97 (RA) Pulse Ox Interpretation: Normal Medical Decision Making Medical Decision Making: Plan: VBG CT Abdomen and Pelvis EKG Chemistry CBC CXR Morphone Insulin Protonix NaCl IV Fluids Zofran Urinalysis Assessment: Hyperglycemia and intractable vomiting. Disposition - Disposition Disposition: HOSPITALIZED Disposition Time: 05:13 Condition: STABLE Forms: [facility] (Turkmen) - Clinical Impression Clinical Impression: Intractable vomiting, Coffee ground emesis, Diabetic gastroparesis - PA / ESTIMATING MANAGER / Resident Statement MD/DO has reviewed & agrees with the documentation as recorded. - Scribe Statement The provider has reviewed the documentation as recorded by the Scribe (Franklyn Chapa) All medical record entries made by the Scribe were at my direction and personall y dictated by me. I have reviewed the chart and agree that the record accurately reflects my personal performance of the history, physical exam, medical decision making, and the department course for this patient. I have also personally directed, reviewed, and agree with the discharge instructions and disposition. Decision To Admit - Pt Status Changed To: Hospital Disposition Of: Observation - . Bed Request Type: Regular Admitting Physician: Linsey Sibley Patient Diagnosis: Intractable vomiting, Coffee ground emesis, Diabetic gastroparesis
[2018-05-12 05:07] LABS: SQUAMOUS EPITHIAL 4 /hpf (0-5); URINE BILIRUBIN NEGATIVE (NEGATIVE); URINE BLOOD 1+ (NEGATIVE); URINE CLARITY Hazy (Clear); URINE COLOR Yellow (YELLOW); URINE GLUCOSE (UA) 3+ mg/dL (Normal); URINE LEUKOCYTE ESTERASE NEG Leu/uL (Negative); URINE PROTEIN 2+ mg/dL (NEGATIVE); URINE UROBILINOGEN NORMAL mg/dL (0.2-1.0)
[2018-05-12] MEDS ORDERED: Iodixanol 320 MG/ML 100 ML BOTTLE IV ONE (05:53)
[2018-05-12] MEDS: Sodium Chloride 0.45% 1,000 ML IV SCH ×2 (06:45→07:00)
[2018-05-12] MEDS: (Novolin R) Insulin Human Regular 100 units/ml vial SC SCH ×2 (08:58→12:35)
[2018-05-12 09:22] LABS: BARBITURATES, UR NEGATIVE (NEGATIVE); PHENCYCLIDINE, UR NEGATIVE (NEGATIVE)
[2018-05-12 09:38] LABS: BENZODIAZEPINES, UR POSITIVE (NEGATIVE); OPIATES, UR POSITIVE (NEGATIVE)
--- NOTE | 2018-05-12 10:03 | CT ---
Date of service: 05/12/2018 PROCEDURE: CT Abdomen and Pelvis with contrast HISTORY: vomiting COMPARISON: Comparison is made with 06/15/2017 TECHNIQUE: Contrast dose: 100 mL of Visipaque 320 intravenously. Axial and reformatted coronal and sagittal CT images of the abdomen and pelvis were obtained after IV contrast administration. Radiation dose: Total exam DLP = 1023.59 mGy-cm. This CT exam was performed using one or more of the following dose reduction techniques: Automated exposure control, adjustment of the mA and/or kV according to patient size, and/or use of iterative reconstruction technique. FINDINGS: LOWER THORAX: There is a small left pleural effusion. Chronic lung changes and small opacities at the lung bases left more than right are noted. LIVER: Moderate hepatic steatosis is again noted. GALLBLADDER AND BILE DUCTS: No evidence of acute cholecystitis or biliary ductal dilatation. PANCREAS: Small size pancreas. The main pancreatic duct is not dilated. SPLEEN: Normal size spleen. ADRENALS: Unremarkable. No mass. KIDNEYS AND URETERS: Unremarkable. No hydronephrosis. No solid mass. VASCULATURE: Unremarkable. No aortic aneurysm. Small foci of aortic calcification are noted. BOWEL: Large bowel wall thickening versus incomplete distention. Few colonic diverticulosis noted without evidence of diverticulitis. No evidence of high-grade bowel obstruction. Small hiatus hernia. The stomach is not distended. APPENDIX: Normal appendix. PERITONEUM: Unremarkable. No free fluid. No free air. LYMPH NODES: Unremarkable. No enlarged lymph nodes. BLADDER: Unremarkable. REPRODUCTIVE: Unremarkable. BONES: No acute fracture. OTHER FINDINGS: None. IMPRESSION: Large bowel wall thickening versus incomplete distention. Few colonic diverticulosis without evidence of diverticulitis. Small to moderate size hiatus hernia. Additional findings as discussed above. Preliminary report was submitted by [facility] contains concordant findings.
[2018-05-12] MEDS ORDERED: cefTRIAXone IV 1 gm in Dextros 50 ML IVPB SCH ×2 (10:35→11:00)
--- NOTE | 2018-05-12 10:57 | RAD ---
Date of service: 05/12/2018 HISTORY: vomiting COMPARISON: Comparison is made with 06/15/2017 TECHNIQUE: 1 view obtained. FINDINGS: LUNGS: No evidence of new infiltrate or consolidation in the lungs. Prominent lung markings are again noted at the mid and lower lungs. PLEURA: No significant pleural effusion identified, no pneumothorax apparent. CARDIOVASCULAR: No aortic atherosclerotic calcification present. Normal cardiac size. No pulmonary vascular congestion. OSSEOUS STRUCTURES: No significant abnormalities. VISUALIZED UPPER ABDOMEN: Normal. OTHER FINDINGS: None. IMPRESSION: No evidence of new infiltrate or consolidation in the lungs.
--- NOTE | 2018-05-12 13:06 | CP.PCM.HP ---
History of Present Illness - History of Present Illness History of Present Illness: 57-year-old female presents to the emergency department with complaints of generalized body pain and aches as well as vomiting since 4 AM last night. Patient was evaluated last night for generalized back pain and abdominal pain; patient was recently treated for shingles two weeks ago. Patient states that she is diabetic and has been vomiting brownish liquid HAS H/O T2DM INSULIN DEPENDENT , HTN AND RECENTLY HAD MILD H ZOSTER RX WITH [facility] TAKES PERCOCET FOR CH. BACK PAIN HAS IN PAST SAME SYMPTOMS WITH VOMITING DIAGNOSED GASTROPARESIS Present on Admission - Present on Admission Any Indicators Present on Admission: No Review of Systems - Review of Systems All systems: reviewed and no additional remarkable complaints except (ABD. GLENNA AND N/V) Past Patient History - Infectious Disease Hx of Infectious Diseases: None - Past Medical History & Family History Past Medical History?: Yes - Past Social History Smoking Status: Never Smoked - CARDIAC Hx Hypercholesterolemia: Yes Hx Hypertension: Yes - PULMONARY Hx Respiratory Disorders: No - NEUROLOGICAL Hx Neurological Disorder: No - HEENT Hx HEENT Problems: No - RENAL Hx Chronic Kidney Disease: No - ENDOCRINE/METABOLIC Hx Diabetes Mellitus Type 2: Yes - HEMATOLOGICAL/ONCOLOGICAL Hx Blood Disorders: No - INTEGUMENTARY Hx Dermatological Problems: No - MUSCULOSKELETAL/RHEUMATOLOGICAL Hx Falls: Yes - GASTROINTESTINAL Hx Gastritis: Yes - GENITOURINARY/GYNECOLOGICAL Hx Genitourinary Disorders: Yes Hx Urinary Tract Infection: Yes - PSYCHIATRIC Hx Anxiety: Yes Hx Depression: Yes Hx Substance Use: No - SURGICAL HISTORY Hx Surgeries: Yes Hx Dilation and Curettage: Yes (2 wks ago) Other/Comment: d&c at [facility] – [place] 2 weeks ago - ANESTHESIA Hx Anesthesia: Yes Hx Anesthesia Reactions: No Meds Allergies/Adverse Reactions: Allergies Allergy/AdvReac Type Severity Reaction Status Date / Time No Known Allergies Allergy Verified 05/11/18 06:02 Physical Exam - Constitutional Additional comments: IN PAIN - Head Exam Head Exam: ATRAUMATIC, NORMAL INSPECTION, NORMOCEPHALIC - Eye Exam Eye Exam: EOMI, Normal appearance, PERRL - ENT Exam ENT Exam: Mucous Membranes Dry - Neck Exam Neck exam: Positive for: Normal Inspection - Respiratory Exam Respiratory Exam: Clear to Auscultation Bilateral, NORMAL BREATHING PATTERN - GI/Abdominal Exam GI & Abdominal Exam: Hyperactive Bowel Sounds, Soft, Tenderness - Extremities Exam Extremities exam: Positive for: full ROM. Negative for: calf tenderness, joint swelling, pedal edema - Back Exam Back exam: NORMAL INSPECTION - Neurological Exam Neurological exam: Alert, CN II-XII Intact, Motor Sensory Deficit, Reflexes Normal - Psychiatric Exam Psychiatric exam: Anxious, Normal Affect - Skin Skin Exam: Dry, Intact, Normal Color, Warm Results - Vital Signs Recent Vital Signs: Last Vital Signs Temp 98.2 F 05/12/18 08:19 Pulse 106 H 05/12/18 08:19 Resp 20 05/12/18 08:19 BP 138/93 H 05/12/18 08:19 Pulse Ox 94 L 05/12/18 08:19 - Labs Result Diagrams: 05/12/18 02:25 05/12/18 02:25 Labs: Laboratory Results - last 24 hr 05/12/18 05/12/18 05/12/18 02:25 02:25 02:30 WBC 16.7 H D RBC 5.85 H Hgb 17.2 H D Hct 50.9 H MCV 87.0 MCH 29.5 MCHC 33.9 RDW 13.0 Plt Count 254 MPV 10.1 Neut % (Auto) 88.2 H Lymph % (Auto) 8.[address] [place] % (Auto) 3.7 Eos % (Auto) 0.0 Baso % (Auto) 0.1 Neut # (Auto) 14.8 H Lymph # (Auto) 1.3 [facility] # (Auto) 0.6 Eos # (Auto) 0.0 Baso # (Auto) 0.0 Neutrophils % (Manual) 89 H Lymphocytes % (Manual) 8 L Monocytes % (Manual) 3 Platelet Estimate Normal pO2 26 L VBG pH 7.23 L VBG pCO2 48 VBG HCO3 17.4 VBG Total CO2 21.6 L VBG O2 Sat (Calc) 45.3 VBG Base Excess -7.5 L VBG Potassium 3.5 L Glucose 454 H* D Lactate 5.9 H* Crit Value Called To Dr. french Crit Value Called By Cecy michaud rcp Crit Value Read Back Y Blood Gas Notified Time 342 Sodium 135 140.0 Potassium 4.6 Chloride 96 L 98.0 Carbon Dioxide 17 L Anion Gap 26 H BUN 15 Creatinine 0.9 Est GFR ( Amer) > 60 Est GFR (Non-Af Amer) > 60 POC Glucose (mg/dL) Random Glucose 547 H* D Lactic Acid Calcium 10.7 H Total Bilirubin 1.1 AST 40 H D ALT 24 Alkaline Phosphatase 132 H D Total Protein 8.1 Albumin 5.0 D Globulin 3.1 Albumin/Globulin Ratio 1.6 Lipase 19 L Venous Blood Potassium 3.5 L Urine Color Urine Clarity Urine pH Ur Specific [place] Urine Protein Urine Glucose (UA) Urine Ketones Urine Blood Urine Nitrate Urine Bilirubin Urine Urobilinogen Ur Leukocyte Esterase Urine WBC (Auto) Urine RBC (Auto) Ur Squamous Epith Cells Urine Opiates Screen Urine Methadone Screen Ur Barbiturates Screen Ur Phencyclidine Scrn Ur Amphetamines Screen U Benzodiazepines Scrn U Oth Cocaine Metabols U Cannabinoids Screen Alcohol, Quantitative B-Hydroxybutyrate 05/12/18 05/12/18 05/12/18 04:47 05:15 06:48 WBC RBC Hgb Hct MCV MCH MCHC RDW Plt Count MPV Neut % (Auto) Lymph % (Auto) [place] % (Auto) Eos % (Auto) Baso % (Auto) Neut # (Auto) Lymph # (Auto) [place] # (Auto) Eos # (Auto) Baso # (Auto) Neutrophils % (Manual) Lymphocytes % (Manual) Monocytes % (Manual) Platelet Estimate pO2 VBG pH VBG pCO2 VBG HCO3 VBG Total CO2 VBG O2 Sat (Calc) VBG Base Excess VBG Potassium Glucose Lactate Crit Value Called To Crit Value Called By Crit Value Read Back Blood Gas Notified Time Sodium Potassium Chloride Carbon Dioxide Anion Gap BUN Creatinine Est GFR ( Amer) Est GFR (Non-Af Amer) POC Glucose (mg/dL) 391 H Random Glucose Lactic Acid Calcium Total Bilirubin AST ALT Alkaline Phosphatase Total Protein Albumin Globulin Albumin/Globulin Ratio Lipase Venous Blood Potassium Urine Color Yellow Urine Clarity Hazy Urine pH 5.0 Ur Specific [place] 1.030 Urine Protein 2+ H Urine Glucose (UA) 3+ H Urine Ketones 2+ H Urine Blood 1+ H Urine Nitrate Negative Urine Bilirubin Negative Urine Urobilinogen Normal Ur Leukocyte Esterase Neg Urine WBC (Auto) 3 Urine RBC (Auto) 3 Ur Squamous Epith Cells 4 Urine Opiates Screen Urine Methadone Screen Ur Barbiturates Screen Ur Phencyclidine Scrn Ur Amphetamines Screen U Benzodiazepines Scrn U Oth Cocaine Metabols U Cannabinoids Screen Alcohol, Quantitative B-Hydroxybutyrate 3.47 H 0405/12/18 05/12/18 07:34 08:56 09:00 WBC RBC Hgb Hct MCV MCH MCHC RDW Plt Count MPV Neut % (Auto) Lymph % (Auto) [facility] % (Auto) Eos % (Auto) Baso % (Auto) Neut # (Auto) Lymph # (Auto) [facility] # (Auto) Eos # (Auto) Baso # (Auto) Neutrophils % (Manual) Lymphocytes % (Manual) Monocytes % (Manual) Platelet Estimate pO2 VBG pH VBG pCO2 VBG HCO3 VBG Total CO2 VBG O2 Sat (Calc) VBG Base Excess VBG Potassium Glucose Lactate Crit Value Called To Crit Value Called By Crit Value Read Back Blood Gas Notified Time Sodium Potassium Chloride Carbon Dioxide Anion Gap BUN Creatinine Est GFR ( Amer) Est GFR (Non-Af Amer) POC Glucose (mg/dL) 366 H Random Glucose Lactic Acid 2.6 H Calcium Total Bilirubin AST ALT Alkaline Phosphatase Total Protein Albumin Globulin Albumin/Globulin Ratio Lipase Venous Blood Potassium Urine Color Urine Clarity Urine pH Ur Specific [place] Urine Protein Urine Glucose (UA) Urine Ketones Urine Blood Urine Nitrate Urine Bilirubin Urine Urobilinogen Ur Leukocyte Esterase Urine WBC (Auto) Urine RBC (Auto) Ur Squamous Epith Cells Urine Opiates Screen Urine Methadone Screen Ur Barbiturates Screen Ur Phencyclidine Scrn Ur Amphetamines Screen U Benzodiazepines Scrn U Oth Cocaine Metabols U Cannabinoids Screen Alcohol, Quantitative < 10 B-Hydroxybutyrate 05/12/18 05/12/18 09:00 11:16 WBC RBC Hgb Hct MCV MCH MCHC RDW Plt Count MPV Neut % (Auto) Lymph % (Auto) [facility] % (Auto) Eos % (Auto) Baso % (Auto) Neut # (Auto) Lymph # (Auto) [facility] # (Auto) Eos # (Auto) Baso # (Auto) Neutrophils % (Manual) Lymphocytes % (Manual) Monocytes % (Manual) Platelet Estimate pO2 VBG pH VBG pCO2 VBG HCO3 VBG Total CO2 VBG O2 Sat (Calc) VBG Base Excess VBG Potassium Glucose Lactate Crit Value Called To Crit Value Called By Crit Value Read Back Blood Gas Notified Time Sodium Potassium Chloride Carbon Dioxide Anion Gap BUN Creatinine Est GFR ( Amer) Est GFR (Non-Af Amer) POC Glucose (mg/dL) 388 H Random Glucose Lactic Acid Calcium Total Bilirubin AST ALT Alkaline Phosphatase Total Protein Albumin Globulin Albumin/Globulin Ratio Lipase Venous Blood Potassium Urine Color Urine Clarity Urine pH Ur Specific [place] Urine Protein Urine Glucose (UA) Urine Ketones Urine Blood Urine Nitrate Urine Bilirubin Urine Urobilinogen Ur Leukocyte Esterase Urine WBC (Auto) Urine RBC (Auto) Ur Squamous Epith Cells Urine Opiates Screen Positive H Urine Methadone Screen Negative Ur Barbiturates Screen Negative Ur Phencyclidine Scrn Negative Ur Amphetamines Screen Negative U Benzodiazepines Scrn Positive U Oth Cocaine Metabols Negative U Cannabinoids Screen Negative Alcohol, Quantitative B-Hydroxybutyrate Assessment & Plan (1) Diabetic gastroparesis Status: Acute (2) HTN (hypertension) Status: Acute (3) Neuropathic pain Status: Acute (4) Sepsis Status: Acute
--- NOTE | 2018-05-12 14:42 | PCM.FALL ---
"Post Fall Progress Note - Post Fall Fall Date: 05/12/18 Fall Time: 14:23 Description of Fall: Reji solano called at 14:23 on arrival duane was on thre ground. She stated she was attempting to use the bathroom and slipped on her pad. She then stated she saw old ladys who told her to get an object and give it to her spouse of 35 years. Patient is oriented to person, time, and place. - Post Fall Exam Vital Sign: Vital Signs on Arrival: Temp. 98.3 | BP 118/60. 02 96% on RA| Pulse - 120. Temp Pulse Resp BP Pulse Ox 98.2 F 106 H 20 138/93 H 94 L 05/12/18 08:19 05/12/18 08:19 05/12/18 08:19 05/12/18 08:19 05/12/18 08:19 Skull Exam: Negative for: Scalp wound, Scalp hematoma, Scalp depression, Ridge in skull Eye Exam: Positive for: Pupils equal, Pupils reactive Skin Exam: Negative for: Bruising Neck Exam: Negative for: Tenderness Chest Exam: Negative for: Difficulty breathing, Tenderness in collar bones, Tenderness in ribs Abdomen Exam: Positive for: Tenderness (Patient presented for abdnominal pain ) Impression/Plan: Attending Dr. Sibley was called by nurse who wishes for ICU evaluation Patient seems altered and is having visual hallucinations Patient was tachycardic. BP,Temp, and Blood Glucose were unremarkable. Plan: --Head CT non contrast --Stat Ammonia, TSH, Free T4. --EKG if patient remains tachycardia. --Will Consider Psych Consult."
[2018-05-12 15:01] LABS: ABG ALLEN TEST POS; ARTERIAL BLOOD GAS HCO3 22.8 mmol/L (21-28); ARTERIAL BLOOD GAS HEMOGLOBIN 15.4 g/dL (11.7-17.4); ARTERIAL BLOOD GAS O2 SAT 95.5 % (95-98); ARTERIAL BLOOD GAS PCO2 30 mm/Hg (35-45); ARTERIAL BLOOD GAS PH 7.44 (7.35-7.45); ARTERIAL BLOOD GAS PO2 65 mm/Hg (80-100); ARTERIAL BLOOD GAS TCO2 21.3 mmol/L (22-28)
[2018-05-12 15:44] LABS: BLOOD UREA NITROGEN 16 mg/dL (7-17); CALCIUM 8.6 mg/dl (8.6-10.4); GFR NON-AFRICAN AMERICAN > 60
--- NOTE | 2018-05-12 15:47 | CP.PCM.CON ---
History of Present Illness - History of Present Illness History of Present Illness: 57yo F. PMHx anxiety, depression, gastritis, HTN, hypercholesterolemia, DM type 2, diabetic gastroparesis. p/w nausea and vomiting most likely secondary to being in DKA. Patient was admitted to the medical floors, when she had a fall, code star was called. ICU was called for consult post-fall. Admitted to ICU for further management of her DKA. Review of Systems - Review of Systems All systems: reviewed and no additional remarkable complaints except - Constitutional Constitutional: Headache - Gastrointestinal Gastrointestinal: Abdominal Pain, Nausea Past Patient History - Infectious Disease Hx of Infectious Diseases: None - Past Medical History & Family History Past Medical History?: Yes - Past Social History Smoking Status: Never Smoked - CARDIAC Hx Hypercholesterolemia: Yes Hx Hypertension: Yes - PULMONARY Hx Respiratory Disorders: No - NEUROLOGICAL Hx Neurological Disorder: No - HEENT Hx HEENT Problems: No - RENAL Hx Chronic Kidney Disease: No - ENDOCRINE/METABOLIC Hx Diabetes Mellitus Type 2: Yes - HEMATOLOGICAL/ONCOLOGICAL Hx Blood Disorders: No - INTEGUMENTARY Hx Dermatological Problems: No - MUSCULOSKELETAL/RHEUMATOLOGICAL Hx Falls: Yes - GASTROINTESTINAL Hx Gastritis: Yes - GENITOURINARY/GYNECOLOGICAL Hx Genitourinary Disorders: Yes Hx Urinary Tract Infection: Yes - PSYCHIATRIC Hx Anxiety: Yes Hx Depression: Yes Hx Substance Use: No - SURGICAL HISTORY Hx Surgeries: Yes Hx Dilation and Curettage: Yes (2 wks ago) Other[place] [facility] [place] [place] - ANESTHESIA Hx Anesthesia: Yes Hx Anesthesia Reactions: No Meds Allergies/Adverse Reactions: Allergies Allergy/AdvReac Type Severity Reaction Status Date / Time No Known Allergies Allergy Verified 05/11/18 06:02 - Medications Medications: Current Medications Famotidine (Pepcid) 20 mg IVP Q12 [facility] Last Admin: 05/12/18 10:34 Dose: 20 mg Sodium Chloride (Sodium Chloride 0.45%) 1,000 mls @ 120 mls/hr IV .Q8H20M [facility] Last Admin: 05/12/18 07:00 Dose: 120 mls/hr Ceftriaxone Sodium (Rocephin Iv 1 Gm Duplex) 50 mls @ 100 mls/hr IVPB Q24H [facility]; Protocol Last Admin: 05/12/18 10:57 Dose: 100 mls/hr Insulin Human Regular (Novolin R) 0 unit SC ACHS [facility]; Protocol Last Admin: 05/12/18 12:35 Dose: 8 unit Ketorolac Tromethamine (Toradol) 30 mg IVP Q6 PRN PRN Reason: Pain, moderate (4-7) Last Admin: 05/12/18 08:40 Dose: 30 mg Metoclopramide HCl (Reglan) 10 mg IVP Q8 PRN PRN Reason: Nausea/Vomiting Ondansetron HCl (Zofran Inj) 4 mg IVP Q6 PRN PRN Reason: VOMITING Physical Exam - Head Exam Head Exam: ATRAUMATIC, NORMAL INSPECTION, NORMOCEPHALIC - Eye Exam Eye Exam: EOMI, Normal appearance, PERRL Pupil Exam: NORMAL ACCOMODATION, PERRL - ENT Exam ENT Exam: Mucous Membranes Moist, Normal Exam - Neck Exam Neck exam: Positive for: Normal Inspection - Respiratory Exam Respiratory Exam: Clear to Auscultation Bilateral, NORMAL BREATHING PATTERN - Cardiovascular Exam Cardiovascular Exam: REGULAR RHYTHM Results - Vital Signs Recent Vital Signs: Last Vital Signs Temp 98.3 F 05/12/18 14:30 Pulse 120 H 05/12/18 14:30 Resp 24 05/12/18 14:30 BP 118/60 05/12/18 14:30 Pulse Ox 96 05/12/18 14:30 - Labs Result Diagrams: 05/12/18 02:25 05/12/18 15:26 Labs: Laboratory Results - last 24 hr 05/12/18 05/12/18 05/12/18 02:25 02:25 02:30 WBC 16.7 H D RBC 5.85 H Hgb 17.2 H D Hct 50.9 H MCV 87.0 MCH 29.5 MCHC 33.9 RDW 13.0 Plt Count 254 MPV 10.1 Neut % (Auto) 88.2 H Lymph % (Auto) 8.0 L Rogers % (Auto) 3.7 Eos % (Auto) 0.0 Baso % (Auto) 0.1 Neut # (Auto) 14.8 H Lymph # (Auto) 1.3 Rogers # (Auto) 0.6 Eos # (Auto) 0.0 Baso # (Auto) 0.0 Neutrophils % (Manual) 89 H Lymphocytes % (Manual) 8 L Monocytes % (Manual) 3 Platelet Estimate Normal Puncture Site pCO2 pO2 26 L HCO3 ABG pH ABG Total CO2 ABG O2 Saturation ABG Base Excess ABG Hemoglobin ABG Carboxyhemoglobin POC ABG HHb (Measured) ABG Methemoglobin Abimael Test VBG pH 7.23 L VBG pCO2 48 VBG HCO3 17.4 VBG Total CO2 21.6 L VBG O2 Sat (Calc) 45.3 VBG Base Excess -7.5 L VBG Potassium 3.5 L A-a O2 Difference Respiratory Index Hgb O2 Saturation Glucose 454 H* D Lactate 5.9 H* FiO2 Crit Value Called To Dr. french Crit Value Called By Cecy michaud rcp Crit Value Read Back Y Blood Gas Notified Time 342 Sodium 135 140.0 Potassium 4.6 Chloride 96 L 98.0 Carbon Dioxide 17 L Anion Gap 26 H BUN 15 Creatinine 0.9 Est GFR ( Amer) > 60 Est GFR (Non-Af Amer) > 60 POC Glucose (mg/dL) Random Glucose 547 H* D Lactic Acid Calcium 10.7 H Total Bilirubin 1.1 AST 40 H D ALT 24 Alkaline Phosphatase 132 H D Total Protein 8.1 Albumin 5.0 D Globulin 3.1 Albumin/Globulin Ratio 1.6 Lipase 19 L Venous Blood Potassium 3.5 L Urine Color Urine Clarity Urine pH Ur Specific [place] Urine Protein Urine Glucose (UA) Urine Ketones Urine Blood Urine Nitrate Urine Bilirubin Urine Urobilinogen Ur Leukocyte Esterase Urine WBC (Auto) Urine RBC (Auto) Ur Squamous Epith Cells Urine Opiates Screen Urine Methadone Screen Ur Barbiturates Screen Ur Phencyclidine Scrn Ur Amphetamines Screen U Benzodiazepines Scrn U Oth Cocaine Metabols U Cannabinoids Screen Alcohol, Quantitative B-Hydroxybutyrate 05/12/18 05/12/18 05/12/18 04:47 05:15 06:48 WBC RBC Hgb Hct MCV MCH MCHC RDW Plt Count MPV Neut % (Auto) Lymph % (Auto) Rogers % (Auto) Eos % (Auto) Baso % (Auto) Neut # (Auto) Lymph # (Auto) Rogers # (Auto) Eos # (Auto) Baso # (Auto) Neutrophils % (Manual) Lymphocytes % (Manual) Monocytes % (Manual) Platelet Estimate Puncture Site pCO2 pO2 HCO3 ABG pH ABG Total CO2 ABG O2 Saturation ABG Base Excess ABG Hemoglobin ABG Carboxyhemoglobin POC ABG HHb (Measured) ABG Methemoglobin Abimael Test VBG pH VBG pCO2 VBG HCO3 VBG Total CO2 VBG O2 Sat (Calc) VBG Base Excess VBG Potassium A-a O2 Difference Respiratory Index Hgb O2 Saturation Glucose Lactate FiO2 Crit Value Called To Crit Value Called By Crit Value Read Back Blood Gas Notified Time Sodium Potassium Chloride Carbon Dioxide Anion Gap BUN Creatinine Est GFR ( Amer) Est GFR (Non-Af Amer) POC Glucose (mg/dL) 391 H Random Glucose Lactic Acid Calcium Total Bilirubin AST ALT Alkaline Phosphatase Total Protein Albumin Globulin Albumin/Globulin Ratio Lipase Venous Blood Potassium Urine Color Yellow Urine Clarity Hazy Urine pH 5.0 Ur Specific [place] 1.030 Urine Protein 2+ H Urine Glucose (UA) 3+ H Urine Ketones 2+ H Urine Blood 1+ H Urine Nitrate Negative Urine Bilirubin Negative Urine Urobilinogen Normal Ur Leukocyte Esterase Neg Urine WBC (Auto) 3 Urine RBC (Auto) 3 Ur Squamous Epith Cells 4 Urine Opiates Screen Urine Methadone Screen Ur Barbiturates Screen Ur Phencyclidine Scrn Ur Amphetamines Screen U Benzodiazepines Scrn U Oth Cocaine Metabols U Cannabinoids Screen Alcohol, Quantitative B-Hydroxybutyrate 3.47 H 05/12/18 05/12/18 05/12/18 07:34 08:56 09:00 WBC RBC Hgb Hct MCV MCH MCHC RDW Plt Count MPV Neut % (Auto) Lymph % (Auto) Rogers % (Auto) Eos % (Auto) Baso % (Auto) Neut # (Auto) Lymph # (Auto) Rogers # (Auto) Eos # (Auto) Baso # (Auto) Neutrophils % (Manual) Lymphocytes % (Manual) Monocytes % (Manual) Platelet Estimate Puncture Site pCO2 pO2 HCO3 ABG pH ABG Total CO2 ABG O2 Saturation ABG Base Excess ABG Hemoglobin ABG Carboxyhemoglobin POC ABG HHb (Measured) ABG Methemoglobin Abimael Test VBG pH VBG pCO2 VBG HCO3 VBG Total CO2 VBG O2 Sat (Calc) VBG Base Excess VBG Potassium A-a O2 Difference Respiratory Index Hgb O2 Saturation Glucose Lactate FiO2 Crit Value Called To Crit Value Called By Crit Value Read Back Blood Gas Notified Time Sodium Potassium Chloride Carbon Dioxide Anion Gap BUN Creatinine Est GFR ( Amer) Est GFR (Non-Af Amer) POC Glucose (mg/dL) 366 H Random Glucose Lactic Acid 2.6 H Calcium Total Bilirubin AST ALT Alkaline Phosphatase Total Protein Albumin Globulin Albumin/Globulin Ratio Lipase Venous Blood Potassium Urine Color Urine Clarity Urine pH Ur Specific [place] Urine Protein Urine Glucose (UA) Urine Ketones Urine Blood Urine Nitrate Urine Bilirubin Urine Urobilinogen Ur Leukocyte Esterase Urine WBC (Auto) Urine RBC (Auto) Ur Squamous Epith Cells Urine Opiates Screen Urine Methadone Screen Ur Barbiturates Screen Ur Phencyclidine Scrn Ur Amphetamines Screen U Benzodiazepines Scrn U Oth Cocaine Metabols U Cannabinoids Screen Alcohol, Quantitative < 10 B-Hydroxybutyrate 05/12/18 05/12/18 05/12/18 09:00 11:16 14:29 WBC RBC Hgb Hct MCV MCH MCHC RDW Plt Count MPV Neut % (Auto) Lymph % (Auto) Rogers % (Auto) Eos % (Auto) Baso % (Auto) Neut # (Auto) Lymph # (Auto) Rogers # (Auto) Eos # (Auto) Baso # (Auto) Neutrophils % (Manual) Lymphocytes % (Manual) Monocytes % (Manual) Platelet Estimate Puncture Site pCO2 pO2 HCO3 ABG pH ABG Total CO2 ABG O2 Saturation ABG Base Excess ABG Hemoglobin ABG Carboxyhemoglobin POC ABG HHb (Measured) ABG Methemoglobin Abimael Test VBG pH VBG pCO2 VBG HCO3 VBG Total CO2 VBG O2 Sat (Calc) VBG Base Excess VBG Potassium A-a O2 Difference Respiratory Index Hgb O2 Saturation Glucose Lactate FiO2 Crit Value Called To Crit Value Called By Crit Value Read Back Blood Gas Notified Time Sodium Potassium Chloride Carbon Dioxide Anion Gap BUN Creatinine Est GFR ( Amer) Est GFR (Non-Af Amer) POC Glucose (mg/dL) 388 H 375 H Random Glucose Lactic Acid Calcium Total Bilirubin AST ALT Alkaline Phosphatase Total Protein Albumin Globulin Albumin/Globulin Ratio Lipase Venous Blood Potassium Urine Color Urine Clarity Urine pH Ur Specific [place] Urine Protein Urine Glucose (UA) Urine Ketones Urine Blood Urine Nitrate Urine Bilirubin Urine Urobilinogen Ur Leukocyte Esterase Urine WBC (Auto) Urine RBC (Auto) Ur Squamous Epith Cells Urine Opiates Screen Positive H Urine Methadone Screen Negative Ur Barbiturates Screen Negative Ur Phencyclidine Scrn Negative Ur Amphetamines Screen Negative U Benzodiazepines Scrn Positive U Oth Cocaine Metabols Negative U Cannabinoids Screen Negative Alcohol, Quantitative B-Hydroxybutyrate 05/12/18 14:58 WBC RBC Hgb Hct MCV MCH MCHC RDW Plt Count MPV Neut % (Auto) Lymph % (Auto) Rogers % (Auto) Eos % (Auto) Baso % (Auto) Neut # (Auto) Lymph # (Auto) Rogers # (Auto) Eos # (Auto) Baso # (Auto) Neutrophils % (Manual) Lymphocytes % (Manual) Monocytes % (Manual) Platelet Estimate Puncture Site Lr pCO2 30 L pO2 65 L HCO3 22.8 ABG pH 7.44 ABG Total CO2 21.3 L ABG O2 Saturation 95.5 ABG Base Excess -2.5 L ABG Hemoglobin 15.4 ABG Carboxyhemoglobin 1.7 H POC ABG HHb (Measured) 4.4 ABG Methemoglobin 1.1 Abimael Test Pos VBG pH VBG pCO2 VBG HCO3 VBG Total CO2 VBG O2 Sat (Calc) VBG Base Excess VBG Potassium A-a O2 Difference 47.0 Respiratory Index 0.7 Hgb O2 Saturation 92.8 L Glucose Lactate FiO2 21.0 Crit Value Called To Crit Value Called By Crit Value Read Back Blood Gas Notified Time Sodium Potassium Chloride Carbon Dioxide Anion Gap BUN Creatinine Est GFR ( Amer) Est GFR (Non-Af Amer) POC Glucose (mg/dL) Random Glucose Lactic Acid Calcium Total Bilirubin AST ALT Alkaline Phosphatase Total Protein Albumin Globulin Albumin/Globulin Ratio Lipase Venous Blood Potassium Urine Color Urine Clarity Urine pH Ur Specific [place] Urine Protein Urine Glucose (UA) Urine Ketones Urine Blood Urine Nitrate Urine Bilirubin Urine Urobilinogen Ur Leukocyte Esterase Urine WBC (Auto) Urine RBC (Auto) Ur Squamous Epith Cells Urine Opiates Screen Urine Methadone Screen Ur Barbiturates Screen Ur Phencyclidine Scrn Ur Amphetamines Screen U Benzodiazepines Scrn U Oth Cocaine Metabols U Cannabinoids Screen Alcohol, Quantitative B-Hydroxybutyrate Assessment & Plan (1) Altered mental status Assessment and Plan: 57yo F. PMHx anxiety, depression, gastritis, HTN, hypercholesterolemia, DM type 2, diabetic gastroparesis. p/w nausea and vomiting most likely secondary to being in DKA. Patient was admitted to the medical floors, when she had a fall, code star was called. ICU was called for consult post-fall. Admitted to ICU f or further management of her DKA. Neuro: alert, but disoriented and speaking non-sensically. CT Head shows chronic infarction. patient is weaker on the right, possible exacerbation of old stroke. She was positive for opioids and benzos, possibly affecting mental status as well. ordered carotid dopplers and CT angio head and neck. Started ASA. Neuro - Dr. Loznao Pulm: no acute issues, maintaining airway, breathing spontaneously on room air. CV: hemodynamically stable Hem: leucocytosis from SIRS reaction Renal: no acute issues, LR@150 Endo: DM type 2, DKA already resolved. SISS for coverage. GI: NPO ID: no acute issues DVT proph - lovenox GI proph - not currently indicated Code status - full code Critical Care Time spent 35 minutes Multi-disciplinary rounds were performed with house staff, nursing, speech therapy, respiratory therapy, pharmacy and nutrition with integrated input from the primary team/attending and other consulting services. The documented time is cumulative and includes review of patient data/exams/labs/chart review and examination of the patient on rounds and throughout the day; time is exclusive of any procedures or teaching time. Status: Acute
--- NOTE | 2018-05-12 16:15 | CT ---
Date of service: 05/12/2018 PROCEDURE: CT HEAD WITHOUT CONTRAST. HISTORY: Fall, AMS COMPARISON: None available. TECHNIQUE: Axial computed tomography images were obtained through the head/brain without intravenous contrast. Radiation dose: Total exam DLP = 1075.32 mGy-cm. This CT exam was performed using one or more of the following dose reduction techniques: Automated exposure control, adjustment of the mA and/or kV according to patient size, and/or use of iterative reconstruction technique. FINDINGS: HEMORRHAGE: No intracranial hemorrhage. BRAIN: There is focal encephalomalacia or gliosis in the left frontal lobe involving the cortex and white matter extending to the frontal horn of the left lateral ventricle may represent old infarct or congenital defect. No atrophy or chronic microvascular ischemic changes. VENTRICLES: Unremarkable. No hydrocephalus. CALVARIUM: Unremarkable. PARANASAL SINUSES: Unremarkable as visualized. No significant inflammatory changes. MASTOID AIR CELLS: Unremarkable as visualized. No inflammatory changes. OTHER FINDINGS: None. IMPRESSION: No evidence of acute intracranial hemorrhage mass effect or midline shift. 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
[2018-05-12] MEDS: Lactated Ringer's 1,000 ML IV SCH ×2 (16:22→23:00)
[2018-05-12] MEDS: (Novolog) Insulin Aspart, Recombinant 100 u/ml 10 ml vial SC SCH ×2 (17:03→20:40)
[2018-05-13] MEDS: (Novolog) Insulin Aspart, Recombinant 100 u/ml 10 ml vial SC SCH ×6 (00:01→20:22)
--- NOTE | 2018-05-13 00:41 | CP.PCM.CON ---
History of Present Illness - History of Present Illness History of Present Illness: Neurology consult dictated. 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 Patient had a head ct done this am, that showed a wedge shaped area of hypodensity that appears to be subacute stroke, in left MCA territory. Plan ; 1. Stroke workup 2. aspirin 3. MRI Brain as soon as possible, with contrast 4. EEG. Thank you Dr Lozano Neurology Past Patient History - Infectious Disease Hx of Infectious Diseases: None - Past Medical History & Family History Past Medical History?: Yes - Past Social History Smoking Status: Never Smoked - CARDIAC Hx Hypercholesterolemia: Yes Hx Hypertension: Yes - PULMONARY Hx Respiratory Disorders: No - NEUROLOGICAL Hx Neurological Disorder: No - HEENT Hx HEENT Problems: No - RENAL Hx Chronic Kidney Disease: No - ENDOCRINE/METABOLIC Hx Diabetes Mellitus Type 2: Yes - HEMATOLOGICAL/ONCOLOGICAL Hx Blood Disorders: No - INTEGUMENTARY Hx Dermatological Problems: No - MUSCULOSKELETAL/RHEUMATOLOGICAL Hx Falls: Yes - GASTROINTESTINAL Hx Gastritis: Yes - GENITOURINARY/GYNECOLOGICAL Hx Genitourinary Disorders: Yes Hx Urinary Tract Infection: Yes - PSYCHIATRIC Hx Anxiety: Yes Hx Depression: Yes Hx Substance Use: No - SURGICAL HISTORY Hx Surgeries: Yes Hx Dilation and Curettage: Yes (2 wks ago) Other/Comment: d&c [place] [facility] [place] - ANESTHESIA Hx Anesthesia: Yes Hx Anesthesia Reactions: No Meds Allergies/Adverse Reactions: Allergies Allergy/AdvReac Type Severity Reaction Status Date / Time No Known Allergies Allergy Verified 05/11/18 06:02 - Medications Medications: Current Medications Aspirin (Aspirin Chewable) 81 mg PO DAILY [facility] Enoxaparin Sodium (Lovenox) 40 mg SC DAILY [facility] Lactated Ringer's (Lactated Ringer's) 1,000 mls @ 150 mls/hr IV .Q6H40M [facility] Last Admin: 05/12/18 23:00 Dose: 150 mls/hr Insulin Aspart (Novolog) 0 unit SC Q4H [facility]; Protocol Last Admin: 05/13/18 00:01 Dose: 6 u Ketorolac Tromethamine (Toradol) 30 mg IVP Q6 PRN PRN Reason: Pain, moderate (4-7) Last Admin: 05/12/18 08:40 Dose: 30 mg Metoclopramide HCl (Reglan) 10 mg IVP Q8 PRN PRN Reason: Nausea/Vomiting Ondansetron HCl (Zofran Inj) 4 mg IVP Q6 PRN PRN Reason: VOMITING Results - Vital Signs Recent Vital Signs: Last Vital Signs Temp 99.4 F 05/12/18 17:00 Pulse 107 H 05/12/18 18:00 Resp 28 H 05/12/18 18:00 BP 151/94 H 05/12/18 17:47 Pulse Ox 95 05/12/18 18:00 - Labs Result Diagrams: 05/12/18 02:25 05/12/18 15:26 Labs: Laboratory Results - last 24 hr 05/12/18 05/12/18 05/12/18 02:25 02:25 02:30 WBC 16.7 H D RBC 5.85 H Hgb 17.2 H D Hct 50.9 H MCV 87.0 MCH 29.5 MCHC 33.9 RDW 13.0 Plt Count 254 MPV 10.1 Neut % (Auto) 88.2 H Lymph % (Auto) 8.0 L [place] % (Auto) 3.7 Eos % (Auto) 0.0 Baso % (Auto) 0.1 Neut # (Auto) 14.8 H Lymph # (Auto) 1.3 [place] # (Auto) 0.6 Eos # (Auto) 0.0 Baso # (Auto) 0.0 Neutrophils % (Manual) 89 H Lymphocytes % (Manual) 8 L Monocytes % (Manual) 3 Platelet Estimate Normal Puncture Site pCO2 pO2 26 L HCO3 ABG pH ABG Total CO2 ABG O2 Saturation ABG Base Excess ABG Hemoglobin ABG Carboxyhemoglobin POC ABG HHb (Measured) ABG Methemoglobin Abimael Test VBG pH 7.23 L VBG pCO2 48 VBG HCO3 17.4 VBG Total CO2 21.6 L VBG O2 Sat (Calc) 45.3 VBG Base Excess -7.5 L VBG Potassium 3.5 L A-a O2 Difference Respiratory Index Hgb O2 Saturation Glucose 454 H* D Lactate 5.9 H* FiO2 Crit Value Called To Dr. french Crit Value Called By Cecy michaud rcp Crit Value Read Back Y Blood Gas Notified Time 342 Sodium 135 140.0 Potassium 4.6 Chloride 96 L 98.0 Carbon Dioxide 17 L Anion Gap 26 H BUN 15 Creatinine 0.9 Est GFR ( Amer) > 60 Est GFR (Non-Af Amer) > 60 POC Glucose (mg/dL) Random Glucose 547 H* D Lactic Acid Calcium 10.7 H Total Bilirubin 1.1 AST 40 H D ALT 24 Alkaline Phosphatase 132 H D Ammonia Total Protein 8.1 Albumin 5.0 D Globulin 3.1 Albumin/Globulin Ratio 1.6 Lipase 19 L Free T4 TSH 3rd Generation Venous Blood Potassium 3.5 L Urine Color Urine Clarity Urine pH Ur Specific [place] Urine Protein Urine Glucose (UA) Urine Ketones Urine Blood Urine Nitrate Urine Bilirubin Urine Urobilinogen Ur Leukocyte Esterase Urine WBC (Auto) Urine RBC (Auto) Ur Squamous Epith Cells Urine Opiates Screen Urine Methadone Screen Ur Barbiturates Screen Ur Phencyclidine Scrn Ur Amphetamines Screen U Benzodiazepines Scrn U Oth Cocaine Metabols U Cannabinoids Screen Alcohol, Quantitative B-Hydroxybutyrate 05/12/18 05/12/18 05/12/18 04:47 05:15 06:48 WBC RBC Hgb Hct MCV MCH MCHC RDW Plt Count MPV Neut % (Auto) Lymph % (Auto) [place] % (Auto) Eos % (Auto) Baso % (Auto) Neut # (Auto) Lymph # (Auto) [place] # (Auto) Eos # (Auto) Baso # (Auto) Neutrophils % (Manual) Lymphocytes % (Manual) Monocytes % (Manual) Platelet Estimate Puncture Site pCO2 pO2 HCO3 ABG pH ABG Total CO2 ABG O2 Saturation ABG Base Excess ABG Hemoglobin ABG Carboxyhemoglobin POC ABG HHb (Measured) ABG Methemoglobin Abimael Test VBG pH VBG pCO2 VBG HCO3 VBG Total CO2 VBG O2 Sat (Calc) VBG Base Excess VBG Potassium A-a O2 Difference Respiratory Index Hgb O2 Saturation Glucose Lactate FiO2 Crit Value Called To Crit Value Called By Crit Value Read Back Blood Gas Notified Time Sodium Potassium Chloride Carbon Dioxide Anion Gap BUN Creatinine Est GFR ( Amer) Est GFR (Non-Af Amer) POC Glucose (mg/dL) 391 H Random Glucose Lactic Acid Calcium Total Bilirubin AST ALT Alkaline Phosphatase Ammonia Total Protein Albumin Globulin Albumin/Globulin Ratio Lipase Free T4 TSH 3rd Generation Venous Blood Potassium Urine Color Yellow Urine Clarity Hazy Urine pH 5.0 Ur Specific [place] 1.030 Urine Protein 2+ H Urine Glucose (UA) 3+ H Urine Ketones 2+ H Urine Blood 1+ H Urine Nitrate Negative Urine Bilirubin Negative Urine Urobilinogen Normal Ur Leukocyte Esterase Neg Urine WBC (Auto) 3 Urine RBC (Auto) 3 Ur Squamous Epith Cells 4 Urine Opiates Screen Urine Methadone Screen Ur Barbiturates Screen Ur Phencyclidine Scrn Ur Amphetamines Screen U Benzodiazepines Scrn U Oth Cocaine Metabols U Cannabinoids Screen Alcohol, Quantitative B-Hydroxybutyrate 3.47 H 05/12/18 05/12/18 05/12/18 07:34 08:56 09:00 WBC RBC Hgb Hct MCV MCH MCHC RDW Plt Count MPV Neut % (Auto) Lymph % (Auto) [place] % (Auto) Eos % (Auto) Baso % (Auto) Neut # (Auto) Lymph # (Auto) [place] # (Auto) Eos # (Auto) Baso # (Auto) Neutrophils % (Manual) Lymphocytes % (Manual) Monocytes % (Manual) Platelet Estimate Puncture Site pCO2 pO2 HCO3 ABG pH ABG Total CO2 ABG O2 Saturation ABG Base Excess ABG Hemoglobin ABG Carboxyhemoglobin POC ABG HHb (Measured) ABG Methemoglobin Abimael Test VBG pH VBG pCO2 VBG HCO3 VBG Total CO2 VBG O2 Sat (Calc) VBG Base Excess VBG Potassium A-a O2 Difference Respiratory Index Hgb O2 Saturation Glucose Lactate FiO2 Crit Value Called To Crit Value Called By Crit Value Read Back Blood Gas Notified Time Sodium Potassium Chloride Carbon Dioxide Anion Gap BUN Creatinine Est GFR ( Amer) Est GFR (Non-Af Amer) POC Glucose (mg/dL) 366 H Random Glucose Lactic Acid 2.6 H Calcium Total Bilirubin AST ALT Alkaline Phosphatase Ammonia Total Protein Albumin Globulin Albumin/Globulin Ratio Lipase Free T4 TSH 3rd Generation Venous Blood Potassium Urine Color Urine Clarity Urine pH Ur Specific [place] Urine Protein Urine Glucose (UA) Urine Ketones Urine Blood Urine Nitrate Urine Bilirubin Urine Urobilinogen Ur Leukocyte Esterase Urine WBC (Auto) Urine RBC (Auto) Ur Squamous Epith Cells Urine Opiates Screen Urine Methadone Screen Ur Barbiturates Screen Ur Phencyclidine Scrn Ur Amphetamines Screen U Benzodiazepines Scrn U Oth Cocaine Metabols U Cannabinoids Screen Alcohol, Quantitative < 10 B-Hydroxybutyrate 05/12/18 05/12/18 05/12/18 09:00 11:16 14:29 WBC RBC Hgb Hct MCV MCH MCHC RDW Plt Count MPV Neut % (Auto) Lymph % (Auto) [place] % (Auto) Eos % (Auto) Baso % (Auto) Neut # (Auto) Lymph # (Auto) [place] # (Auto) Eos # (Auto) Baso # (Auto) Neutrophils % (Manual) Lymphocytes % (Manual) Monocytes % (Manual) Platelet Estimate Puncture Site pCO2 pO2 HCO3 ABG pH ABG Total CO2 ABG O2 Saturation ABG Base Excess ABG Hemoglobin ABG Carboxyhemoglobin POC ABG HHb (Measured) ABG Methemoglobin Abimael Test VBG pH VBG pCO2 VBG HCO3 VBG Total CO2 VBG O2 Sat (Calc) VBG Base Excess VBG Potassium A-a O2 Difference Respiratory Index Hgb O2 Saturation Glucose Lactate FiO2 Crit Value Called To Crit Value Called By Crit Value Read Back Blood Gas Notified Time Sodium Potassium Chloride Carbon Dioxide Anion Gap BUN Creatinine Est GFR ( Amer) Est GFR (Non-Af Amer) POC Glucose (mg/dL) 388 H 375 H Random Glucose Lactic Acid Calcium Total Bilirubin AST ALT Alkaline Phosphatase Ammonia Total Protein Albumin Globulin Albumin/Globulin Ratio Lipase Free T4 TSH 3rd Generation Venous Blood Potassium Urine Color Urine Clarity Urine pH Ur Specific [place] Urine Protein Urine Glucose (UA) Urine Ketones Urine Blood Urine Nitrate Urine Bilirubin Urine Urobilinogen Ur Leukocyte Esterase Urine WBC (Auto) Urine RBC (Auto) Ur Squamous Epith Cells Urine Opiates Screen Positive H Urine Methadone Screen Negative Ur Barbiturates Screen Negative Ur Phencyclidine Scrn Negative Ur Amphetamines Screen Negative U Benzodiazepines Scrn Positive U Oth Cocaine Metabols Negative U Cannabinoids Screen Negative Alcohol, Quantitative B-Hydroxybutyrate 05/12/18 05/12/18 05/12/18 14:58 15:26 15:26 WBC RBC Hgb Hct MCV MCH MCHC RDW Plt Count MPV Neut % (Auto) Lymph % (Auto) [place] % (Auto) Eos % (Auto) Baso % (Auto) Neut # (Auto) Lymph # (Auto) [place] # (Auto) Eos # (Auto) Baso # (Auto) Neutrophils % (Manual) Lymphocytes % (Manual) Monocytes % (Manual) Platelet Estimate Puncture Site Lr pCO2 30 L pO2 65 L HCO3 22.8 ABG pH 7.44 ABG Total CO2 21.3 L ABG O2 Saturation 95.5 ABG Base Excess -2.5 L ABG Hemoglobin 15.4 ABG Carboxyhemoglobin 1.7 H POC ABG HHb (Measured) 4.4 ABG Methemoglobin 1.1 Abimael Test Pos VBG pH VBG pCO2 VBG HCO3 VBG Total CO2 VBG O2 Sat (Calc) VBG Base Excess VBG Potassium A-a O2 Difference 47.0 Respiratory Index 0.7 Hgb O2 Saturation 92.8 L Glucose Lactate FiO2 21.0 Crit Value Called To Crit Value Called By Crit Value Read Back Blood Gas Notified Time Sodium Potassium Chloride Carbon Dioxide Anion Gap BUN Creatinine Est GFR ( Amer) Est GFR (Non-Af Amer) POC Glucose (mg/dL) Random Glucose Lactic Acid Calcium Total Bilirubin AST ALT Alkaline Phosphatase Ammonia < 9 L Total Protein Albumin Globulin Albumin/Globulin Ratio Lipase Free T4 1.05 TSH 3rd Generation Venous Blood Potassium Urine Color Urine Clarity Urine pH Ur Specific [place] Urine Protein Urine Glucose (UA) Urine Ketones Urine Blood Urine Nitrate Urine Bilirubin Urine Urobilinogen Ur Leukocyte Esterase Urine WBC (Auto) Urine RBC (Auto) Ur Squamous Epith Cells Urine Opiates Screen Urine Methadone Screen Ur Barbiturates Screen Ur Phencyclidine Scrn Ur Amphetamines Screen U Benzodiazepines Scrn U Oth Cocaine Metabols U Cannabinoids Screen Alcohol, Quantitative B-Hydroxybutyrate 05/12/18 05/12/18 05/12/18 15:26 16:58 18:20 WBC RBC Hgb Hct MCV MCH MCHC RDW Plt Count MPV Neut % (Auto) Lymph % (Auto) [place] % (Auto) Eos % (Auto) Baso % (Auto) Neut # (Auto) Lymph # (Auto) [place] # (Auto) Eos # (Auto) Baso # (Auto) Neutrophils % (Manual) Lymphocytes % (Manual) Monocytes % (Manual) Platelet Estimate Puncture Site pCO2 pO2 HCO3 ABG pH ABG Total CO2 ABG O2 Saturation ABG Base Excess ABG Hemoglobin ABG Carboxyhemoglobin POC ABG HHb (Measured) ABG Methemoglobin Abimael Test VBG pH VBG pCO2 VBG HCO3 VBG Total CO2 VBG O2 Sat (Calc) VBG Base Excess VBG Potassium A-a O2 Difference Respiratory Index Hgb O2 Saturation Glucose Lactate FiO2 Crit Value Called To Crit Value Called By Crit Value Read Back Blood Gas Notified Time Sodium 138 Potassium 3.6 Chloride 106 Carbon Dioxide 23 Anion Gap 13 BUN 16 Creatinine 0.9 Est GFR ( Amer) > 60 Est GFR (Non-Af Amer) > 60 POC Glucose (mg/dL) 365 H 312 H Random Glucose 341 H D Lactic Acid Calcium 8.6 Total Bilirubin AST ALT Alkaline Phosphatase Ammonia Total Protein Albumin Globulin Albumin/Globulin Ratio Lipase Free T4 TSH 3rd Generation 1.08 Venous Blood Potassium Urine Color Urine Clarity Urine pH Ur Specific [place] Urine Protein Urine Glucose (UA) Urine Ketones Urine Blood Urine Nitrate Urine Bilirubin Urine Urobilinogen Ur Leukocyte Esterase Urine WBC (Auto) Urine RBC (Auto) Ur Squamous Epith Cells Urine Opiates Screen Urine Methadone Screen Ur Barbiturates Screen Ur Phencyclidine Scrn Ur Amphetamines Screen U Benzodiazepines Scrn U Oth Cocaine Metabols U Cannabinoids Screen Alcohol, Quantitative B-Hydroxybutyrate 05/12/18 20:02 WBC RBC Hgb Hct MCV MCH MCHC RDW Plt Count MPV Neut % (Auto) Lymph % (Auto) [place] % (Auto) Eos % (Auto) Baso % (Auto) Neut # (Auto) Lymph # (Auto) [place] # (Auto) Eos # (Auto) Baso # (Auto) Neutrophils % (Manual) Lymphocytes % (Manual) Monocytes % (Manual) Platelet Estimate Puncture Site pCO2 pO2 HCO3 ABG pH ABG Total CO2 ABG O2 Saturation ABG Base Excess ABG Hemoglobin ABG Carboxyhemoglobin POC ABG HHb (Measured) ABG Methemoglobin Abimael Test VBG pH VBG pCO2 VBG HCO3 VBG Total CO2 VBG O2 Sat (Calc) VBG Base Excess VBG Potassium A-a O2 Difference Respiratory Index Hgb O2 Saturation Glucose Lactate FiO2 Crit Value Called To Crit Value Called By Crit Value Read Back Blood Gas Notified Time Sodium Potassium Chloride Carbon Dioxide Anion Gap BUN Creatinine Est GFR ( Amer) Est GFR (Non-Af Amer) POC Glucose (mg/dL) 269 H Random Glucose Lactic Acid Calcium Total Bilirubin AST ALT Alkaline Phosphatase Ammonia Total Protein Albumin Globulin Albumin/Globulin Ratio Lipase Free T4 TSH 3rd Generation Venous Blood Potassium Urine Color Urine Clarity Urine pH Ur Specific [place] Urine Protein Urine Glucose (UA) Urine Ketones Urine Blood Urine Nitrate Urine Bilirubin Urine Urobilinogen Ur Leukocyte Esterase Urine WBC (Auto) Urine RBC (Auto) Ur Squamous Epith Cells Urine Opiates Screen Urine Methadone Screen Ur Barbiturates Screen Ur Phencyclidine Scrn Ur Amphetamines Screen U Benzodiazepines Scrn U Oth Cocaine Metabols U Cannabinoids Screen Alcohol, Quantitative B-Hydroxybutyrate
[2018-05-13] MEDS: Lactated Ringer's 1,000 ML IV SCH ×3 (06:00→23:00)
[2018-05-13 06:49] LABS: BASO # 0.1 K/uL (0.0-0.2); BASO % 0.3 % (0.0-2.0); LYMPH # 2.1 K/uL (1.0-4.3); LYMPH % 11.6 % (20.0-40.0); MEAN CORPUSCULAR HEMOGLOBIN 29.1 pg (27.0-31.0); MEAN CORPUSCULAR HGB CONC 33.5 g/dL (33.0-37.0); MEAN PLATELET VOLUME 9.5 fL (7.2-11.7); MONO # 1.1 K/uL (0.0-0.8); MONO % 6.1 % (0.0-10.0); NEUT # 15.1 K/uL (1.8-7.0); NRBC % 0.1 % (0.0-2.0); RBC 5.09 Mil/uL (3.80-5.20); RED CELL DISTRIBUTION WIDTH 13.2 % (11.5-14.5); WHITE BLOOD COUNT 18.4 K/uL (4.8-10.8)
[2018-05-13 06:59] LABS: HEMOGLOBIN 14.8 g/dL (11.0-16.0)
[2018-05-13 07:03] LABS: ALB/GLOB RATIO 1.4 (1.0-2.1); ALBUMIN 3.7 g/dL (3.5-5.0); ALT/SGPT 20 U/L (9-52); AST/SGOT 24 U/L (14-36); BLOOD UREA NITROGEN 17 mg/dL (7-17); CALCIUM 9.3 mg/dl (8.6-10.4); GFR NON-AFRICAN AMERICAN > 60
[2018-05-13] MEDS: Enoxaparin 40 mg Syringe SC SCH (09:23)
[2018-05-13] MEDS ORDERED: cefTRIAXone IV 1 gm in Dextros 50 ML IVPB SCH (10:00)
--- NOTE | 2018-05-13 11:37 | CP.PCM.PN ---
Subjective - Date & Time of Evaluation Date of Evaluation: 05/13/18 Time of Evaluation: 11:36 - Subjective Subjective: NO DISTRESS SUGAR 267 CT HEAD SUB ACUTE INFARCT NEURO ON BOARD SEPTIC W/U NEG Objective - Vital Signs/Intake and Output Vital Signs (last 24 hours): Temp Pulse Resp BP Pulse Ox 98.5 F 94 H 26 H 147/102 H 95 05/13/18 04:00 05/13/18 09:10 05/13/18 09:10 05/13/18 08:47 05/13/18 09:10 Intake and Output: 05/12/18 05/13/18 23:59 11:59 Intake Total 1200 1050 Output Total 50 Balance 1150 1050 - Medications Medications: Current Medications Aspirin (Aspirin Chewable) 81 mg PO DAILY [facility] Last Admin: 05/13/18 09:33 Dose: 81 mg Enoxaparin Sodium (Lovenox) 40 mg SC DAILY [facility] Last Admin: 05/13/18 09:23 Dose: 40 mg Famotidine (Pepcid) 20 mg PO DAILY [facility] Lactated Ringer's (Lactated Ringer's) 1,000 mls @ 150 mls/hr IV .Q6H40M [facility] Last Admin: 05/13/18 06:00 Dose: 150 mls/hr Insulin Aspart (Novolog) 0 unit SC Q4H [facility]; Protocol Last Admin: 05/13/18 08:26 Dose: 4 u Ketorolac Tromethamine (Toradol) 30 mg IVP Q6 PRN PRN Reason: Pain, moderate (4-7) Last Admin: 05/12/18 08:40 Dose: 30 mg Lisinopril (Zestril) 10 mg PO DAILY [facility] Metoclopramide HCl (Reglan) 10 mg IVP Q8 PRN PRN Reason: Nausea/Vomiting Ondansetron HCl (Zofran Inj) 4 mg IVP Q6 PRN PRN Reason: VOMITING Last Admin: 05/13/18 07:13 Dose: 4 mg Rosuvastatin Calcium (Crestor) 10 mg PO HS [facility] - Labs Labs: 05/13/18 06:43 05/13/18 06:43 Assessment and Plan (1) Diabetic gastroparesis Status: Acute (2) HTN (hypertension) Status: Acute (3) Neuropathic pain Status: Acute (4) Sepsis Status: Acute
[2018-05-13] MEDS ORDERED: Iodixanol 320 MG/ML 100 ML BOTTLE IV ONE (12:17)
--- NOTE | 2018-05-13 13:47 | CP.PCM.PN ---
Subjective - Date & Time of Evaluation Date of Evaluation: 05/13/18 Time of Evaluation: 13:44 - Subjective Subjective: Neuro Follow-Up Note: [id number] Mrs. Nair was evaluated this afternoon in the ICU. Pt states that she feels "terrible" today. She is complaining of nausea. She is known to me from previous admissions. Denies h/a, dizziness, visual changes, chest pain, palpitations, sob, cough, abd pain, vomiting/diarrhea, paresthesias. Objective - Vital Signs/Intake and Output Vital Signs (last 24 hours): Temp Pulse Resp BP Pulse Ox 98.5 F 102 H 12 157/100 H 94 L 05/13/18 04:00 05/13/18 13:20 05/13/18 13:10 05/13/18 12:31 05/13/18 13:20 Intake and Output: 05/13/18 05/13/18 06:59 18:59 Intake Total 1800 1050 Output Total 50 Balance 1750 1050 - Medications Medications: Current Medications Aspirin (Aspirin Chewable) 81 mg PO DAILY [facility] Last Admin: 05/13/18 09:33 Dose: 81 mg Enoxaparin Sodium (Lovenox) 40 mg SC DAILY [facility] Last Admin: 05/13/18 09:23 Dose: 40 mg Famotidine (Pepcid) 20 mg PO DAILY [facility] Lactated Ringer's (Lactated Ringer's) 1,000 mls @ 150 mls/hr IV .Q6H40M [facility] Last Admin: 05/13/18 13:43 Dose: 150 mls/hr Insulin Aspart (Novolog) 0 unit SC Q4H [facility]; Protocol Last Admin: 05/13/18 13:10 Dose: 4 u Ketorolac Tromethamine (Toradol) 30 mg IVP Q6 PRN PRN Reason: Pain, moderate (4-7) Last Admin: 05/12/18 08:40 Dose: 30 mg Lisinopril (Zestril) 10 mg PO DAILY [facility] Metoclopramide HCl (Reglan) 10 mg IVP Q8 PRN PRN Reason: Nausea/Vomiting Ondansetron HCl (Zofran Inj) 4 mg IVP Q6 PRN PRN Reason: VOMITING Last Admin: 05/13/18 07:13 Dose: 4 mg Rosuvastatin Calcium (Crestor) 10 mg PO HS [facility] - Labs Labs: 05/13/18 06:43 05/13/18 06:43 - Constitutional Appears: Non-toxic - Head Exam Head Exam: ATRAUMATIC, NORMAL INSPECTION, NORMOCEPHALIC - Eye Exam Eye Exam: EOMI, Normal appearance, PERRL Pupil Exam: NORMAL ACCOMODATION, PERRL - ENT Exam ENT Exam: Mucous Membranes Moist - Neck Exam Neck Exam: Full ROM, Normal Inspection - Respiratory Exam Respiratory Exam: NORMAL BREATHING PATTERN - Cardiovascular Exam Cardiovascular Exam: Tachycardia Additional comments: hr 102 - Extremities Exam Extremities Exam: Full ROM, Pedal Edema. 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 Normal plantar response Reflexes ble +1 - Psychiatric Exam Psychiatric exam: Normal Affect - Skin Skin Exam: Dry, Intact, Normal Color Assessment and Plan (1) Altered mental status Assessment & Plan: Imaging reviewed: -CT Head (05/12/18): No evidence of acute intracranial hemorrhage mass effect or midline shift. 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 -CTA Head and Neck (05/12/18): pending results. -Brain MRI ordered to r/o acute stroke vs mass/lesion---will f/u with results. -Continue ASA and statin -Continue DVT ppx -Continue current management and supportive care. -Notify neuro team of any acute changes in pt's condition. Molly Mcmahan, DNP, [employer]ULT[employer] d/w Dr. Lozano Status: Acute
--- NOTE | 2018-05-13 15:06 | CT ---
Date of service: 05/13/2018 PROCEDURE: CT Angiography of the Brain and Neck. HISTORY: r/o stenosis COMPARISON: None available. TECHNIQUE: CT angiography of the head and neck was performed following intravenous contrast administration. Coronal and sagittal maximum intensity projection reformatted images were generated. Contrast Dose: Visipaque 320, 100 cc. Radiation dose: Total exam DLP = 620.96 mGy-cm. This CT exam was performed using one or more of the following dose reduction techniques: Automated exposure control, adjustment of the mA and/or kV according to patient size, and/or use of iterative reconstruction technique. FINDINGS: INTERNAL CEREBRAL ARTERIES: Note is made of partially calcified atherosclerosis of the bilateral cavernous internal carotid artery segments without significant stenosis. The skull base, petrous, and supraclinoid segments are bilaterally widely patent. ANTERIOR CEREBRAL ARTERIES: Unremarkable. A1 and A2 segments are widely patent. Smaller distal branches unremarkable, as visualized. MIDDLE CEREBRAL ARTERIES: Unremarkable. M1 and M2 segments are widely patent. Perisylvian branches grossly symmetric. POSTERIOR CIRCULATION: Basilar Artery: Unremarkable. Distal Vertebral Arteries: Right dominant vertebrobasilar circulation due to hypoplastic right vertebral artery diffusely, particularly the distal segment. Posterior Cerebral Arteries: Unremarkable. Posterior Inferior Cerebellar Arteries: Unremarkable. 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 Common Carotid arteries: The bilateral common carotid appear widely patent from their origins to their bifurcations with no significant stenosis appreciated. No evidence to suggest common carotid artery dissection. Internal Carotid arteries: No significant stenosis is appreciated throughout the cervical internal carotid artery segments bilaterally and there is no evidence of dissection either. External Carotid arteries: Appear unremarkable bilaterally. Vertebral arteries: Aplastic right vertebral artery is appreciate with widely patent left vertebral artery. The right vertebral artery appears patent nevertheless. No significant stenosis or definite pattern of dissection. ANEURYSM/ VASCULAR MALFORMATIONS: None. OTHER FINDINGS: None. IMPRESSION: No definite large vessel occlusion or significant stenosis in CT angiography of the head and neck. 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 Limited bilateral cavernous ICA calcified atherosclerosis. 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
--- NOTE | 2018-05-13 16:32 | CP.PCM.PN ---
Objective - Vital Signs/Intake and Output Vital Signs (last 24 hours): Temp Pulse Resp BP Pulse Ox 98.5 F 105 H 21 169/101 H 94 L 05/13/18 04:00 05/13/18 14:20 05/13/18 14:20 05/13/18 13:48 05/13/18 14:20 Intake and Output: 05/13/18 05/13/18 06:59 18:59 Intake Total 1800 1200 Output Total 50 Balance 1750 1200 - Medications Medications: Current Medications Aspirin (Aspirin Chewable) 81 mg PO DAILY [facility] Last Admin: 05/13/18 09:33 Dose: 81 mg Enoxaparin Sodium (Lovenox) 40 mg SC DAILY [facility] Last Admin: 05/13/18 09:23 Dose: 40 mg Famotidine (Pepcid) 20 mg PO DAILY [facility] Lactated Ringer's (Lactated Ringer's) 1,000 mls @ 150 mls/hr IV .Q6H40M [facility] Last Admin: 05/13/18 13:43 Dose: 150 mls/hr Insulin Aspart (Novolog) 0 unit SC Q4H [facility]; Protocol Last Admin: 05/13/18 13:10 Dose: 4 u Ketorolac Tromethamine (Toradol) 30 mg IVP Q6 PRN PRN Reason: Pain, moderate (4-7) Last Admin: 05/12/18 08:40 Dose: 30 mg Lisinopril (Zestril) 10 mg PO DAILY [facility] Metoclopramide HCl (Reglan) 10 mg IVP Q8 PRN PRN Reason: Nausea/Vomiting Ondansetron HCl (Zofran Inj) 4 mg IVP Q6 PRN PRN Reason: VOMITING Last Admin: 05/13/18 07:13 Dose: 4 mg Rosuvastatin Calcium (Crestor) 10 mg PO [facility] - Labs Labs: 05/13/18 06:43 05/13/18 06:43 - Constitutional Appears: Non-toxic, No Acute Distress - Head Exam Head Exam: ATRAUMATIC, NORMOCEPHALIC - Eye Exam Eye Exam: EOMI, Normal appearance - ENT Exam ENT Exam: Mucous Membranes Moist - Respiratory Exam Respiratory Exam: Clear to Ausculation Bilateral, NORMAL BREATHING PATTERN. absent: Rales, Rhonchi, Wheezes - Cardiovascular Exam Cardiovascular Exam: REGULAR RHYTHM, +S1, +S2 - GI/Abdominal Exam GI & Abdominal Exam: Soft, Normal Bowel Sounds. absent: Tenderness - Neurological Exam Neurological Exam: Alert, Awake, Oriented x3 Additional comments: Patient alert and oriented, but somewhat confused and inappropriate behavior (ie use of profanity). Patient following commands, but some difficulty with cooperation - complete muscle strength unable to be properly assessed, but appears 5/5 left upper and lower extremity and 4+/5 on R upper extremity. Able to lift both legs off the bed against gravity. Sensation intact throughout. - Skin Skin Exam: Dry, Intact Assessment and Plan - Assessment and Plan (Free Text) Assessment: 57yo F. PMHx anxiety, depression, gastritis, HTN, hypercholesterolemia, DM type 2, diabetic gastroparesis c/o nausea and vomiting and patient found to be in DKA. Patient was being managed on GMF and ICU was consulted following code star for fall and patient was transferred to ICU for further management of DKA. DKA resolved, but patient continues to have altered mental status though DKA resolved. Neuro consulted for comprehensive stroke workup, pending MRI read. Neuro -Neuro consulted, Dr. Lozano -DKA resolved, but patient remains altered -Patient alert and oriented, but somewhat confused and inappropriate behavior -Continue ASA -Patient went for MRI today - f/u read -CTA head/neck 05/12 No definite large vessel occlusion or significant stenosis in CT angiography of the head and neck. 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 Limited bilateral cavernous ICA calcified atherosclerosis. 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 CT head 05/12: No evidence of acute intracranial hemorrhage mass effect or midline shift. 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 Pulm -No acute pulmonary issues -Maintain airway, ABCs -Breathing spontaneously ORA CV -Hemodynamically stable Heme -Reactive leukocytosis Renal -No acute renal issues -Monitor Is and Os -LR@150 Endo DM/DKA -DKA resolved. AG closed. -ISS -Hypoglycemia protocol GI -NPO ID No acute issues -Blood cultures neg x24 hours PPx -DVT proph - lovenox 40 SC daily -GI proph - not indicated -Code status - full code Assessment and plan d/w Dr. Kelly Dooley, PGY-1
--- NOTE | 2018-05-13 17:21 | CP.CCUPN ---
CCU Subjective - Physician Review Events Since Last Encounter (Free Text): 05/13/18 17:20 PGY-1 Critical Care Progress Note for Dr. Mendoza Patient seen and examined at bedside. No acute events overnight. Patient somewhat confused, but is alert and oriented. Patient cooperated for MRI brain with contrast. CCU Objective - Vital Signs / Intake & Output Vital Signs (Last 4 hours): Vital Signs Pulse Resp BP Pulse Ox 05/13/18 14:20 105 H 21 94 L 05/13/18 14:10 102 H 21 95 05/13/18 14:00 104 H 25 H 93 L 05/13/18 13:50 101 H 21 94 L 05/13/18 13:48 103 H 20 169/101 H 93 L 05/13/18 13:40 104 H 19 94 L 05/13/18 13:35 100 H 21 164/101 H 93 L 05/13/18 13:30 102 H 13 91 L 05/13/18 13:20 102 H 94 L Intake and Output (Last 8hrs): Intake & Output 05/13/18 05/13/18 05/13/18 06:59 14:59 22:59 Intake Total 1200 1200 Balance 1200 1200 Weight 205 lb 11.2 oz Intake: Intake, IV Amount 1200 1200 Left Hand 1200 1200 Right Forearm 0 Other: # Voids Urine, Voided 0 # Bowel Movements 0 - Physical Exam Head: Positive for: Atraumatic, Normocephalic Pupils: Positive for: PERRL Extroacular Muscles: Positive for: EOMI Mouth: Positive for: Moist Mucous Membranes Neck: Positive for: Normal Range of Motion Respiratory/Chest: Positive for: Clear to Auscultation. Negative for: Accessory Muscle Use, Rales, Rhonchi Abdomen: Negative for: Tenderness, Distention Neurological: Positive for: CN II-XII Intact, Other (Patient alert and oriented, but somewhat confused and inappropriate behavior (ie use of profanity).) Psychiatric: Positive for: Alert, Oriented x 3 - Medications Active Medications: Active Medications Generic Name Dose Route Start Last Admin Trade Name Freq PRN Reason Stop Dose Admin Aspirin 81 mg 05/13/18 10:00 05/13/18 09:33 Aspirin Chewable PO 81 mg DAILY [facility] Administration Enoxaparin Sodium 40 mg 05/13/18 10:00 04/08/19 09:23 Lovenox SC 40 mg DAILY [facility] Administration Famotidine 20 mg 05/14/18 10:00 Pepcid PO DAILY [facility] Lactated Ringer's 1,000 mls @ 150 mls/hr 05/12/18 16:30 05/13/18 13:43 Lactated Ringer's IV 150 mls/hr .Q6H40M [facility] Administration Insulin Aspart 0 unit 05/13/18 00:00 05/13/18 13:10 Novolog SC 4 u Q4H [facility] Administration Protocol Ketorolac Tromethamine 30 mg 05/12/18 05:16 05/12/18 08:40 Toradol IVP 30 mg Q6 PRN Administration Pain, moderate (4-7) Lisinopril 10 mg 05/13/18 10:30 Zestril PO DAILY [facility] Metoclopramide HCl 10 mg 05/12/18 17:00 Reglan IVP Q8 PRN Nausea/Vomiting Ondansetron HCl 4 mg 05/12/18 05:16 05/13/18 07:13 Zofran Inj IVP 4 mg Q6 PRN Administration VOMITING Rosuvastatin Calcium 10 mg 05/13/18 22:00 Crestor PO HS [facility] - Patient Studies Lab Studies: Microbiology Studies 05/12/18 18:08 MRSA Culture (Admit) - Final Naris MRSA NOT DETECTED 05/12/18 08:40 Blood Culture - Preliminary Blood NO GROWTH AFTER 24 HOURS 05/12/18 08:40 Blood Culture - Preliminary Blood NO GROWTH AFTER 24 HOURS Lab Studies 05/13/18 05/13/18 05/13/18 Range/Units 17:13 08:08 06:43 WBC (4.8-10.8) K/uL RBC (3.80-5.20) Mil/uL Hgb (11.0-16.0) g/dL Hct (34.0-47.0) % MCV (81.0-99.0) fL MCH (27.0-31.0) pg MCHC (33.0-37.0) g/dL RDW (11.5-14.5) % Plt Count (130-400) K/uL MPV (7.2-11.7) fL Neut % (Auto) (50.0-75.0) % Lymph % (Auto) (20.0-40.0) % Larue % (Auto) (0.0-10.0) % Eos % (Auto) (0.0-4.0) % Baso % (Auto) (0.0-2.0) % Neut # (Auto) (1.8-7.0) K/uL Lymph # (Auto) (1.0-4.3) K/uL Larue # (Auto) (0.0-0.8) K/uL Eos # (Auto) (0.0-0.7) K/uL Baso # (Auto) (0.0-0.2) K/uL Sodium 138 (132-148) mmol/L Potassium 3.8 (3.6-5.2) mmol/L Chloride 105 (98-107) mmol/L Carbon Dioxide 27 (22-30) mmol/L Anion Gap 11 (10-20) BUN 17 (7-17) mg/dL Creatinine 0.8 (0.7-1.2) mg/dL Est GFR ( Amer) > 60 Est GFR (Non-Af Amer) > 60 POC Glucose (mg/dL) 263 H 238 H (65-110) mg/dL Random Glucose 233 H D (65-105) mg/dL Calcium 9.3 (8.6-10.4) mg/dl Total Bilirubin 0.6 (0.2-1.3) mg/dL AST 24 (14-36) U/L ALT 20 (9-52) U/L Alkaline Phosphatase 93 (38-126) U/L Total Protein 6.2 L (6.3-8.3) g/dL Albumin 3.7 (3.5-5.0) g/dL Globulin 2.5 (2.2-3.9) gm/dL Albumin/Globulin Ratio 1.4 (1.0-2.1) 05/13/18 05/13/18 05/12/18 Range/Units 06:43 03:52 23:54 WBC 18.4 H (4.8-10.8) K/uL RBC 5.09 (3.80-5.20) Mil/uL Hgb 14.8 D (11.0-16.0) g/dL Hct 44.3 (34.0-47.0) % MCV 87.0 (81.0-99.0) fL MCH 29.1 (27.0-31.0) pg MCHC 33.5 (33.0-37.0) g/dL RDW 13.2 (11.5-14.5) % Plt Count 214 (130-400) K/uL MPV 9.5 (7.2-11.7) fL Neut % (Auto) 82.0 H (50.0-75.0) % Lymph % (Auto) 11.6 L (20.0-40.0) % Larue % (Auto) 6.1 (0.0-10.0) % Eos % (Auto) 0.0 (0.0-4.0) % Baso % (Auto) 0.3 (0.0-2.0) % Neut # (Auto) 15.1 H (1.8-7.0) K/uL Lymph # (Auto) 2.1 (1.0-4.3) K/uL Larue # (Auto) 1.1 H (0.0-0.8) K/uL Eos # (Auto) 0.0 (0.0-0.7) K/uL Baso # (Auto) 0.1 (0.0-0.2) K/uL Sodium (132-148) mmol/L Potassium (3.6-5.2) mmol/L Chloride (98-107) mmol/L Carbon Dioxide (22-30) mmol/L Anion Gap (10-20) BUN (7-17) mg/dL Creatinine (0.7-1.2) mg/dL Est GFR ( Amer) Est GFR (Non-Af Amer) POC Glucose (mg/dL) 267 H 258 H (65-110) mg/dL Random Glucose (65-105) mg/dL Calcium (8.6-10.4) mg/dl Total Bilirubin (0.2-1.3) mg/dL AST (14-36) U/L ALT (9-52) U/L Alkaline Phosphatase (38-126) U/L Total Protein (6.3-8.3) g/dL Albumin (3.5-5.0) g/dL Globulin (2.2-3.9) gm/dL Albumin/Globulin Ratio (1.0-2.1) 05/12/18 05/12/18 Range/Units 20:02 18:20 WBC (4.8-10.8) K/uL RBC (3.80-5.20) Mil/uL Hgb (11.0-16.0) g/dL Hct (34.0-47.0) % MCV (81.0-99.0) fL MCH (27.0-31.0) pg MCHC (33.0-37.0) g/dL RDW (11.5-14.5) % Plt Count (130-400) K/uL MPV (7.2-11.7) fL Neut % (Auto) (50.0-75.0) % Lymph % (Auto) (20.0-40.0) % Larue % (Auto) (0.0-10.0) % Eos % (Auto) (0.0-4.0) % Baso % (Auto) (0.0-2.0) % Neut # (Auto) (1.8-7.0) K/uL Lymph # (Auto) (1.0-4.3) K/uL Larue # (Auto) (0.0-0.8) K/uL Eos # (Auto) (0.0-0.7) K/uL Baso # (Auto) (0.0-0.2) K/uL Sodium (132-148) mmol/L Potassium (3.6-5.2) mmol/L Chloride (98-107) mmol/L Carbon Dioxide (22-30) mmol/L Anion Gap (10-20) BUN (7-17) mg/dL Creatinine (0.7-1.2) mg/dL Est GFR ( Amer) Est GFR (Non-Af Amer) POC Glucose (mg/dL) 269 H 312 H (65-110) mg/dL Random Glucose (65-105) mg/dL Calcium (8.6-10.4) mg/dl Total Bilirubin (0.2-1.3) mg/dL AST (14-36) U/L ALT (9-52) U/L Alkaline Phosphatase (38-126) U/L Total Protein (6.3-8.3) g/dL Albumin (3.5-5.0) g/dL Globulin (2.2-3.9) gm/dL Albumin/Globulin Ratio (1.0-2.1) Laboratory Results - last 24 hr 05/12/18 05/12/18 05/12/18 18:20 20:02 23:54 WBC RBC Hgb Hct MCV MCH MCHC RDW Plt Count MPV Neut % (Auto) Lymph % (Auto) Larue % (Auto) Eos % (Auto) Baso % (Auto) Neut # (Auto) Lymph # (Auto) Larue # (Auto) Eos # (Auto) Baso # (Auto) Sodium Potassium Chloride Carbon Dioxide Anion Gap BUN Creatinine Est GFR ( Amer) Est GFR (Non-Af Amer) POC Glucose (mg/dL) 312 H 269 H 258 H Random Glucose Calcium Total Bilirubin AST ALT Alkaline Phosphatase Total Protein Albumin Globulin Albumin/Globulin Ratio 05/13/18 05/13/18 05/13/18 03:52 06:43 06:43 WBC 18.4 H RBC 5.09 Hgb 14.8 D Hct 44.3 MCV 87.0 MCH 29.1 MCHC 33.5 RDW 13.2 Plt Count 214 MPV 9.5 Neut % (Auto) 82.0 H Lymph % (Auto) 11.6 L Larue % (Auto) 6.1 Eos % (Auto) 0.0 Baso % (Auto) 0.3 Neut # (Auto) 15.1 H Lymph # (Auto) 2.1 Larue # (Auto) 1.1 H Eos # (Auto) 0.0 Baso # (Auto) 0.1 Sodium 138 Potassium 3.8 Chloride 105 Carbon Dioxide 27 Anion Gap 11 BUN 17 Creatinine 0.8 Est GFR ( Amer) > 60 Est GFR (Non-Af Amer) > 60 POC Glucose (mg/dL) 267 H Random Glucose 233 H D Calcium 9.3 Total Bilirubin 0.6 AST 24 ALT 20 Alkaline Phosphatase 93 Total Protein 6.2 L Albumin 3.7 Globulin 2.5 Albumin/Globulin Ratio 1.4 05/13/18 05/13/18 08:08 17:13 WBC RBC Hgb Hct MCV MCH MCHC RDW Plt Count MPV Neut % (Auto) Lymph % (Auto) Larue % (Auto) Eos % (Auto) Baso % (Auto) Neut # (Auto) Lymph # (Auto) Larue # (Auto) Eos # (Auto) Baso # (Auto) Sodium Potassium Chloride Carbon Dioxide Anion Gap BUN Creatinine Est GFR ( Amer) Est GFR (Non-Af Amer) POC Glucose (mg/dL) 238 H 263 H Random Glucose Calcium Total Bilirubin AST ALT Alkaline Phosphatase Total Protein Albumin Globulin Albumin/Globulin Ratio Radiology Impressions: Radiology Impressions Head/Neck CTA 05/12/18 20:00 IMPRESSION: No definite large vessel occlusion or significant stenosis in CT angiography of the head and neck. 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 Limited bilateral cavernous ICA calcified atherosclerosis. 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 Fingerstick Blood Sugar Results: 214 Critical Care Progress Note - Nutrition Nutrition: Nutrition Category Date Time Status NPO Diet [DIET] Diets 05/12/18 Breakfast Active Assessment/Plan - Assessment and Plan (Free Text) Assessment: 57yo F. PMHx anxiety, depression, gastritis, HTN, hypercholesterolemia, DM type 2, diabetic gastroparesis c/o nausea and vomiting and patient found to be in DKA. Patient was being managed on GMF and ICU was consulted following code star for fall and patient was transferred to ICU for further management of DKA. DKA resolved, but patient continues to have altered mental status though DKA resolved. Neuro consulted for comprehensive stroke workup, pending MRI read. Neuro -Neuro consulted, Dr. Lozano -DKA resolved, but patient remains altered -Patient alert and oriented, but somewhat confused and inappropriate behavior -Continue ASA -Patient went for MRI today - f/u read -CTA head/neck 05/12 No definite large vessel occlusion or significant stenosis in CT angiography of the head and neck. 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 Limited bilateral cavernous ICA calcified atherosclerosis. 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 CT head 05/12: No evidence of acute intracranial hemorrhage mass effect or midline shift. 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 Pulm -No acute pulmonary issues -Maintain airway, ABCs -Breathing spontaneously ORA CV -Hemodynamically stable Heme -Reactive leukocytosis Renal -No acute renal issues -Monitor Is and Os -LR@150 Endo DM/DKA -DKA resolved. AG closed. -ISS -Hypoglycemia protocol GI -NPO ID No acute issues -Blood cultures neg x24 hours PPx -DVT proph - lovenox 40 SC daily -GI proph - not indicated -Code status - full code Assessment and plan d/w Dr. Kelly Dooley, PGY-1
--- NOTE | 2018-05-13 18:43 | MRI ---
Date of service: 05/13/2018 PROCEDURE: MRI BRAIN WITH AND WITHOUT CONTRAST HISTORY: ams, fall; r/o mass ? COMPARISON: Noncontrast head CT 05/12/2017. TECHNIQUE: Multiplanar, multisequence MR images of the brain were obtained with and without intravenous contrast enhancement. FINDINGS: HEMORRHAGE: None DWI: No evidence of an acute or early subacute infarction. BRAIN PARENCHYMA: Chronic infarct left frontal lobe. Trace chronic microangiopathy identified, age-appropriate. Normal sulcation and cistern volume. No mass effect or other suspicious parenchymal finding. Posterior fossa contents are unremarkable including the brainstem. ENHANCEMENT: No abnormal intracranial enhancement. VENTRICLES: Unremarkable. No hydrocephalus. CRANIUM: Unremarkable. ORBITS: Grossly unremarkable. PARANASAL SINUSES/MASTOIDS: Clear VASCULAR SYSTEM: Skull base flow voids intact. OTHER FINDINGS: None . IMPRESSION: Chronic infarct left frontal lobe. Trace chronic microangiopathy. No abnormal intracranial enhancement.
--- NOTE | 2018-05-13 19:24 | CON ---
DATE: 05/13/2018 Neurology consult called by Dr. Sibley. REFERRING DOCTOR: Scout Farley DO HISTORY OF PRESENT ILLNESS: Ms. Nair is a 57-year-old woman right-handed who came to the emergency room on 05/12/2018 with generalized body pain and aches, vomiting, admitted to floor. She was evaluated for generalized back pain and abdominal pain. She two weeks prior. The patient has past medical history of diabetes, was found to be DKA with vomitus. She also takes daily Percocet. At the time of admission, she had a low-grade fever, blood pressure 142/70, pulse of 105. When I saw her yesterday because Dr. Farley noticed that the patient had a new stroke on CAT scan that was done on Sunday morning. The patient was encephalopathic. She was not able to name or repeat correctly, time or the correct date. She could not comment exactly where she was and was answering questions without aphasia though with some mild dysarthria and some difficulty. Primary reason for consult was the new stroke on the CAT scan and the fact that she fell the day before and [employer] was called. REVIEW OF SYSTEMS: As above. PAST MEDICAL HISTORY: As stated. PAST SURGICAL HISTORY: No surgical history. FAMILY HISTORY: No known family history. SOCIAL HISTORY: History of alcohol abuse not known. ALLERGIES: NO KNOWN DRUG ALLERGIES. PHYSICAL EXAMINATION: GENERAL: The patient was alert, awake, oriented to time and person only. NEUROLOGIC: She could name only one object and repeat as well with difficulty. There is no fascial droop. Extraocular movements are intact. a mild right-sided drift. Gait was not tested. Sensory was not accurate. She also appeared to have plegia of her right leg, but she was not moving it following commands. LABORATORY DATA: Lab as follows, white count 18.4, hemoglobin 14.8, hematocrit 34.3, . Rest is all normal except for glucose which is 338, came down 312 and total protein is 6.2. Toxicology was positive for opioids. Urine was positive for protein, glucose, ketones and blood. CAT scan of the head shows a wedge-shaped area of encephalomalacia in the left MCA position 1. CT of the head and neck show the following, was not read as of yet, but it appears to be normal in nature. IMPRESSION: This is a 57-year-old woman who may have had a stroke that is subacute fall. We will need MRI of the brain with and without contrast. If positive for stroke, we will proceed with stroke workup. If not, we will follow workup for intracranial neoplasm. Jake Lozano MD
[2018-05-14] MEDS: (Novolog) Insulin Aspart, Recombinant 100 u/ml 10 ml vial SC SCH ×6 (00:24→20:34)
[2018-05-14] MEDS: Lactated Ringer's 1,000 ML IV SCH (06:00)
[2018-05-14 06:36] LABS: BASO % 0.2 % (0.0-2.0); HEMOGLOBIN 13.7 g/dL (11.0-16.0); LYMPH # 1.9 K/uL (1.0-4.3); LYMPH % 12.8 % (20.0-40.0); MEAN CELL VOLUME 87.9 fL (81.0-99.0); MEAN CORPUSCULAR HEMOGLOBIN 29.4 pg (27.0-31.0); MEAN CORPUSCULAR HGB CONC 33.5 g/dL (33.0-37.0); MEAN PLATELET VOLUME 9.9 fL (7.2-11.7); MONO # 1.2 K/uL (0.0-0.8); MONO % 8.3 % (0.0-10.0); NEUT # 11.8 K/uL (1.8-7.0); NEUT % 78.7 % (50.0-75.0); RBC 4.66 Mil/uL (3.80-5.20); RED CELL DISTRIBUTION WIDTH 13.4 % (11.5-14.5)
[2018-05-14 07:06] LABS: ALB/GLOB RATIO 1.6 (1.0-2.1); ALBUMIN 3.6 g/dL (3.5-5.0); ALT/SGPT 14 U/L (9-52); AST/SGOT 19 U/L (14-36); BLOOD UREA NITROGEN 16 mg/dL (7-17); CALCIUM 8.7 mg/dl (8.6-10.4); GFR NON-AFRICAN AMERICAN > 60
[2018-05-14] MEDS ORDERED: Home Med 1 UNIT (Acetaminophen/Oxycodone Hydr [Percocet 10/325 Mg Tab] 1 TAB) PO PRN (07:52)
--- NOTE | 2018-05-14 09:59 | CP.PCM.PN ---
<Dana Roach - Last Filed: 05/14/18 14:32> Subjective - Date & Time of Evaluation Date of Evaluation: 05/14/18 Time of Evaluation: 09:56 - Subjective Subjective: Dana Roach DO, PGY-2: Neurology Progress Note for Dr. Lozano Patient was seen and examined at bedside. She denies having any headache, nausea, vomiting, or diarrhea. She reports having an appetite. No adverse events noted overnight. She is able to answer questions appropriately and has no focal neurologic deficits. Objective - Vital Signs/Intake and Output Vital Signs (last 24 hours): Temp Pulse Resp BP Pulse Ox 98.2 F 99 H 25 H 161/95 H 93 L 05/14/18 08:00 05/14/18 08:40 05/14/18 08:40 05/14/18 07:54 05/14/18 08:40 Intake and Output: 05/14/18 05/14/18 06:59 18:59 Intake Total 1800 300 Output Total 200 Balance 1600 300 - Medications Medications: Current Medications Aspirin (Aspirin Chewable) 81 mg PO DAILY [facility] Last Admin: 05/13/18 09:33 Dose: 81 mg Enoxaparin Sodium (Lovenox) 40 mg SC DAILY [facility] Last Admin: 05/13/18 09:23 Dose: 40 mg Famotidine (Pepcid) 20 mg PO DAILY [facility] Insulin Aspart (Novolog) 0 unit SC Q4H [facility]; Protocol Last Admin: 05/14/18 04:14 Dose: 4 u Lisinopril (Zestril) 10 mg PO DAILY [facility] Metoclopramide HCl (Reglan) 10 mg IVP Q8 PRN PRN Reason: Nausea/Vomiting Ondansetron HCl (Zofran Inj) 4 mg IVP Q6 PRN PRN Reason: VOMITING Last Admin: 05/13/18 07:13 Dose: 4 mg Rosuvastatin Calcium (Crestor) 10 mg PO HS [facility] Last Admin: 05/13/18 21:25 Dose: 10 mg - Labs Labs: 05/14/18 06:20 05/14/18 06:20 - Constitutional Appears: Unkempt, Chronically Ill - Head Exam Head Exam: ATRAUMATIC, NORMOCEPHALIC - Eye Exam Eye Exam: EOMI, Normal appearance - ENT Exam ENT Exam: Mucous Membranes Moist - Neck Exam Neck Exam: Normal Inspection - Respiratory Exam Respiratory Exam: NORMAL BREATHING PATTERN. absent: Accessory Muscle Use - Cardiovascular Exam Cardiovascular Exam: RRR - GI/Abdominal Exam GI & Abdominal Exam: Soft. absent: Tenderness, Rebound - Extremities Exam Extremities Exam: Normal Inspection. absent: Calf Tenderness - Neurological Exam Neurological Exam: Alert, Awake, Oriented x3 Neuro motor strength exam: Left Upper Extremity: 5, Right Upper Extremity: 5, Left Lower Extremity: 5, Right Lower Extremity: 5 - Psychiatric Exam Psychiatric exam: Normal Affect, Normal Mood - Skin Skin Exam: Dry, Intact, Normal Color, Warm Assessment and Plan - Assessment and Plan (Free Text) Assessment: 57 year old female with a past medical history of DM II, lumbago, and hypertensi on who presented to [facility] for intractable nausea, vomiting, and generalized body aches. The patient had a fall while admitted on the floors and CT head was performed that showed an old left frontal stroke that was confirmed by MRI. We reviewed the the MRI and concur that this is a old stroke in the left frontal lobe. The patient has no demonstrable neurologic deficits from this old stroke and her altered mental status is likely secondary to toxic metabolic encephalopathy- DKA, that has since improved from the time of admission to the ICU. We recommend obtaining an echocardiogram, carotid doppler's, and starting the patient on aspirin and a statin in light of her old stroke. 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 Lozano <Jake Lozano - Last Filed: 05/18/18 18:55> Objective - Vital Signs/Intake and Output Vital Signs (last 24 hours): Temp Pulse Resp BP Pulse Ox 98.1 F 86 20 146/85 96 05/17/18 15:00 05/17/18 15:00 05/17/18 15:00 05/17/18 15:00 05/17/18 15:00 - Labs Labs: 05/17/18 07:10 05/17/18 07:10 Assessment and Plan - Assessment and Plan (Free Text) Assessment: All medical record entries made by the Resident were at my direction and personally dictated by me. I have reviewed the chart and agree that the record accurately reflects my personal performance of the history, physical exam, medical decision making, and the department course for this patient. I have also personally directed, reviewed, and agree with the discharge instructions and disposition. Miss Bronson is a 57 yr old woman who appears to have a recrudescence of old stroke We will monitor her and obtain ECHO. > ector Neurology
[2018-05-14] MEDS: Enoxaparin 40 mg Syringe SC SCH (10:29)
--- NOTE | 2018-05-14 11:16 | CP.PCM.PN ---
Subjective - Date & Time of Evaluation Date of Evaluation: 05/14/18 Time of Evaluation: 11:15 - Subjective Subjective: MORE ALERT VS STABLE NO FOCAL DEFICIT SUGARS BETTER MRI BRAIN OLD INFARCT CONT IV FLUIDS AND INSULIN Objective - Vital Signs/Intake and Output Vital Signs (last 24 hours): Temp Pulse Resp BP Pulse Ox 98.2 F 101 H 30 H 161/101 H 89 L 05/14/18 08:00 05/14/18 10:00 05/14/18 10:00 05/14/18 09:55 05/14/18 10:00 Intake and Output: 05/13/18 05/14/18 23:59 11:59 Intake Total 1800 1350 Output Total 200 Balance 1600 1350 - Medications Medications: Current Medications Aspirin (Aspirin Chewable) 81 mg PO DAILY [facility] Last Admin: 05/14/18 10:28 Dose: 81 mg Enoxaparin Sodium (Lovenox) 40 mg SC DAILY [facility] Last Admin: 05/14/18 10:29 Dose: 40 mg Famotidine (Pepcid) 20 mg PO DAILY [facility] Last Admin: 05/14/18 10:28 Dose: 20 mg Insulin Aspart (Novolog) 0 unit SC Q4H [facility]; Protocol Last Admin: 05/14/18 08:29 Dose: 4 u Lisinopril (Zestril) 10 mg PO DAILY [facility] Last Admin: 05/14/18 10:28 Dose: 10 mg Metoclopramide HCl (Reglan) 10 mg IVP Q8 PRN PRN Reason: Nausea/Vomiting Ondansetron HCl (Zofran Inj) 4 mg IVP Q6 PRN PRN Reason: VOMITING Last Admin: 05/13/18 07:13 Dose: 4 mg Rosuvastatin Calcium (Crestor) 10 mg PO [facility] Last Admin: 05/13/18 21:25 Dose: 10 mg - Labs Labs: 05/14/18 06:20 05/14/18 06:20 Assessment and Plan (1) Diabetic gastroparesis Status: Acute (2) HTN (hypertension) Status: Acute (3) Neuropathic pain Status: Acute (4) Sepsis Status: Acute
--- NOTE | 2018-05-14 12:23 | CP.CCUPN ---
<López Dooley - Last Filed: 05/14/18 12:27> CCU Subjective - Physician Review Subjective (Free Text): 05/14/18 12:27 PGY-1 Critical Care Progress Note for Dr. Sinclair Patient seen and examined at bedside. Clinically no change from yesterday. Patient follows commands and answers questions. Denies chest pain, headache, n/v/d/c, dizziness. Patient medically stable for downgrade to med/surg. CCU Objective - Vital Signs / Intake & Output Vital Signs (Last 4 hours): Vital Signs Pulse Resp BP Pulse Ox 05/14/18 10:00 101 H 30 H 89 L 05/14/18 09:55 103 H 30 H 161/101 H 89 L 05/14/18 09:50 103 H 26 H 89 L 05/14/18 09:40 100 H 25 H 90 L 05/14/18 09:30 101 H 21 89 L 05/14/18 09:20 102 H 23 90 L 05/14/18 09:10 99 H 22 90 L 05/14/18 09:00 96 H 19 91 L 05/14/18 08:54 99 H 20 165/103 H 89 L 05/14/18 08:50 102 H 20 91 L 05/14/18 08:40 99 H 25 H 93 L 05/14/18 08:30 99 H 19 93 L Intake and Output (Last 8hrs): Intake & Output 05/13/18 05/14/18 05/14/18 22:59 06:59 14:59 Intake Total 1200 1200 300 Output Total 200 Balance 1000 1200 300 Weight 205 lb Intake: Intake, IV Amount 1200 1200 300 Left Hand 750 Right Forearm 0 left forearm 450 1200 300 Output: Urine 200 Urine, Voided 200 Other: # Voids Urine, Voided 2 1 1 # Bowel Movements 0 - Physical Exam Head: Positive for: Atraumatic, Normocephalic Pupils: Positive for: PERRL Extroacular Muscles: Positive for: EOMI Mouth: Positive for: Moist Mucous Membranes Neck: Positive for: Normal Range of Motion Respiratory/Chest: Positive for: Clear to Auscultation. Negative for: Accessory Muscle Use, Rales, Rhonchi Abdomen: Negative for: Tenderness, Distention Neurological: Positive for: CN II-XII Intact, Other (Patient alert and oriented, but somewhat confused and inappropriate behavior (ie use of profanity).) Psychiatric: Positive for: Alert, Oriented x 3 - Medications Active Medications: Active Medications Generic Name Dose Route Start Last Admin Trade Name Freq PRN Reason Stop Dose Admin Aspirin 81 mg 05/13/18 10:00 05/14/18 10:28 Aspirin Chewable PO 81 mg DAILY [facility] Administration Enoxaparin Sodium 40 mg 05/13/18 10:00 05/14/18 10:29 Lovenox SC 40 mg DAILY [facility] Administration Famotidine 20 mg 05/14/18 10:00 05/14/18 10:28 Pepcid PO 20 mg DAILY [facility] Administration Insulin Aspart 0 unit 05/13/18 00:00 05/14/18 08:29 Novolog SC 4 u Q4H [facility] Administration Protocol Lisinopril 10 mg 05/13/18 18:00 05/14/18 10:28 Zestril PO 10 mg DAILY [facility] Administration Metoclopramide HCl 10 mg 05/12/18 17:00 Reglan IVP Q8 PRN Nausea/Vomiting Ondansetron HCl 4 mg 05/12/18 05:16 05/13/18 07:13 Zofran Inj IVP 4 mg Q6 PRN Administration VOMITING Rosuvastatin Calcium 10 mg 05/13/18 22:00 05/13/18 21:25 Crestor PO 10 mg HS [facility] Administration - Patient Studies Lab Studies: Microbiology Studies 05/12/18 08:40 Blood Culture - Preliminary Blood NO GROWTH AFTER 48 HOURS 05/12/18 08:40 Blood Culture - Preliminary Blood NO GROWTH AFTER 48 HOURS 05/12/18 05:17 Urine Culture - Final Urine,Clean Catch <10,000 CFU/ML. MULTIPLE SPECIES. PROBABLE CONTAMINATION. 05/12/18 18:08 MRSA Culture (Admit) - Final Naris MRSA NOT DETECTED Lab Studies 05/14/18 05/14/18 05/13/18 Range/Units 06:20 06:20 23:53 WBC 15.0 H (4.8-10.8) K/uL RBC 4.66 (3.80-5.20) Mil/uL Hgb 13.7 (11.0-16.0) g/dL Hct 41.0 (34.0-47.0) % MCV 87.9 (81.0-99.0) fL MCH 29.4 (27.0-31.0) pg MCHC 33.5 (33.0-37.0) g/dL RDW 13.4 (11.5-14.5) % Plt Count 182 (130-400) K/uL MPV 9.9 (7.2-11.7) fL Neut % (Auto) 78.7 H (50.0-75.0) % Lymph % (Auto) 12.8 L (20.0-40.0) % Aiken % (Auto) 8.3 (0.0-10.0) % Eos % (Auto) 0.0 (0.0-4.0) % Baso % (Auto) 0.2 (0.0-2.0) % Neut # (Auto) 11.8 H (1.8-7.0) K/uL Lymph # (Auto) 1.9 (1.0-4.3) K/uL Aiken # (Auto) 1.2 H (0.0-0.8) K/uL Eos # (Auto) 0.0 (0.0-0.7) K/uL Baso # (Auto) 0.0 (0.0-0.2) K/uL Sodium 137 (132-148) mmol/L Potassium 3.6 (3.6-5.2) mmol/L Chloride 103 (98-107) mmol/L Carbon Dioxide 28 (22-30) mmol/L Anion Gap 11 (10-20) BUN 16 (7-17) mg/dL Creatinine 0.7 (0.7-1.2) mg/dL Est GFR ( Amer) > 60 Est GFR (Non-Af Amer) > 60 POC Glucose (mg/dL) 282 H (65-110) mg/dL Random Glucose 213 H (65-105) mg/dL Calcium 8.7 (8.6-10.4) mg/dl Total Bilirubin 0.9 (0.2-1.3) mg/dL AST 19 (14-36) U/L ALT 14 (9-52) U/L Alkaline Phosphatase 77 (38-126) U/L Total Protein 5.8 L (6.3-8.3) g/dL Albumin 3.6 (3.5-5.0) g/dL Globulin 2.3 (2.2-3.9) gm/dL Albumin/Globulin Ratio 1.6 (1.0-2.1) 05/13/18 05/13/18 Range/Units 20:16 17:13 WBC (4.8-10.8) K/uL RBC (3.80-5.20) Mil/uL Hgb (11.0-16.0) g/dL Hct (34.0-47.0) % MCV (81.0-99.0) fL MCH (27.0-31.0) pg MCHC (33.0-37.0) g/dL RDW (11.5-14.5) % Plt Count (130-400) K/uL MPV (7.2-11.7) fL Neut % (Auto) (50.0-75.0) % Lymph % (Auto) (20.0-40.0) % Aiken % (Auto) (0.0-10.0) % Eos % (Auto) (0.0-4.0) % Baso % (Auto) (0.0-2.0) % Neut # (Auto) (1.8-7.0) K/uL Lymph # (Auto) (1.0-4.3) K/uL Aiken # (Auto) (0.0-0.8) K/uL Eos # (Auto) (0.0-0.7) K/uL Baso # (Auto) (0.0-0.2) K/uL Sodium (132-148) mmol/L Potassium (3.6-5.2) mmol/L Chloride (98-107) mmol/L Carbon Dioxide (22-30) mmol/L Anion Gap (10-20) BUN (7-17) mg/dL Creatinine (0.7-1.2) mg/dL Est GFR ( Amer) Est GFR (Non-Af Amer) POC Glucose (mg/dL) 297 H 263 H (65-110) mg/dL Random Glucose (65-105) mg/dL Calcium (8.6-10.4) mg/dl Total Bilirubin (0.2-1.3) mg/dL AST (14-36) U/L ALT (9-52) U/L Alkaline Phosphatase (38-126) U/L Total Protein (6.3-8.3) g/dL Albumin (3.5-5.0) g/dL Globulin (2.2-3.9) gm/dL Albumin/Globulin Ratio (1.0-2.1) Laboratory Results - last 24 hr 05/13/18 05/13/18 05/13/18 17:13 20:16 23:53 WBC RBC Hgb Hct MCV MCH MCHC RDW Plt Count MPV Neut % (Auto) Lymph % (Auto) Aiken % (Auto) Eos % (Auto) Baso % (Auto) Neut # (Auto) Lymph # (Auto) Aiken # (Auto) Eos # (Auto) Baso # (Auto) Sodium Potassium Chloride Carbon Dioxide Anion Gap BUN Creatinine Est GFR ( Amer) Est GFR (Non-Af Amer) POC Glucose (mg/dL) 263 H 297 H 282 H Random Glucose Calcium Total Bilirubin AST ALT Alkaline Phosphatase Total Protein Albumin Globulin Albumin/Globulin Ratio 05/14/18 05/14/18 06:20 06:20 WBC 15.0 H RBC 4.66 Hgb 13.7 Hct 41.0 MCV 87.9 MCH 29.4 MCHC 33.5 RDW 13.4 Plt Count 182 MPV 9.9 Neut % (Auto) 78.7 H Lymph % (Auto) 12.8 L Aiken % (Auto) 8.3 Eos % (Auto) 0.0 Baso % (Auto) 0.2 Neut # (Auto) 11.8 H Lymph # (Auto) 1.9 Aiken # (Auto) 1.2 H Eos # (Auto) 0.0 Baso # (Auto) 0.0 Sodium 137 Potassium 3.6 Chloride 103 Carbon Dioxide 28 Anion Gap 11 BUN 16 Creatinine 0.7 Est GFR ( Amer) > 60 Est GFR (Non-Af Amer) > 60 POC Glucose (mg/dL) Random Glucose 213 H Calcium 8.7 Total Bilirubin 0.9 AST 19 ALT 14 Alkaline Phosphatase 77 Total Protein 5.8 L Albumin 3.6 Globulin 2.3 Albumin/Globulin Ratio 1.6 Radiology Impressions: Radiology Impressions Head/Neck CTA 05/12/18 20:00 IMPRESSION: No definite large vessel occlusion or significant stenosis in CT angiography of the head and neck. 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 Limited bilateral cavernous ICA calcified atherosclerosis. 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 Brain MRI 05/13/18 13:22 IMPRESSION: Chronic infarct left frontal lobe. Trace chronic microangiopathy. No abnormal intracranial enhancement. Fingerstick Blood Sugar Results: 225 Review of Systems - Review of Systems All systems: reviewed and no additional remarkable complaints except Critical Care Progress Note - Nutrition Nutrition: Nutrition Category Date Time Status Heart Healthy Diet [DIET] Diets 05/14/18 Lunch Active Assessment/Plan - Assessment and Plan (Free Text) Assessment: DKA. Patient was being managed on GMF and ICU was consulted following code star for fall and patient was transferred to ICU for further management of DKA. DKA resolved, but patient continues to have altered mental status though DKA resolved. Neuro consulted for comprehensive stroke workup, MRI shows chronic frontal lobe infarct. Patient for downgrade to GMF. Neuro -Neuro consulted, Dr. Lozano -DKA resolved -Continue ASA -MRI brain - chronic frontal lobe infarct -CTA head/neck 05/12 No definite large vessel occlusion or significant stenosis in CT angiography of the head and neck. 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 Limited bilateral cavernous ICA calcified atherosclerosis. 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 -CT head 05/12: No evidence of acute intracranial hemorrhage mass effect or mi dline shift. 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 -Patient downgraded to med/surg Pulm -No acute pulmonary issues -Maintain airway, ABCs -Breathing spontaneously ORA CV -Hemodynamically stable Heme -Reactive leukocytosis Renal -No acute renal issues -Monitor Is and Os -Off fluids, regular diet initiated Endo DM/DKA -DKA resolved. AG closed. -ISS -Hypoglycemia protocol GI -NPO ID No acute issues -Blood cultures neg x24 hours PPx -DVT proph - lovenox 40 SC daily -GI proph - not indicated -Code status - full code Assessment and plan d/w Dr. Yahir Dooley, PGY-1 <Rickey Sinclair S - Last Filed: 05/14/18 18:13> CCU Subjective - Physician Review Critical Care Time Spent (in minutes): 30 CCU Objective - Vital Signs / Intake & Output Vital Signs (Last 4 hours): Vital Signs Pulse Resp Pulse Ox 05/14/18 16:10 102 H 16 90 L 05/14/18 16:00 105 H 27 H 91 L 05/14/18 15:50 100 H 29 H 89 L 05/14/18 15:40 103 H 12 90 L 05/14/18 15:30 101 H 33 H 88 L 05/14/18 15:20 106 H 22 89 L 05/14/18 15:10 102 H 22 90 L 05/14/18 15:00 102 H 24 89 L 05/14/18 14:50 99 H 23 93 L 05/14/18 14:40 99 H 18 90 L 05/14/18 14:30 104 H 20 91 L 05/14/18 14:20 103 H 26 H 90 L Intake and Output (Last 8hrs): Intake & Output 05/14/18 05/14/18 05/14/18 06:59 14:59 22:59 Intake Total 1200 1000 350 Balance 1200 1000 350 Weight 205 lb Intake: Intake, IV Amount 1200 750 0 Left 450 0 left forearm 1200 300 Oral 250 350 Other: # Voids Urine, Voided 1 2 1 - Medications Active Medications: Active Medications Generic Name Dose Route Start Last Admin Trade Name Freq PRN Reason Stop Dose Admin Aspirin 81 mg 05/13/18 10:00 05/14/18 10:28 Aspirin Chewable PO 81 mg DAILY [facility] Administration Enoxaparin Sodium 40 mg 05/13/18 10:00 05/14/18 10:29 Lovenox SC 40 mg DAILY [facility] Administration Famotidine 20 mg 05/14/18 10:00 05/14/18 10:28 Pepcid PO 20 mg DAILY [facility] Administration Insulin Aspart 0 unit 05/13/18 00:00 05/14/18 08:29 Novolog SC 4 u Q4H [facility] Administration Protocol Levetiracetam 500 mg 05/14/18 22:00 Keppra PO Q12 [facility] Lisinopril 10 mg 05/13/18 18:00 05/14/18 10:28 Zestril PO 10 mg DAILY [facility] Administration Metoclopramide HCl 10 mg 05/12/18 17:00 Reglan IVP Q8 PRN Nausea/Vomiting Ondansetron HCl 4 mg 05/12/18 05:16 05/13/18 07:13 Zofran Inj IVP 4 mg Q6 PRN Administration VOMITING Rosuvastatin Calcium 10 mg 05/13/18 22:00 05/13/18 21:25 Crestor PO 10 mg HS [facility] Administration - Patient Studies Lab Studies: Microbiology Studies 05/12/18 08:40 Blood Culture - Preliminary Blood NO GROWTH AFTER 48 HOURS 05/12/18 08:40 Blood Culture - Preliminary Blood NO GROWTH AFTER 48 HOURS 05/12/18 05:17 Urine Culture - Final Urine,Clean Catch <10,000 CFU/ML. MULTIPLE SPECIES. PROBABLE CONTAMINATION. 05/12/18 18:08 MRSA Culture (Admit) - Final Naris MRSA NOT DETECTED Lab Studies 05/14/18 05/14/18 05/13/18 Range/Units 06:20 06:20 23:53 WBC 15.0 H (4.8-10.8) K/uL RBC 4.66 (3.80-5.20) Mil/uL Hgb 13.7 (11.0-16.0) g/dL Hct 41.0 (34.0-47.0) % MCV 87.9 (81.0-99.0) fL MCH 29.4 (27.0-31.0) pg MCHC 33.5 (33.0-37.0) g/dL RDW 13.4 (11.5-14.5) % Plt Count 182 (130-400) K/uL MPV 9.9 (7.2-11.7) fL Neut % (Auto) 78.7 H (50.0-75.0) % Lymph % (Auto) 12.8 L (20.0-40.0) % Aiken % (Auto) 8.3 (0.0-10.0) % Eos % (Auto) 0.0 (0.0-4.0) % Baso % (Auto) 0.2 (0.0-2.0) % Neut # (Auto) 11.8 H (1.8-7.0) K/uL Lymph # (Auto) 1.9 (1.0-4.3) K/uL Aiken # (Auto) 1.2 H (0.0-0.8) K/uL Eos # (Auto) 0.0 (0.0-0.7) K/uL Baso # (Auto) 0.0 (0.0-0.2) K/uL Sodium 137 (132-148) mmol/L Potassium 3.6 (3.6-5.2) mmol/L Chloride 103 (98-107) mmol/L Carbon Dioxide 28 (22-30) mmol/L Anion Gap 11 (10-20) BUN 16 (7-17) mg/dL Creatinine 0.7 (0.7-1.2) mg/dL Est GFR ( Amer) > 60 Est GFR (Non-Af Amer) > 60 POC Glucose (mg/dL) 282 H (65-110) mg/dL Random Glucose 213 H (65-105) mg/dL Calcium 8.7 (8.6-10.4) mg/dl Total Bilirubin 0.9 (0.2-1.3) mg/dL AST 19 (14-36) U/L ALT 14 (9-52) U/L Alkaline Phosphatase 77 (38-126) U/L Total Protein 5.8 L (6.3-8.3) g/dL Albumin 3.6 (3.5-5.0) g/dL Globulin 2.3 (2.2-3.9) gm/dL Albumin/Globulin Ratio 1.6 (1.0-2.1) 05/13/18 Range/Units 20:16 WBC (4.8-10.8) K/uL RBC (3.80-5.20) Mil/uL Hgb (11.0-16.0) g/dL Hct (34.0-47.0) % MCV (81.0-99.0) fL MCH (27.0-31.0) pg MCHC (33.0-37.0) g/dL RDW (11.5-14.5) % Plt Count (130-400) K/uL MPV (7.2-11.7) fL Neut % (Auto) (50.0-75.0) % Lymph % (Auto) (20.0-40.0) % Aiken % (Auto) (0.0-10.0) % Eos % (Auto) (0.0-4.0) % Baso % (Auto) (0.0-2.0) % Neut # (Auto) (1.8-7.0) K/uL Lymph # (Auto) (1.0-4.3) K/uL Aiken # (Auto) (0.0-0.8) K/uL Eos # (Auto) (0.0-0.7) K/uL Baso # (Auto) (0.0-0.2) K/uL Sodium (132-148) mmol/L Potassium (3.6-5.2) mmol/L Chloride (98-107) mmol/L Carbon Dioxide (22-30) mmol/L Anion Gap (10-20) BUN (7-17) mg/dL Creatinine (0.7-1.2) mg/dL Est GFR ( Amer) Est GFR (Non-Af Amer) POC Glucose (mg/dL) 297 H (65-110) mg/dL Random Glucose (65-105) mg/dL Calcium (8.6-10.4) mg/dl Total Bilirubin (0.2-1.3) mg/dL AST (14-36) U/L ALT (9-52) U/L Alkaline Phosphatase (38-126) U/L Total Protein (6.3-8.3) g/dL Albumin (3.5-5.0) g/dL Globulin (2.2-3.9) gm/dL Albumin/Globulin Ratio (1.0-2.1) Laboratory Results - last 24 hr 05/13/18 05/13/18 05/14/18 20:16 23:53 06:20 WBC 15.0 H RBC 4.66 Hgb 13.7 Hct 41.0 MCV 87.9 MCH 29.4 MCHC 33.5 RDW 13.4 Plt Count 182 MPV 9.9 Neut % (Auto) 78.7 H Lymph % (Auto) 12.8 L Aiken % (Auto) 8.3 Eos % (Auto) 0.0 Baso % (Auto) 0.2 Neut # (Auto) 11.8 H Lymph # (Auto) 1.9 Aiken # (Auto) 1.2 H Eos # (Auto) 0.0 Baso # (Auto) 0.0 Sodium Potassium Chloride Carbon Dioxide Anion Gap BUN Creatinine Est GFR ( Amer) Est GFR (Non-Af Amer) POC Glucose (mg/dL) 297 H 282 H Random Glucose Calcium Total Bilirubin AST ALT Alkaline Phosphatase Total Protein Albumin Globulin Albumin/Globulin Ratio 05/14/18 06:20 WBC RBC Hgb Hct MCV MCH MCHC RDW Plt Count MPV Neut % (Auto) Lymph % (Auto) Aiken % (Auto) Eos % (Auto) Baso % (Auto) Neut # (Auto) Lymph # (Auto) Aiken # (Auto) Eos # (Auto) Baso # (Auto) Sodium 137 Potassium 3.6 Chloride 103 Carbon Dioxide 28 Anion Gap 11 BUN 16 Creatinine 0.7 Est GFR ( Amer) > 60 Est GFR (Non-Af Amer) > 60 POC Glucose (mg/dL) Random Glucose 213 H Calcium 8.7 Total Bilirubin 0.9 AST 19 ALT 14 Alkaline Phosphatase 77 Total Protein 5.8 L Albumin 3.6 Globulin 2.3 Albumin/Globulin Ratio 1.6 Radiology Impressions: Radiology Impressions Brain MRI 05/13/18 13:22 IMPRESSION: Chronic infarct left frontal lobe. Trace chronic microangiopathy. No abnormal intracranial enhancement. Critical Care Progress Note - Nutrition Nutrition: Nutrition Category Date Time Status Heart Healthy Diet [DIET] Diets 05/14/18 Lunch Active Attending/Attestation - Attestation I have personally seen and examined this patient.: Yes I have fully participated in the care of the patient.: Yes I have reviewed all pertinent clinical information: Yes Notes (Text): 05/14/18 18:13 Patient seen and examined in the intensive care unit. Stable to transfer to floor DKA resolved Continue present workup
[2018-05-14] MEDS: (Lantus) Insulin Glargine, Recombinant SC SCH (22:23)
[2018-05-15] MEDS: (Novolog) Insulin Aspart, Recombinant 100 u/ml 10 ml vial SC SCH ×6 (00:07→21:46)
[2018-05-15 06:08] LABS: BASO % 0.4 % (0.0-2.0); EOS % 0.2 % (0.0-4.0); HEMOGLOBIN 13.9 g/dL (11.0-16.0); LYMPH # 2.2 K/uL (1.0-4.3); LYMPH % 22.5 % (20.0-40.0); MEAN CELL VOLUME 87.3 fL (81.0-99.0); MEAN CORPUSCULAR HEMOGLOBIN 29.8 pg (27.0-31.0); MEAN CORPUSCULAR HGB CONC 34.2 g/dL (33.0-37.0); MONO # 0.8 K/uL (0.0-0.8); NEUT # 6.8 K/uL (1.8-7.0); NEUT % 68.9 % (50.0-75.0); RBC 4.67 Mil/uL (3.80-5.20); WHITE BLOOD COUNT 9.9 K/uL (4.8-10.8)
[2018-05-15 06:19] LABS: ALB/GLOB RATIO 1.4 (1.0-2.1); ALBUMIN 3.5 g/dL (3.5-5.0); ALT/SGPT 22 U/L (9-52); AST/SGOT 24 U/L (14-36); BLOOD UREA NITROGEN 20 mg/dL (7-17); CALCIUM 8.6 mg/dl (8.6-10.4); GFR NON-AFRICAN AMERICAN > 60
[2018-05-15 06:25] VITALS: RESP 20
[2018-05-15] MEDS: Enoxaparin 40 mg Syringe SC SCH (09:44)
--- NOTE | 2018-05-15 10:27 | VASCLAB ---
Date of service: 05/12/2018 PROCEDURE: Carotid Duplex Exam. HISTORY: carotid stenosis COMPARISON: None available. TECHNIQUE: Grayscale and duplex Doppler evaluation of the cervical carotid and vertebral arteries were performed. The common carotid, carotid bifurcations and cervical Internal Carotid Artery (ICA) and proximal External Carotid Artery (ECA) were evaluated. The vertebral arteries were evaluated for gross patency and flow direction. Report prepared by Ryan Finley, BS, RVT FINDINGS: RIGHT CAROTID ARTERIES: 1. Common Carotid Artery: No significant focal plaque formation of the right common carotid artery. Maximum Peak Systolic velocity: 47 cm/sec: End-diastolic velocity 16 cm/sec. 2. Carotid Bifurcation: plaque formation. Maximum Peak Systolic velocity: 57 cm/sec: End-diastolic velocity 20 cm/sec. 3. Internal Carotid Artery: Plaque description: 3.1. Proximal Segment: Peak systolic velocity 73 cm/sec: End-diastolic velocity 24 cm/sec - % stenosis 0-15% 3.2. Middle Segment: Peak systolic velocity 67 cm/sec: End-diastolic velocity 31 cm/sec - % stenosis 0-15% 3.3. Distal Segment: Peak systolic velocity 61 cm/sec: End-diastolic velocity 25 cm/sec - % stenosis 0-15% 4. External Carotid Artery: No significant focal plaque formation. Peak systolic velocity 67 cm/sec 5. ICA/CCA Ratio: 1.6 LEFT CAROTID ARTERIES: 1. Common Carotid Artery: No significant focal plaque formation of the left common carotid artery. Maximum Peak Systolic velocity: 59 cm/sec: End-diastolic velocity 19 cm/sec. 2. Carotid Bifurcation: plaque formation. Maximum Peak Systolic velocity: 59 cm/sec: End-diastolic velocity 19 cm/sec. 3. Internal Carotid Artery: Plaque description: 3.1. Proximal Segment: Peak systolic velocity 61 cm/sec: End-diastolic velocity 24 cm/sec - % stenosis 0-15% 3.2. Middle Segment: Peak systolic velocity 43 cm/sec: End-diastolic velocity 18 cm/sec - % stenosis 0-15% 3.3. Distal Segment: Peak systolic velocity 43 cm/sec: End-diastolic velocity 16 cm/sec - % stenosis 0-15% 4. External Carotid Artery: No significant focal plaque formation. Peak systolic velocity 59 cm/sec 5. ICA/CCA Ratio: 1.0 VERTEBRAL ARTERIES: 1. Right Vertebral Artery: The right vertebral artery flow direction is antegrade. 2. Left Vertebral Artery: The left vertebral artery flow direction is antegrade. OTHER FINDINGS: 1. Right Brachial Blood pressure: mmHg. 2. Left Brachial Blood pressure: 168 mmHg. 3. No atherosclerotic calcification present IMPRESSION: RIGHT: Duplex scan does not suggest hemodynamically significant stenosis of the right extracranial carotid arteries. LEFT: Duplex scan does not suggest hemodynamically significant stenosis of the left extracranial carotid arteries.
--- NOTE | 2018-05-15 12:40 | CP.PCM.PN ---
Subjective - Date & Time of Evaluation Date of Evaluation: 05/15/18 Time of Evaluation: 12:39 - Subjective Subjective: Patient still has periods of confusion in time and place There is no any focal deficit Vital signs are stable sugars are getting under control Physical examination is normal Continue present therapy Objective - Vital Signs/Intake and Output Vital Signs (last 24 hours): Temp Pulse Resp BP Pulse Ox 98.9 F 89 20 144/95 H 98 05/15/18 06:00 05/15/18 06:00 05/15/18 06:00 05/15/18 06:00 05/14/18 23:00 Intake and Output: 05/15/18 05/15/18 11:59 23:59 Intake Total 0 Balance 0 - Medications Medications: Current Medications Aspirin (Aspirin Chewable) 81 mg PO DAILY [facility] Last Admin: 05/15/18 09:44 Dose: 81 mg Enoxaparin Sodium (Lovenox) 40 mg SC DAILY [facility] Last Admin: 05/15/18 09:44 Dose: 40 mg Famotidine (Pepcid) 20 mg PO DAILY [facility] Last Admin: 05/15/18 09:44 Dose: 20 mg Insulin Aspart (Novolog) [address] [facility]; Protocol Last Admin: 05/15/18 12:14 Dose: 4 u Insulin Glargine (Lantus) 20 unit SC [facility] Last Admin: 05/14/18 22:23 Dose: 20 units Levetiracetam (Keppra) 500 mg PO Q12 [facility] Last Admin: 05/15/18 09:44 Dose: 500 mg Lisinopril (Zestril) 10 mg PO DAILY [facility] Last Admin: 05/15/18 09:44 Dose: 10 mg Metoclopramide HCl (Reglan) 10 mg IVP Q8 PRN PRN Reason: Nausea/Vomiting Ondansetron HCl (Zofran Inj) 4 mg IVP Q6 PRN PRN Reason: VOMITING Last Admin: 05/13/18 07:13 Dose: 4 mg Rosuvastatin Calcium (Crestor) 10 mg PO [facility] Last Admin: 05/14/18 21:37 Dose: 10 mg - Labs Labs: 05/15/18 05:54 05/15/18 05:52 Assessment and Plan (1) Diabetic gastroparesis Status: Acute (2) HTN (hypertension) Status: Acute (3) Neuropathic pain Status: Acute (4) Sepsis Status: Acute
--- NOTE | 2018-05-15 13:42 | CP.PCM.PN ---
Subjective - Date & Time of Evaluation Date of Evaluation: 05/15/18 Time of Evaluation: 13:40 - Subjective Subjective: Neuro Follow-Up Note: Mrs. Nair was evaluated this afternoon at bedside. Pt initially states to me that she is feeling better today. When I discussed possible d/c with the pt she became anxious and agitated, stating the comments "I can't leave; I have this thing on my face dripping into my mouth; I have the Herpes; I have the inside me; I see flies everywhere." This pt is known to me from previous admissions; there is suspected malingering when she is made aware of d/c plans. Otherwise she denies visual changes, chest pain, palpitations, sob, cough, abd pain, vomiting/diarrhea, paresthesias. Objective - Vital Signs/Intake and Output Vital Signs (last 24 hours): Temp Pulse Resp BP Pulse Ox 98.9 F 89 20 144/95 H 98 05/15/18 06:00 05/15/18 06:00 05/15/18 06:00 05/15/18 06:00 05/14/18 23:00 Intake and Output: 05/15/18 05/15/18 06:59 18:59 Intake Total 0 Balance 0 - Medications Medications: Current Medications Aspirin (Aspirin Chewable) 81 mg PO DAILY [facility] Last Admin: 05/15/18 09:44 Dose: 81 mg Enoxaparin Sodium (Lovenox) 40 mg SC DAILY [facility] Last Admin: 05/15/18 09:44 Dose: 40 mg Famotidine (Pepcid) 20 mg PO DAILY [facility] Last Admin: 05/15/18 09:44 Dose: 20 mg Insulin Aspart (Novolog) 0 unit SC [facility]; Protocol Last Admin: 05/15/18 12:14 Dose: 4 u Insulin Glargine (Lantus) 20 unit SC HS [facility] Last Admin: 05/14/18 22:23 Dose: 20 units Levetiracetam (Keppra) 500 mg PO Q12 [facility] Last Admin: 05/15/18 09:44 Dose: 500 mg Lisinopril (Zestril) 10 mg PO DAILY [facility] Last Admin: 05/15/18 09:44 Dose: 10 mg Metoclopramide HCl (Reglan) 10 mg IVP Q8 PRN PRN Reason: Nausea/Vomiting Ondansetron HCl (Zofran Inj) 4 mg IVP Q6 PRN PRN Reason: VOMITING Last Admin: 05/13/18 07:13 Dose: 4 mg Rosuvastatin Calcium (Crestor) 10 mg PO HS [facility] Last Admin: 05/14/18 21:37 Dose: 10 mg - Labs Labs: 05/15/18 05:54 05/15/18 05:52 - Constitutional Appears: Non-toxic, Other (see subjective) - Head Exam Head Exam: ATRAUMATIC, NORMAL INSPECTION, NORMOCEPHALIC - Eye Exam Eye Exam: EOMI, Normal appearance, PERRL Pupil Exam: NORMAL ACCOMODATION, PERRL - ENT Exam ENT Exam: Mucous Membranes Moist - Neck Exam Neck Exam: Full ROM, Normal Inspection - Respiratory Exam Respiratory Exam: NORMAL BREATHING PATTERN - Extremities Exam Extremities Exam: Full ROM, Normal Inspection. absent: Calf Tenderness, Pedal Edema, Tenderness - Back Exam Back Exam: Full ROM - Neurological Exam Neurological Exam: Alert, Awake, CN II-XII Intact, Oriented x3, Reflexes Normal. absent: Motor Sensory Deficit Neuro motor strength exam: Left Upper Extremity: 5, Right Upper Extremity: 5, Left Lower Extremity: 5, Right Lower Extremity: 5 Additional comments: speech clear from to all extremities no tremors or abnormal movements gait not assessed - Psychiatric Exam Psychiatric exam: Anxious Additional comments: see subjective - Skin Skin Exam: Normal Color Additional comments: ? hive just under left nostril--no drainage Assessment and Plan (1) Altered mental status Assessment & Plan: Imaging reviewed: -MRI Brain (05/13/18): Chronic infarct left frontal lobe. Trace chronic microangiopathy. No abnormal intracranial enhancement. -CT Head (05/12/18): No evidence of acute intracranial hemorrhage mass effect or midline shift. 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 -CTA Head and Neck (05/12/18): No definite large vessel occlusion or significant stenosis in CT angiography of the head and neck. 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 Limited bilateral cavernous ICA calcified atherosclerosis. 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 -Continue ASA 81 mg PO Daily and statin upon d/c for secondary stroke prevent ion. -Continue Keppra 500 mg PO Q12 upon d/c for seizure prevention 2/2 stroke given pt's presentation on admission. -Recommend ECHO in lieu of previous stroke and presentation upon admission---will defer to primary team/cardiology. -Will defer psych consult to primary team for pt's anxiety. -Continue current management and supportive care. -Notify neuro team of any acute changes in pt's condition. No further neuro recommendations at this time. Please reconsult prn. Thank you for this consultation. Molly Mcmahan, [place], [employer] d/w Dr. Loazno Status: Acute
[2018-05-15] MEDS: (Lantus) Insulin Glargine, Recombinant SC SCH (21:44)
[2018-05-16 07:02] LABS: BASO % 0.5 % (0.0-2.0); EOS # 0.1 K/uL (0.0-0.7); EOS % 1.2 % (0.0-4.0); HEMOGLOBIN 12.6 g/dL (11.0-16.0); LYMPH # 1.8 K/uL (1.0-4.3); MEAN CELL VOLUME 87.8 fL (81.0-99.0); MEAN CORPUSCULAR HEMOGLOBIN 29.6 pg (27.0-31.0); MEAN CORPUSCULAR HGB CONC 33.8 g/dL (33.0-37.0); MEAN PLATELET VOLUME 10.3 fL (7.2-11.7); MONO # 0.5 K/uL (0.0-0.8); MONO % 6.7 % (0.0-10.0); NEUT # 4.5 K/uL (1.8-7.0); NEUT % 65.6 % (50.0-75.0); NRBC % 0.1 % (0.0-2.0); RBC 4.26 Mil/uL (3.80-5.20); RED CELL DISTRIBUTION WIDTH 13.1 % (11.5-14.5); WHITE BLOOD COUNT 6.9 K/uL (4.8-10.8)
[2018-05-16 07:24] LABS: ALB/GLOB RATIO 1.4 (1.0-2.1); ALBUMIN 3.1 g/dL (3.5-5.0); ALT/SGPT 15 U/L (9-52); AST/SGOT 23 U/L (14-36); BLOOD UREA NITROGEN 23 mg/dL (7-17); CALCIUM 8.3 mg/dl (8.6-10.4); GFR NON-AFRICAN AMERICAN > 60
[2018-05-16] MEDS: (Novolog) Insulin Aspart, Recombinant 100 u/ml 10 ml vial SC SCH ×4 (07:39→21:42)
[2018-05-16] MEDS: Enoxaparin 40 mg Syringe SC SCH (09:27)
--- NOTE | 2018-05-16 09:36 | PCM.PSYCH ---
Initial Psychiatric Evaluation - Initial Psychiatric Evaluation Type of Admission: Voluntary Legal Status: Capacity Current Medications: Active Medications Generic Name Dose Route Start Last Admin Trade Name Travisq PRN Reason Stop Dose Admin Aspirin 81 mg 05/13/18 10:00 05/16/18 09:26 Aspirin Chewable PO 81 mg DAILY [facility] Administration Enoxaparin Sodium 40 mg 05/13/18 10:00 05/16/18 09:27 Lovenox SC 40 mg DAILY [facility] Administration Famotidine 20 mg 05/14/18 10:00 05/16/18 09:26 Pepcid PO 20 mg DAILY [facility] Administration Insulin Aspart 0 unit 05/15/18 07:30 05/16/18 07:39 Novolog SC 8 u ACHS [facility] Administration Protocol Insulin Glargine 20 unit 05/14/18 22:30 05/15/18 21:44 Lantus SC 20 units HS [facility] Administration Levetiracetam 500 mg 05/14/18 22:00 05/16/18 09:26 Keppra PO 500 mg Q12 [facility] Administration Lisinopril 10 mg 05/13/18 18:00 05/16/18 09:26 Zestril PO Not Given DAILY [facility] Metoclopramide HCl 10 mg 05/12/18 17:00 Reglan IVP Q8 PRN Nausea/Vomiting Ondansetron HCl 4 mg 05/12/18 05:16 05/13/18 07:13 Zofran Inj IVP 4 mg Q6 PRN Administration VOMITING Rosuvastatin Calcium 10 mg 05/13/18 22:00 05/15/18 21:42 Crestor PO 10 mg HS [facility] Administration Past Psychiatric History - Past Psychiatric History Pertinent Medical Hx (Current Medical&Sleep Prob, Allergies): Allergies Allergy/AdvReac Type Severity Reaction Status Date / Time No Known Allergies Allergy Verified 05/11/18 06:02 Acetaminophen/Oxycodone Hydr [Percocet 10/325 mg Tab] 1 tab PO Q4H PRN 05/26/16 Diazepam [Valium] 10 mg PO BID PRN 06/28/16 Insulin Lispro [Humalog (Insulin Lispro)] 10 unit SQ BID 09/01/16 Lisinopril [Prinivil] 20 mg PO DAILY 09/01/16 Atorvastatin [Lipitor] 20 mg PO DAILY 09/12/16 Lactobacillus Combo No.10 [Probiotic] 1 each PO BID #30 capsule 08/15/17 Metoclopramide [Reglan] 5 mg PO ACTID #30 tab 10/27/16 Naloxegol Oxalate [Movantik] 25 mg PO DAILY #15 tablet 10/27/16 Pantoprazole [Protonix EC Tab] 40 mg PO ACB #30 ect 07/07/17 Polyethylene Glycol 3350 [Miralax] 17 gm PO BID #60 packet 07/07/17 Lidocaine 5% [Lidoderm] 1 ea TD BID #14 patch 05/11/18
--- NOTE | 2018-05-16 12:39 | CP.PCM.PN ---
Subjective - Date & Time of Evaluation Date of Evaluation: 05/16/18 Time of Evaluation: 12:39 - Subjective Subjective: Patient still has periods of confusion in time and place There is no any focal deficit Vital signs are stable sugars are getting under control Physical examination is normal Continue present therapy Objective - Vital Signs/Intake and Output Vital Signs (last 24 hours): Temp Pulse Resp BP Pulse Ox 97.2 F L 53 L 20 94/65 L 94 L 05/16/18 07:48 05/16/18 07:48 05/16/18 07:48 05/16/18 07:48 05/16/18 07:48 Intake and Output: 05/16/18 05/16/18 11:59 23:59 Intake Total 240 Balance 240 - Medications Medications: Current Medications Aspirin (Aspirin Chewable) 81 mg PO DAILY [facility] Last Admin: 05/16/18 09:26 Dose: 81 mg Enoxaparin Sodium (Lovenox) 40 mg SC DAILY [facility] Last Admin: 05/16/18 09:27 Dose: 40 mg Famotidine (Pepcid) 20 mg PO DAILY [facility] Last Admin: 05/16/18 09:26 Dose: 20 mg Insulin Aspart (Novolog) 0 unit SC [facility]; Protocol Last Admin: 05/16/18 11:59 Dose: 6 u Insulin Glargine (Lantus) [address] [facility] Last Admin: 05/15/18 21:44 Dose: 20 units Levetiracetam (Keppra) 500 mg PO Q12 [facility] Last Admin: 05/16/18 09:26 Dose: 500 mg Lisinopril (Zestril) 10 mg PO DAILY [facility] Last Admin: 05/16/18 09:26 Dose: Not Given Metoclopramide HCl (Reglan) 10 mg IVP Q8 PRN PRN Reason: Nausea/Vomiting Ondansetron HCl (Zofran Inj) 4 mg IVP Q6 PRN PRN Reason: VOMITING Last Admin: 05/13/18 07:13 Dose: 4 mg Rosuvastatin Calcium (Crestor) [address] [facility] Last Admin: 05/15/18 21:42 Dose: 10 mg - Labs Labs: 05/16/18 06:44 05/16/18 06:44 Assessment and Plan (1) Diabetic gastroparesis Status: Acute (2) HTN (hypertension) Status: Acute (3) Neuropathic pain Status: Acute (4) Sepsis Status: Acute
[2018-05-16] MEDS: (Lantus) Insulin Glargine, Recombinant SC SCH (21:46)
[2018-05-17 07:24] LABS: BASO % 0.6 % (0.0-2.0); EOS # 0.1 K/uL (0.0-0.7); EOS % 2.3 % (0.0-4.0); HEMOGLOBIN 13.5 g/dL (11.0-16.0); LYMPH # 2.7 K/uL (1.0-4.3); LYMPH % 43.6 % (20.0-40.0); MEAN CELL VOLUME 87.7 fL (81.0-99.0); MEAN CORPUSCULAR HEMOGLOBIN 30.2 pg (27.0-31.0); MEAN CORPUSCULAR HGB CONC 34.5 g/dL (33.0-37.0); MEAN PLATELET VOLUME 10.3 fL (7.2-11.7); MONO # 0.3 K/uL (0.0-0.8); MONO % 5.3 % (0.0-10.0); NEUT % 48.2 % (50.0-75.0); RBC 4.45 Mil/uL (3.80-5.20); RED CELL DISTRIBUTION WIDTH 12.9 % (11.5-14.5); WHITE BLOOD COUNT 6.3 K/uL (4.8-10.8)
[2018-05-17 07:39] LABS: ALB/GLOB RATIO 1.4 (1.0-2.1); ALBUMIN 3.1 g/dL (3.5-5.0); ALT/SGPT 19 U/L (9-52); AST/SGOT 21 U/L (14-36); BLOOD UREA NITROGEN 23 mg/dL (7-17); CALCIUM 8.7 mg/dl (8.6-10.4); GFR NON-AFRICAN AMERICAN 58
[2018-05-17] MEDS: (Novolog) Insulin Aspart, Recombinant 100 u/ml 10 ml vial SC SCH ×3 (08:09→17:10)
[2018-05-17] MEDS: Enoxaparin 40 mg Syringe SC SCH (09:35)
--- NOTE | 2018-05-17 11:33 | CP.PCM.DIS ---
Provider - Provider Date of Admission: 05/12/18 18:15 Attending physician: Linsey Sibley MD Consults: 05/12/18 14:37 Critical Care Consult Routine Comment: Consulting Provider: Scout Farley Consulting Physician: Scout Farley Reason for Consult: altered mental status 05/12/18 16:02 Neurology Consult Routine Comment: Consulting Provider: Jake Lozano Consulting Physician: Jake Lozano Reason for Consult: stroke 05/15/18 14:17 Psychiatry Consult Routine Comment: PERIOD OF CONFUSION/ HALLUCINATION/ ANXIETY Consulting Provider: Ayaka Arnett Consulting Physician: Ayaka Arnett Reason for Consult: PERIOD OF CONFUSION/ HALLUCINATION/ ANXIETY Time Spent in preparation of Discharge (in minutes): 35 Diagnosis - Discharge Diagnosis (1) Diabetic gastroparesis Status: Acute (2) HTN (hypertension) Status: Acute (3) Neuropathic pain Status: Acute (4) Sepsis Status: Acute Hospital Course - Lab Results Lab Results: Micro Results 05/12/18 08:40 Blood Blood Culture - Final NO GROWTH AFTER 5 DAYS 05/12/18 08:40 Blood Gram Stain - Final TEST NOT PERFORMED 05/12/18 08:40 Blood Blood Culture - Final NO GROWTH AFTER 5 DAYS 05/12/18 08:40 Blood Gram Stain - Final TEST NOT PERFORMED 05/12/18 05:17 Urine,Clean Catch Urine Culture - Final <10,000 CFU/ML. MULTIPLE SPECIES. PROBABLE CONTAMINATION. 05/12/18 18:08 Naris MRSA Culture (Admit) - Final MRSA NOT DETECTED Most Recent Lab Values WBC 6.3 K/uL (4.8-10.8) 05/17/18 07:10 RBC 4.45 Mil/uL (3.80-5.20) 05/17/18 07:10 Hgb 13.5 g/dL (11.0-16.0) 05/17/18 07:10 Hct 39.1 % (34.0-47.0) 05/17/18 07:10 MCV 87.7 fL (81.0-99.0) 05/17/18 07:10 MCH 30.2 pg (27.0-31.0) 05/17/18 07:10 MCHC 34.5 g/dL (33.0-37.0) 05/17/18 07:10 RDW 12.9 % (11.5-14.5) 05/17/18 07:10 Plt Count 175 K/uL (130-400) 05/17/18 07:10 MPV 10.3 fL (7.2-11.7) 05/17/18 07:10 Neut % (Auto) 48.2 % (50.0-75.0) L 05/17/18 07:10 Lymph % (Auto) 43.6 % (20.0-40.0) H 05/17/18 07:10 [place] % (Auto) 5.3 % (0.0-10.0) 05/17/18 07:10 Eos % (Auto) 2.3 % (0.0-4.0) 05/17/18 07:10 Baso % (Auto) 0.6 % (0.0-2.0) 05/17/18 07:10 Neut # (Auto) 3.0 K/uL (1.8-7.0) 05/17/18 07:10 Lymph # (Auto) 2.7 K/uL (1.0-4.3) 05/17/18 07:10 [place] # (Auto) 0.3 K/uL (0.0-0.8) 05/17/18 07:10 Eos # (Auto) 0.1 K/uL (0.0-0.7) 05/17/18 07:10 Baso # (Auto) 0.0 K/uL (0.0-0.2) 05/17/18 07:10 Neutrophils % (Manual) 89 % (50-75) H 05/12/18 02:25 Lymphocytes % (Manual) 8 % (20-40) L 05/12/18 02:25 Monocytes % (Manual) 3 % (0-10) 05/12/18 02:25 Platelet Estimate Normal (NORMAL) 05/12/18 02:25 Puncture Site Lr 05/12/18 14:58 pCO2 30 mm/Hg (35-45) L 05/12/18 14:58 pO2 65 mm/Hg (80-100) L 05/12/18 14:58 HCO3 22.8 mmol/L (21-28) 05/12/18 14:58 ABG pH 7.44 (7.35-7.45) 05/12/18 14:58 ABG Total CO2 21.3 mmol/L (22-28) L 05/12/18 14:58 ABG O2 Saturation 95.5 % (95-98) 05/12/18 14:58 ABG Base Excess -2.5 mmol/L (-2.0-3.0) L 05/12/18 14:58 ABG Hemoglobin 15.4 g/dL (11.7-17.4) 05/12/18 14:58 ABG Carboxyhemoglobin 1.7 % (0.5-1.5) H 05/12/18 14:58 POC ABG HHb (Measured) 4.4 % (0.0-5.0) 05/12/18 14:58 ABG Methemoglobin 1.1 % (0.0-3.0) 05/12/18 14:58 Abimael Test Pos 05/12/18 14:58 VBG pH 7.23 (7.32-7.43) L 05/12/18 02:30 VBG pCO2 48 mmHg (40-60) 05/12/18 02:30 VBG HCO3 17.4 mmol/L 05/12/18 02:30 VBG Total CO2 21.6 mmol/L (22-28) L 05/12/18 02:30 VBG O2 Sat (Calc) 45.3 % (40-65) 05/12/18 02:30 VBG Base Excess -7.5 mmol/L (0.0-2.0) L 05/12/18 02:30 VBG Potassium 3.5 mmol/L (3.6-5.2) L 05/12/18 02:30 A-a O2 Difference 47.0 mm/Hg 05/12/18 14:58 Respiratory Index 0.7 05/12/18 14:58 Hgb O2 Saturation 92.8 % (95.0-98.0) L 05/12/18 14:58 Sodium 140.0 mmol/l (132-148) 05/12/18 02:30 Chloride 98.0 mmol/L (98-107) 05/12/18 02:30 Glucose 454 mg/dl (65-105) H* D 05/12/18 02:30 Lactate 5.9 mmol/L (0.7-2.1) H* 05/12/18 02:30 FiO2 21.0 % 05/12/18 14:58 Crit Value Called To Dr. french 05/12/18 02:30 Crit Value Called By Cecy michaud rcp 05/12/18 02:30 Crit Value Read Back Y 05/12/18 02:30 Blood Gas Notified Time 342 05/12/18 02:30 Sodium 137 mmol/L (132-148) 05/17/18 07:10 Potassium 3.7 mmol/L (3.6-5.2) 05/17/18 07:10 Chloride 98 mmol/L (98-107) 05/17/18 07:10 Carbon Dioxide 30 mmol/L (22-30) 05/17/18 07:10 Anion Gap 12 (10-20) 05/17/18 07:10 BUN 23 mg/dL (7-17) H 05/17/18 07:10 Creatinine 1.0 mg/dL (0.7-1.2) 05/17/18 07:10 Est GFR ( Amer) > 60 05/17/18 07:10 Est GFR (Non-Af Amer) 58 05/17/18 07:10 POC Glucose (mg/dL) 254 mg/dL (65-110) H 05/17/18 07:25 Random Glucose 221 mg/dL (65-105) H D 05/17/18 07:10 Lactic Acid 2.6 mmol/L (0.7-2.1) H 05/12/18 07:34 Calcium 8.7 mg/dl (8.6-10.4) 05/17/18 07:10 Total Bilirubin 0.2 mg/dL (0.2-1.3) 05/17/18 07:10 AST 21 U/L (14-36) 05/17/18 07:10 ALT 19 U/L (9-52) 05/17/18 07:10 Alkaline Phosphatase 79 U/L (38-126) 05/17/18 07:10 Ammonia < 9 umol/L (9-33) L 05/12/18 15:26 Total Protein 5.4 g/dL (6.3-8.3) L 05/17/18 07:10 Albumin 3.1 g/dL (3.5-5.0) L 05/17/18 07:10 Globulin 2.2 gm/dL (2.2-3.9) 05/17/18 07:10 Albumin/Globulin Ratio 1.4 (1.0-2.1) 05/17/18 07:10 Lipase 19 U/L (23-300) L 05/12/18 02:25 Free T4 1.05 ng/dL (0.78-2.19) 05/12/18 15:26 TSH 3rd Generation 1.08 mIU/L (0.46-4.68) 05/12/18 15:26 Venous Blood Potassium 3.5 mmol/L (3.6-5.2) L 05/12/18 02:30 Urine Color Yellow (YELLOW) 05/12/18 04:47 Urine Clarity Hazy (Clear) 05/12/18 04:47 Urine pH 5.0 (5.0-8.0) 05/12/18 04:47 Ur Specific [place] 1.030 (1.003-1.030) 05/12/18 04:47 Urine Protein 2+ mg/dL (NEGATIVE) H 05/12/18 04:47 Urine Glucose (UA) 3+ mg/dL (Normal) H 05/12/18 04:47 Urine Ketones 2+ mg/dL (NEGATIVE) H 05/12/18 04:47 Urine Blood 1+ (NEGATIVE) H 05/12/18 04:47 Urine Nitrate Negative (NEGATIVE) 05/12/18 04:47 Urine Bilirubin Negative (NEGATIVE) 05/12/18 04:47 Urine Urobilinogen Normal mg/dL (0.2-1.0) 05/12/18 04:47 Ur Leukocyte Esterase Neg Jana/uL (Negative) 05/12/18 04:47 Urine WBC (Auto) 3 /hpf (0-5) 05/12/18 04:47 Urine RBC (Auto) 3 /hpf (0-3) 05/12/18 04:47 Ur Squamous Epith Cells 4 /hpf (0-5) 05/12/18 04:47 Urine Opiates Screen Positive (NEGATIVE) H 05/12/18 09:00 Urine Methadone Screen Negative (NEGATIVE) 05/12/18 09:00 Ur Barbiturates Screen Negative (NEGATIVE) 05/12/18 09:00 Ur Phencyclidine Scrn Negative (NEGATIVE) 05/12/18 09:00 Ur Amphetamines Screen Negative (NEGATIVE) 05/12/18 09:00 U Benzodiazepines Scrn Positive (NEGATIVE) 05/12/18 09:00 U Oth Cocaine Metabols Negative (NEGATIVE) 05/12/18 09:00 U Cannabinoids Screen Negative (NEGATIVE) 05/12/18 09:00 Alcohol, Quantitative < 10 mg/dl (0-10) 05/12/18 09:00 B-Hydroxybutyrate 3.47 mM (0.02-0.27) H 05/12/18 05:15 - Hospital Course Hospital Course: 57-year-old female presents to the emergency department with complaints of generalized body pain and aches as well as vomiting since 4 AM last night. Patient was evaluated last night for generalized back pain and abdominal pain; patient was recently treated for shingles two weeks ago. Patient states that she is diabetic and has been vomiting brownish liquid HAS H/O T2DM INSULIN DEPENDENT , HTN AND RECENTLY HAD MILD H ZOSTER RX WITH [facility] TAKES PERCOCET FOR CH. BACK PAIN HAS IN PAST SAME SYMPTOMS WITH VOMITING DIAGNOSED GASTROPARESIS FURTHER W/U PT WAS IN DKA AND TRANSFERRED TO ICU NEURO EVALUATED MR INFARCT AGE UNDETERMINED VA IMPROVED ON FLUIDS AND INSULIN F/U OFFICE Discharge Exam - Head Exam Head Exam: ATRAUMATIC, NORMAL INSPECTION, NORMOCEPHALIC Discharge Plan - Follow Up Plan Condition: STABLE Disposition: HOME/ ROUTINE
[2018-05-17 15:53] VITALS: BP 146/85; PULSE 86; TEMP 98.1; O2SAT 96
== END 2018-05-17 18:03 | disposition home or self-care (01) | DRG 48 ==
LOC: C.ER 01:11 → C.9E 05:06 → OBSVTOIN 05:06 → UNDOADMOB 05:06 → INTOOBSV 05:06 → C.5S 06:22 → C.9E 06:22 → C.5S 07:42 → C.9I 15:38 → C.5S 15:38 → C.9E 18:15 → OBSVTOIN 18:15 → C.5S 18:15 → C.9I 18:15 → C.3T 05-15 10:52
PROVIDERS: ADMIT Internal Medicine Cardiovascular Disease; ATTEND Internal Medicine Cardiovascular Disease
DX: E11.43 Type 2 diabetes mellitus with diabetic autonomic (poly)neuropathy (principal); G92 Toxic encephalopathy; A41.9 Sepsis, unspecified organism; E11.10 Type 2 diabetes mellitus with ketoacidosis without coma; I10 Essential (primary) hypertension; K31.84 Gastroparesis; Z79.4 Long term (current) use of insulin; Z79.891 Long term (current) use of opiate analgesic; D72.828 Other elevated white blood cell count; Z86.73 Personal history of transient ischemic attack (TIA), and cerebral infarction without residual deficits; Z91.81 History of falling